=== PATIENT | female | born 1970 | race African-American/Black ===

== ENCOUNTER 2018-08-05 08:03 | Inpatient (IN) ==
[2018-08-05] MEDS ORDERED: ACETAMINOPHEN 1,000 MG/100 ML VIAL IV STA (08:25)
[2018-08-05] MEDS ORDERED: ALBUTEROL 0.083% NEBU SOLN 3 ML VIAL NEB STA (08:25)
[2018-08-05] MEDS ORDERED: SODIUM CHLORIDE 0.9% 1000ML 1,000 ML IV ONE (08:25)
--- NOTE | 2018-08-05 08:43 | Emergency Department Note ---
History of Present Illness General Chief Complaint: Shortness of Breath/Dyspnea Stated Complaint: SOB,CHEST PAINS,COUGHING,DEHYDRATION Source: patient Mode of arrival: ambulatory Limitations: no limitations History of Present Illness Provider Complaint: shortness of breath and cough Onset (ago): week(s) (2) Severity: severe Consistency/Duration: + constant Maximum Pain Intensity: 9 Current Pain Intensity: 9 Relieved By: + nothing Exacerbated By: + exertion, + coughing and + inspiration Context: + recent illness; no recent travel and no trauma/injury Known history of: asthma and HIV Associated symptoms: + chest pain, + fever, + cough, + sputum production, + hemoptysis and + chest congestion Treatment prior to arrival: bronchodilator This 48-year-old female HIV positive patient presents emergency department today , ambulatory, complaining of shortness of breath and coughing up phlegm. The patient states symptoms began 2 weeks ago. She had known fever at home. She reports significant upper respiratory infection with congestion and rhinorrhea. She states that she is having a constant chest pain which she describes as pressure in the middle of her chest. All symptoms began 2 weeks ago. The patient also reports thrush in her mouth, and states this has been consistent for the past 2 weeks. She does have a history of HIV as well as asthma. She has been taking her medications as prescribed including steroid inhalers. She saw her infectious disease doctor, Dr. Abdalla on of this week and advised of the symptoms. She states she was told at that time to come into the emergency department. She did not want to come, so waited until today. She states her last viral load was on and was 13,000. Related Data Home oxygen amount: none Home Medications Home Medications Medication Instructions Recorded Confirmed Type azithromycin 5 ml PO WK 08/05/18 08/05/18 History dapsone 100 mg PO DAILY 08/05/18 08/05/18 History darunavir-cobicistat [Prezcobix] 1 tab PO DAILY 08/05/18 08/05/18 History dolutegravir [Tivicay] 50 mg PO DAILY 08/05/18 08/05/18 History levothyroxine [Synthroid] 125 mcg PO DAILY 08/05/18 08/05/18 History pantoprazole [Protonix] 40 mg PO DAILY 08/05/18 08/05/18 History raltegravir [Isentress] 400 mg PO BID 08/05/18 08/05/18 History tenofovir disoproxil fumarate 300 mg PO DAILY 08/05/18 08/05/18 History [Viread] voriconazole 200 mg PO BID 08/05/18 08/05/18 History Allergies Allergy/AdvReac Type Severity Reaction Status Date / Time Penicillins AdvReac Unknown Rash Unverified 08/05/18 10:12 Past Med/Surg History Medical History Asthma HIV (human immunodeficiency virus infection) Social History Current Living Situation: Family Current Living Situation Comment: lives with daughter Other Information That Helps Us Care for You: No Feels Safe at Home: Yes Safety Concerns: Feels Safe At This Time Smoking Status: Never smoker Do You Dip or Chew Tobacco: No Second Hand Exposure: No Tobacco Cessation Education Requested by Patient: No Hx Alcohol Use: No Hx Substance Use: No Beliefs That Will Affect Care: Scientologist Scientologist Beliefs: wishes to speak to clergy Preferred Language: Telugu Communication Ability: Effective Slip Cover Sewer Required: No Review of Systems A total of 10 systems reviewed and were otherwise negative Physical Exam 2 Vital Signs: Vital Signs - 24 hr 08/05/18 08:07 08/05/18 08:29 08/05/18 08:32 Temperature 38.6 C H Temperature Source Oral Sepsis Recent Feve r Within 48 Hours No Sepsis New/Unexpla ined Change in Men katharina Status No Sepsis Action Take n by Nursing No Action Required Pulse Rate 113 H Pulse Rate [Apical ] Pulse Rhythm Pulse Rhythm [Apic al] Pulse Strength [Ap ical] Respiratory Rate 20 Respiratory Effort / Characteristics Short of Breath Respiratory Depth Normal Respiratory Patter n Regular Blood Pressure 101/61 Blood Pressure [Ri ght Arm] Blood Pressure Michelle n 74 Blood Pressure Michelle n [Right Arm] Blood Pressure Pos ition [Right Arm] Pulse Oximetry 100 100 Oxygen Delivery Me thod Room Air Room Air Room Air 08/05/18 08:33 08/05/18 08:52 08/05/18 09:44 Temperature Temperature Source Sepsis Recent Feve r Within 48 Hours Sepsis New/Unexpla ined Change in Men katharina Status Sepsis Action Take n by Nursing Pulse Rate 105 H Pulse Rate [Apical ] 104 H Pulse Rhythm Regular Pulse Rhythm [Apic al] Regular Regular Pulse Strength [Ap ical] Normal Normal Respiratory Rate 22 22 24 Respiratory Effort / Characteristics Short of Breath Short of Breath Respiratory Depth Normal Normal Respiratory Patter n Blood Pressure Blood Pressure [Ri ght Arm] 123/78 117/66 Blood Pressure Michelle n Blood Pressure Michelle n [Right Arm] 93 83 Blood Pressure Pos ition [Right Arm] Sitting Pulse Oximetry 100 100 100 Oxygen Delivery Me thod Room Air Room Air Room Air 08/05/18 09:45 08/05/18 10:20 08/05/18 11:10 Temperature Temperature Source Sepsis Recent Feve r Within 48 Hours Sepsis New/Unexpla ined Change in Men katharina Status Sepsis Action Take n by Nursing Pulse Rate Pulse Rate [Apical ] 92 H Pulse Rhythm Pulse Rhythm [Apic al] Regular Pulse Strength [Ap ical] Normal Respiratory Rate 22 Respiratory Effort / Characteristics Short of Breath Spontaneous SOB on Exertion Respiratory Depth Normal Normal Respiratory Patter n Regular Blood Pressure Blood Pressure [Ri ght Arm] 118/62 Blood Pressure Michelle n Blood Pressure Michelle n [Right Arm] 80 Blood Pressure Pos ition [Right Arm] Pulse Oximetry 100 98 Oxygen Delivery Me thod Room Air Room Air Room Air 08/05/18 12:07 08/05/18 12:09 08/05/18 15:13 Temperature 36.9 C 36.1 C L Temperature Source Oral Axillary Sepsis Recent Feve r Within 48 Hours Sepsis New/Unexpla ined Change in Men katharina Status Sepsis Action Take n by Nursing Pulse Rate 96 H Pulse Rate [Apical ] 95 H 67 Pulse Rhythm Pulse Rhythm [Apic al] Pulse Strength [Ap ical] Respiratory Rate 18 22 16 Respiratory Effort / Characteristics Respiratory Depth Respiratory Patter n Blood Pressure 102/56 L Blood Pressure [Ri ght Arm] 91/54 L 91/54 L Blood Pressure Michelle n Blood Pressure Michelle n [Right Arm] 66 66 Blood Pressure Pos ition [Right Arm] Sitting Pulse Oximetry 98 97 99 Oxygen Delivery Me thod Room Air Room Air Room Air 08/05/18 15:50 08/05/18 16:00 Temperature Temperature Source Sepsis Recent Feve r Within 48 Hours Sepsis New/Unexpla ined Change in Men katharina Status Sepsis Action Take n by Nursing Pulse Rate Pulse Rate [Apical ] 67 Pulse Rhythm Pulse Rhythm [Apic al] Pulse Strength [Ap ical] Respiratory Rate 16 Respiratory Effort / Characteristics Non-Labored Sponta neous Non-Labored Sponta neous Respiratory Depth Normal Respiratory Patter n Regular Blood Pressure Blood Pressure [Ri ght Arm] Blood Pressure Michelle n Blood Pressure Michelle n [Right Arm] Blood Pressure Pos ition [Right Arm] Pulse Oximetry 99 Oxygen Delivery Me thod Room Air Room Air Physical Exam: VITALS: Vitals are noted on the nurse's note and reviewed by myself. The patient is tachycardic and borderline hypotensive. GENERAL: This is a 48-year-old black female, in no acute distress, diaphoretic, cachectic, and ill-appearing. SKIN: The skin was without rashes, erythema, edema, or bruising. There is no tenting of the skin. Capillary reflex less than 2 seconds. HEAD: Normocephalic atraumatic. EARS: External auditory canals clear, tympanic membranes pearly kimball without erythema or effusion bilaterally. EYES: Pupils equal round and reactive to light and accommodation. Conjunctivae without injection, sclerae without icterus. Extraocular movements intact. NOSE: Patent, turbinates without inflammation or discharge. No sinus tenderness. MOUTH: Mucous membranes dry. Tonsils are not enlarged. Thrush noted throughout the tongue, oral cavity, and pharynx. Uvula midline. Airway patent. Tongue does not deviate. NECK: Supple without nuchal rigidity. No lymphadenopathy. No thyromegaly. Cervical spine is nontender. No JVD. HEART: Regular rate and rhythm without murmurs gallops or rubs. LUNGS: Clear to auscultation bilaterally without wheezes, rales or rhonchi. No dullness to percussion. No retractions or accessory muscle use. ABDOMEN: Positive bowel sounds x 4. Normal tympanic percussion. Soft, nontender, without masses or organomegaly. Forrester sign negative. No guarding or rebound tenderness. MUSCULOSKELETAL: No muscle atrophy, erythema, or edema noted. Full range of motion without joint tenderness in all extremities. No tenderness to palpation. Normal gait. Strength 5/5 throughout. NEURO: Patient was alert and oriented to person place and time. Normal sensation to light and sharp touch. Deep tendon reflexes 2+ throughout. No focal neurological deficits. Course The patient was seen and evaluated as above. IV access obtained, labs drawn. The patient was given IV acetaminophen, NSS, and Albuterol nebulizer Imaging performed and reviewed by myself and radiologist as above. Labs reviewed by myself. I discussed the findings with the patient at bedside. I discussed the case with my attending. The patient was given Cefepime and Azithromycin. I discussed the case with Dr. Macias. Please see his dictation regarding admission and further management/care. Administered Medications Albuterol (Duoneb) 3 ml NEB QIDR ROSMERY Stop: 09/04/18 13:14 Last Admin: 08/05/18 15:54 Dose: Not Given Admin: 08/05/18 15:50 Dose: 3 ml Ioversol (Optiray 320 125ml) 119 ml IV ONCE PRN PRN Reason: Interaction Checking Stop: 08/09/18 10:45 Last Admin: 08/05/18 10:46 Dose: 119 ml Miscellaneous (Order Awaiting Action) 1 ea N/A QS ROSMERY Stop: 09/04/18 15:59 Last Admin: 08/05/18 15:13 Dose: Not Given Miscellaneous (Order Awaiting Action) 1 ea N/A QS ROSMERY Stop: 09/04/18 15:59 Last Admin: 08/05/18 15:13 Dose: Not Given Miscellaneous (Order Awaiting Action) 1 ea N/A QS ROSMERY Stop: 09/04/18 15:59 Last Admin: 08/05/18 15:13 Dose: Not Given Discontinued Medications Albuterol (Ventolin 0.083% 2.5mg/3ml) 2.5 mg NEB NOW STA Stop: 08/05/18 08:26 Last Admin: 08/05/18 09:20 Dose: 2.5 mg Cefepime HCl (Maxipime) Confirm Administered Dose 2,000 mg .ROUTE .STK-MED ONE Stop: 08/05/18 10:46 Last Admin: 08/05/18 10:52 Dose: 2,000 mg Enoxaparin Sodium (Lovenox) 30 mg SQ Q24H ROSMERY Stop: 09/04/18 13:59 Last Admin: 08/05/18 14:01 Dose: Not Given Acetaminophen (Ofirmev) 1,000 mg in 100 mls @ 400 mls/hr IV NOW STA Stop: 08/05/18 08:39 Last Infusion: 08/05/18 10:04 Dose: Admin: 08/05/18 09:20 Dose: 400 mls/hr Sodium Chloride (Nss 1000ml) 1,000 mls @ 999 mls/hr IV .Q1H1M ONE Stop: 08/05/18 09:25 Last Infusion: 08/05/18 11:44 Dose: Admin: 08/05/18 09:19 Dose: 999 mls/hr Cefepime HCl 2,000 mg/ Syringe 20 mls @ 5.5 mls/min IV NOW STA Stop: 08/05/18 10:16 Last Admin: 08/05/18 11:06 Dose: Not Given Azithromycin 500 mg/ Dextrose 255 mls @ 127.5 mls/hr IV 1013 ROSMERY Stop: 08/05/18 12:12 Last Infusion: 08/05/18 13:02 Dose: 0 mls/hr Admin: 08/05/18 10:53 Dose: 127.5 mls/hr Medical Decision Making Differential Diagnosis + acute exacerbation of chronic obstructive airways disease, + congestive heart failure, + community acquired pneumonia, + asthma with exacerbation, + pulmonary embolism, + COPD, + bronchitis, + pneumothorax, + pneumonia, + pleural effusion, + CHF, + ACS and + aspiration Medical Records Attestation: I reviewed the patient's medical records. The patient was seen on of this week by Dr. Abdalla, infectious disease. She did have labs performed outpatient which were reviewed by myself. This documentation was placed on the patient's chart for further review by the inpatient team. Home Medications Current Medication List: was personally reviewed by me Laboratory Data Attestation: I reviewed the patient's lab results. White blood cell 2.24 and neutropenic. The patient is anemic with a hemoglobin of 9.6. This is chronic. Renal, hepatic function and electrolytes without significant abnormality. Troponin and CK-MB negative. TSH normal. Lipase 245. Coags show slightly elevated INR at 1.5. Lactic acid 1.9. HCG and mono screen negative. Result diagrams: 08/05/18 09:15 08/05/18 09:15 Lab Results 08/05/18 08/05/18 08/05/18 Range/Units 09:00 09:15 09:15 WBC 2.24 L (4.8-10.8) K/uL RBC 3.94 L (4.2-5.4) M/uL Hgb 9.6 L (12.0-16.0) g/dL POC Hgb (12.0-16.0) g/dl Hct 28.7 L (37-47) % POC Hct (37-47) % MCV 72.8 L (80-100) fL MCH 24.4 L (25-34) pg MCHC 33.4 (32-36) g/dL RDW Std Deviation 49.4 H (36.4-46.3) fL RDW Coeff of Ale 18.5 H (11.5-14.5) % Plt Count 274 (130-400) K/uL MPV 10.6 H (7.4-10.4) fL Immature Gran % (Auto) 0.9 % Neut % (Auto) 58.5 % Lymph % (Auto) 17.9 % Victoria % (Auto) 20.5 % Eos % (Auto) 1.8 % Baso % (Auto) 0.4 % Immature Gran # (Auto) 0.02 (0.00-0.02) K/uL Neut # (Auto) 1.31 L (1.4-6.5) K/uL Lymph # (Auto) 0.40 L (1.2-3.4) K/uL Victoria # (Auto) 0.46 (0.11-0.59) K/uL Eos # (Auto) 0.04 (0-0.5) K/uL Baso # (Auto) 0.01 (0-0.2) K/uL Giant Platelets 2+ Target Cells 1+ Ovalocytes 2+ Schistocytes 1+ PT (9.0-12.0) Seconds INR (0.9-1.1) APTT (21.0-31.0) Seconds PTT Ratio POC Sodium (135-144) mEq/L Sodium 134 L (136-145) mmol/L POC Potassium (3.3-5.0) mEq/L Potassium 3.7 (3.5-5.1) mmol/L POC Chloride (101-112) mEq/L Chloride 103 (98-107) mmol/L Carbon Dioxide 25 (21-32) mmol/L POC Total CO2 (24-31) mEq/l Anion Gap 6.0 (3-11) POC Anion Gap (16-25) mmol/L POC BUN (7-18) mg/dl BUN 11 (7-18) mg/dl Creatinine 0.87 (0.6-1.2) mg/dl POC Creatinine (0.6-1.3) mg/dl Est Cr Clr Drug Dosing 62.4 ml/min Est GFR ( Amer) 91.3 Est GFR (Non-Af Amer) 78.8 BUN/Creatinine Ratio 12.6 (10-20) Glucose 92 (70-99) mg/dl POC Glucose (other) (70-99) mg/dl Lactate (0.4-2.0) mmol/L Calcium 8.2 L (8.5-10.1) mg/dl POC Ioniz Calcium Mello (1.12-1.32) mmol/l Total Bilirubin 0.5 (0.2-1) mg/dl AST 19 (15-37) U/L ALT 13 (12-78) U/L Alkaline Phosphatase 120 H (45-117) U/L CK-MB (CK-2) < 1.0 (0.5-3.6) ng/ml Troponin I < 0.015 (0-0.045) ng/ml Total Protein 8.9 H (6.4-8.2) gm/dl Albumin 2.3 L (3.4-5.0) gm/dl Globulin 6.6 H (2.5-4.0) gm/dl Albumin/Globulin Ratio 0.3 L (0.9-2) Lipase 245 (73-393) U/L TSH 0.527 (0.300-4.500) uIu/ml HCG, Qual (Negative) Urine Color Urine Appearance (Clear) Urine pH (4.5-7.5) Ur Specific [place] (1.000-1.030) Urine Protein (Negative) Urine Glucose (UA) (Negative) Urine Ketones (Negative) Urine Blood (Negative) Urine Nitrite (Negative) Urine Bilirubin (Negative) Urine Urobilinogen (Negative) Ur Leukocyte Esterase (Negative) Urine Opiates Screen (Neg) Ur Methadone, Qual (Neg) Urine Barbiturates (Neg) Ur Phencyclidine (PCP) (Neg) U Amphetamin/Meth Scrn (Neg) MDMA (Ecstasy) Screen (Neg) U Benzodiazepines Scrn (Neg) Ur Cocaine Metabolite (Neg) U Marijuana (THC) Screen (Neg) Monoscreen (Negative) Influenza Type A Ag Neg for Influ A (Neg) Influenza Type B Ag Neg for Influ B (Neg) 08/05/18 08/05/18 08/05/18 Range/Units 09:15 09:15 09:15 WBC (4.8-10.8) K/uL RBC (4.2-5.4) M/uL Hgb (12.0-16.0) g/dL POC Hgb (12.0-16.0) g/dl Hct (37-47) % POC Hct (37-47) % MCV (80-100) fL MCH (25-34) pg MCHC (32-36) g/dL RDW Std Deviation (36.4-46.3) fL RDW Coeff of Ale (11.5-14.5) % Plt Count (130-400) K/uL MPV (7.4-10.4) fL Immature Gran % (Auto) % Neut % (Auto) % Lymph % (Auto) % Victoria % (Auto) % Eos % (Auto) % Baso % (Auto) % Immature Gran # (Auto) (0.00-0.02) K/uL Neut # (Auto) (1.4-6.5) K/uL Lymph # (Auto) (1.2-3.4) K/uL Victoria # (Auto) (0.11-0.59) K/uL Eos # (Auto) (0-0.5) K/uL Baso # (Auto) (0-0.2) K/uL Giant Platelets Target Cells Ovalocytes Schistocytes PT 14.4 H (9.0-12.0) Seconds INR 1.5 H (0.9-1.1) APTT 33.2 H (21.0-31.0) Seconds PTT Ratio 1.3 POC Sodium (135-144) mEq/L Sodium (136-145) mmol/L POC Potassium (3.3-5.0) mEq/L Potassium (3.5-5.1) mmol/L POC Chloride (101-112) mEq/L Chloride (98-107) mmol/L Carbon Dioxide (21-32) mmol/L POC Total CO2 (24-31) mEq/l Anion Gap (3-11) POC Anion Gap (16-25) mmol/L POC BUN (7-18) mg/dl BUN (7-18) mg/dl Creatinine (0.6-1.2) mg/dl POC Creatinine (0.6-1.3) mg/dl Est Cr Clr Drug Dosing ml/min Est GFR ( Amer) Est GFR (Non-Af Amer) BUN/Creatinine Ratio (10-20) Glucose (70-99) mg/dl POC Glucose (other) (70-99) mg/dl Lactate 1.9 (0.4-2.0) mmol/L Calcium (8.5-10.1) mg/dl POC Ioniz Calcium Mello (1.12-1.32) mmol/l Total Bilirubin (0.2-1) mg/dl AST (15-37) U/L ALT (12-78) U/L Alkaline Phosphatase (45-117) U/L CK-MB (CK-2) (0.5-3.6) ng/ml Troponin I (0-0.045) ng/ml Total Protein (6.4-8.2) gm/dl Albumin (3.4-5.0) gm/dl Globulin (2.5-4.0) gm/dl Albumin/Globulin Ratio (0.9-2) Lipase (73-393) U/L TSH (0.300-4.500) uIu/ml HCG, Qual Negative (Negative) Urine Color Urine Appearance (Clear) Urine pH (4.5-7.5) Ur Specific [place] (1.000-1.030) Urine Protein (Negative) Urine Glucose (UA) (Negative) Urine Ketones (Negative) Urine Blood (Negative) Urine Nitrite (Negative) Urine Bilirubin (Negative) Urine Urobilinogen (Negative) Ur Leukocyte Esterase (Negative) Urine Opiates Screen (Neg) Ur Methadone, Qual (Neg) Urine Barbiturates (Neg) Ur Phencyclidine (PCP) (Neg) U Amphetamin/Meth Scrn (Neg) MDMA (Ecstasy) Screen (Neg) U Benzodiazepines Scrn (Neg) Ur Cocaine Metabolite (Neg) U Marijuana (THC) Screen (Neg) Monoscreen Negative (Negative) Influenza Type A Ag (Neg) Influenza Type B Ag (Neg) 08/05/18 08/05/18 08/05/18 Range/Units 09:23 15:45 15:45 WBC (4.8-10.8) K/uL RBC (4.2-5.4) M/uL Hgb (12.0-16.0) g/dL POC Hgb 10.2 L (12.0-16.0) g/dl Hct (37-47) % POC Hct 30 L (37-47) % MCV (80-100) fL MCH (25-34) pg MCHC (32-36) g/dL RDW Std Deviation (36.4-46.3) fL RDW Coeff of Ale (11.5-14.5) % Plt Count (130-400) K/uL MPV (7.4-10.4) fL Immature Gran % (Auto) % Neut % (Auto) % Lymph % (Auto) % Victoria % (Auto) % Eos % (Auto) % Baso % (Auto) % Immature Gran # (Auto) (0.00-0.02) K/uL Neut # (Auto) (1.4-6.5) K/uL Lymph # (Auto) (1.2-3.4) K/uL Victoria # (Auto) (0.11-0.59) K/uL Eos # (Auto) (0-0.5) K/uL Baso # (Auto) (0-0.2) K/uL Giant Platelets Target Cells Ovalocytes Schistocytes PT (9.0-12.0) Seconds INR (0.9-1.1) APTT (21.0-31.0) Seconds PTT Ratio POC Sodium 139 (135-144) mEq/L Sodium (136-145) mmol/L POC Potassium 3.9 (3.3-5.0) mEq/L Potassium (3.5-5.1) mmol/L POC Chloride 100 L (101-112) mEq/L Chloride (98-107) mmol/L Carbon Dioxide (21-32) mmol/L POC Total CO2 26 (24-31) mEq/l Anion Gap (3-11) POC Anion Gap 17.0 (16-25) mmol/L POC BUN 10 (7-18) mg/dl BUN (7-18) mg/dl Creatinine (0.6-1.2) mg/dl POC Creatinine 0.6 (0.6-1.3) mg/dl Est Cr Clr Drug Dosing ml/min Est GFR ( Amer) Est GFR (Non-Af Amer) BUN/Creatinine Ratio (10-20) Glucose (70-99) mg/dl POC Glucose (other) 98 (70-99) mg/dl Lactate (0.4-2.0) mmol/L Calcium (8.5-10.1) mg/dl POC Ioniz Calcium Mello 1.14 (1.12-1.32) mmol/l Total Bilirubin (0.2-1) mg/dl AST (15-37) U/L ALT (12-78) U/L Alkaline Phosphatase (45-117) U/L CK-MB (CK-2) (0.5-3.6) ng/ml Troponin I (0-0.045) ng/ml Total Protein (6.4-8.2) gm/dl Albumin (3.4-5.0) gm/dl Globulin (2.5-4.0) gm/dl Albumin/Globulin Ratio (0.9-2) Lipase (73-393) U/L TSH (0.300-4.500) uIu/ml HCG, Qual (Negative) Urine Color Yellow Urine Appearance Clear (Clear) Urine pH 6.5 (4.5-7.5) Ur Specific [place] 1.041 H (1.000-1.030) Urine Protein Negative (Negative) Urine Glucose (UA) Negative (Negative) Urine Ketones Negative (Negative) Urine Blood Negative (Negative) Urine Nitrite Negative (Negative) Urine Bilirubin Negative (Negative) Urine Urobilinogen Negative (Negative) Ur Leukocyte Esterase Negative (Negative) Urine Opiates Screen Neg (Neg) Ur Methadone, Qual Neg (Neg) Urine Barbiturates Neg (Neg) Ur Phencyclidine (PCP) Neg (Neg) U Amphetamin/Meth Scrn Neg (Neg) MDMA (Ecstasy) Screen Neg (Neg) U Benzodiazepines Scrn Neg (Neg) Ur Cocaine Metabolite Neg (Neg) U Marijuana (THC) Screen Neg (Neg) Monoscreen (Negative) Influenza Type A Ag (Neg) Influenza Type B Ag (Neg) Imaging Data Radiologist's Impression: XR chest 1V portable CLINICAL HISTORY: Cough. COMPARISON STUDY: No previous studies for comparison. FINDINGS: There is no pneumothorax. There is a possible trace left pleural effusion. Cardiac size is normal. Mediastinal contours are normal. Bilateral airspace opacities are noted, more evident within the right lung. There is no evidence for pulmonary edema. IMPRESSION: Moderate bilateral airspace opacities, greater within the right lung. The findings favor multifocal pneumonia. Radiographic follow-up to ensure resolution is recommended. Electronically signed by: Phillip Horn M.D. 08/05/2018 9:[address] ANGIOGRAPHY OF THE CHEST, PULMONARY EMBOLUS PROTOCOL CLINICAL HISTORY: dyspnea, tachycardia, chest pain COMPARISON STUDY: Chest radiograph performed earlier today. TECHNIQUE: Following IV administration of 119 mL of Optiray-320, helical axial images of the chest were obtained utilizing the pulmonary embolus protocol. Maximal intensity projections and sagittal and coronal reformats were viewed on an independent 3D workstation. IV contrast was administered without complication. Automated exposure control was utilized for the study. A dose lowering technique was utilized adhering to the principles of ALARA. CT DOSE: 212.18 mGy.cm FINDINGS: No pulmonary emboli are identified although the segmental and subsegmental pulmonary arteries are suboptimally assessed due to respiratory motion. The size of the heart is normal. There is no thoracic aortic dissection. There is right middle lobe collapse. No central obstructing mass is identified. Extensive airspace opacity is noted within the anterior segment of the right upper lobe. There are additional airspace opacities throughout the lungs. The findings suggest pneumonia. Lungs are suboptimally assessed due to respiratory motion. There is bronchial wall thickening and mucus plugging. Bony thorax is unremarkable. Mildly enlarged right hilar lymph nodes are present. There is an apparent 2.2 cm hypodense segment 8 hepatic lesion. This could be artifactual. IMPRESSION: 1. No pulmonary emboli identified although segmental and subsegmental pulmonary arteries suboptimally assessed due to respiratory motion. 2. Multifocal consolidation, most evident within the anterior segment of the right upper lobe. The findings suggest multifocal pneumonia. Follow-up chest CT in one to 2 months to ensure resolution is recommended. 3. Age indeterminate right middle lobe atelectasis with no central obstructing lesion identified. This can be assessed assessed on follow-up CT. 4. Mild right hilar lymphadenopathy which is likely reactive but can be assessed on follow-up CT. 5. Apparent 2.2 cm hypodense segment 8 hepatic lesion. A follow-up nonemergent right upper quadrant ultrasound is recommended. Electronically signed by: Phillip Horn M.D. 08/05/2018 11:02 AM ECG Data Attestation: I personally reviewed and interpreted this ECG as follows: Prior ECG tracings: not available for review Interpretation: Normal sinus rhythm ventricular rate of 99. No acute ischemic changes. Minimal voltage criteria for LVH, suspected to be normal. No ectopy. No prior EKG available. Blood Pressure Blood Pressure Findings: Normal blood pressure MDM Narrative This 48-year-old female significant past medical history of HIV with a CD4 count of 2 complaining of pleuritic chest pain, dyspnea, and coughing up blood- tinged sputum. Patient states she has had URI symptoms for approximately 1 week and the dyspnea and cough has progressed. She saw her infectious disease specialist on of this week and was encouraged to come to the emergency department for possible admission due to her URI symptoms and very low CD4 count. The patient declined at that time, but states with symptoms progressing , she decided to come today. The patient denies any known fever, but is febrile here in the ED at 38.6. She is tachycardic and borderline hypotensive. On my examination, the patient was coughing up a significant amount of bloody sputum, so we did feel that performing a CT scan would be appropriate for work- up. Evidence of multifocal pneumonia, but no PE on scan. Labs concerning for leukopenia and anemia. Given the patient's medical history, noncompliance with her HIV medications, immunocompromise state, and findings of multifocal pneumonia, and do feel she would be best managed in the hospital with IV antibiotics. I did discuss the case and work extremely closely with my attending physician. I discussed the case with the hospitalist physician who did agreed to the admission. Please see his dictation regarding further management care of this patient. The chart was completed utilizing [employer] Speech voice recognition software. Grammatical errors, random word insertions, pronoun errors, and incomplete sentences are an occasional consequence of this system due to software limitations, ambient noise, and hardware issues. Any formal questions or concerns about the content, text, or information contained within the body of this dictation should be directly addressed to the provider for clarification. Attending Attestation: I Michelet Rajput MD independently saw and evaluated this patient and agree with history and physical is otherwise documented by the physician delinquent tax collector assistant. See their note for full details. Impression & Plan HIV (human immunodeficiency virus infection), Asthma, Pneumonia Discharge Plan Visit Data *Final* Discharge Date/Time: 08/05/18 12:09 Chief Complaint: Shortness of Breath/Dyspnea Stated Complaint: SOB,CHEST PAINS,COUGHING,DEHYDRATION ED Provider: Michelet Rajput ED Midlevel Provider: Joanna Scott Discharge Problem: HIV (human immunodeficiency virus infection), Asthma, Pneumonia Patient Disposition: Admitted As Inpatient Discharge Instructions Interventions: ED Discharge Assessment Last Done: 08/05/18 12:09
--- NOTE | 2018-08-05 09:11 | XRay Report ---
XR chest 1V portable CLINICAL HISTORY: Cough. COMPARISON STUDY: No previous studies for comparison. FINDINGS: There is no pneumothorax. There is a possible trace left pleural effusion. Cardiac size is normal. Mediastinal contours are normal. Bilateral airspace opacities are noted, more evident within the right lung. There is no evidence for pulmonary edema. IMPRESSION: Moderate bilateral airspace opacities, greater within the right lung. The findings favor multifocal pneumonia. Radiographic follow-up to ensure resolution is recommended. Electronically signed by: Phillip Horn M.D. 08/05/2018 9:10 AM
[2018-08-05 09:34] LABS: Hematocrit (blood only) 28.7 % (37-47); Hemoglobin 9.6 g/dL (12.0-16.0); Mean Corpuscular Hgb Conc 33.4 g/dL (32-36); Mean Corpuscular Volume 72.8 fL (80-100); Mean Platelet Volume 10.6 fL (7.4-10.4); Platelet Count 274 K/uL (130-400); RDW Coefficient of Variation 18.5 % (11.5-14.5); RDW Standard Deviation 49.4 fL (36.4-46.3); Red Blood Count 3.94 M/uL (4.2-5.4); White Blood Count 2.24 K/uL (4.8-10.8)
[2018-08-05 09:37] LABS: iSTAT Hemoglobin 10.2 g/dl (12.0-16.0); iSTAT Ionized Calcium 1.14 mmol/l (1.12-1.32)
[2018-08-05 09:44] LABS: INR 1.5 (0.9-1.1); Partial Thromboplastin Ratio 1.3; Partial Thromboplastin Time 33.2 Seconds (21.0-31.0); Prothrombin Time 14.4 Seconds (9.0-12.0)
[2018-08-05 09:51] LABS: Alanine Aminotransferase 13 U/L (12-78); Albumin Level 2.3 gm/dl (3.4-5.0); Aspartate Aminotransferase 19 U/L (15-37); BUN Creatinine Ratio 12.6 (10-20); Blood Urea Nitrogen 11 mg/dl (7-18); Calcium 8.2 mg/dl (8.5-10.1); Carbon Dioxide 25 mmol/L (21-32); Chloride 103 mmol/L (98-107); Creatinine Clr Calc Pharmacy 62.4 ml/min; Est GFR (African American) 91.3; Est GFR (Non-African American) 78.8; Glucose 92 mg/dl (70-99); Potassium 3.7 mmol/L (3.5-5.1); Sodium 134 mmol/L (136-145)
[2018-08-05 10:02] LABS: Albumin Globulin Ratio 0.3 (0.9-2); Alkaline Phosphatase 120 U/L (45-117); Bilirubin,Total 0.5 mg/dl (0.2-1); Creatine Kinase MB < 1.0 ng/ml (0.5-3.6); Globulin 6.6 gm/dl (2.5-4.0); Total Protein 8.9 gm/dl (6.4-8.2); Troponin I < 0.015 ng/ml (0-0.045)
[2018-08-05 10:06] LABS: Pregnancy Test, Serum Negative (Negative)
[2018-08-05] MEDS ORDERED: CEFEPIME 2,000 MG in SYRINGE 7.5 ML IV STA (10:13)
[2018-08-05] MEDS ORDERED: AZITHROMYCIN 500 MG in DEXTROSE 5% 250 ML IV SCH (10:13)
[2018-08-05] MEDS ORDERED: AZITHROMYCIN 500 MG/255 ML BAG IV ONE (10:13)
[2018-08-05 10:23] LABS: Basophils # (auto) 0.01 K/uL (0-0.2); Basophils % (auto) 0.4 %; Eosinophils # (auto) 0.04 K/uL (0-0.5); Eosinophils % (auto) 1.8 %; Immature Granulocytes # (auto) 0.02 K/uL (0.00-0.02); Immature Granulocytes % (auto) 0.9 %; Lymphocytes % (auto) 17.9 %; Monocytes # (auto) 0.46 K/uL (0.11-0.59); Monocytes % (auto) 20.5 %; Neutrophils # (auto) 1.31 K/uL (1.4-6.5); Neutrophils % (auto) 58.5 %; Ovalocytes 2+; Schistocytes 1+; Target Cells 1+
[2018-08-05] MEDS ORDERED: CEFEPIME 2,000 MG/20 ML VIAL ONE (10:45)
[2018-08-05] MEDS ORDERED: OPTIRAY 320 125ml IV PRN (10:46)
--- NOTE | 2018-08-05 11:03 | CT Scan Report ---
CT ANGIOGRAPHY OF THE CHEST, PULMONARY EMBOLUS PROTOCOL CLINICAL HISTORY: dyspnea, tachycardia, chest pain COMPARISON STUDY: Chest radiograph performed earlier today. TECHNIQUE: Following IV administration of 119 mL of Optiray-320, helical axial images of the chest we re obtained utilizing the pulmonary embolus protocol. Maximal intensity projections and sagittal and coronal reformats were viewed on an independent 3D workstation. IV contrast was administered withou t complication. Automated exposure control was utilized for the study. A dose lowering technique wa s utilized adhering to the principles of ALARA. CT DOSE: 212.18 mGy.cm FINDINGS: No pulmonary emboli are identified although the segmental and subsegmental pulmonary arter ies are suboptimally assessed due to respiratory motion. The size of the heart is normal. There is no thoracic aortic dissection. There is right middle lobe collapse. No central obstructing mass is iden tified. Extensive airspace opacity is noted within the anterior segment of the right upper lobe. Ther e are additional airspace opacities throughout the lungs. The findings suggest pneumonia. Lungs are s uboptimally assessed due to respiratory motion. There is bronchial wall thickening and mucus plugging . Bony thorax is unremarkable. Mildly enlarged right hilar lymph nodes are present. There is an appar ent 2.2 cm hypodense segment 8 hepatic lesion. This could be artifactual. IMPRESSION: 1. No pulmonary emboli identified although segmental and subsegmental pulmonary arteries suboptimally assessed due to respiratory motion. 2. Multifocal consolidation, most evident within the anterior segment of the right upper lobe. The fi ndings suggest multifocal pneumonia. Follow-up chest CT in one to 2 months to ensure resolution is re commended. 3. Age indeterminate right middle lobe atelectasis with no central obstructing lesion identified. Thi s can be assessed assessed on follow-up CT. 4. Mild right hilar lymphadenopathy which is likely reactive but can be assessed on follow-up CT. 5. Apparent 2.2 cm hypodense segment 8 hepatic lesion. A follow-up nonemergent right upper quadrant u ltrasound is recommended. Electronically signed by: Phlilip Horn M.D. 08/05/2018 11:02 AM
--- NOTE | 2018-08-05 11:54 | History & Physical Report ---
Date of Service August 05, 2018 Assessment & Plan (1) Pneumonia: 48 y/o F Hx HIV+ - noncompliant with medications. She currently has a CD4 of 1 and a VL of 120K. She has had upper respiratory symptoms for nearly a week. She had been to her primary MDs office on [address] and was instructed to proceed to the ER but did not do so. He SOB has progressed and she has BL pleuritic CP and blood streaked sputum. She is also currently being treated for severe thrush with Voriconazole. She takes prophylactic Dapsone and Zithromax although she had missed her Zithromax this wk. CXR is consistent with multifocal PNM. 1) Pneumonia - placed on Cefepime and Zithro, scheduled nebs, 02 as needed. Sputum culture requested. 2) HIV/noncompliance - we will maintain her on her antiretrovirals - due to PNM , thrush, immunocompromised state we have consulted ID 3) Thrush - cont Voriconazole - states this is normally effective for her 4) The pt is malnourished - we will provide supplements with her meals Full code - SCDs due to blood-streaked sputum Total time for this admit including review of labs, meds, imaging, records - discussion with pt and ER attending 39 min Present on Admission?: Yes History of Present Illness Chief Complaint: SHORTNESS OF BREATH Primary Care Provider: NO PCP 48 y/o F Hx HIV+ - noncompliant with medications. She currently has a CD4 of 1 and a VL of 120K. She has had upper respiratory symptoms for nearly a week. She had been to her primary MDs office on [address] and was instructed to proceed to the ER but did not do so. He SOB has progressed and she has BL pleuritic CP and blood streaked sputum. She is also currently being treated for severe thrush with Voriconazole. She takes prophylactic Dapsone and Zithromax although she had missed her Zithromax this wk. CXR is consistent with multifocal PNM. PMH: HIV + - noncompliant with medications Asthma Surgical: L lung thoracentesis C section Social: Denies drinking or smoking Family: States both parents are alive and well Allergies Allergy/AdvReac Type Severity Reaction Status Date / Time Penicillins AdvReac Unknown Rash Unverified 08/05/18 10:12 Home Medications Home Medications Medication Instructions Recorded Confirmed Type azithromycin 5 ml PO WK 08/05/18 08/05/18 History dapsone 100 mg PO DAILY 08/05/18 08/05/18 History darunavir-cobicistat [Prezcobix] 1 tab PO DAILY 08/05/18 08/05/18 History dolutegravir [Tivicay] 50 mg PO DAILY 08/05/18 08/05/18 History levothyroxine [Synthroid] 125 mcg PO DAILY 08/05/18 08/05/18 History pantoprazole [Protonix] 40 mg PO DAILY 08/05/18 08/05/18 History raltegravir [Isentress] 400 mg PO BID 08/05/18 08/05/18 History tenofovir disoproxil fumarate 300 mg PO DAILY 08/05/18 08/05/18 History [Viread] voriconazole 200 mg PO BID 08/05/18 08/05/18 History Past Med/Surg History Medical History Asthma HIV (human immunodeficiency virus infection) Social History Current Living Situation: Family Current Living Situation Comment: lives with daughter Other Information That Helps Us Care for You: No Feels Safe at Home: Yes Safety Concerns: Feels Safe At This Time Smoking Status: Never smoker Do You Dip or Chew Tobacco: No Second Hand Exposure: No Tobacco Cessation Education Requested by Patient: No Hx Alcohol Use: No Hx Substance Use: No Beliefs That Will Affect Care: Zoroastrianism Zoroastrianism Beliefs: wishes to speak to clergy Preferred Language: Greenlandic Communication Ability: Effective Hand Or Machine Paster Required: No Review of Systems Gen: Describes fevers and sweats, generalized weakness ENT: Throat discomfort due to thrush Eyes: Denies acute visual changes CV: Denies CP, palpitations Pulmonary: + SOB, productive cough GI: Denies N/V, diarrhea, constipation Neuro: Denies acute or unilateral weakness, acute gait impairment, headache or acute visual changes Musculoskeletal: Denies joint pain, inflammation Endocrine: Denies polydipsia, polyuria Skin: Denies acute rashes or ulcers Physical Exam 2 Vital Signs (Past 24 Hours): Last Vital Signs Temp 38.6 C H 08/05/18 08:07 Pulse 92 H 08/05/18 10:20 Resp 22 08/05/18 10:20 BP 118/62 08/05/18 10:20 Pulse Ox 98 08/05/18 10:20 Physical Exam: General: Emaciated, middle-aged F, AAO x 3, no distress ENT: Raging thrush in mouth descending into throat - poor dentition Eyes: ANNIE, EOMI Head and neck: Normocephalic, atraumatic, No JVD, neck is supple. Chest/heart: Nontender, S1,2, RRR, no murmurs, no gallops Lungs: Decreased air movement without clear crackles or wheezing Abdomen: Nontender, nondistended, BS+ Neuro: AAO x 3, speech is clear, no unilateral weakness or loss of sensation, coordination intact Musculoskeletal: No joint inflammation, muscle tenderness, FROM - widespread muscle wasting Skin: No acute rashes or ulcers Extremities: No clubbing, cyanosis, edema
[2018-08-05] MEDS ORDERED: MAGNESIUM HYDROXIDE SUSP 30 ML UDC PO PRN (12:33)
[2018-08-05] MEDS ORDERED: LEVALBUTEROL 1.25MG/0.5ML NEB NEB PRN (12:33)
[2018-08-05] MEDS ORDERED: POLYETHYLENE (MIRALAX) 17 GM PACK PO PRN (12:33)
[2018-08-05] MEDS ORDERED: ALUMINUM/MAGNESIUM SUSP 30 ML UDC PO PRN (12:33)
[2018-08-05] MEDS ORDERED: ACETAMINOPHEN 325 MG TAB PO PRN (12:33)
[2018-08-05] MEDS ORDERED: ZOLPIDEM TARTRATE 5 MG TAB PO PRN (12:33)
[2018-08-05] MEDS ORDERED: ENOXAPARIN INJ 30 MG/0.3 ML SYR SQ SCH (14:00)
[2018-08-05] MEDS: ALBUT/IPRATROP 3MG/0.5MG NEB 3 ML VIAL NEB SCH ×3 (15:50→20:00)
[2018-08-05 16:16] LABS: Amphetamines+Metham, Urine Neg (Neg); Barbiturates, Urine Neg (Neg); Benzodiazepine, Urine Neg (Neg); Cocaine, Urine Neg (Neg); MDMA (Ecstacy), Urine Neg (Neg); Methadone, Urine Neg (Neg); Opiate, Urine Neg (Neg); Phencyclidine, Urine Neg (Neg)
[2018-08-05 17:34] LABS: Appearance Urine Clear (Clear); Bilirubin Urine Negative (Negative); Color Urine Yellow; Glucose Urine UA Negative (Negative); Ketones Urine Negative (Negative); Leukocyte Esterase Urine Negative (Negative); Nitrite Urine Negative (Negative); Protein Urine Negative (Negative); Specific Gravity Urine 1.041 (1.000-1.030); Urobilinogen Urine Negative (Negative); pH Urine 6.5 (4.5-7.5)
[2018-08-05] MEDS: CEFEPIME 1,000 MG in SYRINGE 0 ML IV SCH (18:35)
[2018-08-05] MEDS: VORICONAZOLE 200 MG TABLET PO SCH ×2 (21:01→21:59)
[2018-08-05] MEDS: RALTEGRAVIR POTASSIUM 400 MG TAB PO SCH (21:01)
[2018-08-05] MEDS ORDERED: ACETAMINOPHEN SOL 650 MG/20.3 ML UDC PO PRN (23:12)
[2018-08-05] MEDS ORDERED: ACETAMINOPHEN 1,000 MG/100 ML VIAL IV PRN (23:51)
[2018-08-06] MEDS: CEFEPIME 1,000 MG in SYRINGE 0 ML IV SCH ×3 (01:11→18:57)
[2018-08-06 06:31] LABS: Basophils # (auto) 0.01 K/uL (0-0.2); Basophils % (auto) 0.3 %; Eosinophils # (auto) 0.15 K/uL (0-0.5); Eosinophils % (auto) 4.3 %; Hemoglobin 9.4 g/dL (12.0-16.0); Immature Granulocytes # (auto) 0.08 K/uL (0.00-0.02); Immature Granulocytes % (auto) 2.3 %; Lymphocytes # (auto) 0.49 K/uL (1.2-3.4); Lymphocytes % (auto) 14.2 %; Mean Corpuscular Hgb Conc 33.6 g/dL (32-36); Mean Corpuscular Volume 74.1 fL (80-100); Monocytes # (auto) 0.93 K/uL (0.11-0.59); Neutrophils # (auto) 1.79 K/uL (1.4-6.5); Neutrophils % (auto) 51.9 %; Platelet Count 247 K/uL (130-400); RDW Coefficient of Variation 18.9 % (11.5-14.5); RDW Standard Deviation 50.5 fL (36.4-46.3); Red Blood Count 3.78 M/uL (4.2-5.4); White Blood Count 3.45 K/uL (4.8-10.8)
[2018-08-06] MEDS: LEVOTHYROXINE SODIUM 125 MCG TABLET PO SCH (06:38)
[2018-08-06 07:08] LABS: BUN Creatinine Ratio 15.2 (10-20); Calcium 8.3 mg/dl (8.5-10.1); Creatinine Clr Calc Pharmacy 83.5 ml/min; Est GFR (African American) 121.7; Potassium 3.9 mmol/L (3.5-5.1)
[2018-08-06] MEDS: ALBUT/IPRATROP 3MG/0.5MG NEB 3 ML VIAL NEB SCH ×4 (07:32→19:02)
[2018-08-06] MEDS: RALTEGRAVIR POTASSIUM 400 MG TAB PO SCH (07:47)
[2018-08-06] MEDS: DAPSONE 25 MG TAB PO SCH (07:47)
[2018-08-06] MEDS: PANTOprazole 40 MG TAB PO SCH (07:47)
[2018-08-06] MEDS: VORICONAZOLE 200 MG TABLET PO SCH (07:47)
[2018-08-06] MEDS ORDERED: VANCOMYCIN CONSULT ACTIVE PRN (09:44)
[2018-08-06] MEDS ORDERED: VANCOMYCIN HCL 1,000 MG in SODIUM CHLORIDE 0.9% 250 ML IV SCH (09:45)
[2018-08-06] MEDS ORDERED: VANCOMYCIN HCL 1,000 MG in SODIUM CHLORIDE 0.9% 250 ML IV ONE (10:15)
[2018-08-06] MEDS: AZITHROMYCIN 500 MG in DEXTROSE 5% 250 ML IV SCH (10:49)
[2018-08-06] MEDS: ONDANSETRON INJ 2 MG/ML 2 ML VIAL IV PRN (14:05)
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
[2018-08-06] MEDS: CLOTRIMAZOLE 10 MG TROCHE BUCCAL SCH ×2 (18:57→21:51)
[2018-08-06] MEDS: SODIUM CHLORIDE 0.9% IV SCH (21:51)
[2018-08-06] MEDS: VORICONAZOLE IV SCH (21:51)
[2018-08-06] MEDS: VANCOMYCIN HCL 750 MG in SODIUM CHLORIDE 0.9% 250 ML IV SCH (21:51)
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
[2018-08-07] MEDS: ONDANSETRON INJ 2 MG/ML 2 ML VIAL IV PRN
[2018-08-07] MEDS: CEFEPIME 1,000 MG in SYRINGE 0 ML IV SCH ×3 (02:00→18:56)
[2018-08-07 05:51] LABS: Basophils # (auto) 0.02 K/uL (0-0.2); Basophils % (auto) 0.8 %; Eosinophils # (auto) 0.25 K/uL (0-0.5); Eosinophils % (auto) 10.5 %; Hematocrit (blood only) 26.5 % (37-47); Hemoglobin 8.8 g/dL (12.0-16.0); Immature Granulocytes # (auto) 0.04 K/uL (0.00-0.02); Immature Granulocytes % (auto) 1.7 %; Lymphocytes % (auto) 16.8 %; Mean Corpuscular Hgb Conc 33.2 g/dL (32-36); Mean Platelet Volume 10.2 fL (7.4-10.4); Monocytes # (auto) 0.39 K/uL (0.11-0.59); Monocytes % (auto) 16.4 %; Neutrophils # (auto) 1.28 K/uL (1.4-6.5); Neutrophils % (auto) 53.8 %; Platelet Count 241 K/uL (130-400); RDW Coefficient of Variation 18.9 % (11.5-14.5); RDW Standard Deviation 50.9 fL (36.4-46.3); Red Blood Count 3.58 M/uL (4.2-5.4); White Blood Count 2.38 K/uL (4.8-10.8)
[2018-08-07 06:14] LABS: INR 1.3 (0.9-1.1); Prothrombin Time 12.7 Seconds (9.0-12.0)
[2018-08-07] MEDS: CLOTRIMAZOLE 10 MG TROCHE BUCCAL SCH ×2 (06:15→10:35)
[2018-08-07] MEDS: LEVOTHYROXINE SODIUM 125 MCG TABLET PO SCH (06:15)
[2018-08-07 06:22] LABS: BUN Creatinine Ratio 16.6 (10-20); Bilirubin Direct 0.2 mg/dl (0-0.2); Creatinine Clr Calc Pharmacy 84.9 ml/min; Est GFR (African American) 122.3; Est GFR (Non-African American) 105.5
[2018-08-07 06:27] LABS: Bilirubin,Total 0.3 mg/dl (0.2-1); Total Protein 7.8 gm/dl (6.4-8.2)
[2018-08-07 06:47] LABS: Dohle Bodies 1+; Echinocytes 1+; Ovalocytes 1+
[2018-08-07] MEDS: ALBUT/IPRATROP 3MG/0.5MG NEB 3 ML VIAL NEB SCH (07:17)
[2018-08-07] MEDS: ENOXAPARIN INJ 40 MG/0.4 ML SYR SQ SCH (07:56)
[2018-08-07] MEDS: PANTOprazole 40 MG TAB PO SCH (08:25)
[2018-08-07] MEDS: SODIUM CHLORIDE 0.9% IV SCH ×2 (08:25→20:58)
[2018-08-07] MEDS: VORICONAZOLE IV SCH ×2 (08:25→20:58)
[2018-08-07] MEDS: DAPSONE 25 MG TAB PO SCH (08:26)
[2018-08-07 08:42] LABS: Folate (Folic Acid) 6.48 ng/ml (>5.38)
[2018-08-07] MEDS ORDERED: PHYTONADIONE 5 MG TAB PO STA (09:22)
[2018-08-07] MEDS: FERROUS SULFATE 325 MG TAB PO SCH (10:30)
[2018-08-07] MEDS: VANCOMYCIN HCL 750 MG in SODIUM CHLORIDE 0.9% 250 ML IV SCH ×2 (10:30→22:29)
[2018-08-07] MEDS: FOLIC ACID 1 MG TAB PO SCH (10:30)
--- NOTE | 2018-08-07 10:51 | Infectious Disease Consult ---
Date of Consultation August 07, 2018 Assessment & Plan (1) Pneumonia: continue IV abx. She states she has been non adherent with HARRT but denies missing doses of prophylactic meds. She is at high risk for OI with CD4 count of 2. follow cultures, may need bronch. will check LDH as this can be elevated with PCP however, she clinically does not appear to have pcp, especially with high O2 sats on RA. If worsens, would benefit from ABG. Genotype re-orderd last week, await results. viral load decreased by half on previous regimen suggesting non adherence rather than resistance as cause for viremia and low CD4 counts. will await final results. will continue with current HAART, case finishing machine adjuster can bring meds to hospital as our pharmacy does not have her current regimen available. will check IGRA as well, although may be negative or indeterminate due to severe immunosuppression. (2) HIV (human immunodeficiency virus infection): History of Present Illness Attending Physician: James Johansen pt admitted with increased sob. She was recently in office by me last week. At that visit she c/o sob as well and non productive cough- O2 sat was 99% on RA while ambulating in [place], however, it was suggested that she go to ER for eval and likely admission, but she declined. Over the weekend Sob and cough worsened and she admits to productive cough of dark yellow, ? blood tinged sputum, came to ER. CXR and CTA revealed multifocal pna with RUL infiltrate. She continues with cough but states feeling somewhat better. property worker from her assisted is present during my visit. She was started on vanco, azithro, cefepime in ER. tolerating well. on RA, O2 sats 96-100%. She denies pleuritic cp. pulm eval yesterday, holding bronch at this time. Pt is relatively new to the area (from [place]) and new to ID practice. Has been seen twice by me, first eval in 06/2018 and second visit just last week. She has a h/o HIV diagnosed in 1998, states CD4< 200 at time of diagnosis, I do not have old records to review. She states she has been on several HAART regimens over the years but recalls few details. It appears she had difficulty with transitioning from [place] to OR and was off of her meds for some time, they were restarted at her visit in Jun. She admits to taking them. I did have a viral load done in ID in 02/2018 - >10,000, no CD4. She did have repeat labs done in 06/2018 - viral load was >11,000 and CD4 2. She did have genotype ordered but was not done. At her most recent visit she expressed a desire to change HAART due to not feeling well and losing some weight over the last year. She was unable to tell me how long she was on the most recent regimen or how long she had been out of meds. After long discussion , she was changed to Tivicay with liquid formulations of lamivudine and abacavir - she states she can not swallow pills. She has not yet started this regimen but states her pharmacy should have for brain picker later today. spoke with pharmacy at [facility] yesterday, none of this meds are available here. Pt is agreeable to bring meds from home. Her viral load in the ER is improved to 5,000 , she states she continued with her previous HAART while awaiting new meds to arrive. She is tolerating them well. She states she has been on PCP prophylaxis and MAC prophylaxis for some years. States her CD4 has always been low but does not recall a level as low as current level. wbc 2.3, blood cultures pending, sputum culture growing nml phong. UA, UDS, Flu negative. Currently afebrile, but has had fevers intermittently since admission, tmax 39.4. Does have h/o pna in the past. Currently no shell, visula changes, no skin lesions, no cp, cough, still with sob but on RA and comfortable, no abd pain, no n/v/d, eating but appetite poor, no gu symptoms, no bone/joint pain. Allergies Allergy/AdvReac Type Severity Reaction Status Date / Time Penicillins AdvReac Unknown Rash Unverified 08/05/18 10:12 Home Medications Home Medications Medication Instructions Recorded Confirmed Type azithromycin 5 ml PO WK 08/05/18 08/05/18 History dapsone 100 mg PO DAILY 08/05/18 08/05/18 History levothyroxine [Synthroid] 125 mcg PO DAILY 08/05/18 08/05/18 History pantoprazole [Protonix] 40 mg PO DAILY 08/05/18 08/05/18 History raltegravir [Isentress] 400 mg PO BID 08/05/18 08/05/18 History tenofovir disoproxil fumarate 300 mg PO DAILY 08/05/18 08/05/18 History [Viread] voriconazole 200 mg PO BID 08/05/18 08/05/18 History Patient History Medical History Asthma (Acute) HIV (human immunodeficiency virus infection) (Acute) Social History Current Living Situation: Family Current Living Situation Comment: lives with daughter Other Information That Helps Us Care for You: No Feels Safe at Home: Yes Safety Concerns: Feels Safe At This Time Smoking Status: Never smoker Do You Dip or Chew Tobacco: No Second Hand Exposure: No Tobacco Cessation Education Requested by Patient: No Hx Alcohol Use: No Hx Substance Use: No Beliefs That Will Affect Care: Yarsanism Yarsanism Beliefs: wishes to speak to clergy Preferred Language: Latvian Communication Ability: Effective Dry Roaster Required: No Review of Systems all remaining ros reviewed and are negative Physical Exam 2 Vital Signs (Past 24 Hours): Last Vital Signs Temp 37.2 C 08/07/18 07:42 Pulse 87 08/07/18 07:42 Resp 18 08/07/18 07:42 BP 100/67 08/07/18 07:42 Pulse Ox 96 08/07/18 07:42 Constitutional: + ill appearing, + frail appearing, comfortable and + underweight; no acute distress Eyes: PERRL, conjunctivae normal, anicteric sclerae ENMT: external ear and nose normal, oropharynx normal Mouth: + poor dentition; no oropharynx abnormality Neck: normal visual inspection Respiratory: normal respiratory effort, lungs clear to auscultation Cardiovascular: RRR, no murmur, no edema Gastrointestinal (Abdomen): normal bowel sounds, soft, nontender, no hepatosplenomegaly Musculoskeletal: no cyanosis or clubbing, extremities motor strength 5/5 Skin: no rashes, warm and dry Psychiatric: A+Ox3, euthymic affect Results & Data Laboratory Results Microbiology 08/05/18 09:45 Blood Blood Culture - Preliminary No growth to date. 08/05/18 09:15 Blood Blood Culture - Preliminary No growth to date. 08/05/18 20:05 Sputum, Expectorated Gram Stain - Final 08/05/18 20:05 Sputum, Expectorated Sputum Culture - Preliminary Heavy normal phong present, Final report to follow. _ (1) Pneumonia Aspiration pneumonia type: Laterality: bilateral Lung location: unspecified part of lung Pneumonia type: due to unspecified organism Qualified Code(s): J18.9 - Pneumonia, unspecified organism
[2018-08-07] MEDS: AZITHROMYCIN 500 MG in DEXTROSE 5% 250 ML IV SCH (12:56)
[2018-08-07 14:00] LABS: EBV Virus Capsid Ag IgG Ab >750.00 U/ML
[2018-08-07] MEDS: DEXAMETHASONE CONC 3.75 MG, NYSTATIN 30 ML, DiphenhydrAMINE Syrup 300 MG, ORA-SWEET SYR... PO SCH ×3 (14:23→22:28)
[2018-08-07] MEDS: ALBUT/IPRATROP 3MG/0.5MG NEB 3 ML VIAL NEB PRN (17:37)
--- NOTE | 2018-08-07 18:32 | Pulmonology Progress Note ---
Date of Service August 07, 2018 Assessment & Plan (1) Sepsis: Impression: 1. The patient is immunocompromised, the findings on the CAT scan of the chest are community engagement representative of opportunistic infection until proven otherwise. 2. Although community-acquired pneumonia can present in similar manner and demeanor compromised patients, her noncompliance is placing her at risk for PCP , reactivation of histo, fungal infection and DARCIE. His CD4 count was less than 1% but her viral load was positive, her total CD4 was above than 200. Next likely for the later. Plan: 1. I will obtain induced sputum in this patient to rule out PCP at least. Although the patient is on dapsone, but she has not been taking the medication previously. 2. The patient is already on prophylaxis for DARCIE. 3. Antibiotics per infectious disease. 4. Long Discussion Took Pl. with the patient in front of her case finisher, she refused adamantly a bronchoscopy, her last experience with a bronchoscopy resulted in 2 weeks of dysphonia according to her. As she does not want to go through again. 5. I will obtain induced sputum. Thank you, will follow. Sepsis type: sepsis due to unspecified organism Qualified Code(s) : A41.9 - Sepsis, unspecified organism Subjective The patient continued to have nonproductive cough, shortness of breath with ambulation, she is cachectic, she admits that she has not been able to refill her medications after she moved from [place], she denies any chest pain at the moment, no altered mental status, her elementary school social worker and case finisher was with her. Physical Exam 2 Vital Signs (Past 24 Hours): Last Vital Signs Temp 37 C 08/07/18 15:31 Pulse 81 08/07/18 17:37 Resp 18 08/07/18 17:37 BP 102/64 08/07/18 15:31 Pulse Ox 100 08/07/18 17:37 Physical Exam: Cachectic female, not in any apparent distress, poor oral hygiene, S1-S2 regular rate and rhythm, rhonchi bilaterally, abdomen is benign, no edema, no skin changes, neurologically she appears to be competent alert and oriented, Results & Data Laboratory Results Labs are consistent with leukopenia, anemia, and the rest of her labs are acceptable. Diagnostic Findings I have reviewed the CAT scan myself which showed multiple infiltrates with multiple nodularity as well. The findings occurred with multiple areas also of groundglass opacities, the differential diagnosis is too long.
--- NOTE | 2018-08-07 18:52 | Hospitalist Progress Note ---
Date of Service August 07, 2018 Assessment & Plan (1) Pneumonia: b/l. community-acquired vs gram negative etiology vs opportunistic infection possible (PCP, fungal, etc). appreciate pulmonary & ID consultations. remains on broad-spectrum IV antibiotics including - cefepime, vanco, azithromycin. remains on voriconazole to cover fungal pneumonia (and thrush). agree with pulmonary need sputum (ideally via bronch) to r/o PCP. could consider checking LDH. Present on Admission?: Yes (2) Sepsis: 2nd to b/l pneumonia - improving. Present on Admission?: Yes (3) Asthma: Without exacerbation at this time. Defer on steroids for now. Present on Admission?: Yes (4) HIV (human immunodeficiency virus infection): Appreciate ID consultation. Appears to have wasting syndrome in setting of noncompliance with HAART therapy. [facility] reports that she filled the Tivicay 2 days prior to admission. She should also be on abacavir and lamivudine. Remains on dapsone for PCP prophylaxis and azithromax for DARCIE prophylaxis. CD4 count is <10 -- she is at risk of DARCIE in addition to PCP, etc. Treat the thrush - change clotrimazole to magic mouthwash at her request. Voriconazole. Awaiting HIV genotyping. I spoke with Abelino in the pharmacy who has been exceptionally helpful in trying to secure her HIV meds since these are not on formulary at [facility] Present on Admission?: Yes (5) Oral candidiasis: Magic mouthwash + voriconazole. (6) Anemia: Folate is low-normal -- give folic acid 1mg daily. Trans-saturation of iron is <10% -- give iron replacement. Much of the anemia is likely chronic disease from the HIV itself. (7) Coagulopathy: vitamin K deficiency in light of malnourishment? will give vitamin K 5mg po x 1 and repeat INR in am. (8) Hypothyroidism: TSH this admission wnl. Cont synthroid. (9) Severe protein-calorie malnutrition: add Boost. add MVI. add folate + Fe. 2nd to severe HIV. (10) DVT prophylaxis: lovenox daily (11) Discharge planning issues: remains at high risk of readmission due to lack of housing (was living in [facility] pre-hospital), recent move to [place], severe HIV, noncompliance, etc. social work heavily involved appreciate their assistance Subjective patient states she wants to go back to magic mouthwash rather than using the clotrimazole. denies any dysphagia or odynophagia. having few if any pulmonary symptoms. appetite a little better. Constitutional: + fatigue; no fever and no chills Respiratory: + cough; no hemoptysis Cardiovascular: no chest pain Gastrointestinal: no abdominal pain, no nausea and no vomiting Physical Exam 2 Vital Signs (Past 24 Hours): Last Vital Signs Temp 37 C 08/07/18 15:31 Pulse 81 08/07/18 17:37 Resp 18 08/07/18 17:37 BP 102/64 08/07/18 15:31 Pulse Ox 100 08/07/18 17:37 Constitutional: + cachectic; no acute distress ENMT: severe thrush of all surfaces of the oral cavity Respiratory: normal respiratory effort, lungs clear to auscultation Cardiovascular: Rate/Rhythm: regular rate and regular rhythm Heart Sounds: normal S1 and normal S2 Vessels: posterior tibial pulses present and dorsalis pedis pulses present; no JVD Gastrointestinal (Abdomen): Inspection/Auscultation: normal bowel sounds; abdomen not distended Percussion/Palpation: abdomen soft and + hepatomegaly; abdomen nontender, no guarding, abdomen not rigid and no splenomegaly Psychiatric: Orientation: alert and oriented x 3 Results & Data Laboratory Results Laboratory Results - last 24 hr 08/05/18 08/07/18 08/07/18 09:15 05:24 05:24 WBC 2.38 L RBC 3.58 L Hgb 8.8 L Hct 26.5 L MCV 74.0 L MCH 24.6 L MCHC 33.2 RDW Std Deviation 50.9 H RDW Coeff of Ale 18.9 H Plt Count 241 MPV 10.2 Immature Gran % (Auto) 1.7 Neut % (Auto) 53.8 Lymph % (Auto) 16.8 Carlisle % (Auto) 16.4 Eos % (Auto) 10.5 Baso % (Auto) 0.8 Immature Gran # (Auto) 0.04 H Neut # (Auto) 1.28 L Lymph # (Auto) 0.40 L Carlisle # (Auto) 0.39 Eos # (Auto) 0.25 Baso # (Auto) 0.02 Dohle Bodies 1+ Giant Platelets 1+ Ovalocytes 1+ Echinocytes 1+ PT INR Sodium 139 Potassium 4.0 Chloride 111 H Carbon Dioxide 20 L Anion Gap 8.0 BUN 11 Creatinine 0.64 Est Cr Clr Drug Dosing 84.9 Est GFR ( Amer) 122.3 Est GFR (Non-Af Amer) 105.5 BUN/Creatinine Ratio 16.6 Glucose 83 Calcium 8.0 L Magnesium 2.0 Iron 15 L TIBC 261 Transferrin 210 Transferrin % Sat 5 L Ferritin 134.0 Total Bilirubin 0.3 Direct Bilirubin 0.2 AST 21 ALT 13 Alkaline Phosphatase 121 H Total Protein 7.8 Albumin 2.0 L Vitamin B12 Folate EBV Capsid Ag IgG Ab >750.00 H EBV Capsid Ag IgM Ab < 36.00 EBV EA Restrict+Diffuse 63.70 H EBV Nuclear Antigen Ab 163.00 H 08/07/18 08/07/18 05:24 05:24 WBC RBC Hgb Hct MCV MCH MCHC RDW Std Deviation RDW Coeff of Ale Plt Count MPV Immature Gran % (Auto) Neut % (Auto) Lymph % (Auto) Carlisle % (Auto) Eos % (Auto) Baso % (Auto) Immature Gran # (Auto) Neut # (Auto) Lymph # (Auto) Carlisle # (Auto) Eos # (Auto) Baso # (Auto) Dohle Bodies Giant Platelets Ovalocytes Echinocytes PT 12.7 H INR 1.3 H Sodium Potassium Chloride Carbon Dioxide Anion Gap BUN Creatinine Est Cr Clr Drug Dosing Est GFR ( Amer) Est GFR (Non-Af Amer) BUN/Creatinine Ratio Glucose Calcium Magnesium Iron TIBC Transferrin Transferrin % Sat Ferritin Total Bilirubin Direct Bilirubin AST ALT Alkaline Phosphatase Total Protein Albumin Vitamin B12 522 Folate 6.48 EBV Capsid Ag IgG Ab EBV Capsid Ag IgM Ab EBV EA Restrict+Diffuse EBV Nuclear Antigen Ab _ (1) Pneumonia Aspiration pneumonia type: Laterality: bilateral Lung location: unspecified part of lung Pneumonia type: due to unspecified organism Qualified Code(s): J18.9 - Pneumonia, unspecified organism (2) Sepsis Sepsis type: sepsis due to unspecified organism Qualified Code(s): A41.9 - Sepsis, unspecified organism (3) Asthma Asthma complication type: unspecified Asthma persistence: unspecified Asthma severity: moderate Qualified Code(s): J45.909 - Unspecified asthma, uncomplicated (4) Anemia Anemia type: other cause Other causes of anemia: other cause, not classified Qualified Code(s): D64.89 - Other specified anemias (5) Hypothyroidism Hypothyroidism type: acquired Qualified Code(s): E03.9 - Hypothyroidism, unspecified
[2018-08-07] MEDS ORDERED: DiphenhydrAMINE HCL 50 MG/ML VIAL IV STA (19:26)
[2018-08-07] MEDS: LAMIVUDINE 10 MG/ML PO SCH (21:11)
[2018-08-07] MEDS: ABACAVIR SULFATE PO SCH (21:11)
[2018-08-08] MEDS: CEFEPIME 1,000 MG in SYRINGE 0 ML IV SCH ×3 (01:51→17:40)
[2018-08-08] MEDS: LEVOTHYROXINE SODIUM 125 MCG TABLET PO SCH (06:34)
[2018-08-08 06:51] LABS: Basophils # (auto) 0.01 K/uL (0-0.2); Basophils % (auto) 0.4 %; Eosinophils # (auto) 0.16 K/uL (0-0.5); Hematocrit (blood only) 24.6 % (37-47); Hemoglobin 8.2 g/dL (12.0-16.0); Immature Granulocytes # (auto) 0.05 K/uL (0.00-0.02); Immature Granulocytes % (auto) 2.2 %; Lymphocytes # (auto) 0.46 K/uL (1.2-3.4); Lymphocytes % (auto) 20.1 %; Mean Corpuscular Hgb Conc 33.3 g/dL (32-36); Mean Corpuscular Volume 72.8 fL (80-100); Mean Platelet Volume 10.4 fL (7.4-10.4); Monocytes # (auto) 0.42 K/uL (0.11-0.59); Monocytes % (auto) 18.3 %; Neutrophils # (auto) 1.19 K/uL (1.4-6.5); Platelet Count 261 K/uL (130-400); RDW Coefficient of Variation 19.1 % (11.5-14.5); RDW Standard Deviation 51.4 fL (36.4-46.3); Red Blood Count 3.38 M/uL (4.2-5.4); White Blood Count 2.29 K/uL (4.8-10.8)
[2018-08-08 07:05] LABS: INR 1.3 (0.9-1.1); Prothrombin Time 12.7 Seconds (9.0-12.0)
[2018-08-08 07:27] LABS: BUN Creatinine Ratio 12.1 (10-20); Calcium 7.9 mg/dl (8.5-10.1); Creatinine Clr Calc Pharmacy 90.5 ml/min; Est GFR (African American) 124.9; Est GFR (Non-African American) 107.8; Potassium 3.7 mmol/L (3.5-5.1)
[2018-08-08] MEDS: ENOXAPARIN INJ 40 MG/0.4 ML SYR SQ SCH (07:33)
[2018-08-08] MEDS: ABACAVIR SULFATE PO SCH ×2 (07:45→20:39)
[2018-08-08] MEDS: DEXAMETHASONE CONC 3.75 MG, NYSTATIN 30 ML, DiphenhydrAMINE Syrup 300 MG, ORA-SWEET SYR... PO SCH ×4 (07:45→20:40)
[2018-08-08] MEDS: DAPSONE 25 MG TAB PO SCH (07:46)
[2018-08-08] MEDS: FOLIC ACID 1 MG TAB PO SCH (07:46)
[2018-08-08] MEDS: PANTOprazole 40 MG TAB PO SCH (07:46)
[2018-08-08] MEDS: FERROUS SULFATE 325 MG TAB PO SCH (07:46)
[2018-08-08] MEDS: LAMIVUDINE 10 MG/ML PO SCH ×2 (07:46→20:40)
[2018-08-08 07:50] LABS: Dohle Bodies 1+; Echinocytes 1+; Hypochromasia Present; Microcytosis Present; Ovalocytes 1+; Target Cells 1+; Toxic Granulation 1+
[2018-08-08] MEDS: SODIUM CHLORIDE 0.9% IV SCH ×2 (07:54→20:41)
[2018-08-08] MEDS: VORICONAZOLE IV SCH ×2 (07:54→20:41)
[2018-08-08] MEDS ORDERED: PHYTONADIONE 5 MG TAB PO STA (08:24)
[2018-08-08] MEDS ORDERED: VANCOMYCIN TROUGH ONE (09:30)
[2018-08-08] MEDS: AZITHROMYCIN 500 MG in DEXTROSE 5% 250 ML IV SCH (11:08)
--- NOTE | 2018-08-08 14:46 | Infectious Disease Progress Nt ---
Date of Service August 08, 2018 Assessment & Plan (1) Pneumonia: continue IV abx for now, especially with repeat sputum culture pending. high risk for OI with degree of immunosuppression. 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 Also has been on chronic voriconazole for refractory thrush (she states did not respond to fluconazole), making fungal pna less likely. She will continue with HAART - based on her drop in viral load from >11,000 to 5 ,000 after restarting her exisitng HAART in Jun, I suspect she was non adherent with meds previously. She did request a change in HAART, which was done on 07/24 at her last ID visit but she did not start this regimen prior to her hospital admission. I suspect she does not have resistance to old regimen, but her increase in viral load is due to non adherenece. Awaiting genotype. Will cotninue HAART, abx and prophylaxis (2) HIV (human immunodeficiency virus infection): Subjective pt remains afebrile. on broad spectrum abx. declined broch. RA sats 98%. sputum culture growing heavy growth normal phong. blood cultures negative. Repeat sputum culture pending. Pulm eval noted, offered broch, pt declined. remains on azithro, dapsone and vori for recurrent thrush. Physical Exam 2 Vital Signs (Past 24 Hours): Last Vital Signs Temp 36.6 C 08/08/18 07:46 Pulse 86 08/08/18 11:31 Resp 16 08/08/18 11:31 BP 103/71 08/08/18 07:46 Pulse Ox 98 08/08/18 11:31 Results & Data Laboratory Results Microbiology 08/05/18 20:05 Sputum, Expectorated Gram Stain - Final 08/05/18 20:05 Sputum, Expectorated Sputum Culture - Final Heavy normal phong. 08/05/18 09:45 Blood Blood Culture - Preliminary No growth to date. 08/05/18 09:15 Blood Blood Culture - Preliminary No growth to date. _ (1) Pneumonia Aspiration pneumonia type: Laterality: bilateral Lung location: unspecified part of lung Pneumonia type: due to unspecified organism Qualified Code(s): J18.9 - Pneumonia, unspecified organism
[2018-08-08] MEDS: ONDANSETRON INJ 2 MG/ML 2 ML VIAL IV PRN (15:48)
[2018-08-08] MEDS: DOLUTEGRAVIR SODIUM PO SCH (15:48)
--- NOTE | 2018-08-08 18:58 | Pulmonology Progress Note ---
Date of Service August 08, 2018 Assessment & Plan (1) Sepsis: Impression: 1. The patient is immunocompromised, the findings on the CAT scan of the chest are electronics parts sales representative of opportunistic infection until proven otherwise. 2. Although community-acquired pneumonia can present in similar manner and demeanor compromised patients, her noncompliance is placing her at risk for PCP , reactivation of histo, fungal infection and DARCIE. His CD4 count was less than 1% but her viral load was positive, her total CD4 was above than 200. Next likely for the later. Plan: 1. Induced sputum for PCP and culture. 2. The patient is already on prophylaxis for DARCIE. 3. Antibiotics per infectious disease. 4. Declined bronchoscopy again. Thank you, will follow. Sepsis type: sepsis due to unspecified organism Qualified Code(s) : A41.9 - Sepsis, unspecified organism Subjective Continue to feel weak, denies any respiratory symptoms, she is developing oral thrush. Physical Exam 2 Vital Signs (Past 24 Hours): Last Vital Signs Temp 36.3 C L 08/08/18 16:51 Pulse 80 08/08/18 16:51 Resp 18 08/08/18 16:51 BP 113/72 08/08/18 16:51 Pulse Ox 93 08/08/18 16:51 Physical Exam: No fever reported, S1-S2 regular rate and rhythm, oral thrush, no skin rash, ataxia, lungs with distant breath sounds, abdomen is benign, no edema. Neurologically she is nonfocal. Results & Data Laboratory Results Labs are consistent with leukopenia and anemia. BMP is normal. No cultures.
--- NOTE | 2018-08-08 21:15 | Hospitalist Progress Note ---
Date of Service August 08, 2018 Assessment & Plan (1) Pneumonia: b/l. community-acquired vs gram negative etiology vs opportunistic infection possible (PCP, fungal, etc). appreciate pulmonary & ID consultations. remains on broad-spectrum IV antibiotics including - cefepime, vanco, azithromycin. remains on voriconazole to cover fungal pneumonia (and thrush). agree with pulmonary need sputum (ideally via bronch) to r/o PCP. patient refusing bronch; attempting to get aerosilized sputum sample. MRSA swab is negative - will stop IV vanco today. (2) Sepsis: 2nd to b/l pneumonia. sepsis clinically resolved. (3) Asthma: Without exacerbation at this time. Defer on steroids for now. (4) HIV (human immunodeficiency virus infection): Appreciate ID consultation. Appears to have wasting syndrome in setting of noncompliance with HAART therapy. Remains on dapsone for PCP prophylaxis and azithromax for DARCIE prophylaxis. CD4 count is <10 -- she is at risk of DARCIE in addition to PCP, etc. Awaiting HIV genotyping. HIV meds to be delivered today to patient. Pharmacy assisting with all HIV meds and clarifying her regimen. (5) Oral candidiasis: Magic mouthwash + voriconazole. (6) Anemia: Folate is low-normal -- give folic acid 1mg daily. Trans-saturation of iron is <10% -- give iron replacement. Much of the anemia is likely chronic disease from the HIV itself. CBC in am. (7) Coagulopathy: vitamin K deficiency in light of malnourishment? will give vitamin K 5mg daily with daily INR until the INR is normalized. (8) Hypothyroidism: TSH this admission wnl. Cont synthroid. (9) Severe protein-calorie malnutrition: added Boost, MVI, folate, Fe, etc. 2nd to severe HIV. (10) DVT prophylaxis: lovenox daily (11) Discharge planning issues: remains at high risk of readmission due to lack of housing (was living in [facility] pre-hospital), recent move to [place], severe HIV, noncompliance, etc. social work heavily involved appreciate their assistance plan is for patient to [facility] following this admission Subjective no changes overnight still w/ cough but not as severe appetite improved - she is asking for [place] food! denies any new complaints HIV meds have made it to the patient's room today for her use Constitutional: + weight loss; no fever and no chills Respiratory: + dyspnea on exertion Cardiovascular: no chest pain Gastrointestinal: + diarrhea/loose stools; no abdominal pain Physical Exam 2 Vital Signs (Past 24 Hours): Last Vital Signs Temp 36.3 C L 08/08/18 16:51 Pulse 80 08/08/18 16:51 Resp 18 08/08/18 16:51 BP 113/72 08/08/18 16:51 Pulse Ox 93 08/08/18 16:51 Constitutional: + cachectic; no acute distress ENMT: Mouth: + oral mucosal abnormality (severe thrush of all buccal mucosal surfaces and tongue) Respiratory: normal respiratory effort, lungs clear to auscultation Cardiovascular: Rate/Rhythm: regular rate and regular rhythm Heart Sounds: normal S1 and normal S2 Vessels: posterior tibial pulses present and dorsalis pedis pulses present; no JVD Gastrointestinal (Abdomen): Inspection/Auscultation: normal bowel sounds; abdomen not distended Percussion/Palpation: abdomen soft and + hepatomegaly; abdomen nontender, no guarding, abdomen not rigid and no splenomegaly Psychiatric: Orientation: alert and oriented x 3 Results & Data Laboratory Results Laboratory Results - last 24 hr 08/08/18 08/08/18 08/08/18 06:20 06:20 06:20 WBC 2.29 L RBC 3.38 L Hgb 8.2 L Hct 24.6 L MCV 72.8 L MCH 24.3 L MCHC 33.3 RDW Std Deviation 51.4 H RDW Coeff of Ale 19.1 H Plt Count 261 MPV 10.4 Immature Gran % (Auto) 2.2 Neut % (Auto) 52.0 Lymph % (Auto) 20.1 Dyer % (Auto) 18.3 Eos % (Auto) 7.0 Baso % (Auto) 0.4 Immature Gran # (Auto) 0.05 H Neut # (Auto) 1.19 L Lymph # (Auto) 0.46 L Dyer # (Auto) 0.42 Eos # (Auto) 0.16 Baso # (Auto) 0.01 Toxic Granulation 1+ Dohle Bodies 1+ Giant Platelets 1+ Hypochromasia Present Microcytosis Present Target Cells 1+ Ovalocytes 1+ Echinocytes 1+ PT 12.7 H INR 1.3 H Sodium 140 Potassium 3.7 Chloride 112 H Carbon Dioxide 21 Anion Gap 7.0 BUN 7 Creatinine 0.60 Est Cr Clr Drug Dosing 90.5 Est GFR ( Amer) 124.9 Est GFR (Non-Af Amer) 107.8 BUN/Creatinine Ratio 12.1 Glucose 83 Calcium 7.9 L _ (1) Anemia Anemia type: other cause Bone marrow failure anemia type: Chronic kidney disease stage: Folate deficiency anemia type: Hemolytic anemia type: Iron deficiency anemia type: Other causes of anemia: other cause, not classified Vitamin B12 deficiency anemia type: Qualified Code(s): D64.89 - Other specified anemias (2) Hypothyroidism Hypothyroidism type: acquired Qualified Code(s): E03.9 - Hypothyroidism, unspecified (3) Sepsis Sepsis type: sepsis due to unspecified organism Qualified Code(s): A41.9 - Sepsis, unspecified organism (4) Pneumonia Aspiration pneumonia type: Laterality: bilateral Lung location: unspecified part of lung Pneumonia type: due to unspecified organism Qualified Code(s): J18.9 - Pneumonia, unspecified organism (5) Asthma Asthma complication type: unspecified Asthma persistence: unspecified Asthma severity: moderate Qualified Code(s): J45.909 - Unspecified asthma, uncomplicated
[2018-08-09] MEDS: CEFEPIME 1,000 MG in SYRINGE 0 ML IV SCH ×3 (01:20→17:48)
[2018-08-09] MEDS: LEVOTHYROXINE SODIUM 125 MCG TABLET PO SCH (06:05)
[2018-08-09] MEDS: DOLUTEGRAVIR SODIUM PO SCH (06:06)
[2018-08-09 06:12] LABS: Hematocrit (blood only) 25.8 % (37-47); Hemoglobin 8.7 g/dL (12.0-16.0); Mean Corpuscular Hgb Conc 33.7 g/dL (32-36); Mean Corpuscular Volume 72.5 fL (80-100); Platelet Count 302 K/uL (130-400); RDW Standard Deviation 50.5 fL (36.4-46.3); Red Blood Count 3.56 M/uL (4.2-5.4); White Blood Count 2.16 K/uL (4.8-10.8)
[2018-08-09 06:38] LABS: INR 1.2 (0.9-1.1); Prothrombin Time 12.1 Seconds (9.0-12.0)
[2018-08-09 06:41] LABS: BUN Creatinine Ratio 16.7 (10-20); Calcium 7.7 mg/dl (8.5-10.1); Est GFR (African American) 127.8; Est GFR (Non-African American) 110.3; Potassium 3.3 mmol/L (3.5-5.1)
[2018-08-09] MEDS: ENOXAPARIN INJ 40 MG/0.4 ML SYR SQ SCH (09:27)
[2018-08-09] MEDS: SODIUM CHLORIDE 0.9% IV SCH ×2 (09:34→21:23)
[2018-08-09] MEDS: VORICONAZOLE IV SCH ×2 (09:34→21:23)
[2018-08-09] MEDS: FOLIC ACID 1 MG TAB PO SCH (09:35)
[2018-08-09] MEDS: FERROUS SULFATE 325 MG TAB PO SCH (09:35)
[2018-08-09] MEDS: DEXAMETHASONE CONC 3.75 MG, NYSTATIN 30 ML, DiphenhydrAMINE Syrup 300 MG, ORA-SWEET SYR... PO SCH ×5 (09:35→22:47)
[2018-08-09] MEDS: DAPSONE 25 MG TAB PO SCH (09:35)
[2018-08-09] MEDS: PANTOprazole 40 MG TAB PO SCH (09:35)
[2018-08-09] MEDS: LAMIVUDINE 10 MG/ML PO SCH ×2 (09:36→21:25)
[2018-08-09] MEDS: ABACAVIR SULFATE PO SCH ×2 (09:36→21:25)
[2018-08-09] MEDS ORDERED: PHYTONADIONE 5 MG TAB PO STA (09:46)
--- NOTE | 2018-08-09 10:03 | Infectious Disease Progress Nt ---
Date of Service August 09, 2018 Assessment & Plan (1) Pneumonia: continue IV abx for now, especially with repeat sputum culture pending. high risk for OI with degree of immunosuppression. 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 Also has been on chronic voriconazole for refractory thrush (she states did not respond to fluconazole), making fungal pna less likely. She will continue with HAART - based on her drop in viral load from >11,000 to 5 ,000 after restarting her exisitng HAART in Jun, I suspect she was non adherent with meds previously. She did request a change in HAART, which was done on 07/24 at her last ID visit but she did not start this regimen prior to her hospital admission. I suspect she does not have resistance to old regimen, but her increase in viral load is due to non adherenece. Awaiting genotype. Will cotninue HAART, abx and prophylaxis (2) HIV (human immunodeficiency virus infection): Subjective pt remains afebrile. on broad spectrum abx. declined broch. RA sats 98%. sputum culture growing heavy growth normal phong. blood cultures negative. Repeat sputum culture pending. Pulm eval noted, offered broch, pt declined. remains on azithro, dapsone and vori for recurrent thrush. Physical Exam 2 Vital Signs (Past 24 Hours): Last Vital Signs Temp 36.9 C 08/09/18 08:29 Pulse 66 08/09/18 08:29 Resp 18 08/09/18 08:29 BP 107/69 08/09/18 08:29 Pulse Ox 100 08/09/18 08:29 Results & Data Laboratory Results Microbiology 08/08/18 12:10 Sputum, Expectorated Gram Stain - Final 08/05/18 20:05 Sputum, Expectorated Gram Stain - Final 08/05/18 20:05 Sputum, Expectorated Sputum Culture - Final Heavy normal phong. 08/05/18 09:45 Blood Blood Culture - Preliminary No growth to date. 08/05/18 09:15 Blood Blood Culture - Preliminary No growth to date. _ (1) Pneumonia Aspiration pneumonia type: Laterality: bilateral Lung location: unspecified part of lung Pneumonia type: due to unspecified organism Qualified Code(s): J18.9 - Pneumonia, unspecified organism
[2018-08-09] MEDS: POTASSIUM CHLORIDE 10 MEQ TABCR PO SCH ×3 (10:28→21:24)
[2018-08-09] MEDS: AZITHROMYCIN 500 MG in DEXTROSE 5% 250 ML IV SCH (11:43)
[2018-08-09] MEDS: ONDANSETRON INJ 2 MG/ML 2 ML VIAL IV PRN ×2 (14:15→19:58)
[2018-08-09] MEDS: ALBUT/IPRATROP 3MG/0.5MG NEB 3 ML VIAL NEB PRN (18:05)
--- NOTE | 2018-08-09 18:54 | Hospitalist Progress Note ---
Date of Service August 09, 2018 Assessment & Plan (1) Chest pain: echo checked - pericardial effusion present EKG was normal at admission pain is constant pericarditis? other? trial of motrin TID repeat EKG in am (2) Pneumonia: b/l. community-acquired vs gram negative etiology vs opportunistic infection possible (PCP, fungal, etc). appreciate pulmonary & ID consultations. remains on broad-spectrum IV antibiotics including - cefepime azithromycin. remains on voriconazole to cover fungal pneumonia (and thrush). agree with pulmonary need sputum (ideally via bronch) to r/o PCP. patient refusing bronch; attempting to get aerosilized sputum sample. repeat cxr in am (3) Sepsis: 2nd to b/l pneumonia. sepsis clinically resolved. (4) Asthma: Without exacerbation at this time. Defer on steroids for now. (5) HIV (human immunodeficiency virus infection): Appreciate ID consultation. Appears to have wasting syndrome in setting of noncompliance with HAART therapy. Remains on dapsone for PCP prophylaxis and azithromax for DARCIE prophylaxis. CD4 count is <10 -- she is at risk of DARCIE in addition to PCP, etc. Awaiting HIV genotyping. Pharmacy/ID assistance with meds appreciated. (6) Oral candidiasis: Magic mouthwash + voriconazole. (7) Anemia: Folate is low-normal -- give folic acid 1mg daily. Trans-saturation of iron is <10% -- give iron replacement. Much of the anemia is likely chronic disease from the HIV itself. cbc acceptable today. (8) Coagulopathy: vitamin K deficiency in light of malnourishment? will give vitamin K 5mg daily with daily INR until the INR is normalized. (9) Hypothyroidism: TSH this admission wnl. Cont synthroid. (10) Severe protein-calorie malnutrition: added Boost, MVI, folate, Fe, etc. 2nd to severe HIV. (11) DVT prophylaxis: lovenox daily (12) Discharge planning issues: remains at high risk of readmission due to lack of housing (was living in [facility] pre-hospital), recent move to [place], severe HIV, noncompliance, etc. social work heavily involved appreciate their assistance plan is for patient to return to [facility] following this admission next 48 hours? Subjective pt c/o mid-sternal chest pain not technically positional somewhat pleuritic constant in nature started a few days ago overall appetite slightly improved minimal cough no dyspnea no fever thrush still bothersome Constitutional: + fatigue; no fever and no chills Respiratory: no hemoptysis and no wheezing Cardiovascular: + chest pain, + chest pain at rest and + palpitations; no orthopnea, no paroxysmal nocturnal dyspnea and no edema Gastrointestinal: + diarrhea/loose stools (started yesterday - 2 stools already today ); no abdominal pain Physical Exam 2 Vital Signs (Past 24 Hours): Last Vital Signs Temp 37.1 C 08/09/18 15:53 Pulse 80 08/09/18 18:05 Resp 16 08/09/18 18:05 BP 101/50 L 08/09/18 15:53 Pulse Ox 98 08/09/18 18:05 Constitutional: + cachectic; no acute distress ENMT: Mouth: + oral mucosal abnormality (severe thrush of all buccal mucosal surfaces and tongue --- no improvement) Respiratory: normal respiratory effort, lungs clear to auscultation Cardiovascular: Rate/Rhythm: regular rate and regular rhythm Heart Sounds: normal S1 and normal S2 Vessels: posterior tibial pulses present and dorsalis pedis pulses present; no JVD Chest (Breasts): Additional Comments: no tenderness to palpation over chest wall Gastrointestinal (Abdomen): Inspection/Auscultation: normal bowel sounds; abdomen not distended Percussion/Palpation: abdomen soft and + hepatomegaly; abdomen nontender, no guarding, abdomen not rigid and no splenomegaly Psychiatric: Orientation: alert and oriented x 3 Results & Data Laboratory Results Laboratory Results - last 24 hr 08/09/18 08/09/18 08/09/18 05:44 05:44 05:44 WBC 2.16 L RBC 3.56 L Hgb 8.7 L Hct 25.8 L MCV 72.5 L MCH 24.4 L MCHC 33.7 RDW Std Deviation 50.5 H RDW Coeff of Ale 19.0 H Plt Count 302 MPV 11.0 H PT 12.1 H INR 1.2 H Sodium 140 Potassium 3.3 L Chloride 112 H Carbon Dioxide 21 Anion Gap 7.0 BUN 9 Creatinine 0.56 L Est Cr Clr Drug Dosing 97.0 Est GFR ( Amer) 127.8 Est GFR (Non-Af Amer) 110.3 BUN/Creatinine Ratio 16.7 Glucose 86 Calcium 7.7 L _ (1) Anemia Anemia type: other cause Bone marrow failure anemia type: Chronic kidney disease stage: Folate deficiency anemia type: Hemolytic anemia type: Iron deficiency anemia type: Other causes of anemia: other cause, not classified Vitamin B12 deficiency anemia type: Qualified Code(s): D64.89 - Other specified anemias (2) Hypothyroidism Hypothyroidism type: acquired Qualified Code(s): E03.9 - Hypothyroidism, unspecified (3) Sepsis Sepsis type: sepsis due to unspecified organism Qualified Code(s): A41.9 - Sepsis, unspecified organism (4) Pneumonia Aspiration pneumonia type: Laterality: bilateral Lung location: unspecified part of lung Pneumonia type: due to unspecified organism Qualified Code(s): J18.9 - Pneumonia, unspecified organism (5) Asthma Asthma complication type: unspecified Asthma persistence: unspecified Asthma severity: moderate Qualified Code(s): J45.909 - Unspecified asthma, uncomplicated (6) Chest pain Chest pain type: other chest pain Qualified Code(s): R07.89 - Other chest pain; R07.8 - Other chest pain
[2018-08-09] MEDS: IBUPROFEN 200 MG TAB PO SCH (21:26)
[2018-08-10] MEDS: CEFEPIME 1,000 MG in SYRINGE 0 ML IV SCH ×3 (01:13→17:08)
[2018-08-10] MEDS ORDERED: LIDOCAINE HCL 2% VISCOUS 1.25 ML, DiphenhydrAMINE Syrup 3.125 MG, ALUMINUM/MAGNESIUM SU... MT ONE (03:00)
[2018-08-10] MEDS: LEVOTHYROXINE SODIUM 125 MCG TABLET PO SCH (05:51)
[2018-08-10 06:35] LABS: BUN Creatinine Ratio 17.7 (10-20); Calcium 7.8 mg/dl (8.5-10.1); Creatinine Clr Calc Pharmacy 90.5 ml/min; Est GFR (African American) 124.9; Est GFR (Non-African American) 107.8; Potassium 3.5 mmol/L (3.5-5.1)
[2018-08-10] MEDS: ENOXAPARIN INJ 40 MG/0.4 ML SYR SQ SCH (08:26)
[2018-08-10] MEDS: PANTOprazole 40 MG TAB PO SCH (08:26)
[2018-08-10] MEDS: IBUPROFEN 200 MG TAB PO SCH ×2 (08:27→17:05)
[2018-08-10] MEDS: FERROUS SULFATE 325 MG TAB PO SCH (08:28)
[2018-08-10] MEDS: VORICONAZOLE IV SCH ×2 (08:28→21:37)
[2018-08-10] MEDS: SODIUM CHLORIDE 0.9% IV SCH ×2 (08:28→21:37)
[2018-08-10] MEDS: DAPSONE 25 MG TAB PO SCH (08:28)
[2018-08-10] MEDS: ABACAVIR SULFATE PO SCH ×2 (08:28→17:08)
[2018-08-10] MEDS: FOLIC ACID 1 MG TAB PO SCH (08:28)
[2018-08-10] MEDS: LAMIVUDINE 10 MG/ML PO SCH ×2 (08:29→21:37)
[2018-08-10] MEDS: DEXAMETHASONE CONC 3.75 MG, NYSTATIN 30 ML, DiphenhydrAMINE Syrup 300 MG, ORA-SWEET SYR... PO SCH ×4 (08:32→21:37)
--- NOTE | 2018-08-10 10:18 | XRay Report ---
TWO VIEW CHEST CLINICAL HISTORY: Follow-up pneumonia. FINDINGS: PA and lateral chest radiographs are compared to chest x-ray and chest CT dated 08/05/2018. The cardiomediastinal silhouette is unremarkable. Multifocal bilateral airspace consolidation is agai n noted, greatest in the right middle lobe. This has modestly cleared from 08/05/2018. No pleural effu tracy is identified. There is no pneumothorax. The bony thorax appears intact. IMPRESSION: Multifocal bilateral airspace consolidation is again noted. This has minimally cleared fr om 08/05/2018. Continued follow-up to complete resolution is recommended. Electronically signed by: Mikie Canada M.D. 08/10/2018 10:16 AM
[2018-08-10] MEDS: AZITHROMYCIN 500 MG in DEXTROSE 5% 250 ML IV SCH (10:35)
--- NOTE | 2018-08-10 14:04 | Cardiology Consultation ---
Date of Consultation August 10, 2018 Assessment & Plan (1) Chest pain: 48 year olf female with pmhx of HIV + not complaint with meds, pericardial effusion drained in 2000, being treated for pneumonia complaining of chronic intermittent chest pain. Pt has evidence of a pleural effusion on echo, negative for friction rub, negative for changes in pain with position, with a reassuring EKG, reproducible chest pain on palpation, and no fh of cardiac disease. Given her history of pericardial effusion, I suspect this is a chronic/recurrent pericardial effusion with acute exacerbations 2/2 illness and not complying with HAART therapy and less likely 2/2 to pericarditis. I think her increased sharp/stabbing component of her pain is costochondritis and 2/2 to coughing from recent pneumonia. - EKG reassuring, no friction rub or change in pain intensity on physical exam, Pain was reproducible on chest palpation. -Echo 08/09 -> EF 55-60 with normal LV function - Mild pulmonic regurg - Mild tricuspid regurg - Small pericardial effusion no evidence of tamponade - Normal rv pressures - Consider checking inflammatory Markers, ESR, CRP - Proceed with conservative management, with follow up echo as an outpatient (2) Pericardial effusion: As Above Supervising Physician Co-Signing Physician Notes Cardiology attending addendum: This is a family practice resident note. Please refer to cardiology consultation under separate cover. History of Present Illness Reason for Consultation: Concern for Pericarditis Attending Physician: James Johansen History of Present Illness Pt is a frail appearing 48 year old female who is HIV Positive and non compliant with her meds. The patient recently moved her from [facility] and lives with her daughter. The patient longer works. Pt was admitted 08/05/18 for management of pneumonia in the setting of HIV and not taking HAART for 1 month. Cardiology was consulted for a chest pain and pleural effusion. The patient stated she has had this chest pain for almost 20 years. she describes it aas a squeezing pressure. She sought medical evaluation of the pain in 2000 at [facility]. She was diagnosed with a pericardial effusion and it was drained. She does not remember if she was diagnosed with pericarditis at the time and is unsure is she was discharged on medications. She has had episodes on this pain since than and has not sought medical care for them. She states the pain is pretty much always there. The pain does not change with changes in position, increases in intensity with lifting, and currently is affecting her whole left side down to her hip. She states the pain improves with rest. She describes 9/10 pain as a pressure/ squeezing with intermittent sharp and stabbing component. No FH of heart disease Allergies Allergy/AdvReac Type Severity Reaction Status Date / Time Penicillins AdvReac Unknown Rash Unverified 08/05/18 10:12 Home Medications Home Medications Medication Instructions Recorded Confirmed Type azithromycin 5 ml PO WK 08/05/18 08/05/18 History dapsone 100 mg PO DAILY 08/05/18 08/05/18 History levothyroxine [Synthroid] 125 mcg PO DAILY 08/05/18 08/05/18 History pantoprazole [Protonix] 40 mg PO DAILY 08/05/18 08/05/18 History voriconazole 200 mg PO BID 08/05/18 08/05/18 History abacavir 300 mg PO BID 08/09/18 08/09/18 History dolutegravir 50 mg PO DAILY 08/09/18 08/09/18 History lamivudine 150 mg PO BID 08/09/18 08/09/18 History Patient History Medical History Asthma (Chronic) HIV (human immunodeficiency virus infection) (Acute) Social History Current Living Situation: Family Current Living Situation Comment: lives with daughter Other Information That Helps Us Care for You: No Feels Safe at Home: Yes Safety Concerns: Feels Safe At This Time Smoking Status: Never smoker Do You Dip or Chew Tobacco: No Second Hand Exposure: No Tobacco Cessation Education Requested by Patient: No Hx Alcohol Use: No Hx Substance Use: No Beliefs That Will Affect Care: Advent Advent Beliefs: wishes to speak to clergy Communication Ability: Effective Review of Systems Constitutional: as per Subjective / HPI Cardiovascular: + chest pain, + chest pain at rest, + chest pain with activity and + dyspnea on exertion; no orthopnea, no palpitations, no lightheadedness and no calf pain Gastrointestinal: no abdominal pain Musculoskeletal: + stiffness Physical Exam 2 Vital Signs (Past 24 Hours): Last Vital Signs Temp 36.8 C 02/21/19 08:37 Pulse 71 08/10/18 08:37 Resp 18 08/10/18 08:37 BP 115/76 08/10/18 08:37 Pulse Ox 100 08/10/18 08:37 Physical Exam: General: Frail 48 year old female in NAD Eyes: anicteric Sclera Neck: Negative JVD, Negative Bruit Chest: CTAB/L Cardiac: RRR NL s1/s2, No MRG, no friction rub supine or leaning forward, Pain reproducible on palpation GI: NL B/S, nontender, non distended MSK: moves all extremities, no calf pain Skin: WWP, Cap refill<2secs Psych: Cooperative, AAOx3 Results & Data Laboratory Results 08/10/18 Range/Units 05:46 Sodium 140 (136-145) mmol/L Potassium 3.5 (3.5-5.1) mmol/L Chloride 113 H (98-107) mmol/L Carbon Dioxide 20 L (21-32) mmol/L Anion Gap 7.0 (3-11) BUN 11 (7-18) mg/dl Creatinine 0.60 (0.6-1.2) mg/dl Est Cr Clr Drug Dosing 90.5 ml/min Est GFR ( Amer) 124.9 Est GFR (Non-Af Amer) 107.8 BUN/Creatinine Ratio 17.7 (10-20) Glucose 84 (70-99) mg/dl Calcium 7.8 L (8.5-10.1) mg/dl Medications Administered Current Inpatient Medications Abacavir Sulfate (Abacavir) 300 ea PO BIDM ROSMERY Stop: 09/09/18 07:59 Last Admin: 08/10/18 08:28 Dose: 300 ea Al Hydrox/Mg Hydrox/Simethicone (Maalox) 30 ml PO Q6H PRN PRN Reason: Dyspepsia Stop: 09/04/18 12:32 Albuterol (Duoneb) 3 ml NEB QIDR PRN PRN Reason: Shortness Of Breath Or Wheezin Stop: 09/04/18 13:14 Last Admin: 08/09/18 18:05 Dose: 3 ml Dexamethasone 3.75 mg/Nystatin 30 ml/Diphenhydramine HCl 300 mg/Sucrose 45 ml/ Microcrystalline Cellulose 45 ml/ BARCODE IDENTIFIER 1 ea 0 mg PO ACHS ROSMERY Stop: 09/06/18 12:29 Last Admin: 08/10/18 11:22 Dose: 5 ml Dapsone (Dapsone) 100 mg PO DAILY [facility] Stop: 09/05/18 08:59 Last Admin: 08/10/18 08:28 Dose: 100 mg Dolutegravir Sodium (Tivicay) 1 ea PO QDD [facility] Stop: 09/09/18 16:29 Enoxaparin Sodium (Lovenox) 40 mg SQ Q24H [facility] Stop: 09/06/18 07:59 Last Admin: 08/10/18 08:26 Dose: Not Given Ferrous Sulfate (Feosol) 325 mg PO QAM [facility] Stop: 09/06/18 09:29 Last Admin: 08/10/18 08:28 Dose: 325 mg Folic Acid (Folvite) 1 mg PO QAM [facility] Stop: 09/06/18 09:29 Last Admin: 08/10/18 08:28 Dose: 1 mg Azithromycin 500 mg/ Dextrose 255 mls @ 125 mls/hr IV Q24H [facility]; Protocol Stop: 08/12/18 10:59 Last Infusion: 08/10/18 13:33 Dose: Infused Cefepime HCl 1,000 mg/ Syringe 11.3 mls @ 5.5 mls/min IV Q8H [facility]; Protocol Stop: 08/12/18 22:00 Last Admin: 08/10/18 10:35 Dose: 5.5 mls/min Acetaminophen (Ofirmev) 1,000 mg in 100 mls @ 400 mls/hr IV Q8H PRN PRN Reason: Pain or Fever Stop: 09/04/18 23:50 Last Infusion: 08/06/18 14:48 Dose: Infused Voriconazole 200 mg/ Sodium (Chloride) 100 mls @ 50 mls/hr IV BID [facility] Stop: 09/05/18 20:59 Last Infusion: 08/10/18 10:29 Dose: Infused Ibuprofen (Advil) 400 mg PO TID [facility] Stop: 09/08/18 20:59 Last Admin: 08/10/18 08:27 Dose: Not Given Lamivudine (Epivir) 150 mg PO BID [facility] Stop: 09/05/18 12:29 Last Admin: 08/10/18 08:29 Dose: 150 mg Levalbuterol HCl (Xopenex 1.25mg/0.5ml Neb) 1.25 mg NEB Q4H PRN PRN Reason: Shortness Of Breath Stop: 09/04/18 12:32 Levothyroxine Sodium (Synthroid) 125 mcg PO DAILYBB ROSMERY Stop: 09/05/18 06:29 Last Admin: 08/10/18 05:51 Dose: 125 mcg Magnesium Hydroxide (Milk Of Magnesia) 30 ml PO Q6H PRN PRN Reason: Constipation Stop: 09/04/18 12:32 Ondansetron HCl (Zofran) 4 mg IV Q6H PRN PRN Reason: Nausea Stop: 09/04/18 12:32 Last Admin: 08/09/18 19:58 Dose: 4 mg Pantoprazole Sodium (Protonix) 40 mg PO DAILY ROSMERY Stop: 09/05/18 08:59 Last Admin: 08/10/18 08:26 Dose: Not Given Polyethylene Glycol (Miralax Powder Packet) 17 gm PO DAILY PRN PRN Reason: Constipation Stop: 09/04/18 12:32 Zolpidem Tartrate (Ambien) 5 mg PO HS PRN PRN Reason: Sleep Stop: 09/04/18 12:32 Resident Activity Tracking Resident Involvement: Resident Care Provided Care Provided: [facility] Medicine _ (1) Chest pain Chest pain type: other chest pain Ischemic chest pain type: Qualified Code( s): R07.89 - Other chest pain; R07.8 - Other chest pain
--- NOTE | 2018-08-10 14:31 | Infectious Disease Progress Nt ---
Date of Service August 10, 2018 Assessment & Plan (1) Pneumonia: continue IV abx for now, especially with repeat sputum culture pending. high risk for OI with degree of immunosuppression. 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 Also has been on chronic voriconazole for refractory thrush (she states did not respond to fluconazole), making fungal pna less likely. She will continue with HAART - based on her drop in viral load from >11,000 to 5 ,000 after restarting her exisitng HAART in Jun, I suspect she was non adherent with meds previously. She did request a change in HAART, which was done on 07/24 at her last ID visit but she did not start this regimen prior to her hospital admission. I suspect she does not have resistance to old regimen, but her increase in viral load is due to non adherenece. Awaiting genotype. Will cotninue HAART, abx and prophylaxis. would continue course of abx for CAP as cxr does show some improvement, would give 14 days total. upon d/c would suggest doxy 100mg po bid to complete 14 days, she can be placed back on azithro at prophylacitc dose. will need repeat cxr in next 4-6 weeks to assess for improvement, if no clinical improvement agree with bronch. She has declined this to date. Will need careful monitoring and close outpatient followup to monitor for continued adherence and improvement in CD4 and viral load. (2) HIV (human immunodeficiency virus infection): Subjective pt remains afebrile. on broad spectrum abx. declined broch. RA sats 98%. sputum culture growing heavy growth normal phong x2. blood cultures negative. tolerating abx. Pulm eval noted, offered broch, pt declined. remains on azithro , cefepime,dapsone and vori for recurrent thrush. on HAART from home. CXR repeat this am, modest improvement in infiltrate RUL. Echo done yesterday, effusion noted, cardio eval noted, h/o effusion, most likely chronic, no plans for intervention at this time. Physical Exam 2 Vital Signs (Past 24 Hours): Last Vital Signs Temp 36.8 C 08/10/18 08:37 Pulse 71 08/10/18 08:37 Resp 18 08/10/18 08:37 BP 115/76 08/10/18 08:37 Pulse Ox 100 08/10/18 08:37 Results & Data Laboratory Results Microbiology 08/08/18 12:10 Sputum, Expectorated Gram Stain - Final 08/08/18 12:10 Sputum, Expectorated Sputum Culture - Final Heavy normal phong. 08/05/18 20:05 Sputum, Expectorated Gram Stain - Final 08/05/18 20:05 Sputum, Expectorated Sputum Culture - Final Heavy normal phong. 08/05/18 09:45 Blood Blood Culture - Preliminary No growth to date. 08/05/18 09:15 Blood Blood Culture - Preliminary No growth to date. _ (1) Pneumonia Aspiration pneumonia type: Laterality: bilateral Lung location: unspecified part of lung Pneumonia type: due to unspecified organism Qualified Code(s): J18.9 - Pneumonia, unspecified organism
--- NOTE | 2018-08-10 15:03 | Cardiology Consultation ---
Date of Consultation August 10, 2018 Assessment & Plan (1) Pericardial effusion: Pericardial effusion appears to be a chronic issue, possibly related to her HIV. She underwent pericardiocentesis in 2000 and recalls being told that she had a small pericardial effusion following on repeat echocardiograms. It appears as though things are stable. Can have a repeat echo in approximately 1 month as an outpatient, which will be arranged to the cardiology office. She is not in tamponade and appears to be asymptomatic in regards to her pericardial effusion. Pericardial effusion is small and would not pursue pericardiocentesis, based on small size and reported chronicity. (2) Chest pain: Symptoms are not consistent with pericarditis. There appears to be a musculoskeletal component. Symptom is chronic and has been occurring intermittently over the past many years. Would avoid NSAIDs given the fact that she has heme-positive stool. Supportive care as per primary service. Etiology for chest pain does not appear to be cardiac in nature. Disposition: Plan of care has been discussed with Dr. Johansen of the primary hospitalist service. Recommend follow-up with a PCP and Infectious Disease. Thank you for allowing me to participate in the care of your patient. Please call for any other questions or concerns. Sincerely, Socrates Lawson M.D. History of Present Illness Reason for Consultation: Pericardial effusion and chest pain. Question pericarditis. Requesting Physician: Dr. Johansen Attending Physician: James Johansen History of Present Illness Ms. Ibarra is a very pleasant 48-year-old female with a history significant for HIV, pericardial effusion status post pericardiocentesis in 2000, and asthma. She recently moved to the [facility] from [place], [place] approximately 1 month ago. She has been staying at a domestic violence intermediate with her 14-year-old daughter. Since she has moved to the [facility], she has not been taking her HIV medications. She became short of breath and was admitted to [facility] on 08/05/2018 and was diagnosed with pneumonia. She has improved significantly throughout her hospital stay. She is not yet back to baseline however. She has had central chest discomfort that can radiate to the left side of her body from her neck all the way down to her left hip. She describes it as a dull and squeezing sensation but also sometimes as a sharp and stabbing sensation. She has had this pain intermittently for the past several years. Sometimes it is pleuritic but not always. The pain worsens if she lifts something with her arms. There is no change in her chest pain with position such as worsening pain with laying supine. She had similar symptoms in 2000 and was found to have a pericardial effusion. She underwent pericardiocentesis at [facility]. She recalls being admitted for few days with a drain in place. She recalls being told on follow-up echocardiogram that she continued to have a small pericardial effusion but no intervention was necessary at that time. She estimates that her last echocardiogram was approximately 15 years ago. She denies syncope, near-syncope, palpitations, edema, melena, hematochezia, hematuria. Review of systems: As above. Review of systems otherwise negative/ unremarkable. Social history: She denies tobacco, alcohol, or drug abuse. She has not been . She has a 30-year-old son in [place]. She is a 14-year-old daughter who lives with her. She is currently living at a domestic violence intermediate in the [place] area. She is unaccompanied currently. She moved to [place] in 2019 from [place], [place]. Family history: No known premature CAD. Allergies Allergy/AdvReac Type Severity Reaction Status Date / Time Penicillins AdvReac Unknown Rash Unverified 08/05/18 10:12 Home Medications Home Medications Medication Instructions Recorded Confirmed Type azithromycin 5 ml PO WK 08/05/18 08/05/18 History dapsone 100 mg PO DAILY 08/05/18 08/05/18 History levothyroxine [Synthroid] 125 mcg PO DAILY 08/05/18 08/05/18 History pantoprazole [Protonix] 40 mg PO DAILY 08/05/18 08/05/18 History voriconazole 200 mg PO BID 08/05/18 08/05/18 History abacavir 300 mg PO BID 08/09/18 08/09/18 History dolutegravir 50 mg PO DAILY 08/09/18 08/09/18 History lamivudine 150 mg PO BID 08/09/18 08/09/18 History Patient History Medical History Asthma (Chronic) HIV (human immunodeficiency virus infection) (Acute) Social History Current Living Situation: Family Current Living Situation Comment: lives with daughter Other Information That Helps Us Care for You: No Feels Safe at Home: Yes Safety Concerns: Feels Safe At This Time Smoking Status: Never smoker Do You Dip or Chew Tobacco: No Second Hand Exposure: No Tobacco Cessation Education Requested by Patient: No Hx Alcohol Use: No Hx Substance Use: No Beliefs That Will Affect Care: Restorationism Restorationism Beliefs: wishes to speak to clergy Communication Ability: Effective Physical Exam 2 Vital Signs (Past 24 Hours): Last Vital Signs Temp 36.8 C 08/10/18 08:37 Pulse 71 08/10/18 08:37 Resp 18 08/10/18 08:37 BP 115/76 08/10/18 08:37 Pulse Ox 100 08/10/18 08:37 Physical Exam: Gen.: No acute distress. Alert and oriented. HEENT: Anicteric sclera. Neck: No JVD. No bruits. Normal carotid upstrokes bilaterally. Cardiac: PMI was nondisplaced. No ventricular heave. Regular rate and rhythm. Normal S1-S2. No murmurs, rubs, or gallops. Pulmonary: Clear to auscultation bilaterally without wheezes, rales, or rhonchi. Abdomen: Soft, nontender, nondistended, with normoactive bowel sounds. No bruits noted. Extremities: 2+ radial pulses bilaterally. 2+ posterior tibialis pulses bilaterally. No edema or cyanosis. Psychiatric: Affect appears appropriate. Chest: Tender to palpation in the central chest, reproducing her chest pain. Results & Data Laboratory Results Laboratory Results - last 24 hr 08/10/18 08/10/18 05:46 14:00 Sodium 140 Potassium 3.5 Chloride 113 H Carbon Dioxide 20 L Anion Gap 7.0 BUN 11 Creatinine 0.60 Est Cr Clr Drug Dosing 90.5 Est GFR ( Amer) 124.9 Est GFR (Non-Af Amer) 107.8 BUN/Creatinine Ratio 17.7 Glucose 84 Calcium 7.8 L Stool Occult Bld Scrn Positive H Diagnostic Findings ECG personally reviewed: ECG 08/05/2018: Sinus rhythm 99 bpm. Possible LVH. ECG 08/10/2018 at 9:55 a.m.: Sinus rhythm 82 bpm. Possible LVH. Echo 08/09/2018: Normal LV size, wall motion, systolic function. EF 55-60%. Moderate LVH. Small pericardial effusion. Mild to moderate TR. Mild to moderate PI. RVSP 25. CT angiogram 08/05/2018: No PE. Multifocal consolidation, most evident anterior segment of the right upper lobe, findings suggestive of multifocal pneumonia. Findings per Radiology. Medications Administered Current Inpatient Medications Abacavir Sulfate (Abacavir) 300 ea PO BIDM ROSMERY Stop: 09/09/18 07:59 Last Admin: 08/10/18 08:28 Dose: 300 ea Al Hydrox/Mg Hydrox/Simethicone (Maalox) 30 ml PO Q6H PRN PRN Reason: Dyspepsia Stop: 09/04/18 12:32 Albuterol (Duoneb) 3 ml NEB QIDR PRN PRN Reason: Shortness Of Breath Or Wheezin Stop: 09/04/18 13:14 Last Admin: 08/09/18 18:05 Dose: 3 ml Dexamethasone 3.75 mg/Nystatin 30 ml/Diphenhydramine HCl 300 mg/Sucrose 45 ml/ Microcrystalline Cellulose 45 ml/ BARCODE IDENTIFIER 1 ea 0 mg PO ACHS [facility] Stop: 09/06/18 12:29 Last Admin: 08/10/18 11:22 Dose: 5 ml Dapsone (Dapsone) 100 mg PO DAILY ROSMERY Stop: 09/05/18 08:59 Last Admin: 08/10/18 08:28 Dose: 100 mg Dolutegravir Sodium (Tivicay) 1 ea PO QDD ROSMERY Stop: 09/09/18 16:29 Enoxaparin Sodium (Lovenox) 40 mg SQ Q24H ROSMERY Stop: 09/06/18 07:59 Last Admin: 08/10/18 08:26 Dose: Not Given Ferrous Sulfate (Feosol) 325 mg PO QAM [facility] Stop: 09/06/18 09:29 Last Admin: 08/10/18 08:28 Dose: 325 mg Folic Acid (Folvite) 1 mg PO QAM [facility] Stop: 09/06/18 09:29 Last Admin: 08/10/18 08:28 Dose: 1 mg Azithromycin 500 mg/ Dextrose 255 mls @ 125 mls/hr IV Q24H ROSMERY; Protocol Stop: 08/12/18 10:59 Last Infusion: 08/10/18 13:33 Dose: Infused Cefepime HCl 1,000 mg/ Syringe 11.3 mls @ 5.5 mls/min IV Q8H [facility]; Protocol Stop: 08/12/18 22:00 Last Admin: 08/10/18 10:35 Dose: 5.5 mls/min Acetaminophen (Ofirmev) 1,000 mg in 100 mls @ 400 mls/hr IV Q8H PRN PRN Reason: Pain or Fever Stop: 09/04/18 23:50 Last Infusion: 08/06/18 14:48 Dose: Infused Voriconazole 200 mg/ Sodium (Chloride) 100 mls @ 50 mls/hr IV BID [facility] Stop: 09/05/18 20:59 Last Infusion: 08/10/18 10:29 Dose: Infused Ibuprofen (Advil) 400 mg PO TID [facility] Stop: 09/08/18 20:59 Last Admin: 08/10/18 08:27 Dose: Not Given Lamivudine (Epivir) 150 mg PO BID [facility] Stop: 09/05/18 12:29 Last Admin: 08/10/18 08:29 Dose: 150 mg Levalbuterol HCl (Xopenex 1.25mg/0.5ml Neb) 1.25 mg NEB Q4H PRN PRN Reason: Shortness Of Breath Stop: 09/04/18 12:32 Levothyroxine Sodium (Synthroid) 125 mcg PO DAILYBB [facility] Stop: 09/05/18 06:29 Last Admin: 08/10/18 05:51 Dose: 125 mcg Magnesium Hydroxide (Milk Of Magnesia) 30 ml PO Q6H PRN PRN Reason: Constipation Stop: 09/04/18 12:32 Ondansetron HCl (Zofran) 4 mg IV Q6H PRN PRN Reason: Nausea Stop: 09/04/18 12:32 Last Admin: 08/09/18 19:58 Dose: 4 mg Pantoprazole Sodium (Protonix) 40 mg PO DAILY [facility] Stop: 09/05/18 08:59 Last Admin: 08/10/18 08:26 Dose: Not Given Polyethylene Glycol (Miralax Powder Packet) 17 gm PO DAILY PRN PRN Reason: Constipation Stop: 09/04/18 12:32 Zolpidem Tartrate (Ambien) 5 mg PO HS PRN PRN Reason: Sleep Stop: 03/18/19 12:32 _ (1) Chest pain Chest pain type: other chest pain Ischemic chest pain type: Qualified Code( s): R07.89 - Other chest pain; R07.8 - Other chest pain
[2018-08-10] MEDS: DOLUTEGRAVIR SODIUM PO SCH (17:07)
[2018-08-10 17:21] LABS: Cdiff Antigen Positive; Cdiff Toxin A+B Negative (Negative)
--- NOTE | 2018-08-10 20:15 | Hospitalist Progress Note ---
Date of Service August 10, 2018 Assessment & Plan (1) Chest pain: echo checked - pericardial effusion present EKG was normal at admission and continues to remain normal today pain improved w/ motrin ?pericarditis? I placed formal consult to cardiology to get their opinion (2) Pneumonia: b/l. community-acquired vs gram negative etiology vs opportunistic infection possible (PCP, fungal, etc). appreciate pulmonary & ID consultations. remains on broad-spectrum IV antibiotics including - cefepime and azithromycin. remains on voriconazole to cover fungal pneumonia (and thrush). agree with pulmonary need sputum (ideally via bronch) to r/o PCP. patient refusing bronch; unfortunately the sputum sent for pathology was inconclusive. However, given that her cxr today is modestly improved, this argues for typical/ atypical pneumonia rather than PCP. can likely transition to PO abx in the am tomorrow. (3) Sepsis: 2nd to b/l pneumonia. sepsis clinically resolved. (4) Asthma: Without exacerbation at this time. Defer on steroids for now. (5) HIV (human immunodeficiency virus infection): Appreciate ID consultation. Appears to have wasting syndrome in setting of noncompliance with HAART therapy. Remains on dapsone for PCP prophylaxis and azithromax for DARCIE prophylaxis. CD4 count is <10 -- she is at risk of DARCIE in addition to PCP, etc. Awaiting HIV genotyping. Pharmacy/ID assistance with meds appreciated. She is not back on triple-therapy. (6) Oral candidiasis: Magic mouthwash + voriconazole. (7) Anemia: Folate is low-normal -- give folic acid 1mg daily. Trans-saturation of iron is <10% -- give iron replacement. Much of the anemia is likely chronic disease from the HIV itself. cbcs have been acceptable enough. (8) Coagulopathy: vitamin K deficiency in light of malnourishment suspected. INR has improved with multiple doses of vitamin K. repeat INR in am. (9) Hypothyroidism: TSH this admission wnl. Cont synthroid. (10) Severe protein-calorie malnutrition: added Boost, MVI, folate, Fe, etc. 2nd to severe HIV. (11) DVT prophylaxis: lovenox daily (12) Discharge planning issues: remains at high risk of readmission due to lack of housing (was living in [facility] pre-hospital), recent move to [place], severe HIV, noncompliance, etc. will [facility] post-d/c. likely for d/c tomorrow. Subjective pt's chest pain is improved not as much pleuritic component today eating is about the same no VARGAS mild cough thrush unchanged asks about d/c home Constitutional: no fever and no chills Respiratory: no dyspnea Cardiovascular: as per Subjective / HPI; no orthopnea, no paroxysmal nocturnal dyspnea and no edema Gastrointestinal: + diarrhea/loose stools; no abdominal pain, no nausea and no vomiting Physical Exam 2 Vital Signs (Past 24 Hours): Last Vital Signs Temp 36.7 C 08/10/18 16:18 Pulse 88 08/10/18 16:18 Resp 20 08/10/18 16:18 BP 96/60 L 08/10/18 16:18 Pulse Ox 99 08/10/18 16:18 Constitutional: + cachectic; no acute distress ENMT: Mouth: + oral mucosal abnormality (severe thrush of all buccal mucosal surfaces and tongue --- maybe slight improvement) Respiratory: normal respiratory effort, lungs clear to auscultation Cardiovascular: Rate/Rhythm: regular rate and regular rhythm Heart Sounds: normal S1 and normal S2 Vessels: posterior tibial pulses present and dorsalis pedis pulses present; no JVD Chest (Breasts): Additional Comments: no tenderness to palpation Gastrointestinal (Abdomen): Inspection/Auscultation: normal bowel sounds; abdomen not distended Percussion/Palpation: abdomen soft and + hepatomegaly; abdomen nontender, no guarding, abdomen not rigid and no splenomegaly Psychiatric: Orientation: alert and oriented x 3 Results & Data Laboratory Results Laboratory Results - last 24 hr 08/10/18 08/10/18 08/10/18 05:46 14:00 14:00 Sodium 140 Potassium 3.5 Chloride 113 H Carbon Dioxide 20 L Anion Gap 7.0 BUN 11 Creatinine 0.60 Est Cr Clr Drug Dosing 90.5 Est GFR ( Amer) 124.9 Est GFR (Non-Af Amer) 107.8 BUN/Creatinine Ratio 17.7 Glucose 84 Calcium 7.8 L Stool Occult Bld Scrn Positive H Stl C. diff Tox B Gene Pos C.diff Toxin B A Stl C.difficile Tox A&B Negative _ (1) Anemia Anemia type: other cause Bone marrow failure anemia type: Chronic kidney disease stage: Folate deficiency anemia type: Hemolytic anemia type: Iron deficiency anemia type: Other causes of anemia: other cause, not classified Vitamin B12 deficiency anemia type: Qualified Code(s): D64.89 - Other specified anemias (2) Hypothyroidism Hypothyroidism type: acquired Qualified Code(s): E03.9 - Hypothyroidism, unspecified (3) Sepsis Sepsis type: sepsis due to unspecified organism Qualified Code(s): A41.9 - Sepsis, unspecified organism (4) Chest pain Chest pain type: other chest pain Ischemic chest pain type: Qualified Code( s): R07.89 - Other chest pain; R07.8 - Other chest pain (5) Pneumonia Aspiration pneumonia type: Laterality: bilateral Lung location: unspecified part of lung Pneumonia type: due to unspecified organism Qualified Code(s): J18.9 - Pneumonia, unspecified organism (6) Asthma Asthma complication type: unspecified Asthma persistence: unspecified Asthma severity: moderate Qualified Code(s): J45.909 - Unspecified asthma, uncomplicated
[2018-08-11] MEDS: CEFEPIME 1,000 MG in SYRINGE 0 ML IV SCH (02:09)
[2018-08-11 05:59] LABS: Basophils # (auto) 0.01 K/uL (0-0.2); Basophils % (auto) 0.4 %; Eosinophils # (auto) 0.28 K/uL (0-0.5); Hematocrit (blood only) 27.4 % (37-47); Hemoglobin 9.2 g/dL (12.0-16.0); Immature Granulocytes # (auto) 0.02 K/uL (0.00-0.02); Immature Granulocytes % (auto) 0.7 %; Lymphocytes # (auto) 0.75 K/uL (1.2-3.4); Lymphocytes % (auto) 26.9 %; Mean Corpuscular Hgb Conc 33.6 g/dL (32-36); Mean Corpuscular Volume 72.7 fL (80-100); Mean Platelet Volume 10.5 fL (7.4-10.4); Monocytes # (auto) 0.46 K/uL (0.11-0.59); Monocytes % (auto) 16.5 %; Neutrophils # (auto) 1.27 K/uL (1.4-6.5); Neutrophils % (auto) 45.5 %; Platelet Count 362 K/uL (130-400); RDW Coefficient of Variation 19.6 % (11.5-14.5); RDW Standard Deviation 51.8 fL (36.4-46.3); Red Blood Count 3.77 M/uL (4.2-5.4); White Blood Count 2.79 K/uL (4.8-10.8)
[2018-08-11 06:17] LABS: INR 1.2 (0.9-1.1); Prothrombin Time 11.9 Seconds (9.0-12.0)
[2018-08-11 06:27] LABS: BUN Creatinine Ratio 15.5 (10-20); Calcium 7.8 mg/dl (8.5-10.1); Creatinine Clr Calc Pharmacy 81.1 ml/min; Est GFR (African American) 120.5; Est GFR (Non-African American) 103.9; Potassium 3.3 mmol/L (3.5-5.1)
[2018-08-11 06:28] LABS: C Reactive Protein 0.4 mg/dl (0-0.29)
[2018-08-11] MEDS ORDERED: PHYTONADIONE 5 MG TAB PO STA (08:17)
[2018-08-11] MEDS ORDERED: POTASSIUM CHLORIDE 20 MEQ TABCR PO STA (08:17)
[2018-08-11] MEDS: ABACAVIR SULFATE PO SCH ×2 (08:17→17:49)
[2018-08-11] MEDS: FERROUS SULFATE 325 MG TAB PO SCH (08:21)
[2018-08-11] MEDS: FOLIC ACID 1 MG TAB PO SCH (08:22)
[2018-08-11] MEDS: DAPSONE 25 MG TAB PO SCH (08:23)
[2018-08-11] MEDS: LAMIVUDINE 10 MG/ML PO SCH ×2 (08:25→17:48)
[2018-08-11] MEDS: ENOXAPARIN INJ 40 MG/0.4 ML SYR SQ SCH (08:38)
[2018-08-11] MEDS: DEXAMETHASONE CONC 3.75 MG, NYSTATIN 30 ML, DiphenhydrAMINE Syrup 300 MG, ORA-SWEET SYR... PO SCH ×4 (08:42→20:51)
[2018-08-11] MEDS: DOXYCYCLINE HYCLATE 100 MG CAP PO SCH ×2 (10:41→20:51)
--- NOTE | 2018-08-11 10:50 | Infectious Disease Progress Nt ---
Date of Service August 11, 2018 Assessment & Plan (1) Pneumonia: high risk for OI with degree of immunosuppression. 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 Also has been on chronic voriconazole for refractory thrush (she states did not respond to fluconazole), making fungal pna less likely. She will continue with HAART - based on her drop in viral load from >11,000 to 5 ,000 after restarting her exisitng HAART in Jun, I suspect she was non adherent with meds previously. She did request a change in HAART, which was done on 07/24 at her last ID visit but she did not start this regimen prior to her hospital admission. I suspect she does not have resistance to old regimen, but her increase in viral load is due to non adherenece. Awaiting genotype. Will cotninue HAART, abx and prophylaxis. would continue course of abx for CAP as cxr does show some improvement, would give 14 days total. upon d/c would suggest doxy 100mg po bid to complete 14 days, she can be placed back on azithro at prophylacitc dose. will need repeat cxr in next 4-6 weeks to assess for improvement, if no clinical improvement agree with bronch. She has declined this to date. Will need careful monitoring and close outpatient followup to monitor for continued adherence and improvement in CD4 and viral load. she has appt scheduled with ID on 08/31. will repeat cxr at that time. (2) HIV (human immunodeficiency virus infection): Subjective pt remains afebrile. on broad spectrum abx. declined broch. RA sats 98%. sputum culture growing heavy growth normal phong x2. path with yeast, no pcp noted. known oral thrush. blood cultures negative and final. tolerating abx, cefepime stopped. Pulm eval noted, offered broch, pt declined. remains on azithro, dapsone and vori for recurrent thrush. on HAART from home. CXR with modest improvement in infiltrate RUL. Echo done effusion noted, cardio eval noted, h/o effusion, most likely chronic, no plans for intervention at this time. pt feeling better today. eating well. denies f/c. no abd pain, no n/v/d. tolerating abx well. no cp, sob, cough. no glass. overall much improved. all remaining ros reviewed and are negative Physical Exam 2 Vital Signs (Past 24 Hours): Last Vital Signs Temp 36.8 C 08/11/18 07:18 Pulse 75 08/11/18 07:18 Resp 18 08/11/18 07:18 BP 105/69 08/11/18 07:18 Pulse Ox 99 08/11/18 09:00 Constitutional: + thin, + frail appearing, cooperative, comfortable and + underweight; no acute distress Eyes: PERRL, conjunctivae normal, anicteric sclerae ENMT: external ear and nose normal, oropharynx normal Mouth: + poor dentition; no oropharynx abnormality Neck: normal visual inspection Respiratory: normal respiratory effort, lungs clear to auscultation Cardiovascular: RRR, no murmur, no edema Gastrointestinal (Abdomen): normal bowel sounds, soft, nontender, no hepatosplenomegaly Musculoskeletal: no cyanosis or clubbing, extremities motor strength 5/5 Skin: no rashes, warm and dry Psychiatric: A+Ox3, euthymic affect Results & Data Laboratory Results Microbiology 08/05/18 09:45 Blood Blood Culture - Final No growth 08/05/18 09:15 Blood Blood Culture - Final No growth 08/08/18 12:10 Sputum, Expectorated Gram Stain - Final 08/08/18 12:10 Sputum, Expectorated Sputum Culture - Final Heavy normal phong. 08/05/18 20:05 Sputum, Expectorated Gram Stain - Final 08/05/18 20:05 Sputum, Expectorated Sputum Culture - Final Heavy normal phong. _ (1) Pneumonia Aspiration pneumonia type: Laterality: bilateral Lung location: unspecified part of lung Pneumonia type: due to unspecified organism Qualified Code(s): J18.9 - Pneumonia, unspecified organism
[2018-08-11] MEDS: PANTOprazole 40 MG TAB PO SCH (11:45)
[2018-08-11] MEDS: SODIUM CHLORIDE 0.9% IV SCH ×2 (11:48→20:51)
[2018-08-11] MEDS: VORICONAZOLE IV SCH ×2 (11:48→20:51)
[2018-08-11] MEDS: AZITHROMYCIN 500 MG in DEXTROSE 5% 250 ML IV SCH (11:49)
[2018-08-11] MEDS: DOLUTEGRAVIR SODIUM PO SCH (17:48)
--- NOTE | 2018-08-11 20:03 | Hospitalist Progress Note ---
Date of Service August 11, 2018 Assessment & Plan (1) Chest pain: echo checked - pericardial effusion present EKG was normal at admission and continues to remain normal cardiology saw -- does not feel she has pericarditis musculoskeletal? related to pneumonia? GI? follow (2) Pneumonia: b/l. community-acquired vs gram negative etiology vs opportunistic infection possible (PCP, fungal, etc). appreciate pulmonary & ID consultations. stop IV antibiotics change to doxy 100 BID and treat 8 more days (14 days in total of abx recommended by ID) change IV zithromax to PO zithromax for DARCIE prophy change IV voriconazole to PO in am cxr stable/improved o2 sats 100% in room air (3) Sepsis: 2nd to b/l pneumonia. sepsis clinically resolved. (4) Asthma: Without exacerbation at this time. Defer on steroids for now. (5) HIV (human immunodeficiency virus infection): Appreciate ID consultation. Appears to have wasting syndrome in setting of noncompliance with HAART therapy. Remains on dapsone for PCP prophylaxis and azithromax for DARCIE prophylaxis. CD4 count is <10 -- she is at risk of DARCIE in addition to PCP, etc. Awaiting HIV genotyping. Pharmacy/ID assistance with meds appreciated. She is now back on triple-therapy. has f/u with DR. Abdalla on August 31. (6) Oral candidiasis: Magic mouthwash + voriconazole. (7) Anemia: Folate is low-normal -- give folic acid 1mg daily. Trans-saturation of iron is <10% -- give iron replacement. Much of the anemia is likely chronic disease from the HIV itself. cbcs have been acceptable. (8) Coagulopathy: vitamin K deficiency in light of malnourishment suspected. INR has improved with multiple doses of vitamin K. repeat INR in am. (9) Hypothyroidism: TSH this admission wnl. Cont synthroid. (10) Severe protein-calorie malnutrition: added Boost, MVI, folate, Fe, etc. 2nd to severe HIV. (11) DVT prophylaxis: lovenox daily (12) Discharge planning issues: remains at high risk of readmission due to lack of housing (was living in [facility] pre-hospital), recent move to [place], severe HIV, noncompliance, etc. will return to intermediate post-d/c. likely for d/c tomorrow. of note - patient declines antidepressant although she admits to depression. Subjective patient declines discharge today stating "I just want to rest" no new complaints thrush is unchanged only 1 stool since yesterday cough is minimal appetite is fair Constitutional: + fatigue and + anorexia; no fever and no chills Respiratory: no dyspnea on exertion Cardiovascular: + chest pain (intermittent); no chest pain with activity and no radiating jaw, neck or arm pain Gastrointestinal: no abdominal pain, no nausea and no vomiting Physical Exam 2 Vital Signs (Past 24 Hours): Last Vital Signs Temp 36.7 C 08/11/18 15:03 Pulse 79 08/11/18 15:03 Resp 16 08/11/18 15:03 BP 101/63 08/11/18 15:03 Pulse Ox 98 08/11/18 15:03 Constitutional: + cachectic; no acute distress ENMT: Mouth: + oral mucosal abnormality (severe thrush of all buccal mucosal surfaces and tongue --- maybe slight improvement again today) Respiratory: normal respiratory effort, lungs clear to auscultation Cardiovascular: Rate/Rhythm: regular rate and regular rhythm Heart Sounds: normal S1 and normal S2 Vessels: posterior tibial pulses present and dorsalis pedis pulses present; no JVD Gastrointestinal (Abdomen): Inspection/Auscultation: normal bowel sounds; abdomen not distended Percussion/Palpation: abdomen soft and + hepatomegaly; abdomen nontender, no guarding, abdomen not rigid and no splenomegaly Skin: no rashes, warm and dry Psychiatric: Orientation: alert and oriented x 3 Mood: + depressed mood Results & Data Laboratory Results Laboratory Results - last 24 hr 08/11/18 08/11/18 08/11/18 05:37 05:37 05:37 WBC 2.79 L RBC 3.77 L Hgb 9.2 L Hct 27.4 L MCV 72.7 L MCH 24.4 L MCHC 33.6 RDW Std Deviation 51.8 H RDW Coeff of Ale 19.6 H Plt Count 362 MPV 10.5 H Immature Gran % (Auto) 0.7 Neut % (Auto) 45.5 Lymph % (Auto) 26.9 [place] % (Auto) 16.5 Eos % (Auto) 10.0 Baso % (Auto) 0.4 Immature Gran # (Auto) 0.02 Neut # (Auto) 1.27 L Lymph # (Auto) 0.75 L [place] # (Auto) 0.46 Eos # (Auto) 0.28 Baso # (Auto) 0.01 ESR PT 11.9 INR 1.2 H Sodium 139 Potassium 3.3 L Chloride 112 H Carbon Dioxide 20 L Anion Gap 7.0 BUN 10 Creatinine 0.67 Est Cr Clr Drug Dosing 81.1 Est GFR ( Amer) 120.5 Est GFR (Non-Af Amer) 103.9 BUN/Creatinine Ratio 15.5 Glucose 91 Calcium 7.8 L C-Reactive Protein 0.40 H 08/11/18 05:37 WBC RBC Hgb Hct MCV MCH MCHC RDW Std Deviation RDW Coeff of Ale Plt Count MPV Immature Gran % (Auto) Neut % (Auto) Lymph % (Auto) [place] % (Auto) Eos % (Auto) Baso % (Auto) Immature Gran # (Auto) Neut # (Auto) Lymph # (Auto) [place] # (Auto) Eos # (Auto) Baso # (Auto) ESR > 90 H PT INR Sodium Potassium Chloride Carbon Dioxide Anion Gap BUN Creatinine Est Cr Clr Drug Dosing Est GFR ( Amer) Est GFR (Non-Af Amer) BUN/Creatinine Ratio Glucose Calcium C-Reactive Protein _ (1) Anemia Anemia type: other cause Bone marrow failure anemia type: Chronic kidney disease stage: Folate deficiency anemia type: Hemolytic anemia type: Iron deficiency anemia type: Other causes of anemia: other cause, not classified Vitamin B12 deficiency anemia type: Qualified Code(s): D64.89 - Other specified anemias (2) Hypothyroidism Hypothyroidism type: acquired Qualified Code(s): E03.9 - Hypothyroidism, unspecified (3) Sepsis Sepsis type: sepsis due to unspecified organism Qualified Code(s): A41.9 - Sepsis, unspecified organism (4) Chest pain Chest pain type: other chest pain Ischemic chest pain type: Qualified Code( s): R07.89 - Other chest pain; R07.8 - Other chest pain (5) Pneumonia Aspiration pneumonia type: Laterality: bilateral Lung location: unspecified part of lung Pneumonia type: due to unspecified organism Qualified Code(s): J18.9 - Pneumonia, unspecified organism (6) Asthma Asthma complication type: unspecified Asthma persistence: unspecified Asthma severity: moderate Qualified Code(s): J45.909 - Unspecified asthma, uncomplicated
[2018-08-12] MEDS: LEVOTHYROXINE SODIUM 125 MCG TABLET PO SCH ×2 (01:35→06:10)
[2018-08-12 05:25] LABS: Basophils # (auto) 0.01 K/uL (0-0.2); Basophils % (auto) 0.4 %; Eosinophils # (auto) 0.23 K/uL (0-0.5); Eosinophils % (auto) 8.5 %; Hematocrit (blood only) 26.3 % (37-47); Immature Granulocytes # (auto) 0.01 K/uL (0.00-0.02); Immature Granulocytes % (auto) 0.4 %; Lymphocytes # (auto) 0.69 K/uL (1.2-3.4); Lymphocytes % (auto) 25.6 %; Mean Corpuscular Hgb Conc 34.2 g/dL (32-36); Mean Corpuscular Volume 72.7 fL (80-100); Mean Platelet Volume 10.4 fL (7.4-10.4); Monocytes # (auto) 0.43 K/uL (0.11-0.59); Monocytes % (auto) 15.9 %; Neutrophils # (auto) 1.33 K/uL (1.4-6.5); Neutrophils % (auto) 49.2 %; Platelet Count 356 K/uL (130-400); RDW Coefficient of Variation 19.9 % (11.5-14.5); RDW Standard Deviation 52.2 fL (36.4-46.3); Red Blood Count 3.62 M/uL (4.2-5.4)
[2018-08-12 05:34] LABS: INR 1.2 (0.9-1.1); Prothrombin Time 12.4 Seconds (9.0-12.0)
[2018-08-12 05:41] LABS: BUN Creatinine Ratio 18.7 (10-20); Calcium 7.6 mg/dl (8.5-10.1); Creatinine Clr Calc Pharmacy 95.3 ml/min; Est GFR (African American) 127.1; Est GFR (Non-African American) 109.6; Magnesium 1.5 mg/dl (1.8-2.4); Potassium 2.9 mmol/L (3.5-5.1)
[2018-08-12] MEDS ORDERED: POTASSIUM CHLORIDE PWD 20 MEQ PACK PO STA (06:01)
[2018-08-12] MEDS ORDERED: MAGNESIUM OXIDE 400 MG TAB PO STA (06:01)
--- NOTE | 2018-08-12 06:10 | Progress Note ---
Date of Service August 12, 2018 Received page from the patient's nurse stating labs were back. This a.m.'s potassium is 2.9 and magnesium is 1.5. Per the nurse, apparently the patient does not take her potassium quickly and prefers to drink it slowly in the liquid she dissolves in. She also only has one tenuous IV site. Plan: - Ordered Klor-Con 40 mEq p.o. x1. Hopefully she can be encouraged to take it quicker (than slower). - Ordered mag oxide 400 mg p.o. x1. - Ordered KCl 20 mEq IV. It is okay to infuse this far slower than 10 mEq an hour (i.e. as quickly as the patient and her vein tolerates), but at least she will get this dosing while taking p.o. - Would like to check an EKG as well. - Primary team will likely need to give further doses of both of these electrolytes later today. Adonis Beckham, PGY2 Overnight call Physical Exam 2 Vital Signs (Past 24 Hours): Last Vital Signs Temp 36.7 C 08/11/18 15:03 Pulse 79 08/11/18 15:03 Resp 16 08/11/18 15:03 BP 101/63 08/11/18 15:03 Pulse Ox 98 08/11/18 15:03
[2018-08-12] MEDS: POTASSIUM CHLORIDE / WTR 10 MEQ/100 ML PLCT IV SCH ×3 (06:30→21:57)
[2018-08-12] MEDS ORDERED: POTASSIUM CHLORIDE / WTR 10 MEQ/100 ML PLCT IV ONE ×2 (08:55→19:00)
[2018-08-12] MEDS: DOXYCYCLINE HYCLATE 100 MG CAP PO SCH ×2 (09:18→22:05)
[2018-08-12] MEDS: DAPSONE 25 MG TAB PO SCH (09:18)
[2018-08-12] MEDS: PANTOprazole 40 MG TAB PO SCH (09:18)
[2018-08-12] MEDS: FERROUS SULFATE 325 MG TAB PO SCH (09:19)
[2018-08-12] MEDS: FOLIC ACID 1 MG TAB PO SCH (09:19)
[2018-08-12] MEDS: LAMIVUDINE 10 MG/ML PO SCH ×2 (09:20→17:21)
[2018-08-12] MEDS: ENOXAPARIN INJ 40 MG/0.4 ML SYR SQ SCH (09:21)
[2018-08-12] MEDS: ABACAVIR SULFATE PO SCH ×2 (09:22→17:19)
[2018-08-12] MEDS: VORICONAZOLE 200 MG TABLET PO SCH ×2 (09:28→22:06)
[2018-08-12] MEDS ORDERED: POTASSIUM CHLORIDE 20 MEQ/15 ML UDC PO ONE (09:30)
[2018-08-12] MEDS ORDERED: AZITHROMYCIN SUSP 200 MG/5 ML 22.5 ML PO SCH (09:30)
[2018-08-12] MEDS ORDERED: PHYTONADIONE 5 MG TAB PO ONE (09:30)
[2018-08-12] MEDS: AZITHROMYCIN SUSP 200 MG/5 ML 22.5 ML PO SCH (12:26)
[2018-08-12] MEDS: MAGNESIUM SULFATE / D5W 1 GM/100 ML BAG IV SCH ×2 (12:27→13:42)
[2018-08-12] MEDS: DEXAMETHASONE CONC 3.75 MG, NYSTATIN 30 ML, DiphenhydrAMINE Syrup 300 MG, ORA-SWEET SYR... PO SCH ×4 (12:43→22:03)
[2018-08-12] MEDS: DOLUTEGRAVIR SODIUM PO SCH (17:18)
[2018-08-12 18:02] LABS: Potassium 2.9 mmol/L (3.5-5.1)
[2018-08-12] MEDS ORDERED: POTASSIUM CHLORIDE 20 MEQ/15 ML UDC PO STA (18:23)
--- NOTE | 2018-08-12 20:49 | Hospitalist Progress Note ---
Date of Service August 12, 2018 Assessment & Plan (1) Pneumonia: b/l. community-acquired vs gram negative etiology vs opportunistic infection possible but less likely (PCP, fungal, etc). appreciate pulmonary & ID consultations. all IV abx stopped. remains on doxy 100 BID and treat 7 more days (14 days in total of abx recommended by ID) cont PO zithromax for DARCIE prophy cont voriconazole BID for thrush cont dapsone for PCP prophy cxr stable/improved o2 sats 100% in room air minimal pulmonary symptoms (2) Chest pain: echo checked - pericardial effusion present EKGs have been normal cardiology saw -- do not feel she has pericarditis musculoskeletal? related to pneumonia? GI? follow no complaints of this today (3) Sepsis: 2nd to b/l pneumonia. sepsis clinically resolved. (4) Asthma: no issues or flare (5) HIV (human immunodeficiency virus infection): Appreciate ID consultation. Appears to have wasting syndrome in setting of noncompliance with HAART therapy. Remains on dapsone for PCP prophylaxis and azithromax for DARCIE prophylaxis. CD4 count is <10 -- she is at risk of DARCIE in addition to PCP, etc. Awaiting HIV genotyping. Pharmacy/ID assistance with meds appreciated. She is now back on triple-therapy. has f/u with DR. Abdalla on August 31. (6) Oral candidiasis: Magic mouthwash + voriconazole. severe case. (7) Anemia: Folate is low-normal -- give folic acid 1mg daily. Trans-saturation of iron is <10% -- give iron replacement. Much of the anemia is likely chronic disease from the HIV itself. cbcs have been acceptable. (8) Coagulopathy: vitamin K deficiency in light of malnourishment suspected. INR has improved with multiple doses of vitamin K. repeat INR today 1.2 - give 1 more dose of vitamin K. (9) Hypothyroidism: TSH this admission wnl. Cont synthroid. (10) Severe protein-calorie malnutrition: added Boost, MVI, folate, Fe, etc. 2nd to severe HIV. (11) Hypokalemia: replace IV and PO; repeat K level tonight and in am. 2nd to poor oral intake and low magnesium level. (12) Hypomagnesemia: replace IV may need PO supplement at d/c. (13) DVT prophylaxis: lovenox daily (14) Discharge planning issues: remains at high risk of readmission due to lack of housing (was living in [facility] pre-hospital), recent move to [place], severe HIV, noncompliance, etc. will return to longterm post-d/c. of note - patient declines antidepressant although she admits to depression. d/c tomorrow. Subjective patient today has been very particular with her care has delayed the taking of her potassium and other oral meds potassium infusions have been either given very slowly or refused ordering lots of food to the room then picking at various foods only no new complaints today no diarrhea per staff or patient Constitutional: no fever and no chills Respiratory: + cough; no dyspnea and no dyspnea on exertion Cardiovascular: no chest pain Gastrointestinal: no abdominal pain, no nausea and no vomiting Integumentary: no rash Psychiatric: + depression Physical Exam 2 Vital Signs (Past 24 Hours): Last Vital Signs Temp 36.4 C L 08/12/18 07:54 Pulse 79 08/12/18 07:54 Resp 20 08/12/18 07:54 BP 102/69 08/12/18 07:54 Pulse Ox 100 08/12/18 07:54 Constitutional: + cachectic; no acute distress ENMT: Mouth: + oral mucosal abnormality (severe thrush of all buccal mucosal surfaces and tongue --- no change from yesterday's exam) Respiratory: normal respiratory effort, lungs clear to auscultation Cardiovascular: Rate/Rhythm: regular rate and regular rhythm Heart Sounds: normal S1 and normal S2 Vessels: posterior tibial pulses present and dorsalis pedis pulses present; no JVD Gastrointestinal (Abdomen): Inspection/Auscultation: normal bowel sounds; abdomen not distended Percussion/Palpation: abdomen soft and + hepatomegaly; abdomen nontender, no guarding, abdomen not rigid and no splenomegaly Skin: no rashes, warm and dry Psychiatric: Orientation: alert and oriented x 3 Mood: + depressed mood Results & Data Laboratory Results Laboratory Results - last 24 hr 08/12/18 08/12/18 08/12/18 05:06 05:06 05:06 WBC 2.70 L RBC 3.62 L Hgb 9.0 L Hct 26.3 L MCV 72.7 L MCH 24.9 L MCHC 34.2 RDW Std Deviation 52.2 H RDW Coeff of Ale 19.9 H Plt Count 356 MPV 10.4 Immature Gran % (Auto) 0.4 Neut % (Auto) 49.2 Lymph % (Auto) 25.6 [place] % (Auto) 15.9 Eos % (Auto) 8.5 Baso % (Auto) 0.4 Immature Gran # (Auto) 0.01 Neut # (Auto) 1.33 L Lymph # (Auto) 0.69 L [place] # (Auto) 0.43 Eos # (Auto) 0.23 Baso # (Auto) 0.01 PT 12.4 H INR 1.2 H Sodium 142 Potassium 2.9 L Chloride 115 H Carbon Dioxide 20 L Anion Gap 7.0 BUN 11 Creatinine 0.57 L Est Cr Clr Drug Dosing 95.3 Est GFR ( Amer) 127.1 Est GFR (Non-Af Amer) 109.6 BUN/Creatinine Ratio 18.7 Glucose 87 Calcium 7.6 L Magnesium 1.5 L 08/12/18 17:24 WBC RBC Hgb Hct MCV MCH MCHC RDW Std Deviation RDW Coeff of Ale Plt Count MPV Immature Gran % (Auto) Neut % (Auto) Lymph % (Auto) [place] % (Auto) Eos % (Auto) Baso % (Auto) Immature Gran # (Auto) Neut # (Auto) Lymph # (Auto) [place] # (Auto) Eos # (Auto) Baso # (Auto) PT INR Sodium Potassium 2.9 L Chloride Carbon Dioxide Anion Gap BUN Creatinine Est Cr Clr Drug Dosing Est GFR ( Amer) Est GFR (Non-Af Amer) BUN/Creatinine Ratio Glucose Calcium Magnesium 2.0 _ (1) Anemia Anemia type: other cause Bone marrow failure anemia type: Chronic kidney disease stage: Folate deficiency anemia type: Hemolytic anemia type: Iron deficiency anemia type: Other causes of anemia: other cause, not classified Vitamin B12 deficiency anemia type: Qualified Code(s): D64.89 - Other specified anemias (2) Hypothyroidism Hypothyroidism type: acquired Qualified Code(s): E03.9 - Hypothyroidism, unspecified (3) Sepsis Sepsis type: sepsis due to unspecified organism Qualified Code(s): A41.9 - Sepsis, unspecified organism (4) Chest pain Chest pain type: other chest pain Ischemic chest pain type: Qualified Code( s): R07.89 - Other chest pain; R07.8 - Other chest pain (5) Pneumonia Aspiration pneumonia type: Laterality: bilateral Lung location: unspecified part of lung Pneumonia type: due to unspecified organism Qualified Code(s): J18.9 - Pneumonia, unspecified organism (6) Asthma Asthma complication type: unspecified Asthma persistence: unspecified Asthma severity: moderate Qualified Code(s): J45.909 - Unspecified asthma, uncomplicated
[2018-08-13] MEDS: POTASSIUM CHLORIDE / WTR 10 MEQ/100 ML PLCT IV SCH ×2 (00:20→02:17)
[2018-08-13] MEDS: LEVOTHYROXINE SODIUM 125 MCG TABLET PO SCH ×3 (05:03→06:30)
[2018-08-13 06:49] LABS: BUN Creatinine Ratio 20.4 (10-20); Calcium 7.6 mg/dl (8.5-10.1); Creatinine Clr Calc Pharmacy 108.6 ml/min; Est GFR (African American) 132.6; Est GFR (Non-African American) 114.5
[2018-08-13] MEDS ORDERED: POTASSIUM CHLORIDE PWD 20 MEQ PACK PO STA (09:05)
[2018-08-13] MEDS: DOXYCYCLINE HYCLATE 100 MG CAP PO SCH ×2 (09:28→14:24)
[2018-08-13] MEDS: DAPSONE 25 MG TAB PO SCH (09:28)
[2018-08-13] MEDS: AZITHROMYCIN SUSP 200 MG/5 ML 22.5 ML PO SCH (09:28)
[2018-08-13] MEDS: FOLIC ACID 1 MG TAB PO SCH (09:28)
[2018-08-13] MEDS: FERROUS SULFATE 325 MG TAB PO SCH (09:28)
[2018-08-13] MEDS: VORICONAZOLE 200 MG TABLET PO SCH ×2 (09:28→10:05)
[2018-08-13] MEDS: PANTOprazole 40 MG TAB PO SCH (09:29)
[2018-08-13] MEDS: ABACAVIR SULFATE PO SCH (09:31)
[2018-08-13] MEDS: ENOXAPARIN INJ 40 MG/0.4 ML SYR SQ SCH (09:32)
[2018-08-13] MEDS: LAMIVUDINE 10 MG/ML PO SCH (09:33)
[2018-08-13] MEDS: DEXAMETHASONE CONC 3.75 MG, NYSTATIN 30 ML, DiphenhydrAMINE Syrup 300 MG, ORA-SWEET SYR... PO SCH ×2 (10:05→13:44)
[2018-08-13] MEDS ORDERED: ALBUTEROL HFA 8 GM INHALER INH SCH (12:00)
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
== END 2018-08-13 15:00 | disposition home or self-care (01) | DRG 974 ==
LOC: ED 08:03 → SUATTDRO 10:49 → 4W 10:49

== ENCOUNTER 2019-09-07 11:35 | Inpatient (IN) ==
[2019-09-07] MEDS ORDERED: ONDANSETRON INJ 2 MG/ML 2 ML VIAL IV STA (12:12)
[2019-09-07] MEDS ORDERED: ACETAMINOPHEN 1,000 MG/100 ML VIAL IV STA (12:12)
[2019-09-07] MEDS ORDERED: CEFEPIME 2,000 MG/20 ML VIAL IV STA (12:12)
[2019-09-07] MEDS ORDERED: MoRPHine SULFATE 4 MG/ML 1 ML CARP\\VIAL IV STA (12:12)
[2019-09-07] MEDS ORDERED: SODIUM CHLORIDE 0.9% 1000ML 1,000 ML IV ONE (12:12)
--- NOTE | 2019-09-07 12:19 | Emergency Department Note ---
ED Provider Note NAME: RICKEY GUAJARDO AGE: 49 SEX: F : 1970 ARRIVES VIA: Ambulance INFORMANT: [Patient][ems] ED PROVIDER(S): [Mikie Peña MD] CHIEF COMPLAINT: Sore throat HISTORY OF PRESENT ILLNESS: The patient is a 49-year-old female with HIV and pulmonary disease. The patient has had flulike symptoms for about 1 week. She has been slightly short of breath, she has had a low-grade fever and a slight cough. Her biggest complaint is sore throat-the pain is a 10, worse with swallowing. The patient states that she has a history of thrush and believes that is the trouble again. She saw her pulmonary doctor 4 days ago and she had testing for coronavirus, this is pending. The patient did travel to [place], she has no other travel history. She has not been exposed to anyone that she is aware of who has been diagnosed with coronavirus. The patient states that she feels dehydrated because she cannot eat or drink, s he is having a hard time taking her medications. There has been no vomiting, no diarrhea, no urinary complaints, no rash. REVIEW OF SYSTEMS: See HPI for pertinent positives and negatives. A total of ten systems were reviewed and were otherwise negative. PMHx/PSHx: See Below SOCIAL HISTORY: See Below. PHYSICAL EXAM: GENERAL: Patient is in mild distress from pain. HEENT: No acute trauma, normocephalic atraumatic, patient has thrush lesions about the entire tongue and posterior pharynx, no nasal congestion, no scleral icterus. NECK: No stridor, no adenopathy, no meningismus, trachea is midline. LUNGS: Clear to auscultation bilaterally, no wheeze, no rhonchi, breath sounds equal. HEART: Mildly tachycardic, regular rhythm, no murmurs ABDOMEN: Soft, nontender, bowel sounds positive, no hernias, no peritonitis. EXTREMITIES: No cyanosis or edema, full range of motion of all the joints without pain or difficulty, no signs for acute trauma. NEUROLOGIC: Oriented x 3, no acute motor or sensory deficits, no focal weakness. SKIN: No rash, no jaundice, no diaphoresis. DIFFERENTIAL DIAGNOSIS: Sepsis, UTI, pneumonia, metabolic, electrolyte abnormalities, cardiac sources, intracerebral event, toxicologic, neurologic, as well as other pathologies. EMERGENCY DEPARTMENT COURSE/PROCEDURES: ECG: Indication is tachycardia. There is a sinus tachycardia with a rate of 102, no ST elevation, no PVCs. QTC is 450. Continuous Cardiac Monitoring: An order was placed for continuous cardiac monitoring. The monitor shows a rate of 101 with sinus tachycardia Critical Care Note: I have personally spent greater than 40 minutes of critical care time in the direct management of this patient. This includes bedside care, interpretation of diagnostic studies and testing, discussion with consultants, the patient, and family members, and other required patient management activities. This 40 minutes is in excess of all separately billable procedures.. MEDICAL DECISION MAKING: There is a low white count, this is baseline looking back at previous testing. The patient does have a very mild anemia. There is a normal platelet count. INR slightly elevated at 1.5. Potassium low at 2.7, no kidney failure. There is no worrisome liver enzyme elevation. Lactic acid level and procalcitonin levels are normal making severe sepsis less likely. Urinalysis result is pending. Influenza testing is pending. Bio fire testing returned positive for a rhinovirus as well as a typical coronavirus. Chest film from 4 days ago did demonstrate patchy bilateral infiltrates consistent with possible pneumonia versus chronic lung disease. On my exam, the patient was tachycardic, febrile, she appeared dehydrated. She had a terrible case of thrush. The patient was aggressively managed. The patient received IV Tylenol for fever and pain. She received IV cefepime as empiric antibiotic coverage. She was ordered for a clotrimazole miladys but refused this tablet. She received IV morphine for pain, IV Zofran for nausea. She received IV saline for hydration, IV potassium for the lower potassium value. She was given a dose of IV voriconazole. The patient does feel somewhat improved. Her heart rate seems to be somewhat decreased and close to normalizing. She is in need of a hospital stay for her high fever, her immunocompromise, her flulike symptoms, her dehydration and her severe thrush. Of note, the patient was placed in respiratory isolation because of her outpatient coronavirus testing. This result is still pending. I did speak with case management, I talked with the patient. I did speak with the on-call hospitalist. 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 Beliefs That Will Affect Care: L[employer] L[employer] Beliefs: wishes to speak to clergy Current Living Situation: Family Current Living Situation Comment: lives with daughter Feels Safe at Home: Yes Smoking Status: Never smoker Second Hand Exposure: No ; Hx Alcohol Use: No Hx Substance Use: No Results & Data Vital Signs Vital Signs - 24 hr 09/07/19 11:45 09/07/19 11:47 09/07/19 12:00 Temperature Temperature Source Pulse Rate 113 H 110 H 114 H Pulse Rate from SpO2 Sensor 113 H 111 H 115 H Respiratory Rate 20 19 Respiratory Effort / Characteristics Respiratory Depth Respiratory Pattern Blood Pressure 114/60 102/59 L Blood Pressure Mean 96 81 Pulse Oximetry 99 100 100 Oxygen Delivery Method Sepsis Recent Fever Within 48 Hours Sepsis New/Unexplained Change in Mental Status Sepsis Action Taken by Nursing 09/07/19 12:01 09/07/19 12:04 09/07/19 12:30 Temperature 38.9 C H Temperature Source Oral Pulse Rate 113 H 114 H 114 H Pulse Rate from SpO2 Sensor 113 H 114 H Respiratory Rate 22 21 21 Respiratory Effort / Characteristics Non-Labored Spontaneous Respiratory Depth Normal Respiratory Pattern Regular Blood Pressure 114/60 103/63 Blood Pressure Mean 78 68 Pulse Oximetry 100 100 98 Oxygen Delivery Method Room Air Sepsis Recent Fever Within 48 Hours Yes Sepsis New/Unexplained Change in Mental Status No Sepsis Action Taken by Nursing Physician Notified 09/07/19 12:31 09/07/19 13:00 09/07/19 13:23 Temperature Temperature Source Pulse Rate 117 H 110 H Pulse Rate from SpO2 Sensor 118 H 111 H Respiratory Rate 19 25 H Respiratory Effort / Characteristics Respiratory Depth Respiratory Pattern Blood Pressure 101/47 L Blood Pressure Mean 54 Pulse Oximetry 97 98 Oxygen Delivery Method Sepsis Recent Fever Within 48 Hours Sepsis New/Unexplained Change in Mental Status Sepsis Action Taken by Nursing 09/07/19 13:30 09/07/19 13:31 09/07/19 13:42 Temperature Temperature Source Pulse Rate 105 H 103 H Pulse Rate from SpO2 Sensor 106 H 103 H Respiratory Rate 20 23 Respiratory Effort / Characteristics Respiratory Depth Respiratory Pattern Blood Pressure 108/57 L Blood Pressure Mean 71 Pulse Oximetry 100 100 98 Oxygen Delivery Method Room Air Sepsis Recent Fever Within 48 Hours Sepsis New/Unexplained Change in Mental Status Sepsis Action Taken by Nursing 09/07/19 14:00 09/07/19 14:01 09/07/19 14:30 Temperature Temperature Source Pulse Rate 110 H 105 H 101 H Pulse Rate from SpO2 Sensor 116 H 103 H 102 H Respiratory Rate 15 18 19 Respiratory Effort / Characteristics Respiratory Depth Respiratory Pattern Blood Pressure 107/70 Blood Pressure Mean 79 Pulse Oximetry 99 100 98 Oxygen Delivery Method Sepsis Recent Fever Within 48 Hours Sepsis New/Unexplained Change in Mental Status Sepsis Action Taken by Nursing 09/07/19 14:38 Temperature Temperature Source Pulse Rate 100 H Pulse Rate from SpO2 Sensor 101 H Respiratory Rate 16 Respiratory Effort / Characteristics Respiratory Depth Respiratory Pattern Blood Pressure 100/54 L Blood Pressure Mean 66 Pulse Oximetry 97 Oxygen Delivery Method Sepsis Recent Fever Within 48 Hours Sepsis New/Unexplained Change in Mental Status Sepsis Action Taken by Intermediate Medications Current Medication List: was personally reviewed by me Laboratory Data Attestation: I reviewed the patient's lab results. Result diagrams: 09/07/19 12:51 09/07/19 12:51 Lab Results 09/07/19 09/07/19 09/07/19 Range/Units 12:51 12:51 12:51 WBC 3.06 L (4.8-10.8) K/uL RBC 3.81 L (4.2-5.4) M/uL Hgb 11.4 L (12.0-16.0) g/dL Hct 31.4 L (37-47) % MCV 82.4 (80-100) fL MCH 29.9 (25-34) pg MCHC 36.3 H (32-36) g/dL RDW Std Deviation 41.7 (36.4-46.3) fL RDW Coeff of Ale 13.8 (11.5-14.5) % Plt Count 297 (130-400) K/uL MPV 10.6 H (7.4-10.4) fL Immature Gran % (Auto) 1.3 % Neut % (Auto) 49.6 % Lymph % (Auto) 21.9 % Maury % (Auto) 24.5 % Eos % (Auto) 2.0 % Baso % (Auto) 0.7 % Immature Gran # (Auto) 0.04 H (0.00-0.02) K/uL Neut # (Auto) 1.52 (1.4-6.5) K/uL Lymph # (Auto) 0.67 L (1.2-3.4) K/uL Maury # (Auto) 0.75 H (0.11-0.59) K/uL Eos # (Auto) 0.06 (0-0.5) K/uL Baso # (Auto) 0.02 (0-0.2) K/uL PT 15.2 H (9.0-12.0) Seconds INR 1.5 H (0.9-1.1) APTT 31.0 (21.0-31.0) Seconds PTT Ratio 1.1 Sodium 136 (136-145) mmol/L Potassium 2.7 L (3.5-5.1) mmol/L Chloride 106 (98-107) mmol/L Carbon Dioxide 23 (21-32) mmol/L Anion Gap 7.0 (3-11) BUN 17 (7-18) mg/dl Creatinine 0.92 (0.6-1.2) mg/dl Est Cr Clr Drug Dosing 57.2 ml/min Est GFR ( Amer) 84.7 Est GFR (Non-Af Amer) 73.1 BUN/Creatinine Ratio 18.0 (10-20) Glucose 81 (70-99) mg/dl Lactate (0.4-2.0) mmol/L Calcium 9.1 (8.5-10.1) mg/dl Magnesium 2.1 (1.8-2.4) mg/dl Total Bilirubin 0.5 (0.2-1) mg/dl AST 17 (15-37) U/L ALT 17 (12-78) U/L Alkaline Phosphatase 92 (45-117) U/L Total Protein 9.3 H (6.4-8.2) gm/dl Albumin 2.5 L (3.4-5.0) gm/dl Globulin 6.8 H (2.5-4.0) gm/dl Albumin/Globulin Ratio 0.4 L (0.9-2) Procalcitonin (0-0.5) ng/ml Adenovirus (PCR) (NotDetected) B. pertussis DNA (PCR) (NotDetected) B.parapertussis DNA PCR (NotDetected) C. pneumoniae DNA (PCR) (NotDetected) Coronavirus OC43 (PCR) (NotDetected) Coronavirus HKU1 (PCR) (NotDetected) Coronavirus 229E (PCR) (NotDetected) Coronavirus NL63 (PCR) (NotDetected) Human Metapneumovir PCR (NotDetected) Influenza Type A (PCR) Influenza Type B (PCR) M. pneumoniae (PCR) (NotDetected) Parainfluenza 1 (PCR) (NotDetected) Parainfluenza 2 (PCR) (NotDetected) Parainfluenza 3 (PCR) (NotDetected) Parainfluenza 4 (PCR) (NotDetected) RSV (PCR) (NotDetected) Entero/Rhino (PCR) (NotDetected) 09/07/19 09/07/19 09/07/19 Range/Units 12:51 12:51 13:40 WBC (4.8-10.8) K/uL RBC (4.2-5.4) M/uL Hgb (12.0-16.0) g/dL Hct (37-47) % MCV (80-100) fL MCH (25-34) pg MCHC (32-36) g/dL RDW Std Deviation (36.4-46.3) fL RDW Coeff of Ale (11.5-14.5) % Plt Count (130-400) K/uL MPV (7.4-10.4) fL Immature Gran % (Auto) % Neut % (Auto) % Lymph % (Auto) % Maury % (Auto) % Eos % (Auto) % Baso % (Auto) % Immature Gran # (Auto) (0.00-0.02) K/uL Neut # (Auto) (1.4-6.5) K/uL Lymph # (Auto) (1.2-3.4) K/uL Maury # (Auto) (0.11-0.59) K/uL Eos # (Auto) (0-0.5) K/uL Baso # (Auto) (0-0.2) K/uL PT (9.0-12.0) Seconds INR (0.9-1.1) APTT (21.0-31.0) Seconds PTT Ratio Sodium (136-145) mmol/L Potassium (3.5-5.1) mmol/L Chloride (98-107) mmol/L Carbon Dioxide (21-32) mmol/L Anion Gap (3-11) BUN (7-18) mg/dl Creatinine (0.6-1.2) mg/dl Est Cr Clr Drug Dosing ml/min Est GFR ( Amer) Est GFR (Non-Af Amer) BUN/Creatinine Ratio (10-20) Glucose (70-99) mg/dl Lactate 1.9 (0.4-2.0) mmol/L Calcium (8.5-10.1) mg/dl Magnesium (1.8-2.4) mg/dl Total Bilirubin (0.2-1) mg/dl AST (15-37) U/L ALT (12-78) U/L Alkaline Phosphatase (45-117) U/L Total Protein (6.4-8.2) gm/dl Albumin (3.4-5.0) gm/dl Globulin (2.5-4.0) gm/dl Albumin/Globulin Ratio (0.9-2) Procalcitonin 0.07 (0-0.5) ng/ml Adenovirus (PCR) (NotDetected) B. pertussis DNA (PCR) (NotDetected) B.parapertussis DNA PCR (NotDetected) C. pneumoniae DNA (PCR) (NotDetected) Coronavirus OC43 (PCR) (NotDetected) Coronavirus HKU1 (PCR) (NotDetected) Coronavirus 229E (PCR) (NotDetected) Coronavirus NL63 (PCR) (NotDetected) Human Metapneumovir PCR (NotDetected) Influenza Type A (PCR) Cancelled Influenza Type B (PCR) Cancelled M. pneumoniae (PCR) (NotDetected) Parainfluenza 1 (PCR) (NotDetected) Parainfluenza 2 (PCR) (NotDetected) Parainfluenza 3 (PCR) (NotDetected) Parainfluenza 4 (PCR) (NotDetected) RSV (PCR) (NotDetected) Entero/Rhino (PCR) (NotDetected) 09/07/19 Range/Units 13:40 WBC (4.8-10.8) K/uL RBC (4.2-5.4) M/uL Hgb (12.0-16.0) g/dL Hct (37-47) % MCV (80-100) fL MCH (25-34) pg MCHC (32-36) g/dL RDW Std Deviation (36.4-46.3) fL RDW Coeff of Ale (11.5-14.5) % Plt Count (130-400) K/uL MPV (7.4-10.4) fL Immature Gran % (Auto) % Neut % (Auto) % Lymph % (Auto) % Maury % (Auto) % Eos % (Auto) % Baso % (Auto) % Immature Gran # (Auto) (0.00-0.02) K/uL Neut # (Auto) (1.4-6.5) K/uL Lymph # (Auto) (1.2-3.4) K/uL Maury # (Auto) (0.11-0.59) K/uL Eos # (Auto) (0-0.5) K/uL Baso # (Auto) (0-0.2) K/uL PT (9.0-12.0) Seconds INR (0.9-1.1) APTT (21.0-31.0) Seconds PTT Ratio Sodium (136-145) mmol/L Potassium (3.5-5.1) mmol/L Chloride (98-107) mmol/L Carbon Dioxide (21-32) mmol/L Anion Gap (3-11) BUN (7-18) mg/dl Creatinine (0.6-1.2) mg/dl Est Cr Clr Drug Dosing ml/min Est GFR ( Amer) Est GFR (Non-Af Amer) BUN/Creatinine Ratio (10-20) Glucose (70-99) mg/dl Lactate (0.4-2.0) mmol/L Calcium (8.5-10.1) mg/dl Magnesium (1.8-2.4) mg/dl Total Bilirubin (0.2-1) mg/dl AST (15-37) U/L ALT (12-78) U/L Alkaline Phosphatase (45-117) U/L Total Protein (6.4-8.2) gm/dl Albumin (3.4-5.0) gm/dl Globulin (2.5-4.0) gm/dl Albumin/Globulin Ratio (0.9-2) Procalcitonin (0-0.5) ng/ml Adenovirus (PCR) Not Detected (NotDetected) B. pertussis DNA (PCR) Not Detected (NotDetected) B.parapertussis DNA PCR Not Detected (NotDetected) C. pneumoniae DNA (PCR) Not Detected (NotDetected) Coronavirus OC43 (PCR) DETECTED A* (NotDetected) Coronavirus HKU1 (PCR) Not Detected (NotDetected) Coronavirus 229E (PCR) Not Detected (NotDetected) Coronavirus NL63 (PCR) Not Detected (NotDetected) Human Metapneumovir PCR Not Detected (NotDetected) Influenza Type A (PCR) Not Detected Influenza Type B (PCR) Not Detected M. pneumoniae (PCR) Not Detected (NotDetected) Parainfluenza 1 (PCR) Not Detected (NotDetected) Parainfluenza 2 (PCR) Not Detected (NotDetected) Parainfluenza 3 (PCR) Not Detected (NotDetected) Parainfluenza 4 (PCR) Not Detected (NotDetected) RSV (PCR) Not Detected (NotDetected) Entero/Rhino (PCR) DETECTED A* (NotDetected) Administered Medications Discontinued Medications Clotrimazole (Mycelex) Confirm Administered Dose 10 mg BUCCAL .STK-MED ONE Stop: 09/07/19 13:16 Last Admin: 09/07/19 14:12 Dose: Not Given Documented by: [id number] Sodium Chloride (Nss 1000ml) 1,000 mls @ 999 mls/hr IV .Q1H1M ONE Stop: 09/07/19 13:12 Last Admin: 09/07/19 13:44 Dose: 999 mls/hr Documented by: [id number] Cefepime HCl (Maxipime) 2,000 mg in 20 mls @ 5 mls/min IV NOW STA; Protocol Stop: 09/07/19 12:15 Last Admin: 09/07/19 13:45 Dose: 5 mls/min Documented by: [id number] Acetaminophen (Ofirmev) 1,000 mg in 100 mls @ 400 mls/hr IV NOW STA Stop: 09/07/19 12:26 Last Infusion: 09/07/19 14:12 Dose: 0 mls/hr Documented by: [id number] Admin: 09/07/19 13:45 Dose: 400 mls/hr Documented by: [id number] Potassium Chloride (K Tex / Wtr) 10 meq in 100 mls @ 100 mls/hr IV ONE ONE Stop: 09/07/19 15:03 Last Admin: 09/07/19 14:40 Dose: 100 mls/hr Documented by: [id number] Morphine Sulfate (Morphine Sulfate) 4 mg IV NOW STA Stop: 09/07/19 12:13 Last Admin: 09/07/19 13:45 Dose: 4 mg Documented by: [id number] Ondansetron HCl (Zofran) 4 mg IV NOW STA Stop: 09/07/19 12:13 Last Admin: 09/07/19 13:44 Dose: 4 mg Documented by: [id number] Imaging Data Radiologist's Impression: Chest x-ray from 09/02 showed a patchy bilateral infiltrates consistent with possible pneumonia versus some chronic lung disease. Blood Pressure Blood Pressure Findings: Normal blood pressure Discharge Plan Visit Data Chief Complaint: Sore Throat ED Provider: Mikie Peña Discharge Problem: Fever, Oral thrush, Acute dehydration, Immunocompromised, Tachycardia, Flu-like symptoms Patient Disposition: Being Evaluated by Hospitalist Condition: Fair Forms Stand Alone Forms: My [facility] Prescriptions Prescriptions: No Action montelukast 10 mg tablet 10 mg PO QPM Qty: 30 RF: 5 fluticasone propionate 50 mcg/actuation spray,suspension 2 sprays intranasal DAILY Qty: 16 RF: 5 albuterol sulfate [Ventolin HFA] 90 mcg/actuation HFA aerosol inhaler 2 puff Inhalation Q6H PRN (Reason: cough or wheezing) Qty: 1 RF: 2 albuterol sulfate 2.5 mg /3 mL (0.083 %) solution for nebulization 2.5 mg INH Q4H PRN (Reason: shortness of breath or wheezing) Qty: 180 RF: 0 voriconazole 200 mg/5 mL (40 mg/mL) suspension for reconstitution 200 mg PO BID Qty: 75 RF: 6 levofloxacin [Levaquin] 500 mg tablet 500 mg PO DAILY Qty: 10 RF: 0 potassium chloride 20 mEq tablet extended release 20 meq PO BID Qty: 4 RF: 0 Bevespi Aerosphere 9-4.8 mcg HFA aerosol inhaler 2 puffs INH BID Qty: 10.7 RF: 3 (DME) Flutter Valve Device See Rx Instructions .ROUTE .MEDSUPPLY Qty: 1 RF: 0 Boost Breeze Nutritional 0.04-1.05 gram-kcal/mL liquid See Rx Instructions .ROUTE .COMPLEX Qty: 6399 RF: 5 Mouthwash-OM Mouthwash See Rx Instructions .ROUTE .COMPLEX Qty: 300 RF: 1 tobramycin 300 mg/4 mL solution for nebulization 300 mg INH BID Qty: 224 RF: 5 levothyroxine [Synthroid] 125 mcg Tablet 125 mcg PO DAILY RF: 0 ondansetron 4 mg tablet,disintegrating 4 mg PO Q6H PRN (Reason: nausea and vomiting) Qty: 10 RF: 0 Referrals Referrals: Suraj Marks MD [Primary Care Provider] -
[2019-09-07 13:06] LABS: Basophils # (auto) 0.02 K/uL (0-0.2); Basophils % (auto) 0.7 %; Eosinophils # (auto) 0.06 K/uL (0-0.5); Hematocrit (blood only) 31.4 % (37-47); Hemoglobin 11.4 g/dL (12.0-16.0); Immature Granulocytes # (auto) 0.04 K/uL (0.00-0.02); Immature Granulocytes % (auto) 1.3 %; Lymphocytes # (auto) 0.67 K/uL (1.2-3.4); Lymphocytes % (auto) 21.9 %; Mean Corpuscular Hemoglobin 29.9 pg (25-34); Mean Corpuscular Hgb Conc 36.3 g/dL (32-36); Mean Corpuscular Volume 82.4 fL (80-100); Mean Platelet Volume 10.6 fL (7.4-10.4); Monocytes # (auto) 0.75 K/uL (0.11-0.59); Monocytes % (auto) 24.5 %; Neutrophils # (auto) 1.52 K/uL (1.4-6.5); Neutrophils % (auto) 49.6 %; Platelet Count 297 K/uL (130-400); RDW Coefficient of Variation 13.8 % (11.5-14.5); RDW Standard Deviation 41.7 fL (36.4-46.3); Red Blood Count 3.81 M/uL (4.2-5.4); White Blood Count 3.06 K/uL (4.8-10.8)
[2019-09-07] MEDS ORDERED: CLOTRIMAZOLE 10 MG TROCHE BUCCAL ONE (13:15)
[2019-09-07 13:23] LABS: Albumin Level 2.5 gm/dl (3.4-5.0); Calcium 9.1 mg/dl (8.5-10.1); Creatinine Clr Calc Pharmacy 57.2 ml/min; Est GFR (African American) 84.7; Est GFR (Non-African American) 73.1; INR 1.5 (0.9-1.1); Magnesium 2.1 mg/dl (1.8-2.4); Partial Thromboplastin Ratio 1.1; Potassium 2.7 mmol/L (3.5-5.1); Prothrombin Time 15.2 Seconds (9.0-12.0)
[2019-09-07 13:26] LABS: Albumin Globulin Ratio 0.4 (0.9-2); Bilirubin,Total 0.5 mg/dl (0.2-1); Globulin 6.8 gm/dl (2.5-4.0); Total Protein 9.3 gm/dl (6.4-8.2)
[2019-09-07] MEDS ORDERED: POTASSIUM CHLORIDE / WTR 10 MEQ/100 ML PLCT IV ONE (14:04)
[2019-09-07] MEDS ORDERED: SODIUM CHLORIDE 0.9% 1000ML 500 ML IV ONE (14:04)
[2019-09-07] MEDS ORDERED: SODIUM CHLORIDE 0.9% IV STA ×2 (14:22→14:30)
[2019-09-07] MEDS ORDERED: VORICONAZOLE IV STA ×2 (14:22→14:30)
--- NOTE | 2019-09-07 14:26 | History & Physical Report ---
Date of Service September 07, 2019 Assessment & Plan (1) Respiratory illness with fever: - Admit to PCU with airborne and droplet precautions - Bio fire resulting positive for coronavirus OC43 and Entero/Rhino viruses -COVID-19 testing in process, screened as outpt 09/03/2019-therefore will maint ain airborne precautions until results are back. - Pt with tmax of 39.8 in the ER with complaints of hemoptysis worse since Tuesday which is new, sputum culture, repeat CXR with chronic pna seen on outpt testing from 09/02 - Consult Pulm- Dr. Barbosa - Consult ID- Dr. Abdalla,(pt has decided to follow with Dr. Ruby from [facility] after Dr. Abdalla's departure from [facility]) - discussed with over the phone -continue on Levaquin for MRSA coverage, doing MRSA swab now, consider oral fluoroquinolone, AFB has been negative to date, TB testing historically has also been negative, patient was positive for Pseudomonas in spring 2018, treated and no further Pseudomonas infection since that time. -Continue on p.o. Levaquin as per home meds -start on IV vancomycin and cefepime now -Aggressive fluid resuscitation with LR boluses x 2 now (2) Pneumonia: - as above-likely secondary to multiple mild infections but cannot rule out bacterial infection at this time with immunocompromise state (3) Bronchiectasis: -Pulm consult as above (4) Chronic obstructive pulmonary disease: -Continue albuterol sulfate, fluticasone, glycopyrrolate inha flutter, incentive spirometry -Does not wear O2 at baseline, currently on 2 L via NC, maintain sats between 90-92% (5) Pleural effusion: -History of such, repeat CXR, consider CT scan of the chest pending results (6) HIV disease: -Continue HAART therapy -CD4 count = 11, per Dr. Abdalla this is actually improved compared to months of being around 1 or 2, continue current HIV therapeutic regimen -Significant immunocompromise state would predispose the patient to multiple infections -Continue voriconazole IV for oral candidiasis -Continue Magic swizzle (7) Hypokalemia: -Potassium 10 M EQ running in the ER, will order additional IV supplementation with K = 2.7 upon admission -Continue on p.o. 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 (8) Severe protein-calorie malnutrition: -Decreased albumin on admission -Continue boost 5 boxes daily (9) Hypothyroidism: -Continue levothyroxine 125 mcg daily as scheduled (10) Anemia: -Anemia secondary to chronic disease, Hgb = 11.4, HCT = 31.4 -Follow as outpatient (11) Oral candidiasis: -Continue on IV voriconazole 200 mg every 12, allow clotrimazole lozenges however patient had refused this in the ER, possibly she will reconsider once IV meds kick in -Magic swizzle for therapeutic relief -Allow normal diet, soft textures (12) DVT prophylaxis: -Teds CODE STATUS: Full code Disposition: Patient from home, likely to remain in the hospital x2 days in airborne precautions for upper respiratory infection and needs for IV meds History of Present Illness Primary Care Provider: Suraj Marks MD This is a 49 yo female with PMHx of bronchiectasis, COPD, HIV diagnosed in 1998, currently under treatment for HIV with tenofovir, emtricitabine, bictegravir which she started on 09/01/2019, pleural effusion, pericardial effusion, history of pneumonia, severe protein calorie malnutrition who presents for worsening shortness of breath and flulike symptoms. She reports that she recently traveled to [place] on 08/27/2019 to meet with a route clerk as her daughter was in a car accident when they previously lived in [place] and needed to meet with him. She came home on a [employer] bus. Patient reports that she was using Clorox wipes and stayed away from people, and since being home has not gone out of her house. Patient was recently seen in Dr. Aguilar's office with pulmonology 09/03/2019, for routine visit. At that time she denied worsening flulike sx and did not have hemoptysis. Since then her respiratory symptoms continue to worsen. She has experienced increased fatigue, SOB, quarter sized bright red hemoptysis, body aches, and until today in the ER had no documented fever, but currently has a T- max of 38.9. Patient had bio fire completed today which showed positive coronavirus OC34, enter/rhino virus. She underwent Covid-19 testing on 09/03/2019 in the pulm office, at that point in time she was also screened for influenza which was negative. Pt reports that she remained at home since Tuesday, but does reside with her 15 yo daughter. One of her major complaints today was that she had difficulty swallowing. She reports that she has been battling with thrush however it feels worse at this time, she had been prescribed oral voriconazole as an outpatient but says that it has not been working. Her oral intake has been poor secondary to dysphasia. Patient denies any other acute complaints. Allergies Allergy/AdvReac Type Severity Reaction Status Date / Time Penicillins AdvReac Unknown Rash Verified 09/03/19 09:12 Home Medications Home Medications Medication Instructions Recorded Confirmed Type levothyroxine [Synthroid] 125 mcg PO DAILY 08/05/18 09/03/19 History ondansetron 4 mg PO Q6H PRN #10 tab 08/13/18 09/03/19 Rx montelukast 10 mg tablet 10 mg PO QPM #30 tab 02/20/19 09/03/19 Rx fluticasone propionate 50 2 sprays INTRANASAL DAILY #16 gm 05/24/19 09/03/19 Rx mcg/actuation nasal spray,suspension albuterol sulfate 90 mcg/actuation 2 puff INHALATION Q6H PRN #1 06/11/19 09/03/19 Rx aerosol inhaler inhaler Flutter Valve #1 ea 06/27/19 09/03/19 Rx glycopyrrolate 9 mcg-formoterol 2 puffs INH BID #10.7 gm 06/27/19 09/03/19 Rx 4.8 mcg HFA aerosol inhaler albuterol sulfate 2.5 mg INH Q4H PRN #180 ml 07/02/19 09/03/19 Rx tobramycin 300 mg/4 mL solution 300 mg INH BID #224 ml 07/11/19 09/03/19 Rx for nebulization food supplemt, lactose-reduced See Rx Instructions .ROUTE 07/26/19 09/03/19 Rx 0.04 gram-1.05 kcal/mL oral liquid .COMPLEX #6399 milliliter mouthwash compounding base 227 See Rx Instructions .ROUTE 07/26/19 09/03/19 Rx .COMPLEX #300 ml voriconazole 200 mg/5 mL (40 200 mg PO BID #75 ml 08/01/19 09/03/19 Rx mg/mL) oral suspension levofloxacin 500 mg tablet 500 mg PO DAILY #10 tab 09/06/19 Rx potassium chloride 20 mEq 20 meq PO BID #4 tab 09/06/19 Rx tablet,extended release Past Med/Surg History Medical History Anemia Asthma Bronchiectasis Chronic obstructive pulmonary disease Coagulopathy Hepatic lesion HIV (human immunodeficiency virus infection) HIV disease (Acute) Hypokalemia Hypomagnesemia Hypothyroidism Mood disorder Oral candidiasis (Acute) Pericardial effusion Pleural effusion Pneumonia Sepsis Severe protein-calorie malnutrition Underweight Social History Preferred Language: Iraqi Communication Ability: Effective Consultant Electronics Required: No Beliefs That Will Affect Care: None Current Living Situation: Spouse Current Living Situation Comment: lives with daughter Other Information That Helps Us Care for You: No Feels Safe at Home: Yes Safety Concerns: Feels Safe At This Time Smoking Status: Never smoker Second Hand Exposure: No ; Hx Alcohol Use: No Hx Substance Use: No Review of Systems Review of Systems: Constitutional: + Sweats + fever in the ER, no chills Eyes: No diplopia, no worsening or blurred vision ENT: normal hearing, + trouble swallowing, + pain Respiratory: + Occasional cough with hemoptysis, dyspnea on exertion Cardiovascular: No chest pain, tightness or palpitations Abdomen: + Decreased appetite, no pain, nausea, vomiting, diarrhea or constipation Musculoskeletal: No joint pain, calf pain, swelling Neurologic: No weakness, numbness/tingling, or balance problems Psychiatric: No anxiety or depression Skin: No rash or itch Physical Exam Physical Exam: General: awake, alert, no apparent distress, -Bahraini, + thin Head: Normocephalic, atraumatic ENT: PERRL, EOMI, + significant white oral and pharyngeal exudate Chest: + diminished breath sounds at bases, on 2L via NC with O@ sats in the 90s, no adventitious breath sounds Cardiac: + sinus tach, no murmur, no JVD, normal peripheral pulses, good capillary refill Abdominal: NABS x 4 quadrants, soft, nontender to palpation, no rebound, guarding or tenderness Extremities: Normal inspection, no peripheral edema or erythema, calfs nontender to palpation Psych: Normal mood and affect Neuro: AAO x 3, no gross motor deficits, speech is clear, no peripheral sensory deficits Skin: no rash or erythema Results & Data Vital Signs (Past 12 Hours) Vital Signs Temp Pulse Resp BP Pulse Ox 09/07/19 13:42 98 09/07/19 12:04 38.9 C H 114 H 21 114/60 100 Supervising Physician Co-Signing Physician Notes I personally saw and examined the patient. I verified all butler points and agree with GEE Pickard with the following exceptions and/or additions: 49 yo female with HIV. CD4 11. Presents with worsening SOB and fever for the last 2 weeks. COVID-19 still pending from outpatient. O/E: Frail appearing, reduced breath sounds b/l with poor inspiratory effort but no crakles, rhonchi or wheezing. Regular rhythm tachycardia, no murmurs. Abdo SNT. A/P: Viral Pneumonia with pending COVID-19 in setting of low CD4 count and chronic bronchiectasis changes. Need to cover for bacterial PNA with Vanc/Cefepime/Levaquin despite negative procalcitonin as discussed with Dr Tsai. Discussed possible need for CT however given lack of hypoxia and need to deep clean the CT I am unclear if this is truely warranted at this time and will leave this up to pulmnology. Oral/esophageal thrush: Agree with IV Voriconzole PG Care Time/CCT Total # of Minutes Spent Total Time Spent with Patient: Total time spent is greater than 50% in coordination of care (as documented) at patient's floor/unit and/or counseling patient: Coding Level of Care Code 40985 Initial Inpt Care Lvl 3 Diagnoses Respiratory illness with fever J98.9; R50.9 Pneumonia J18.9 Laterality: bilateral Lung location: unspecified part of lung Pneumonia type: due to unspecified organism Bronchiectasis J47.9 Chronic obstructive pulmonary disease J44.9 Pleural effusion J90 HIV disease B20 Hypokalemia E87.6 Severe protein-calorie malnutrition E43 Hypothyroidism E03.9 Hypothyroidism type: acquired Anemia D64.89 Anemia type: other cause Other causes of anemia: other cause, not classified Oral candidiasis B37.0 DVT prophylaxis Z29.9 (1) Anemia Anemia type: other cause Other causes of anemia: other cause, not classified Qualified Code(s): D64.89 - Other specified anemias (2) Hypothyroidism Hypothyroidism type: acquired Qualified Code(s): E03.9 - Hypothyroidism, unspecified (3) Pneumonia Laterality: bilateral Lung location: unspecified part of lung Pneumonia type: due to unspecified organism Qualified Code(s): J18.9 - Pneumonia, unspecified organism
[2019-09-07 14:43] LABS: Adenovirus PCR Not Detected (NotDetected); Bordetella parapertussis PCR Not Detected (NotDetected); Bordetella pertussis PCR Not Detected (NotDetected); Chlamydia pneumoniae PCR Not Detected (NotDetected); Coronavirus 229E PCR Not Detected (NotDetected); Coronavirus HKU1 PCR Not Detected (NotDetected); Coronavirus NL63 PCR Not Detected (NotDetected); Human Metapneumovirus PCR Not Detected (NotDetected); Influenza A PCR Not Detected (NotDetected); Influenza B PCR Not Detected (NotDetected); Mycoplasma pneumoniae PCR Not Detected (NotDetected); Parainfluenza Virus 1 PCR Not Detected (NotDetected); Parainfluenza Virus 2 PCR Not Detected (NotDetected); Parainfluenza Virus 3 PCR Not Detected (NotDetected); Parainfluenza Virus 4 PCR Not Detected (NotDetected); Respiratory Syncytial VirusPCR Not Detected (NotDetected)
[2019-09-07 14:45] LABS: Coronavirus OC43PCR DETECTED (NotDetected)
[2019-09-07 14:46] LABS: Rhinovirus/Enterovirus PCR DETECTED (NotDetected)
[2019-09-07] MEDS ORDERED: POTASSIUM CHLORIDE 40 MEQ in SODIUM CHLORIDE 0.9% 1000ML 1,000 ML IV SCH (15:45)
[2019-09-07] MEDS ORDERED: LACTATED RINGER'S 2,000 ML IV ONE (15:51)
[2019-09-07] MEDS ORDERED: VANCOMYCIN HCL 1,000 MG/270 ML BAG IV STA (15:56)
[2019-09-07] MEDS ORDERED: VANCOMYCIN CONSULT ACTIVE PRN (15:56)
[2019-09-07] MEDS: CLOTRIMAZOLE 10 MG TROCHE BUCCAL SCH ×3 (16:06→23:59)
--- NOTE | 2019-09-07 16:18 | XRay Report ---
XR chest 1V portable HISTORY: 49 years-old Female shortness of breath acute shortness of breath COMPARISON: Chest radiograph 09/03/2019, chest CT 07/27/2019 TECHNIQUE: Portable AP view of the chest FINDINGS: Multifocal airspace opacities are redemonstrated and have slightly progressed within the right perihi lar/suprahilar distribution. Right middle lobe bronchiectasis. Cardiac silhouette is normal. No pneum othorax, large pleural effusion or overt pulmonary edema. Unchanged blunting of the left costophrenic angle. Bones appear grossly intact. IMPRESSION: 1. Multifocal airspace opacities are redemonstrated, right greater than left with right perihilar/sup rahilar opacities progressively worsened. Findings are suggestive of a chronic atypical pneumonia suc h as non tuberculosis mycobacterium. Continued follow-up recommended. 2. Right middle lobe bronchiectasis redemonstrated. ACT 112: Negative or not required by law. The above report was generated using voice recognition software. It may contain grammatical, syntax o r spelling errors. Electronically signed by: Adonis Poole M.D. 09/07/2019 4:16 PM
[2019-09-07] MEDS ORDERED: ALBUTEROL 0.083% NEBU SOLN 3 ML VIAL INH PRN (17:30)
[2019-09-07] MEDS ORDERED: ONDANSETRON INJ 2 MG/ML 2 ML VIAL IV PRN (17:30)
[2019-09-07] MEDS ORDERED: ALBUTEROL HFA 8 GM INHALER INH PRN (17:30)
[2019-09-07] MEDS ORDERED: [UNRECOGNIZED DRUG - OTHER] SCH (17:30)
[2019-09-07] MEDS ORDERED: ACETAMINOPHEN 325 MG TAB PO PRN (17:30)
--- NOTE | 2019-09-07 18:24 | Electrocardiogram Report ---
Test Reason : Blood Pressure : / mmHG Vent. Rate : 102 BPM Atrial Rate : 102 BPM P-R Int : 156 ms QRS Dur : 084 ms QT Int : 346 ms P-R-T Axes : 076 -20 050 degrees QTc Int : 450 ms Poor data quality, interpretation may be adversely affected Sinus tachycardia Moderate voltage criteria for LVH, may be normal variant Borderline ECG When compared with ECG of 03-AUG-2019 18:46, No significant change was found Confirmed by Kory Lawson ([id number]) on 09/07/2019 6:23:51 PM Referred By: REFERRED SELF Confirmed By:Kory Lawson
[2019-09-07] MEDS ORDERED: VANCOMYCIN HCL 1,250 MG in SODIUM CHLORIDE 0.9% 250 ML IV SCH (18:30)
[2019-09-07] MEDS: POTASSIUM CHLORIDE 20 MEQ TABCR PO SCH (20:48)
[2019-09-07] MEDS: TOBRAMYCIN SULFATE 300 MG in SYRINGE 0 ML INH SCH (20:48)
[2019-09-07] MEDS: SELZENTRY PO SCH (20:49)
[2019-09-07] MEDS: MONTELUKAST SODIUM 10 MG TABLET PO SCH (20:49)
[2019-09-07] MEDS: DOLUTEGRAVIR SODIUM 50 MG TAB PO SCH (20:49)
[2019-09-07] MEDS ORDERED: TOBRAMYCIN 300 MG INH SCH (21:00)
--- NOTE | 2019-09-07 22:08 | Pharmacy Report ---
Pharmacy Abx Initial Consult - Date of Service September 07, 2019 - Pharmacy Dosing Scope Date of Consult: 09/07/19 Consultation requested by: Dr. Pickard Pharmacy is consulted to initiate Vancomycin IV/PO dosing therapy, order appropriate labs and adjust drug dose/frequency. - Subjective The patient is a 49 year old F admitted on 09/07/19 15:16. - Objective Height: 5 ft 6 in Weight: 54.2 kg Vital Signs (Past 12hrs): Vital Signs Temp Pulse Pulse Resp BP BP Pulse Ox 09/07/19 20:52 82 16 100 09/07/19 20:34 36.7 C 86 18 92/56 L 100 09/07/19 17:32 37 C 94 H 20 97/63 L 95 09/07/19 16:30 82 17 97/57 L 97 09/07/19 16:01 89 16 99 09/07/19 16:00 91 H 21 93/49 L 99 09/07/19 15:32 93 H 16 99 09/07/19 15:31 96 H 17 101/51 L 99 09/07/19 15:30 96 H 100 09/07/19 15:01 94 H 23 100 09/07/19 15:00 95 H 21 106/54 L 100 09/07/19 14:39 99 H 17 97 09/07/19 14:38 100 H 16 100/54 L 97 09/07/19 14:30 101 H 19 98 09/07/19 14:01 105 H 18 100 09/07/19 14:00 110 H 15 107/70 99 09/07/19 13:42 98 09/07/19 13:31 103 H 23 100 09/07/19 13:30 105 H 20 108/57 L 100 09/07/19 13:23 110 H 25 H 98 09/07/19 13:00 101/47 L 09/07/19 12:31 117 H 19 97 09/07/19 12:30 114 H 21 103/63 98 09/07/19 12:04 38.9 C H 114 H 21 114/60 100 09/07/19 12:01 113 H 22 100 09/07/19 12:00 114 H 19 102/59 L 100 09/07/19 11:47 110 H 100 09/07/19 11:45 113 H 20 114/60 99 Lab Results (24hrs): Laboratory Tests (24 Hours) 09/07/19 09/07/19 09/07/19 12:51 12:51 12:51 WBC 3.06 L Neut # (Auto) 1.52 Creatinine 0.92 Est Cr Clr Drug Dosing 57.2 Procalcitonin 0.07 Micro Results: 09/07/19 12:51 Aerobic Blood Culture - Pending Blood Anaerobic Blood Culture - Pending 09/07/19 12:51 Aerobic Blood Culture - Pending Blood Anaerobic Blood Culture - Pending - Risk Factors for Resistance * Immunocompromised * Antimicrobial use within the last 90 days Azithromycin,Doxycycline,Levofloxacin - Assessment & Plan Assessment 49 year old F admitted to PCU with airborne and droplet precautions with respiratory illness with fever. Biofire testing positive for coronavirus OC43. Covid-19 testing in process, screened as outpatient 09-02, awaiting results. Tmax 39.8. Chest xray shows findings suggestive of a chronic atypical pneumonia such as non tuberculosis mycobacterium. Has also been battling thrush and feels it is worse at the present time. Her oral intake has been poor secondary to dysphasia. Plan Vancomycin for treatment of possible pneumonia Vancomycin IV * Estimated PK Parameters: Vd 0.7 L/kg, Jassi 0.052 hr-1, t1/2 13.3 hr * Loading dose: 1250 mg (23 mg/kg) * Maintenance dose: 750 mg IV (13.8 mg/kg) every 16 hours * Goal trough level for pulmonary indication : 15 to 20 mcg/mL Also ordered Cefepime 1gm IV q8h, Levaquin 750mg IV q24h, & Voriconazole 200 mg IV q12h. Pharmacy will continue to follow and will adjust dose/frequency as necessary. Thank you.
[2019-09-07 23:53] LABS: Appearance Urine Clear (Clear); Bacteria Urine Automated Negative (Negative); Bilirubin Urine Negative (Negative); Blood Urine Negative (Negative); Color Urine Dark Yellow; Epithelial Cell Urine Auto >30 /lpf (0-5); Glucose Urine UA Negative (Negative); Ketones Urine Negative (Negative); Leukocyte Esterase Urine Trace (Negative); Nitrite Urine Negative (Negative); Protein Urine 1+ (Negative); RBC Urine Automated 0-4 /hpf (0-4); Specific Gravity Urine 1.026 (1.000-1.030); Urobilinogen Urine Negative (Negative)
[2019-09-07] MEDS: LEVOFLOXACIN/D5W 750 MG/150 ML BAG IV SCH (23:59)
[2019-09-07] MEDS: CEFEPIME 1,000 MG in SYRINGE 0 ML IV SCH (23:59)
[2019-09-08 00:19] LABS: Mucus Urine Present (None Prsent)
[2019-09-08] MEDS ORDERED: ACETAMINOPHEN SOLN 650 MG/20.3 ML UDC OG PRN (01:48)
[2019-09-08] MEDS: VORICONAZOLE IV SCH ×2 (04:36→17:37)
[2019-09-08] MEDS: SODIUM CHLORIDE 0.9% IV SCH ×2 (04:36→17:37)
[2019-09-08] MEDS: CEFEPIME 1,000 MG in SYRINGE 0 ML IV SCH ×3 (05:56→22:01)
[2019-09-08 06:07] LABS: Basophils # (auto) 0.01 K/uL (0-0.2); Basophils % (auto) 0.3 %; Eosinophils # (auto) 0.08 K/uL (0-0.5); Eosinophils % (auto) 2.7 %; Hematocrit (blood only) 26.9 % (37-47); Hemoglobin 9.8 g/dL (12.0-16.0); Immature Granulocytes # (auto) 0.02 K/uL (0.00-0.02); Immature Granulocytes % (auto) 0.7 %; Lymphocytes # (auto) 0.72 K/uL (1.2-3.4); Lymphocytes % (auto) 24.4 %; Mean Corpuscular Hemoglobin 30.1 pg (25-34); Mean Corpuscular Hgb Conc 36.4 g/dL (32-36); Mean Corpuscular Volume 82.5 fL (80-100); Mean Platelet Volume 10.5 fL (7.4-10.4); Monocytes # (auto) 0.61 K/uL (0.11-0.59); Monocytes % (auto) 20.7 %; Neutrophils # (auto) 1.51 K/uL (1.4-6.5); Neutrophils % (auto) 51.2 %; Platelet Count 239 K/uL (130-400); RDW Coefficient of Variation 13.9 % (11.5-14.5); RDW Standard Deviation 42.1 fL (36.4-46.3); Red Blood Count 3.26 M/uL (4.2-5.4); White Blood Count 2.95 K/uL (4.8-10.8)
[2019-09-08] MEDS: LEVOTHYROXINE SODIUM 125 MCG TABLET PO SCH (06:29)
[2019-09-08 06:39] LABS: Albumin Level 1.9 gm/dl (3.4-5.0); BUN Creatinine Ratio 18.2 (10-20); Creatinine Clr Calc Pharmacy 66.9 ml/min; Est GFR (African American) 90.7; Est GFR (Non-African American) 78.2; Magnesium 1.6 mg/dl (1.8-2.4)
[2019-09-08 06:54] LABS: Albumin Globulin Ratio 0.4 (0.9-2); Bilirubin,Total 0.3 mg/dl (0.2-1); Globulin 5.3 gm/dl (2.5-4.0); Total Protein 7.2 gm/dl (6.4-8.2)
[2019-09-08] MEDS: CLOTRIMAZOLE 10 MG TROCHE BUCCAL SCH (07:45)
[2019-09-08] MEDS: ALUMINUM/MAGNESIUM SUSP 50 ML, DiphenhydrAMINE Syrup 125 MG, LIDOCAINE HCL 2% VISCOUS 4... PO PRN ×2 (07:46→12:25)
[2019-09-08] MEDS: FLUTICASONE PROPIONATE NA SPR 16 GM BTL NAE SCH (07:47)
[2019-09-08] MEDS: UMECLIDINIUM/VILANTEROL 62.5/25MCG 7 PUFFS/INHALER INH SCH (07:47)
[2019-09-08] MEDS: POTASSIUM CHLORIDE 20 MEQ TABCR PO SCH (07:48)
[2019-09-08] MEDS: SELZENTRY PO SCH (07:49)
[2019-09-08] MEDS: DOLUTEGRAVIR SODIUM 50 MG TAB PO SCH ×2 (07:50→19:53)
[2019-09-08] MEDS: TOBRAMYCIN SULFATE 300 MG in SYRINGE 0 ML INH SCH ×2 (08:26→19:09)
[2019-09-08] MEDS ORDERED: EMTRICITABINE/TENOFOVIR TAB PO SCH (09:00)
[2019-09-08] MEDS ORDERED: PIFELTRO 100 MG PO SCH (09:00)
[2019-09-08] MEDS ORDERED: Nursing to Pharmacy Communication ONE (10:14)
[2019-09-08] MEDS ORDERED: levoFLOXacin 500 MG TAB PO SCH (11:00)
[2019-09-08] MEDS: GUAIFENESIN/DEXTROM SYRUP 100MG/10MG 5ML UDC PO SCH ×3 (11:15→22:02)
[2019-09-08] MEDS: NSS + 20MEQ KCL 20 MEQ/1,000 ML BAG IV SCH ×2 (11:17→22:02)
[2019-09-08] MEDS: MAGNESIUM SULFATE / D5W 1 GM/100 ML BAG IV SCH ×2 (11:22→13:22)
[2019-09-08] MEDS: POTASSIUM CHLORIDE / WTR 10 MEQ/100 ML PLCT IV SCH ×2 (11:23→13:22)
[2019-09-08] MEDS ORDERED: VANCOMYCIN HCL 750 MG in SODIUM CHLORIDE 0.9% 250 ML IV SCH (12:00)
--- NOTE | 2019-09-08 12:52 | Pulmonary Consultation ---
Date of Consultation September 08, 2019 Assessment & Plan (1) Pneumonia: --Sepsis likely secondary to multilobar pneumonia Patient fever of 38.9 at the time of presentation with history of HIV/AIDS, CD4 count less than 50 Patient was recently re-started on Haart therapy. Patient has history of HIV virus resistant to multiple antiretrovirals. Follows up with Dr. Abdalla As per ID note from outpatient patient is on azithromycin and Bactrim prophylaxis but it did not show up on her home medication. Continue with broad-spectrum antibiotics with atypical coverage. Given that the more nasal MRSA is negative I think we can discontinue MRSA coverage. Given the LDH is negative the likelihood of it being PCP is low. Patient looks comfortable at the time of examination today. Patient is high risk given that she has recent travel to [place] along with history of HIV and high fever. But given that there is positive rhinovirus the likelihood of Covid-19 is low. There have been latest article which shows co-infection up to 38%. Patient had Covid-19 test done as an outpatient we should have results back in couple of da ys. Would continue with droplet and contact precautions for the time being. As we are not planning to do any invasive procedure I do not think we need airborne precautions right now. Rapid by fire detected coronavirus with CD43 (this is not Covid-19) and rhinovirus. LDH: 161, procalcitonin 0.07. Nasal MRSA negative --Hemoptysis Patient has underlying bronchiectasis especially bilateral middle lobe seems like DARCIE in a patient with AIDS. Patient had gold QuantiFERON done in July 2019 which was intermediate. Patient had history of Pseudomonas and expectorated sputum done January 2019 which was pansensitive except intermediate for gentamicin. Patient is on inhaled tobramycin at home. If the patient is taking levofloxacin I do not think we need tobramycin to be on the board at the same time. Would continue with antitussive medication [id number]. Guaifenesin with DM if this does not work we will give guaifenesin with codeine. Nurse was made aware to give all 4 doses and keep it in the room and just not on the door whenever it is time for her to take the cough medication. This will decrease the exposure of the nurse taking care of the patient as well as help decreasing the use of PPE. --HIV/AIDS Continue with Blackwell therapy Given that the patient recently restarted Blackwell therapy less than a week ago the likelihood of it being IRIS is very low. Recommend prophylactic weekly azithromycin as well as thrice weekly Bactrim for DARCIE and PCP prophylaxis. -- COPD Patient is on Labe/lama inhaler at home Continue with that. Patient follows up with Dr. Barbosa as an outpatient. Plan: Recommend against using flutter valve for the time being as this can make the patient more cough and worsen her hemoptysis. Rather we should use antitussive medication to suppress her cough. Patient is on voriconazole, levofloxacin both of which can prolong QTC. The latest QTC was 450 I would recommend to keep an eye on the EKG for QTc monitoring. Recommend using Magic mouthwash also around the clock for her severe odynophagia secondary to oral candidiasis. Recommend keeping the patient euvolemic. Patient is +3.5 L since time of admission. Given that she was septic at the time of presentation I guess initial 2 L are acceptable. If the patient is still positive balance consider giving Lasix. Please note the above document was generated using voice recognition software. It may contain grammatical, syntax or spelling errors. Chest x-ray from the time of presentation shows chronic right upper lobe and left lower lobe infiltrate but there was more haziness appreciated in the right upper lobe. Bilateral costophrenic angles and cardiophrenic angles are clean. 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 Patient came to the hospital yesterday as she was getting more short of breath and febrile and not feeling good. Temperature in the ER was 38.9. At the time of examination today patient states that the shortness of breath has improved. She is still coughing up little bit of blood. Denies any chest pain. Denies any diarrhea, no dysuria. Still complains of significant odynophagia. She states that she is able to tolerate liquids but unable to swallow medications and food. For oral candidiasis she was prescribed voriconazole as an outpatient which she has been taking. Denies any headache, no blurry vision, no nausea or vomiting. Patient does have a recent travel history to [place] for a . She used public transportation for it. Denies any known Covid-19 positive contacts. Allergies Allergy/AdvReac Type Severity Reaction Status Date / Time Penicillins AdvReac Unknown Rash Verified 09/03/19 09:12 Home Medications Home Medications Medication Instructions Recorded Confirmed Type levothyroxine [Synthroid] 125 mcg PO DAILY 08/05/18 09/03/19 History ondansetron 4 mg PO Q6H PRN #10 tab 08/13/18 09/03/19 Rx montelukast 10 mg tablet 10 mg PO QPM #30 tab 02/20/19 09/03/19 Rx fluticasone propionate 50 2 sprays INTRANASAL DAILY #16 gm 05/24/19 09/03/19 Rx mcg/actuation nasal spray,suspension albuterol sulfate 90 mcg/actuation 2 puff INHALATION Q6H PRN #1 06/11/19 09/03/19 Rx aerosol inhaler inhaler Flutter Valve #1 ea 06/27/19 09/03/19 Rx glycopyrrolate 9 mcg-formoterol 2 puffs INH BID #10.7 gm 06/27/19 09/03/19 Rx 4.8 mcg HFA aerosol inhaler albuterol sulfate 2.5 mg INH Q4H PRN #180 ml 07/02/19 09/03/19 Rx tobramycin 300 mg/4 mL solution 300 mg INH BID #224 ml 07/11/19 09/03/19 Rx for nebulization food supplemt, lactose-reduced See Rx Instructions .ROUTE 07/26/19 09/03/19 Rx 0.04 gram-1.05 kcal/mL oral liquid .COMPLEX #6399 milliliter mouthwash compounding base 227 See Rx Instructions .ROUTE 07/26/19 09/03/19 Rx .COMPLEX #300 ml voriconazole 200 mg/5 mL (40 200 mg PO BID #75 ml 08/01/19 09/03/19 Rx mg/mL) oral suspension levofloxacin 500 mg tablet 500 mg PO DAILY #10 tab 09/06/19 Rx potassium chloride 20 mEq 20 meq PO BID #4 tab 09/06/19 Rx tablet,extended release Patient History Medical History Anemia Asthma Bronchiectasis Chronic obstructive pulmonary disease Coagulopathy Hepatic lesion HIV (human immunodeficiency virus infection) HIV disease (Acute) Hypokalemia Hypomagnesemia Hypothyroidism Mood disorder Oral candidiasis (Acute) Pericardial effusion Pleural effusion Pneumonia Sepsis Severe protein-calorie malnutrition Underweight Social History Preferred Language: Belarusian Communication Ability: Effective Facilities Clerk Required: No Beliefs That Will Affect Care: None Current Living Situation: Spouse Current Living Situation Comment: lives with daughter Other Information That Helps Us Care for You: No Feels Safe at Home: Yes Safety Concerns: Feels Safe At This Time Smoking Status: Never smoker Second Hand Exposure: No ; Hx Alcohol Use: No Hx Substance Use: No Review of Systems Review of Systems: All systems reviewed & are unremarkable except as noted in HPI & below Physical Exam Physical Exam: Constitutional: No acute distress, temporal wasting HEENT: EOMI, PERRLA, dry mucous membranes, positive oral thrush Respiratory system: Decreased air entry bilaterally, more decreased on the right side, no wheeze, no crackles, no rhonchi CVS: S1-S2 positive, no murmurs or gallops Abdomen: Soft, nontender, nondistended, positive bowel sounds x4 Extremities: +2 pulses bilaterally radialis/ dorsalis pedis, no cyanosis, no edema, no clubbing Neuro: Awake alert oriented x3 Psych: Normal mood and affect G/U: No [place] Skin: no rashes, warm and dry Lymphatic: no cervical or axillary lymphadenopathy Results & Data ([facility]) Vital Signs (Past 12 Hours) Vital Signs Temp Pulse Resp BP Pulse Ox 09/08/19 11:13 36.7 C 100 H 20 108/65 100 09/08/19 07:43 36.6 C 96 H 20 100/66 99 09/08/19 04:23 37.1 C 99 H 18 111/54 L 99 09/08/19 05:54 09/08/19 05:54 Microbiology 09/07/19 23:30 Sputum, Expectorated Gram Stain - Final Rapid by fire detected coronavirus with CD43 (this is not Covid-19) and rhinovirus. LDH: 161, procalcitonin 0.07. Nasal MRSA negative PG Care Time/CCT Total # of Minutes Spent Total Time Spent with Patient: Total time spent is greater than 50% in coordination of care (as documented) at patient's floor/unit and/or counseling patient: C[place] [address] Inpt Consult Level 5 Patient Type Established Diagnoses Pneumonia J18.9 Laterality: bilateral Lung location: unspecified part of lung Pneumonia type: due to unspecified organism Oral candidiasis B37.0 AIDS (acquired immune deficiency syndrome) B20 Bronchiectasis J47.9 Hemoptysis R04.2 Time Spent (min) 76
--- NOTE | 2019-09-08 17:19 | Hospitalist Progress Note ---
Date of Service September 08, 2019 Assessment & Plan (1) Coronavirus infection: - Airborne and droplet precautions - Bio fire resulting positive for coronavirus OC43 and Entero/Rhino viruses - COVID-19 testing in process, screened as outpt 09/03/2019-therefore will maintain airborne precautions until results are back. (2) Rhinovirus infection: as above, supportive care. (3) Pneumonia: - Pt with tmax of 39.8 in the ER with complaints of hemoptysis worse since Tuesday which is new, sputum culture, repeat CXR with chronic pna seen on outpt testing from 09/02, procalcitonin negative. However given CD4 count covering with broad spectrum antibiotics currently. - MRSA nose swab negative. Continue on cefepime and levaquin. - Appreciate pulmonary consult - Consult ID - Dr. Abdalla (4) Bronchiectasis: - Chronic, d/c flutter valve. - Appreciate pulmonology management as above (5) Chronic obstructive pulmonary disease: - Continue albuterol sulfate, fluticasone, glycopyrrolate inha flutter, incentive spirometry (6) HIV disease: -Continue HAART therapy -CD4 count = 11, per Dr. Abdalla this is actually improved compared to months of being around 1 or 2, continue current HIV therapeutic regimen -Continue voriconazole IV for oral candidiasis -Continue Magic swizzle (7) Hypokalemia: - K 3.0, Switch to all IV replacement as pills very difficult to swallow with current oral/esophageal candidiasis (8) Severe protein-calorie malnutrition: - Decreased albumin on admission - Continue boost 5 boxes daily (9) Hypothyroidism: - Continue levothyroxine 125 mcg daily as scheduled (10) Anemia: - Anemia secondary to chronic disease, Hgb = 11.4, HCT = 31.4 - Follow as outpatient (11) Oral candidiasis: - Continue on IV voriconazole 200 mg every 12 - stop clotrimazole as patient refusing this - Switched Magic swizzle to ROSMERY as patient has not been receiving this. - Allow normal diet, soft textures (12) DVT prophylaxis: - SCDs CODE STATUS: Full code Admission and Anticipated Discharge Date Admission Date: September 07, 2019 Subjective Patient reports no significant change in coughing, shortness of breath or oral thrush. Magic swizzle ordered PRN but she has not been receiving this. Review of Systems Review of Systems: All systems reviewed & are unremarkable except as noted in HPI & below Physical Exam Constitutional: + thin and + frail appearing; no acute distress Eyes: + anicteric sclerae; normal pupil size ENMT: Mouth: + oral mucosal abnormality (severe oral trush) Respiratory: normal respiratory effort; no respiratory distress Auscultation: lungs clear to auscultation bilaterally and + diminished lung sounds (b/l equal); no crackles, no rales, no rhonchi and no wheezes Cardiovascular: RRR, no murmur, no edema Gastrointestinal (Abdomen): Inspection/Auscultation: normal bowel sounds Percussion/Palpation: abdomen soft; abdomen nontender, no guarding and abdomen not rigid Musculoskeletal: no cyanosis or clubbing, extremities motor strength 5/5 Skin: no rashes, warm and dry Neurologic: moves all extremities and awake; no focal motor deficits and not confused Psychiatric: A+Ox3, euthymic affect Lymphatic: no cervical or axillary lymphadenopathy Results & Data ([facility]) Vital Signs (Past 12 Hours) Vital Signs Temp Pulse Resp BP Pulse Ox 09/08/19 11:13 36.7 C 100 H 20 108/65 100 09/08/19 07:43 36.6 C 96 H 20 100/66 99 PG Care Time/CCT Total # of Minutes Spent Total Time Spent with Patient: Total time spent is greater than 50% in coordination of care (as documented) at patient's floor/unit and/or counseling patient: Coding Level of Care Code 28123 Subseq Hosp Care Lvl 3 Diagnoses Coronavirus infection B34.2 Rhinovirus infection B34.8 Pneumonia J18.9 Laterality: bilateral Lung location: unspecified part of lung Pneumonia type: due to unspecified organism Bronchiectasis J47.9 Chronic obstructive pulmonary disease J44.9 HIV disease B20 Hypokalemia E87.6 Severe protein-calorie malnutrition E43 Hypothyroidism E03.9 Hypothyroidism type: acquired Anemia D64.89 Anemia type: other cause Other causes of anemia: other cause, not classified Oral candidiasis B37.0 DVT prophylaxis Z29.9 (1) Anemia Anemia type: other cause Other causes of anemia: other cause, not classified Qualified Code(s): D64.89 - Other specified anemias (2) Hypothyroidism Hypothyroidism type: acquired Qualified Code(s): E03.9 - Hypothyroidism, unspecified (3) Pneumonia Laterality: bilateral Lung location: unspecified part of lung Pneumonia t ype: due to unspecified organism Qualified Code(s): J18.9 - Pneumonia, unspecified organism
[2019-09-08] MEDS: ALUMINUM/MAGNESIUM SUSP 50 ML, DiphenhydrAMINE Syrup 125 MG, LIDOCAINE HCL 2% VISCOUS 4... PO SCH (17:37)
[2019-09-08] MEDS: LEVOFLOXACIN/D5W 750 MG/150 ML BAG IV SCH (19:47)
[2019-09-08] MEDS: MONTELUKAST SODIUM 10 MG TABLET PO SCH (19:52)
[2019-09-08] MEDS: EMTRICITABINE/TENOFOVIR TAB PO SCH (19:54)
[2019-09-09] MEDS: SELZENTRY PO SCH ×3 (00:42→18:48)
[2019-09-09] MEDS: PIFELTRO 100 MG PO SCH ×2 (00:42→18:49)
[2019-09-09] MEDS: ALUMINUM/MAGNESIUM SUSP 50 ML, DiphenhydrAMINE Syrup 125 MG, LIDOCAINE HCL 2% VISCOUS 4... PO SCH ×5 (00:43→20:39)
[2019-09-09] MEDS: VORICONAZOLE IV SCH ×2 (05:23→17:18)
[2019-09-09] MEDS: SODIUM CHLORIDE 0.9% IV SCH ×2 (05:23→17:18)
[2019-09-09] MEDS: GUAIFENESIN/DEXTROM SYRUP 100MG/10MG 5ML UDC PO SCH ×4 (05:23→21:01)
[2019-09-09] MEDS: LEVOTHYROXINE SODIUM 125 MCG TABLET PO SCH (05:24)
[2019-09-09] MEDS: CEFEPIME 1,000 MG in SYRINGE 0 ML IV SCH ×3 (05:24→21:00)
[2019-09-09 06:27] LABS: Basophils # (auto) 0.01 K/uL (0-0.2); Basophils % (auto) 0.4 %; Eosinophils # (auto) 0.14 K/uL (0-0.5); Eosinophils % (auto) 5.8 %; Hematocrit (blood only) 27.1 % (37-47); Hemoglobin 9.9 g/dL (12.0-16.0); Immature Granulocytes # (auto) 0.01 K/uL (0.00-0.02); Immature Granulocytes % (auto) 0.4 %; Lymphocytes # (auto) 0.73 K/uL (1.2-3.4); Mean Corpuscular Hemoglobin 29.9 pg (25-34); Mean Corpuscular Hgb Conc 36.5 g/dL (32-36); Mean Corpuscular Volume 81.9 fL (80-100); Mean Platelet Volume 10.5 fL (7.4-10.4); Monocytes # (auto) 0.32 K/uL (0.11-0.59); Monocytes % (auto) 13.2 %; Neutrophils # (auto) 1.22 K/uL (1.4-6.5); Neutrophils % (auto) 50.2 %; Platelet Count 243 K/uL (130-400); RDW Coefficient of Variation 13.9 % (11.5-14.5); RDW Standard Deviation 41.7 fL (36.4-46.3); Red Blood Count 3.31 M/uL (4.2-5.4); White Blood Count 2.43 K/uL (4.8-10.8)
[2019-09-09 06:58] LABS: BUN Creatinine Ratio 15.4 (10-20); Calcium 8.5 mg/dl (8.5-10.1); Creatinine Clr Calc Pharmacy 70.2 ml/min; Est GFR (Non-African American) 82.8; Potassium 3.1 mmol/L (3.5-5.1)
[2019-09-09 07:01] LABS: Albumin Globulin Ratio 0.4 (0.9-2); Bilirubin,Total 0.4 mg/dl (0.2-1); Globulin 5.6 gm/dl (2.5-4.0); Total Protein 7.6 gm/dl (6.4-8.2)
[2019-09-09] MEDS: TOBRAMYCIN SULFATE 300 MG in SYRINGE 0 ML INH SCH ×2 (07:18→19:19)
--- NOTE | 2019-09-09 07:55 | XRay Report ---
XR chest 1V portable HISTORY: 49 years-old Female f/u follow-up study in a patient with bilateral airspace opacities COMPARISON: Chest radiograph 09/07/2019, chest CT 10/09/2018. TECHNIQUE: Portable AP view of the chest FINDINGS: Cardiac silhouette is normal. No pneumothorax, large pleural effusion or overt pulmonary edema. Multi focal airspace opacities, right greater than left have not significantly changed in the interval. Aga in, these are most pronounced within the right perihilar and lateral right midlung distributions. Rig ht middle lobe bronchiectasis. Bones appear grossly intact. IMPRESSION: No significant change of the multifocal right greater than left airspace opacities with r ight middle lobe bronchiectasis suggestive of chronic multifocal pneumonia. Continued follow-up recom mended. ACT 112: Negative or not required by law. The above report was generated using voice recognition software. It may contain grammatical, syntax o r spelling errors. Electronically signed by: Adonis Poole M.D. 09/09/2019 7:54 AM
[2019-09-09] MEDS: POTASSIUM CHLORIDE 40 MEQ in SODIUM CHLORIDE 0.45 % 1,000 ML IV SCH ×2 (08:17→21:00)
[2019-09-09] MEDS: FLUTICASONE PROPIONATE NA SPR 16 GM BTL NAE SCH (08:18)
[2019-09-09] MEDS: UMECLIDINIUM/VILANTEROL 62.5/25MCG 7 PUFFS/INHALER INH SCH (08:18)
[2019-09-09] MEDS: DOLUTEGRAVIR SODIUM 50 MG TAB PO SCH ×2 (08:20→20:38)
--- NOTE | 2019-09-09 11:55 | Pulmonology Progress Note ---
Date of Service September 09, 2019 Assessment & Plan (1) Pneumonia: Impression: 49-year-old female with poorly controlled HIV and significantly immunocompromise due to same admitted with fevers cough and sputum production. Chest x-ray shows progressive pulmonary infiltrates. She was in the process of being ruled out for coronavirus in the outpatient setting therefore she is in isolation currently. Recommendations: --Sepsis likely secondary to multilobar pneumonia I suspect the likelihood of the patient having COVID 19 is very low especially given isolation of alternative etiologies on her bio fire panel. Testing should be available by tomorrow and anticipate that we can hopefully discontinue respiratory and airborne isolation at that time. She is currently day #2 cefepime, levofloxacin, voriconazole in conjunction with her antiretroviral therapy. Defer antimicrobial therapy to infectious disease, consult pending. Can likely de-escalate therapy fairly quickly given her favorable clinical response. I do not think she requires bronchoscopy with BAL at this time but will defer to infectious disease and would be happy to consider once her coronavirus screen comes back negative if this would alter therapy. --Hemoptysis Now resolved. Suspect this is related to an exacerbation of her bronchiectasis. Continue to follow. Certainly at risk for nontuberculous mycobacterial infection given her HIV status and the radiographic appearance. Does not appear NTM is been isolated from a pulmonary source previously -- COPD Appears relatively stable currently. Continue her current regimen. No indicat ion for systemic steroids. Laterality: bilateral Lung location: unspecified part of lung Pneumonia type: due to unspecified organism Qualified Code(s): J18.9 - Pneumonia, unspecified organism (2) Oral candidiasis: (3) AIDS (acquired immune deficiency syndrome): (4) Bronchiectasis: (5) Hemoptysis: Subjective Patient seen and examined. EMR reviewed. Discussed with Dr. Tsai. Patient is without significant complaints this morning. She is on room air. She states she is now coughing and expectorating some clearish to white phlegm. Her hemoptysis is resolved. No chest pain or palpitations. Fevers have now resolved. Review of Systems Review of Systems: Unchanged from prior Results & Data ([facility]) Vital Signs (Past 12 Hours) Vital Signs Temp Pulse Pulse Resp BP Pulse Ox 09/09/19 07:00 36.7 C 97 H 16 104/63 97 09/09/19 05:31 37.4 C 91 H 94 H 16 100/63 97 Laboratory Results 09/09/19 06:12 09/09/19 06:12 Culture data negative to date Diagnostic Findings Chest x-ray independently reviewed from 09/09/2019 and compared to prior films. There is patchy airspace opacity throughout the right lung without effusion. PG Care Time/CCT Total # of Minutes Spent Total Time Spent with Patient: Total time spent is greater than 50% in coordination of care (as documented) at patient's floor/unit and/or counseling patient: Coding Level of Care Code 88899 Subseq Hosp Care Lvl 2 Diagnoses Pneumonia J18.9 Laterality: bilateral Lung location: unspecified part of lung Pneumonia type: due to unspecified organism Oral candidiasis B37.0 AIDS (acquired immune deficiency syndrome) B20 Bronchiectasis J47.9 Hemoptysis R04.2
[2019-09-09] MEDS: NYSTATIN SUSP 500,000 U/5 ML UDC PO SCH ×2 (17:18→18:47)
[2019-09-09] MEDS: LEVOFLOXACIN/D5W 750 MG/150 ML BAG IV SCH (18:46)
[2019-09-09] MEDS: EMTRICITABINE/TENOFOVIR TAB PO SCH (18:47)
[2019-09-09] MEDS: MONTELUKAST SODIUM 10 MG TABLET PO SCH (18:48)
[2019-09-10] MEDS: GUAIFENESIN/DEXTROM SYRUP 100MG/10MG 5ML UDC PO SCH ×4 (05:22→20:35)
[2019-09-10] MEDS: VORICONAZOLE IV SCH ×2 (05:22→16:56)
[2019-09-10] MEDS: SODIUM CHLORIDE 0.9% IV SCH ×2 (05:22→16:56)
[2019-09-10] MEDS: CEFEPIME 1,000 MG in SYRINGE 0 ML IV SCH ×2 (05:22→13:15)
[2019-09-10] MEDS: LEVOTHYROXINE SODIUM 125 MCG TABLET PO SCH (05:25)
[2019-09-10 06:12] LABS: Basophils # (auto) 0.01 K/uL (0-0.2); Basophils % (auto) 0.3 %; Eosinophils % (auto) 11.7 %; Hematocrit (blood only) 29.8 % (37-47); Hemoglobin 10.7 g/dL (12.0-16.0); Immature Granulocytes # (auto) 0.03 K/uL (0.00-0.02); Immature Granulocytes % (auto) 0.9 %; Lymphocytes % (auto) 37.9 %; Mean Corpuscular Hemoglobin 29.5 pg (25-34); Mean Corpuscular Hgb Conc 35.9 g/dL (32-36); Mean Corpuscular Volume 82.1 fL (80-100); Mean Platelet Volume 10.8 fL (7.4-10.4); Monocytes # (auto) 0.39 K/uL (0.11-0.59); Monocytes % (auto) 11.4 %; Neutrophils % (auto) 37.8 %; Platelet Count 277 K/uL (130-400); RDW Coefficient of Variation 14.1 % (11.5-14.5); RDW Standard Deviation 42.5 fL (36.4-46.3); Red Blood Count 3.63 M/uL (4.2-5.4); White Blood Count 3.43 K/uL (4.8-10.8)
--- NOTE | 2019-09-10 06:26 | Hospitalist Progress Note ---
Date of Service September 09, 2019 Assessment & Plan (1) Coronavirus infection: - Airborne and droplet precautions - Bio fire resulting positive for coronavirus OC43 and Entero/Rhino viruses - COVID-19 testing in process, screened as outpt 09/03/2019-therefore will maintain airborne precautions until results are back. (2) Rhinovirus infection: as above, supportive care. (3) Pneumonia: - Pt with tmax of 39.8 in the ER with complaints of hemoptysis worse since Tuesday which is new, sputum culture - moderate normal phong, procalcitonin negative. Blood cultures negative 24 hours. However given CD4 count covering with broad spectrum antibiotics currently. - MRSA nose swab negative (discontinued vancomycin). Continue on cefepime and levaquin. - Appreciate pulmonary consult - Consult ID - Dr. Abdalla (4) Bronchiectasis: - Chronic, d/c flutter valve. - Appreciate pulmonology management as above (5) Chronic obstructive pulmonary disease: - Continue albuterol sulfate, fluticasone, glycopyrrolate inha flutter, incentive spirometry (6) HIV disease: -Continue HAART therapy -CD4 count = 11, per Dr. Abdalla this is actually improved compared to months of being around 1 or 2, continue current HIV therapeutic regimen (7) Hypokalemia: - K 3.1, continue replacement with IV 0.5NSS+40 meq KCl @ 80ml/hr as still not eating or drinking well (8) Severe protein-calorie malnutrition: - Continue boost breeze (9) Hypothyroidism: - Continue levothyroxine 125 mcg daily as scheduled (10) Anemia: - Anemia secondary to chronic disease, Hgb = 9.9 with fluid resuscitation - continue to monitor CBC (11) Oral candidiasis: - Continue on IV voriconazole 200 mg every 12 - stop clotrimazole as patient refusing this - Switched Magic swizzle to ROSMERY as patient has not been receiving this. - Allow normal diet, soft textures (12) DVT prophylaxis: - SCDs CODE STATUS: Full code Admission and Anticipated Discharge Date Admission Date: September 07, 2019 Subjective Patient reports no significant change in coughing, shortness of breath or oral thrush. Although she appears much improved. Requesting nystatin in addition to oral antifungal. Magic swizzle numbing the pain in her mouth. Review of Systems Review of Systems: All systems reviewed & are unremarkable except as noted in HPI & below Physical Exam Constitutional: + thin and + frail appearing; no acute distress Eyes: + anicteric sclerae; normal pupil size ENMT: Mouth: + oral mucosal abnormality (severe oral trush) Neck: normal visual inspection and trachea midline Respiratory: normal respiratory effort; no respiratory distress Auscultation: lungs clear to auscultation bilaterally and + diminished lung sounds (b/l equal); no crackles, no rales, no rhonchi and no wheezes Cardiovascular: RRR, no murmur, no edema Gastrointestinal (Abdomen): Inspection/Auscultation: normal bowel sounds Percussion/Palpation: abdomen soft; abdomen nontender, no guarding and abdomen not rigid Musculoskeletal: no cyanosis or clubbing, extremities motor strength 5/5 Skin: no rashes, warm and dry Neurologic: moves all extremities and awake; no focal motor deficits and not confused Psychiatric: A+Ox3, euthymic affect Lymphatic: no cervical or axillary lymphadenopathy Results & Data ([facility]) Vital Signs (Past 12 Hours) Vital Signs Temp Pulse Resp BP Pulse Ox 09/10/19 05:36 36.7 C 86 16 103/63 97 PG Care Time/CCT Total # of Minutes Spent Total Time Spent with Patient: Total time spent is greater than 50% in coordination of care (as documented) at patient's floor/unit and/or counseling patient: Coding Level of Care Code 93571 Subseq Hosp Care Lvl 2 Diagnoses Coronavirus infection B34.2 Rhinovirus infection B34.8 Pneumonia J18.9 Laterality: bilateral Lung location: unspecified part of lung Pneumonia type: due to unspecified organism Bronchiectasis J47.9 Chronic obstructive pulmonary disease J44.9 HIV disease B20 Hypokalemia E87.6 Severe protein-calorie malnutrition E43 Hypothyroidism E03.9 Hypothyroidism type: acquired Anemia D64.89 Anemia type: other cause Other causes of anemia: other cause, not classified Oral candidiasis B37.0 DVT prophylaxis Z29.9 (1) Pneumonia Laterality: bilateral Lung location: unspecified part of lung Pneumonia type: due to unspecified organism Qualified Code(s): J18.9 - Pneumonia, unspecified organism (2) Hypothyroidism Hypothyroidism type: acquired Qualified Code(s): E03.9 - Hypothyroidism, unspecified (3) Anemia Anemia type: other cause Other causes of anemia: other cause, not classified Qualified Code(s): D64.89 - Other specified anemias
[2019-09-10 06:50] LABS: Albumin Globulin Ratio 0.3 (0.9-2); BUN Creatinine Ratio 15.3 (10-20); Bilirubin,Total 0.4 mg/dl (0.2-1); Calcium 9.1 mg/dl (8.5-10.1); Creatinine Clr Calc Pharmacy 83.7 ml/min; Est GFR (Non-African American) 98.3; Magnesium 1.8 mg/dl (1.8-2.4); Potassium 3.7 mmol/L (3.5-5.1)
--- NOTE | 2019-09-10 07:26 | XRay Report ---
XR chest 1V portable CLINICAL HISTORY: 49 years-old Female presenting with f/u. TECHNIQUE: Portable upright AP view of the chest was obtained. COMPARISON: 09/09/2019, 09/07/2019, 09/03/2019, and chest CT from 07/27/2019. FINDINGS: Cardiomediastinal silhouette normal. Patchy opacities in the right mid to upper lung and left lung ba se as on prior exams. No new focal opacity. Right middle lobe bronchiectasis better appreciated on ch est CT. No large effusion or pneumothorax. Osseous structures normal. Upper abdomen normal. IMPRESSION: 1. Stable multifocal infiltrates compatible with chronic pneumonia. No new focal infiltrate. ACT 112: Negative or not required by law. Electronically signed by: Jaden Jones M.D. 09/10/2019 7:25 AM
[2019-09-10] MEDS: UMECLIDINIUM/VILANTEROL 62.5/25MCG 7 PUFFS/INHALER INH SCH (09:33)
[2019-09-10] MEDS: FLUTICASONE PROPIONATE NA SPR 16 GM BTL NAE SCH (09:33)
[2019-09-10] MEDS: SELZENTRY PO SCH ×2 (09:36→17:05)
[2019-09-10] MEDS: NYSTATIN SUSP 500,000 U/5 ML UDC PO SCH ×4 (09:37→20:33)
[2019-09-10] MEDS: DOLUTEGRAVIR SODIUM 50 MG TAB PO SCH ×2 (09:37→17:07)
[2019-09-10] MEDS: ALUMINUM/MAGNESIUM SUSP 50 ML, DiphenhydrAMINE Syrup 125 MG, LIDOCAINE HCL 2% VISCOUS 4... PO SCH ×4 (09:38→20:36)
[2019-09-10] MEDS: POTASSIUM CHLORIDE 40 MEQ in SODIUM CHLORIDE 0.45 % 1,000 ML IV SCH (09:44)
--- NOTE | 2019-09-10 12:01 | Infectious Disease Consult ---
Date of Consultation September 10, 2019 Assessment & Plan (1) Viral pneumonia: she is improving, could narrow to levaquin only - would give 5 days total. Agree with primary and pulm that COVID-19 less likely, although she did have recent travel to [place], would agree to maintain isolation pending final testing. would limit to staff entrance to preserve PPE. She can continue HAART regimen as planned. She no longer follows with [facility] ID, she will need to schedule follow up with her new HIV provider upon d/c. No contraindication to d/c from ID standpoint, however, she will need to remain on home isolation if COVID-19 testing does not return prior to d/c. History of Present Illness Attending Physician: James Johansen pt admitted last week due to viral pna, + covington virus (not COVID 19) and rhino virus. was seen in pulm office on 09/02 - at that time COVID sample done, still pending, currently in [facility] reportedly. she is clinically improving, she was placed on several abx, levaquin, cefepime, tobra. she also has HIV/AIDS. was previously followed by myself but has recently transferred her care to [facility] HIV provider and is no longer folowing with [facility]. CD4 done on 07/26 (her last ID visit with [facility]) increased from 2 to 11, viral load decreased to 2430 (was >10,000) she was on biktarvy at that time and has been on several differing regimens prior (in [place], incomplete records provided). she is now reportedly on Tivicay and Truvada from current HIV provider and appears to be tolerating well. she has been on chronic voriconazole for thrush, now on IV vori. she remains in COVID-19 isolation in hosptial. she is afebrile, was 38.9 in ER. tolerating abx. UA negative, CXR with chronic infiltrate. Of note, sputum sample was sent to [facility] for TB several months ago as she had inderterminate IGRA. Pulm following as well. Currently afebrile, no 97% on RA, improved from time of admission. Allergies Allergy/AdvReac Type Severity Reaction Status Date / Time Penicillins AdvReac Unknown Rash Verified 09/03/19 09:12 Home Medications Home Medications Medication Instructions Recorded Confirmed Type levothyroxine [Synthroid] 125 mcg PO DAILY 08/05/18 09/03/19 History ondansetron 4 mg PO Q6H PRN #10 tab 08/13/18 09/03/19 Rx montelukast 10 mg tablet 10 mg PO QPM #30 tab 02/20/19 09/03/19 Rx fluticasone propionate 50 2 sprays INTRANASAL DAILY #16 gm 05/24/19 09/03/19 Rx mcg/actuation nasal spray,suspension albuterol sulfate 90 mcg/actuation 2 puff INHALATION Q6H PRN #1 06/11/19 09/03/19 Rx aerosol inhaler inhaler Flutter Valve #1 ea 06/27/19 09/03/19 Rx glycopyrrolate 9 mcg-formoterol 2 puffs INH BID #10.7 gm 06/27/19 09/03/19 Rx 4.8 mcg HFA aerosol inhaler albuterol sulfate 2.5 mg INH Q4H PRN #180 ml 07/02/19 09/03/19 Rx tobramycin 300 mg/4 mL solution 300 mg INH BID #224 ml 07/11/19 09/03/19 Rx for nebulization food supplemt, lactose-reduced See Rx Instructions .ROUTE 07/26/19 09/03/19 Rx 0.04 gram-1.05 kcal/mL oral liquid .COMPLEX #6399 milliliter mouthwash compounding base 227 See Rx Instructions .ROUTE 07/26/19 09/03/19 Rx .COMPLEX #300 ml voriconazole 200 mg/5 mL (40 200 mg PO BID #75 ml 08/01/19 09/03/19 Rx mg/mL) oral suspension levofloxacin 500 mg tablet 500 mg PO DAILY #10 tab 09/06/19 Rx potassium chloride 20 mEq 20 meq PO BID #4 tab 09/06/19 Rx tablet,extended release Patient History Medical History Anemia Asthma Bronchiectasis Chronic obstructive pulmonary disease Coagulopathy Hepatic lesion HIV (human immunodeficiency virus infection) HIV disease (Acute) Hypokalemia Hypomagnesemia Hypothyroidism Mood disorder Oral candidiasis (Acute) Pericardial effusion Pleural effusion Pneumonia Sepsis Severe protein-calorie malnutrition Underweight Family History Other No significant family history Social History Preferred Language: Mauritanian Communication Ability: Effective Otr Driver Required: No Beliefs That Will Affect Care: None Current Living Situation: Spouse Current Living Situation Comment: lives with daughter Other Information That Helps Us Care for You: No Feels Safe at Home: Yes Safety Concerns: Feels Safe At This Time Smoking Status: Never smoker Second Hand Exposure: No ; Hx Alcohol Use: No Hx Substance Use: No Review of Systems Review of Systems: Other Physical Exam Physical Exam: did not exam valarie I spoke with primary physician who repots clinical improvement. I did not examine as she remains in COVID-19 isolation until test results return an I would like to limit the amount of face to face encounters to preserve PPE. Results & Data ([facility]) Vital Signs (Past 12 Hours) Vital Signs Temp Pulse Resp BP Pulse Ox 09/10/19 09:50 36.7 C 88 20 99/66 L 97 09/10/19 05:36 36.7 C 86 16 103/63 97 Laboratory Results Microbiology 09/07/19 23:30 Sputum, Expectorated Gram Stain - Final 09/07/19 23:30 Sputum, Expectorated Sputum Culture - Final Heavy normal phong. 09/07/19 12:51 Blood Aerobic Blood Culture - Preliminary No growth in Aerobic bottle after 48 hours. 09/07/19 12:51 Blood Anaerobic Blood Culture - Preliminary No growth in Anaerobic bottle after 48 hours. 09/07/19 12:51 Blood Aerobic Blood Culture - Preliminary No growth in Aerobic bottle after 48 hours. 09/07/19 12:51 Blood Anaerobic Blood Culture - Final PG Care Time/CCT Total # of Minutes Spent Total Time Spent with Patient: Total time spent is greater than 50% in coordination of care (as documented) at patient's floor/unit and/or counseling patient: Coding Level of Care Code 10318 Inpt Consult Level 2 Diagnoses Viral pneumonia J12.9
--- NOTE | 2019-09-10 13:30 | Pulmonology Progress Note ---
Date of Service September 10, 2019 Assessment & Plan (1) Pneumonia: Impression: 49-year-old female with poorly controlled HIV and significantly immunocompromise due to same admitted with fevers cough and sputum production. Chest x-ray shows progressive pulmonary infiltrates. She was in the process of being ruled out for coronavirus in the outpatient setting therefore she is in isolation currently. Recommendations: --Sepsis likely secondary to multilobar pneumonia I suspect the likelihood of the patient having COVID 19 is very low especially given isolation of alternative etiologies on her [employer] panel. Defer antimicrobial therapy to infectious disease. Can likely de-escalate therapy fairly quickly given her favorable clinical response. No indication for bronchoscopy or additional evaluation. From a pulmonary perspective, she can be dismissed home with home quarantine until her coronavirus PCR is finalized. --Hemoptysis Now resolved. Suspect this is related to an exacerbation of her bronchiectasis. Continue to follow. Certainly at risk for nontuberculous mycobacterial infection given her HIV status and the radiographic appearance. Does not appear NTM is been isolated from a pulmonary source previously -- COPD Appears relatively stable currently. Continue her current regimen. No indic ation for systemic steroids. Discussed with Dr. Johansen. Pulmonary will sign off at this point time. Feel free to contact us with additional questions or concerns. Laterality: bilateral Lung location: unspecified part of lung Pneumonia type: due to unspecified organism Qualified Code(s): J18.9 - Pneumonia, unspecified organism (2) Oral candidiasis: (3) AIDS (acquired immune deficiency syndrome): (4) Bronchiectasis: (5) Hemoptysis: Subjective No acute issues overnight. Still complains of odynophagia Review of Systems Review of Systems: Unchanged from prior Results & Data ([facility]) Vital Signs (Past 12 Hours) Vital Signs Temp Pulse Resp BP Pulse Ox 09/10/19 12:10 37.0 C 97 H 22 99/60 L 100 09/10/19 09:50 36.7 C 88 20 99/66 L 97 09/10/19 05:36 36.7 C 86 16 103/63 97 Laboratory Results 09/10/19 05:23 09/10/19 05:23 Wally testing pending although the patient was positive on the [employer] for coronavirus OC 43 and rhinovirus Diagnostic Findings No new imaging PG Care Time/CCT Total # of Minutes Spent Total Time Spent with Patient: Total time spent is greater than 50% in coordination of care (as documented) at patient's floor/unit and/or counseling patient: Coding Level of Care Code 68522 Subseq Hosp Care Lvl 2 Diagnoses Pneumonia J18.9 Laterality: bilateral Lung location: unspecified part of lung Pneumonia type: due to unspecified organism Oral candidiasis B37.0 AIDS (acquired immune deficiency syndrome) B20 Bronchiectasis J47.9 Hemoptysis R04.2
[2019-09-10] MEDS: HEPARIN SOD 5,000 UNIT/0.5 ML VIAL SQ SCH ×3 (13:55→20:33)
[2019-09-10] MEDS: PIFELTRO 100 MG PO SCH (17:07)
[2019-09-10] MEDS: EMTRICITABINE/TENOFOVIR TAB PO SCH (17:08)
--- NOTE | 2019-09-10 19:49 | Hospitalist Progress Note ---
Date of Service September 10, 2019 Assessment & Plan (1) Pneumonia: improved. stable in room air. on cefepime and levaquin. d/c cefepime. change IV levaquin to PO levaquin; treat 5 more days. COVID-19 testing still pending - continue airborne precautions. (2) Coronavirus infection: - Airborne and droplet precautions - continue while awaiting COVID=19 test - Bio fire resulting positive for coronavirus OC43 and Entero/Rhino viruses however making COVID-19 less likely - COVID-19 test sent as outpt 09/03/2019 (3) Rhinovirus infection: as above, supportive care. (4) Bronchiectasis: without exacerbation at this time (5) Chronic obstructive pulmonary disease: Continue albuterol prn, fluticasone, incentive spirometry NO exacerbation at this time (6) HIV disease: -Continue HAART therapy -CD4 count = 11, per Dr. Abdalla this is actually improved compared to months of being around 1 or 2 -Appreciate ID consultation (7) Hypokalemia: resolved (8) Severe protein-calorie malnutrition: - Continue boost breeze 2nd to HIV/AIDS (9) Hypothyroidism: - Continue levothyroxine 125 mcg daily as scheduled - last TSH 07/2018; consider repeat while here (10) Anemia: chronic, stable (11) Oral candidiasis: change voriconazole IV to PO nystatin swish/swallow ac/hs (12) DVT prophylaxis: add heparin 5000 BID hopefully d/c home tomorrow Admission and Anticipated Discharge Date Admission Date: September 07, 2019 Subjective reports appetite is only fair - attributes eating issues to her thrush. still with cough. denies dyspnea at rest or with activity. 1 episode of loose stool this am. telemetry wnl overnight. Review of Systems Constitutional: no fever and no chills Respiratory: no hemoptysis Cardiovascular: no chest pain Physical Exam Constitutional: + ill appearing and + thin; no acute distress ENMT: Mouth: + oral mucosal abnormality (severe thrush with plaques covering the entire surface) Respiratory: Auscultation: + rales (minimal - bases ) Cardiovascular: Rate/Rhythm: regular rate and regular rhythm Heart Sounds: normal S1 and normal S2; no murmur Vessels: posterior tibial pulses present and dorsalis pedis pulses present; no JVD Extremities: no edema Gastrointestinal (Abdomen): normal bowel sounds, soft, nontender, no hepatosplenomegaly Psychiatric: A+Ox3, euthymic affect Results & [facility] ([facility]) Vital Signs (Past 12 Hours) Vital Signs Temp Pulse Resp BP Pulse Ox 09/10/19 16:32 37.0 C 89 21 115/68 98 09/10/19 12:10 37.0 C 97 H 22 99/60 L 100 09/10/19 09:50 36.7 C 88 20 99/66 L 97 Laboratory Results Laboratory Results - last 24 hr 09/10/19 09/10/19 05:23 05:23 WBC 3.43 L RBC 3.63 L Hgb 10.7 L Hct 29.8 L MCV 82.1 MCH 29.5 MCHC 35.9 RDW Std Deviation 42.5 RDW Coeff of Lae 14.1 Plt Count 277 MPV 10.8 H Immature Gran % (Auto) 0.9 Neut % (Auto) 37.8 Lymph % (Auto) 37.9 [place] % (Auto) 11.4 Eos % (Auto) 11.7 Baso % (Auto) 0.3 Immature Gran # (Auto) 0.03 H Neut # (Auto) 1.30 L Lymph # (Auto) 1.30 [place] # (Auto) 0.39 Eos # (Auto) 0.40 Baso # (Auto) 0.01 Sodium 140 Potassium 3.7 D Chloride 113 H Carbon Dioxide 21 Anion Gap 7.0 BUN 11 Creatinine 0.72 Est Cr Clr Drug Dosing 83.7 Est GFR ( Amer) 114.0 Est GFR (Non-Af Amer) 98.3 BUN/Creatinine Ratio 15.3 Glucose 101 H Calcium 9.1 Magnesium 1.8 Total Bilirubin 0.4 AST 18 ALT 12 Alkaline Phosphatase 75 Total Protein 8.0 Albumin 2.0 L Globulin 6.0 H Albumin/Globulin Ratio 0.3 L PG Care Time/CCT Total # of Minutes Spent Total Time Spent with Patient: Total time spent is greater than 50% in coordination of care (as documented) at patient's floor/unit and/or counseling patient: Coding Level of Care Code 08648 Subseq Hosp Care Lvl 3 Diagnoses Pneumonia J18.9 Laterality: bilateral Lung location: unspecified part of lung Pneumonia type: due to unspecified organism Coronavirus infection B34.2 Rhinovirus infection B34.8 Bronchiectasis J47.9 Chronic obstructive pulmonary disease J44.9 HIV disease B20 Hypokalemia E87.6 Severe protein-calorie malnutrition E43 Hypothyroidism E03.9 Hypothyroidism type: acquired Anemia D64.89 Anemia type: other cause Other causes of anemia: other cause, not classified Oral candidiasis B37.0 DVT prophylaxis Z29.9 (1) Anemia Anemia type: other cause Other causes of anemia: other cause, not classified Qualified Code(s): D64.89 - Other specified anemias (2) Hypothyroidism Hypothyroidism type: acquired Qualified Code(s): E03.9 - Hypothyroidism, unspecified (3) Pneumonia Laterality: bilateral Lung location: unspecified part of lung Pneumonia type: due to unspecified organism Qualified Code(s): J18.9 - Pneumonia, unspecified organism
[2019-09-10] MEDS ORDERED: levoFLOXacin 750 MG TAB PO SCH (20:00)
[2019-09-10] MEDS: MONTELUKAST SODIUM 10 MG TABLET PO SCH (20:34)
[2019-09-11] MEDS: GUAIFENESIN/DEXTROM SYRUP 100MG/10MG 5ML UDC PO SCH ×2 (05:24→09:16)
[2019-09-11] MEDS: LEVOTHYROXINE SODIUM 125 MCG TABLET PO SCH (05:25)
--- NOTE | 2019-09-11 07:41 | XRay Report ---
XR chest 1V portable HISTORY: Shortness of breath. Follow-up. COMPARISON: Chest 09/10/2019. FINDINGS: Redemonstration of the right perihilar, right upper lobe, left basilar airspace opacities. This is similar to the prior study. No pneumothorax. No pleural effusions. The heart is normal in siz e. IMPRESSION: No significant change in the multifocal airspace opacities. ACT 112: Negative or not required by law. Electronically signed by: Zhou Sales M.D. 09/11/2019 7:39 AM
[2019-09-11] MEDS ORDERED: VORICONAZOLE 200 MG TABLET PO SCH (09:00)
[2019-09-11] MEDS: FLUTICASONE PROPIONATE NA SPR 16 GM BTL NAE SCH (09:10)
[2019-09-11] MEDS: NYSTATIN SUSP 500,000 U/5 ML UDC PO SCH ×2 (09:10→12:56)
[2019-09-11] MEDS: SELZENTRY PO SCH (09:11)
[2019-09-11] MEDS: DOLUTEGRAVIR SODIUM 50 MG TAB PO SCH (09:16)
[2019-09-11] MEDS: ALUMINUM/MAGNESIUM SUSP 50 ML, DiphenhydrAMINE Syrup 125 MG, LIDOCAINE HCL 2% VISCOUS 4... PO SCH ×2 (09:16→12:56)
[2019-09-11] MEDS: HEPARIN SOD 5,000 UNIT/0.5 ML VIAL SQ SCH (09:24)
[2019-09-11] MEDS: UMECLIDINIUM/VILANTEROL 62.5/25MCG 7 PUFFS/INHALER INH SCH (09:24)
--- NOTE | 2019-09-11 11:48 | Discharge Summary ---
Date of Service date of admission - September 07, 2019 date of discharge - September 11, 2019 Admission HPI Per Admitting Provider This is a 49 yo female with PMHx of bronchiectasis, COPD, HIV diagnosed in 1998, currently under treatment for HIV with tenofovir, emtricitabine, bictegravir which she started on 09/01/2019, pleural effusion, pericardial effusion, history of pneumonia, severe protein calorie malnutrition who presents for worsening shortness of breath and flulike symptoms. She reports that she recently traveled to [place] on 08/27/2019 to meet with a acetylene torch operator as her daughter was in a car accident when they previously lived in [place] and needed to meet with him. She came home on a [employer] bus. Patient reports that she was using Clorox wipes and stayed away from people, and since being home has not gone out of her house. Patient was recently seen in Dr. Aguilar's office with pulmonology 09/03/2019, for routine visit. At that time she denied worsening flulike sx and did not have hemoptysis. Since then her respiratory symptoms continue to worsen. She has experienced increased fatigue, SOB, quarter sized bright red hemoptysis, body aches, and until today in the ER had no documented fever, but currently has a T- max of 38.9. Patient had bio fire completed today which showed positive coronavirus OC34, enter/rhino virus. She underwent Covid-19 testing on 09/03/2019 in the pulm office, at that point in time she was also screened for influenza which was negative. Pt reports that she remained at home since Tuesday, but does reside with her 15 yo daughter. One of her major complaints today was that she had difficulty swallowing. She r eports that she has been battling with thrush however it feels worse at this time, she had been prescribed oral voriconazole as an outpatient but says that it has not been working. Her oral intake has been poor secondary to dysphasia. Patient denies any other acute complaints. Principal Diagnosis sepsis 2nd to pneumonia Discharge Exam Constitutional + ill appearing, + thin and + frail appearing; no acute distress ENMT Mouth: + oral mucosal abnormality (severe thrush with plaques covering the entire surface) Respiratory Auscultation: + rales (minimal - bases ) Cardiovascular Rate/Rhythm: regular rate and regular rhythm Heart Sounds: normal S1 and normal S2; no murmur Vessels: posterior tibial pulses present and dorsalis pedis pulses present; no JVD Extremities: no edema Gastrointestinal (Abdomen) normal bowel sounds, soft, nontender, no hepatosplenomegaly Psychiatric A+Ox3, euthymic affect Discharge Data Allergies Allergy/AdvReac Type Severity Reaction Status Date / Time Penicillins AdvReac Unknown Rash Verified 09/03/19 09:12 Consultations Consult Infectious Diseases Consult Pulmonology Hospital Course (1) Pneumonia: Bilateral. Treated with IV cefepime and levaquin during her stay. Blood and sputum cultures remained negative while here. She remained stable from a respiratory & hemodynamic standpoint during the hospitalization. Seen by pulmonary - antibiotics and supportive care recommended. Ultimately changed to PO levaquin on day of discharge and will complete 4 more days of such at home. COVID-19 testing was NEGATIVE. BioFire testing (respiratory panel) was positive for Coronavirus OC63 (non COVID-19 type) and rhinovirus. These latter 2 viruses likely played a large role in her presentation. (2) Coronavirus infection: as seen on BioFire panel (3) Rhinovirus infection: as seen on BioFire testing (4) Bronchiectasis: without exacerbation during the hospitalization (5) Chronic obstructive pulmonary disease: Continue albuterol prn, fluticasone, incentive spirometry at home NO exacerbation during the hospitalization (6) HIV disease: -Continue HAART therapy -CD4 count = 11 -follow-up with primary infectious disease physician post-discharge for ongoing care (7) Hypokalemia: resolved with supplementation (8) Severe protein-calorie malnutrition: - Continue boost breeze 2nd to HIV/AIDS (9) Hypothyroidism: - Continue levothyroxine 125 mcg daily - last TSH 07/2018 (10) Anemia: chronic, stable hb 10.7 on the day prior to discharge home (11) Oral candidiasis: Had been taking voriconazole at home for refractory thrush. Received voriconazole & nystatin swish/swallow during the stay. Will continue both post-d/c. LFTS were normal during the hospitalization. Will need close f/u for this issue with her PCP and her ID physician due to the refractoriness of such. Total Time Total Time Spent Total Time Spent (In Minutes): 35 Total Time Includes: Examination of the Patient, Discharge Planning, Medication Reconciliation and Communication With Other Providers Discharge Plan Discharge Items Patient Disposition: Home - Self-Care Reason For Visit: UPPER RESPIRATORY ILLNESS, FEVER Discharge Diagnosis: bilateral pneumonia - improving coronavirus testing ("COVID-19 virus") was NEGATIVE Condition on Discharge: Fair Activity: As commented below Activity Comment: gradually increase activities over the next week Non-emergency contact: Primary Care Provider and Specialist Call non-emergency contact if: you have any medication questions, your symptoms worsen and you have a fever Follow-up/Referrals: Dr. Anita Morales [Other] - 10/03/19 3:00 pm (Please, follow up with Dr. Anita Morales (infectious disease specialist), at [facility], on TuesdayOctober 02 at 3:00 pm. *The office is located at [address] in [place]. If you need to change this appointment, call the office at [phone].) Suraj Marks MD [Primary Care Provider] - (Dr. Marks's office to call with follow up appointment date and time.) Diet: Regular Addtl Attending Provider Instructions: You were treated for bilateral pneumonia. Your testing showed evidence that you had 2 different viruses -- HOWEVER your COVID-19 testing was negative (the virus you are seeing on TV). You do NOT need to isolate yourself (quarantine) at home since the COVID-19 test was negative. With that said we strongly recommend that you avoid ANY unnecessary travel outside of [place] and avoid unnecessary trips to the store. If possible ONLY go to your doctor appointments, pharmacy, etc. If someone can do your errands for you (shopping, etc) that is best. When you go to the doctor's office I would recommend that you put a mask on. Recommendations - 1. take levafloxacin 750mg once daily for 4 more days starting TODAY. 2. nystatin solution - 5ml 4 times a day for 10 days; swish and swallow. 3. continue voriconazole - 5ml twice daily for at least 10 more days. Have you r doctors look in your mouth at the next visit to determine if you need to remain on voriconazole. 4. DO NOT DRINK ALCOHOL due to the antibiotics and the voriconazole. 5. fljo-qav-rwkpwyz mucinex up to 1200mg twice daily as desired for cough. 6. albuterol inhaler - 2 puffs every 4 hours as needed for cough/wheeze/shortness of breath. Follow-up - see separate section COVID-19 Information -- Please note -- you were tested for COVID-19 and your test was NEGATIVE. You did NOT have COVID-19 (novel coronavirus). You are someone that would be of high risk of coming down sick with this virus however. Coronavirus disease 2019 (COVID-19) is a virus that causes a respiratory illness. It is caused by a coronavirus called 2019 novel coronavirus (2019- nCoV). There are many types of coronavirus. Coronaviruses are a very common cause of bronchitis. They may sometimes cause lung infection(pneumonia). Symptoms can range from mild to severe respiratory illness. These viruses are also found in some animals. COVID-19 was first found in people in [facility], in late 2019. In 2020, several cases of COVID-19 have been confirmed in the [place] Public health officials are working to find the source. How the virus spreads is not yet fully known. It may be spread through droplets of fluid that a person coughs or sneezes into the air. It may be spread if you touch a surface with virus on it, such as a handle or object, and then touch your mouth. What are the symptoms of COVID-19? Some people have no symptoms or mild symptoms. Symptoms may appear 2 to 14 days after contact with the virus. Symptoms can include: Fever Coughing Trouble breathing What are possible complications from COVID-19? In many cases, this virus can cause infection (pneumonia) in both lungs. In some cases, this can cause . How is COVID-19 diagnosed? Your healthcare provider will ask about your symptoms. He or she will also ask about your recent travel and contact with sick people. Testing for the virus is only done through the CDC. If yourhealthcare provider thinks you may have COVID- 19, he or she will work with your local health department and the CDC on testing. Follow all instructions from your healthcare provider. COVID-19 is diagnosed by: Nasal and throat swab. A cotton-tipped swab is wiped inside your nose or throat. This is done to check for viruses in your nasal mucus. Sputum culture. A small sample of mucus coughed from your lungs (sputum) is collected if you have a cough. It is checked for the virus. How is COVID-19 treated? There is currently no medicine to treat the virus. Treatment is done to help your body while it fights the virus. This is known as supportive care. Supportive care may include: Pain medicine. These include acetaminophen and ibuprofen. They are used to help ease pain and reduce fever. Bed rest. This helps your body fight the illness. For severe illness, you may need to stay in the hospital. Care during severe illness may include: IV (intravenous) fluids.These are given through a vein to help keep your body hydrated. Oxygen. Supplemental oxygen or ventilation with a breathing machine (ventilator) may be given. This is done to keep enough oxygen in your body. Are you at risk for COVID-19? If youve been to a place where people have been sick with this virus, you are at risk for infection. You are at risk if you: Recently traveled to an affected area Had contact with a sick person who recently traveled to this area Had contact with a person who was diagnosed with COVID-19 How can COVID-19 be prevented? There is no vaccine yet. The best prevention is to not have contact with the virus. The CDC advises that people should not travel to areas where there are COVID-19 outbreaks right now for any reason that is not urgent. To help prevent spreading the infection, wash your hands often, or use an alcohol-basedhand blue crabber. If you are in an area with COVID-19: Wash your hands often. Or use an alcohol-based hand blue crabber often. Only touch your eyes, nose, or mouth with clean hands. Dont have contact with people who are sick. Follow local instructions about being in public. For example, you may be told to not use public transport for a period of time. Stay away from markets that have live or animals. Wash your hands after touching any animals. Don't touch animals that may be sick. Dont share eating or drinking tools with sick people. Dont kiss someone who is sick. Clean surfaces often with disinfectant. If you were in an area with COVID-19 in the last 14 days: Call your healthcare provider. He or she can talk with local health staff to see what action may be needed. Follow all instructions from your provider. Take your temperature every morning and evening for at least 14 days. This is to check for fever. Keep a record of the readings. Keep watch for symptoms of the virus. Tell your provider right away if you have symptoms. If you were in an area with COVID-19 and have a fever or other symptoms: Dont panic. Keep in mind that other illnesses can cause similar symptoms. Stay away from work, school, and public places. Limit physical contact with family members. Don't kiss anyone or share eating or drinking utensils. Clean surfaces you touch with disinfectant. This is to help prevent the virus from spreading. Call your healthcare provider. Explain that you have been exposed to COVID-19 and have symptoms. Do this before going to any hospital. Wait for instructions. Keep in mind that healthcare staff may wear protective equipment such as masks, gowns, gloves, and eye protection. You may be put in a separate room. This is to prevent the possible virus from spreading. Tell the healthcare staff about recent travel. This includes local travel on public transport. Staff may need to find other people you have been in contact with. Follow all instructions the healthcare staff give you. If you have been diagnosed with COVID-19 Follow all instructions from your healthcare provider. Dont leave your home, except to get medical care. Call your healthcare providers office before going. They can prepare and give you instructions. This will help prevent the virus from spreading. Dont go to work, school, or public areas. Dont use public transport or taxis. Stay away from other people in your home. Have them wear face masks around you. Dont share household items or food. Wear a face mask if you can. This includes at home or in a medical facility. Cover your face with a tissue when you cough or sneeze. Throw the tissue away. Wash your hands. Wash your hands often. Caregivers should: Follow all instructions from healthcare staff. Wear a face mask and protective clothing as advised. Wash hands often. Keep track of the sick persons symptoms. Clean surfaces, fabrics, and laundry thoroughly. Keep other people away from the sick person. When to call your healthcare provider Call your healthcare provider: If youve recently traveled and have symptoms If you have been diagnosed with COVID-19 and your symptoms are worse To learn more To find out more about COVID-19, visit the CDC website at www.cdc.gov/coronavirus/2019-ncov/index.html. [employer]. [address] [place] [address]. All rights reserved. This information is not intended as a substitute for professional medical care. Always follow your healthcare professional's instructions. This information has been adapted from [employer] Pending Studies at Discharge: No Stand-Alone Forms: My [facility] [employer], Smoking Cessation Medications and DC Order Prescriptions: New Tivicay 50 mg Tablet 50 mg PO BID Qty: 60 RF: 5 Truvada 200-300 mg Tablet 1 tab PO QPM Qty: 30 RF: 5 nystatin 100,000 unit/mL Suspension 5 ml PO QID 10 Days Qty: 200 RF: 0 Continued montelukast 10 mg tablet 10 mg PO QPM Qty: 30 RF: 5 fluticasone propionate 50 mcg/actuation spray,suspension 2 sprays intranasal DAILY Qty: 16 RF: 5 albuterol sulfate [Ventolin HFA] 90 mcg/actuation HFA aerosol inhaler 2 puff Inhalation Q6H PRN (Reason: cough or wheezing) Qty: 1 RF: 2 albuterol sulfate 2.5 mg /3 mL (0.083 %) solution for nebulization 2.5 mg INH Q4H PRN (Reason: shortness of breath or wheezing) Qty: 180 RF: 0 potassium chloride 20 mEq tablet extended release 20 meq PO BID Qty: 4 RF: 0 Bevespi Aerosphere 9-4.8 mcg HFA aerosol inhaler 2 puffs INH BID Qty: 10.7 RF: 3 (DME) Flutter Valve Device See Rx Instructions .ROUTE .MEDSUPPLY Qty: 1 RF: 0 Boost Breeze Nutritional 0.04-1.05 gram-kcal/mL liquid See Rx Instructions .ROUTE .COMPLEX Qty: 6399 RF: 5 Mouthwash-OM Mouthwash See Rx Instructions .ROUTE .COMPLEX Qty: 300 RF: 1 tobramycin 300 mg/4 mL solution for nebulization 300 mg INH BID Qty: 224 RF: 5 voriconazole 200 mg/5 mL (40 mg/mL) suspension for reconstitution 200 mg PO BID 10 Days Qty: 100 RF: 0 levothyroxine [Synthroid] 125 mcg Tablet 125 mcg PO DAILY RF: 0 ondansetron 4 mg tablet,disintegrating 4 mg PO Q6H PRN (Reason: nausea and vomiting) Qty: 10 RF: 0 Discontinued levofloxacin [Levaquin] 500 mg tablet 500 mg PO DAILY Qty: 10 RF: 0 Discharge Orders: Discharge Order (Routine); Ordered 09/11/19 Ordered By: James Johansen Admission Data Admit Date/Time: 09/07/19 15:16 Attending Provider: James Johansen Admit Provider: James Quick Primary Care Provider: Suraj Marks Other Providers: Bronwyn Tsai ; Jaspreet Snyder ; Mahi Abdalla Other Interventions: Discharge Summary Assessment (RN) Last Done: 09/11/19 12:18 DC Date/Time DO NOT enter until pt leaves facility: 09/11/19 13:57 Coding Level of Care Code D/C Day Management >30 mins Diagnoses Pneumonia J18.9 Laterality: bilateral Lung location: unspecified part of lung Pneumonia type: due to unspecified organism Coronavirus infection B34.2 Rhinovirus infection B34.8 Bronchiectasis J47.9 Chronic obstructive pulmonary disease J44.9 HIV disease B20 Hypokalemia E87.6 Severe protein-calorie malnutrition E43 Hypothyroidism E03.9 Hypothyroidism type: acquired Anemia D64.89 Anemia type: other cause Other causes of anemia: other cause, not classified Oral candidiasis B37.0
--- NOTE | 2019-09-14 10:37 | Coding Query ---
To promote full compliance with coding requirements relating to patient care, provider participation is requested in all cases of sas developer analyst uncertainty. Please assist us with the question(s) below: Coding Question(s): The diagnosis below was documented in the pulmonary consult/progress notes but not in the H&P or hospitalist progress notes. Please indicate if it is still a possible diagnosis or ruled out. Physician's Response(s): SEPSIS 2nd to pneumonia ( x ) Diagnosed and POA ( ) Diagnosed and not POA ( ) Ruled out ( ) Other (please specify) MTDD
== END 2019-09-11 13:57 | disposition home or self-care (01) | DRG 974 ==
LOC: ED 11:35 → SUATTDRO 15:16 → 2E 15:16

== ENCOUNTER 2019-10-29 16:31 | Inpatient (IN) ==
[2019-10-29] MEDS ORDERED: ALBUT/IPRATROP 3MG/0.5MG NEB 3 ML VIAL NEB STA (17:04)
[2019-10-29] MEDS ORDERED: SODIUM CHLORIDE 0.9% 1000ML 1,000 ML IV ONE ×2 (17:04→19:31)
--- NOTE | 2019-10-29 17:32 | Emergency Department Note ---
Impression & Plan Pneumonia, Hypokalemia, Acute hypotension, Oral thrush ED Provider Note NAME: RICKEY GUAJARDO AGE: 49 SEX: F : 1970 ARRIVES VIA: Ambulance INFORMANT: Patient, ED PROVIDER(S): Gideon Bragg DO CHIEF COMPLAINT: Cough and shortness of breath HPI: The patient is a 49-year-old female who presented to the emergency department for an evaluation of difficulty breathing. The patient states that she has had difficulty breathing for the last few days. She was recently admitted to our facility at the end of August for similar complaints. At that time she was treated for a lung infection. She is also started to develop difficulty breathing productive cough with blood in her sputum. She denies having any chest pain but does complain of discomfort with cough. She denies any leg swelling. She states that she called her primary care physician but was sent to the emergency department for further evaluation. She also has been developing thrush and is noticed discomfort in and around her mouth. She is also noticed bleeding around her gums. She denies taking any medications for fever prior to arrival. She has had no abdominal pain nausea or vomiting. When she was admitted to our facility recently she was also tested for COVID-19 and that was reportedly negative. The patient has a history of HIV but does not recall her last CD4 count. ROS: See above HPI for pertinent positives & negatives. A total of 10 systems reviewed and were otherwise negative. PAST MEDICAL HISTORY: See Below PAST SURGICAL HISTORY: See Below FAMILY HISTORY: See Below SOCIAL HISTORY: See Below HOME MEDICATIONS: See Below ALLERGIES: See Below VITALS: See Below PHYSICAL EXAMINATION: GENERAL: The patient is awake and alert. She is somewhat anxious appearing but overall comfortable. EYES: The conjunctivae are clear. The pupils are round and reactive. EARS, NOSE, MOUTH AND THROAT: The nose is without any evidence of any deformity. There is a thick film noted over the tongue as well as the posterior richa pharynx. This also involves her gums. There is friable mucosa noted especially in the upper dentition. NECK: The neck is nontender and supple. RESPIRATORY: Shallow respirations were noted. There were diminished breath sounds in the right lung field. CARDIOVASCULAR: Tachycardic rate with regular rhythm was noted. There is no definite murmur. GASTROINTESTINAL: The abdomen is soft. Abdomen is nontender. MUSCULOSKELETAL/EXTREMITIES: There is no evidence of gross deformity full range of motion is noted in the hips and shoulders. SKIN: There is no obvious evidence of any rash. Pulses were symmetric in both feet. There is no pedal edema. NEUROLOGIC: Patient is awake alert and oriented x3. MEDICAL DECISION MAKING: The patient is a 49-year-old female who has a history of HIV and recent treatment for pneumonia who presented to the emergency department with worsening shortness of breath. The patient was found to have worsening pneumonia in the e mergency department tonight. She states she is not currently taking any antibiotics for pneumonia. The patient was treated with IV fluids and IV antibiotics. She was also treated with IV bronchodilators in the emergency department. She was reevaluated multiple times. Her blood pressure did drop in the emergency department but her pulse rate responded well to IV hydration. I discussed the patient's laboratory and radiographic studies with her. She had a COVID test that was negative in the emergency department. She was reevaluated multiple times. I discussed the patient's condition with the on-call [facility] hospitalist group. They have agreed to evaluate the patient in the emergency department for further management and disposition. Triage Nursing notes reviewed. Prior medical records reviewed Vital Signs: reviewed and remarkable for tachycardia and hypotension. Differential diagnosis: Reactive airway disease, pneumonia, pneumothorax, COPD, CHF, infections, cardiac ischemia, pulmonary embolism, musculoskeletal, gastrointestinal, as well as other pathologies. ER treatment provided: See below Diagnostics interpreted by me: ECG: EKG was obtained in the emergency department. My interpretation is sinus tachycardia at 120 bpm. There is no ectopy. Diffuse ST segment depressions were noted. There is LVH by voltage criteria. Increased ventricular rate otherwise no specific change was noted compared to a tracing from September 07, 2019. Cardiac Monitoring: An order was placed for continuous cardiac monitoring. The monitor shows a rate of 120 with sinus tachycardia rhythm. Laboratory studies: As stated above and show below. Imaging studies: See below Consultation(s): 1999: I discussed this case with Dr. Flores. He is agreed to evaluate the patient in the emergency department for further management and disposition. He did recommend IV antibiotics for recent hospitalization given her pneumonia. 2214: I discussed this case with Dr. Tsia who is on-call for pulmonary. They will evaluate the patient tomorrow to further determine isolation protocols. 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 Beliefs That Will Affect Care: None Current Living Situation: Spouse Current Living Situation Comment: lives with daughter Feels Safe at Home: Yes Smoking Status: Never smoker Second Hand Exposure: No ; Hx Alcohol Use: No Hx Substance Use: No Allergies Allergies Allergy/AdvReac Type Severity Reaction Status Date / Time Penicillins AdvReac Unknown Rash Verified 10/29/19 20:07 Home Meds Home Medications Medication Instructions Recorded Confirmed albuterol sulfate 2.5 mg INH Q4H PRN 10/29/19 10/29/19 albuterol sulfate [Ventolin HFA] 2 puff INHALATION Q6H PRN 10/29/19 10/29/19 doravirine [Pifeltro] 100 mg PO QAM 10/29/19 10/29/19 food supplemt, lactose-reduced See Rx Instructions .ROUTE .COMPLEX 10/29/19 10/29/19 [Boost Breeze Nutritional] levothyroxine [Synthroid] 125 mcg PO QAM 10/29/19 10/29/19 lidocaine HCl [Lidocaine Viscous] See Rx Instructions .ROUTE 10/29/19 10/29/19 .COMPLEX PRN montelukast 10 mg PO QAM 10/29/19 10/29/19 ondansetron 4 mg PO Q6H PRN 10/29/19 10/29/19 tobramycin [Bethkis] 300 mg INHALATION Q12H 10/29/19 10/29/19 Previous Rx's Medication Instructions Recorded fluticasone propionate 50 2 sprays INTRANASAL DAILY #16 gm 05/24/19 mcg/actuation nasal spray,suspension glycopyrrolate 9 mcg-formoterol 2 puffs INH BID #10.7 gm 06/27/19 4.8 mcg HFA aerosol inhaler dolutegravir [Tivicay] 50 mg PO BID #60 tab 09/11/19 emtricitabine-tenofovir (TDF) 1 tab PO QPM #30 tab 09/11/19 [Truvada] voriconazole 200 mg PO BID 10 Days #100 ml 09/11/19 Results & Data (ED) Vital Signs Vital Signs - 24 hr 10/29/19 16:45 10/29/19 17:04 10/29/19 18:45 Temperature 38.3 C H Temperature Source Oral Pulse Rate 121 H Pulse Rate [Apical] 120 H Respiratory Rate 20 18 Respiratory Effort / Characteristics Respiratory Depth Blood Pressure 108/62 Blood Pressure [Left Arm] 95/52 L Blood Pressure Mean 77 Blood Pressure Mean [Left Arm] 66 Pulse Oximetry 100 98 98 Oxygen Delivery Method Room Air Room Air Room Air Sepsis Recent Fever Within 48 Hours Yes Sepsis New/Unexplained Change in Mental Status No Sepsis Action Taken by Nursing No Action Required 10/29/19 19:14 10/29/19 19:31 10/29/19 20:10 Temperature 38.7 C H Temperature Source Oral Pulse Rate Pulse Rate [Apical] 120 H 118 H 106 H Respiratory Rate 24 28 H 22 Respiratory Effort / Characteristics Spontaneous Short of Breath Respiratory Depth Blood Pressure Blood Pressure [Left Arm] 91/34 L 100/61 Blood Pressure Mean Blood Pressure Mean [Left Arm] 53 74 Pulse Oximetry 99 99 100 Oxygen Delivery Method Room Air Room Air Room Air Sepsis Recent Fever Within 48 Hours Sepsis New/Unexplained Change in Mental Status Sepsis Action Taken by Nursing 10/29/19 20:40 10/29/19 21:28 Temperature 37.7 C H Temperature Source Oral Pulse Rate Pulse Rate [Apical] 105 H 105 H Respiratory Rate 22 22 Respiratory Effort / Characteristics Non-Labored Spontaneous Respiratory Depth Normal Blood Pressure Blood Pressure [Left Arm] 95/46 L 121/69 Blood Pressure Mean Blood Pressure Mean [Left Arm] 62 86 Pulse Oximetry 100 100 Oxygen Delivery Method Room Air Room Air Sepsis Recent Fever Within 48 Hours Sepsis New/Unexplained Change in Mental Status Sepsis Action Taken by [facility] Medications Current Medication List: was personally reviewed by me Laboratory Data Attestation: I reviewed the patient's lab results. Result diagrams: 10/29/19 17:55 10/29/19 17:55 Lab Results 10/29/19 10/29/19 10/29/19 Range/Units 17:55 17:55 17:55 WBC 3.45 L (4.8-10.8) K/uL RBC 3.99 L (4.2-5.4) M/uL Hgb 11.5 L (12.0-16.0) g/dL Hct 31.6 L (37-47) % MCV 79.2 L (80-100) fL MCH 28.8 (25-34) pg MCHC 36.4 H (32-36) g/dL RDW Std Deviation 45.9 (36.4-46.3) fL RDW Coeff of Ale 15.8 H (11.5-14.5) % Plt Count 363 (130-400) K/uL MPV 11.0 H (7.4-10.4) fL Immature Gran % (Auto) 1.4 % Neut % (Auto) 54.5 % Lymph % (Auto) 24.1 % Andrews % (Auto) 19.1 % Eos % (Auto) 0.6 % Baso % (Auto) 0.3 % Immature Gran # (Auto) 0.05 H (0.00-0.02) K/uL Neut # (Auto) 1.88 (1.4-6.5) K/uL Lymph # (Auto) 0.83 L (1.2-3.4) K/uL Andrews # (Auto) 0.66 H (0.11-0.59) K/uL Eos # (Auto) 0.02 (0-0.5) K/uL Baso # (Auto) 0.01 (0-0.2) K/uL PT 28.7 H (9.0-12.0) Seconds INR 2.9 H (0.9-1.1) APTT 40.4 H (21.0-31.0) Seconds PTT Ratio 1.4 VBG pH (7.36-7.41) VBG pCO2 (38-50) mmHg VBG pO2 mmHg VBG HCO3 mmol/L VBG O2 Saturation % VBG Base Excess mEq/L Barometric Pressure mm/Hg Sodium 132 L (136-145) mmol/L Potassium 2.5 L* (3.5-5.1) mmol/L Chloride 99 (98-107) mmol/L Carbon Dioxide 23 (21-32) mmol/L Anion Gap 10.0 (3-11) BUN 22 H (7-18) mg/dl Creatinine 1.20 (0.6-1.2) mg/dl Est Cr Clr Drug Dosing 44.8 ml/min Est GFR ( Amer) 61.5 Est GFR (Non-Af Amer) 53.0 BUN/Creatinine Ratio 18.7 (10-20) Glucose 92 (70-99) mg/dl Lactate (0.4-2.0) mmol/L Calcium 9.0 (8.5-10.1) mg/dl Magnesium 2.2 (1.8-2.4) mg/dl Total Bilirubin 0.6 (0.2-1) mg/dl AST 22 (15-37) U/L ALT 15 (12-78) U/L Alkaline Phosphatase 76 (45-117) U/L Lactate Dehydrogenase (84-246) U/L Troponin I < 0.015 (0-0.045) ng/ml Total Protein 10.1 H (6.4-8.2) gm/dl Albumin 2.5 L (3.4-5.0) gm/dl Globulin 7.6 H (2.5-4.0) gm/dl Albumin/Globulin Ratio 0.3 L (0.9-2) Procalcitonin (0-0.5) ng/ml COVID-19 PCR (Negative) Influenza Type A (PCR) (Neg) Influenza Type B (PCR) (Neg) SARS Serology 10/29/19 10/29/19 10/29/19 Range/Units 17:55 17:55 17:55 WBC (4.8-10.8) K/uL RBC (4.2-5.4) M/uL Hgb (12.0-16.0) g/dL Hct (37-47) % MCV (80-100) fL MCH (25-34) pg MCHC (32-36) g/dL RDW Std Deviation (36.4-46.3) fL RDW Coeff of Ale (11.5-14.5) % Plt Count (130-400) K/uL MPV (7.4-10.4) fL Immature Gran % (Auto) % Neut % (Auto) % Lymph % (Auto) % Andrews % (Auto) % Eos % (Auto) % Baso % (Auto) % Immature Gran # (Auto) (0.00-0.02) K/uL Neut # (Auto) (1.4-6.5) K/uL Lymph # (Auto) (1.2-3.4) K/uL Andrews # (Auto) (0.11-0.59) K/uL Eos # (Auto) (0-0.5) K/uL Baso # (Auto) (0-0.2) K/uL PT (9.0-12.0) Seconds INR (0.9-1.1) APTT (21.0-31.0) Seconds PTT Ratio VBG pH 7.40 (7.36-7.41) VBG pCO2 42 (38-50) mmHg VBG pO2 25 mmHg VBG HCO3 25 mmol/L VBG O2 Saturation < 60.0 % VBG Base Excess 0.1 mEq/L Barometric Pressure 731.5 mm/Hg Sodium (136-145) mmol/L Potassium (3.5-5.1) mmol/L Chloride (98-107) mmol/L Carbon Dioxide (21-32) mmol/L Anion Gap (3-11) BUN (7-18) mg/dl Creatinine (0.6-1.2) mg/dl Est Cr Clr Drug Dosing ml/min Est GFR ( Amer) Est GFR (Non-Af Amer) BUN/Creatinine Ratio (10-20) Glucose (70-99) mg/dl Lactate (0.4-2.0) mmol/L Calcium (8.5-10.1) mg/dl Magnesium (1.8-2.4) mg/dl Total Bilirubin (0.2-1) mg/dl AST (15-37) U/L ALT (12-78) U/L Alkaline Phosphatase (45-117) U/L Lactate Dehydrogenase 234 (84-246) U/L Troponin I (0-0.045) ng/ml Total Protein (6.4-8.2) gm/dl Albumin (3.4-5.0) gm/dl Globulin (2.5-4.0) gm/dl Albumin/Globulin Ratio (0.9-2) Procalcitonin 0.22 (0-0.5) ng/ml COVID-19 PCR (Negative) Influenza Type A (PCR) (Neg) Influenza Type B (PCR) (Neg) SARS Serology 10/29/19 10/29/19 10/29/19 Range/Units 18:08 19:40 19:40 WBC (4.8-10.8) K/uL RBC (4.2-5.4) M/uL Hgb (12.0-16.0) g/dL Hct (37-47) % MCV (80-100) fL MCH (25-34) pg MCHC (32-36) g/dL RDW Std Deviation (36.4-46.3) fL RDW Coeff of Ale (11.5-14.5) % Plt Count (130-400) K/uL MPV (7.4-10.4) fL Immature Gran % (Auto) % Neut % (Auto) % Lymph % (Auto) % Andrews % (Auto) % Eos % (Auto) % Baso % (Auto) % Immature Gran # (Auto) (0.00-0.02) K/uL Neut # (Auto) (1.4-6.5) K/uL Lymph # (Auto) (1.2-3.4) K/uL Andrews # (Auto) (0.11-0.59) K/uL Eos # (Auto) (0-0.5) K/uL Baso # (Auto) (0-0.2) K/uL PT (9.0-12.0) Seconds INR (0.9-1.1) APTT (21.0-31.0) Seconds PTT Ratio VBG pH (7.36-7.41) VBG pCO2 (38-50) mmHg VBG pO2 mmHg VBG HCO3 mmol/L VBG O2 Saturation % VBG Base Excess mEq/L Barometric Pressure mm/Hg Sodium (136-145) mmol/L Potassium (3.5-5.1) mmol/L Chloride (98-107) mmol/L Carbon Dioxide (21-32) mmol/L Anion Gap (3-11) BUN (7-18) mg/dl Creatinine (0.6-1.2) mg/dl Est Cr Clr Drug Dosing ml/min Est GFR ( Amer) Est GFR (Non-Af Amer) BUN/Creatinine Ratio (10-20) Glucose (70-99) mg/dl Lactate 2.9 H* (0.4-2.0) mmol/L Calcium (8.5-10.1) mg/dl Magnesium (1.8-2.4) mg/dl Total Bilirubin (0.2-1) mg/dl AST (15-37) U/L ALT (12-78) U/L Alkaline Phosphatase (45-117) U/L Lactate Dehydrogenase (84-246) U/L Troponin I (0-0.045) ng/ml Total Protein (6.4-8.2) gm/dl Albumin (3.4-5.0) gm/dl Globulin (2.5-4.0) gm/dl Albumin/Globulin Ratio (0.9-2) Procalcitonin (0-0.5) ng/ml COVID-19 PCR NEGATIVE (Negative) Influenza Type A (PCR) (Neg) Influenza Type B (PCR) (Neg) SARS Serology Cancelled 10/29/19 10/29/19 Range/Units 20:05 20:09 WBC (4.8-10.8) K/uL RBC (4.2-5.4) M/uL Hgb (12.0-16.0) g/dL Hct (37-47) % MCV (80-100) fL MCH (25-34) pg MCHC (32-36) g/dL RDW Std Deviation (36.4-46.3) fL RDW Coeff of Ale (11.5-14.5) % Plt Count (130-400) K/uL MPV (7.4-10.4) fL Immature Gran % (Auto) % Neut % (Auto) % Lymph % (Auto) % Andrews % (Auto) % Eos % (Auto) % Baso % (Auto) % Immature Gran # (Auto) (0.00-0.02) K/uL Neut # (Auto) (1.4-6.5) K/uL Lymph # (Auto) (1.2-3.4) K/uL Andrews # (Auto) (0.11-0.59) K/uL Eos # (Auto) (0-0.5) K/uL Baso # (Auto) (0-0.2) K/uL PT (9.0-12.0) Seconds INR (0.9-1.1) APTT (21.0-31.0) Seconds PTT Ratio VBG pH (7.36-7.41) VBG pCO2 (38-50) mmHg VBG pO2 mmHg VBG HCO3 mmol/L VBG O2 Saturation % VBG Base Excess mEq/L Barometric Pressure mm/Hg Sodium (136-145) mmol/L Potassium (3.5-5.1) mmol/L Chloride (98-107) mmol/L Carbon Dioxide (21-32) mmol/L Anion Gap (3-11) BUN (7-18) mg/dl Creatinine (0.6-1.2) mg/dl Est Cr Clr Drug Dosing ml/min Est GFR ( Amer) Est GFR (Non-Af Amer) BUN/Creatinine Ratio (10-20) Glucose (70-99) mg/dl Lactate 1.6 (0.4-2.0) mmol/L Calcium (8.5-10.1) mg/dl Magnesium (1.8-2.4) mg/dl Total Bilirubin (0.2-1) mg/dl AST (15-37) U/L ALT (12-78) U/L Alkaline Phosphatase (45-117) U/L Lactate Dehydrogenase (84-246) U/L Troponin I (0-0.045) ng/ml Total Protein (6.4-8.2) gm/dl Albumin (3.4-5.0) gm/dl Globulin (2.5-4.0) gm/dl Albumin/Globulin Ratio (0.9-2) Procalcitonin (0-0.5) ng/ml COVID-19 PCR (Negative) Influenza Type A (PCR) Neg for Influ A (Neg) Influenza Type B (PCR) Neg for Influ B (Neg) SARS Serology Administered Medications Vancomycin HCl 1,250 mg/ (Sodium Chloride) 525 mls @ 200 mls/hr IV NOW STA Stop: 10/29/19 23:40 Last Admin: 10/29/19 21:41 Dose: 200 mls/hr Documented by: [id number] Discontinued Medications Albuterol (Duoneb) 3 ml NEB NOW STA Stop: 10/29/19 17:05 Last Admin: 10/29/19 19:12 Dose: 3 ml Documented by: [id number] Sodium Chloride (Nss 1000ml) 1,000 mls @ 999 mls/hr IV .Q1H1M ONE Stop: 10/29/19 18:04 Last Infusion: 10/29/19 19:07 Dose: 0 mls/hr Documented by: [id number] Admin: 10/29/19 18:06 Dose: 999 mls/hr Documented by: [id number] Ceftriaxone Sodium (Rocephin) 1,000 mg in 50 mls @ 100 mls/hr IV NOW STA Stop: 10/29/19 19:24 Last Infusion: 10/29/19 19:57 Dose: 0 mls/hr Documented by: [id number] Admin: 10/29/19 19:27 Dose: 100 mls/hr Documented by: [id number] Potassium Acetate 20 meq/ (Sodium Chloride) 110 mls @ 55 mls/hr IV Q2H ONE Stop: 10/29/19 21:30 Last Infusion: 10/29/19 21:41 Dose: 0 mls/hr Documented by: [id number] Admin: 10/29/19 19:45 Dose: 55 mls/hr Documented by: [id number] Sodium Chloride (Nss 1000ml) 1,000 mls @ 999 mls/hr IV .Q1H1M ONE Stop: 10/29/19 20:31 Last Infusion: 10/29/19 21:00 Dose: 0 mls/hr Documented by: [id number] Admin: 10/29/19 19:44 Dose: 999 mls/hr Documented by: [id number] Vancomycin HCl 1,200 mg/ (Sodium Chloride) 524 mls @ 200 mls/hr IV NOW STA Stop: 10/29/19 23:26 Last Admin: 10/29/19 22:02 Dose: Not Given Documented by: [id number] Aztreonam 1,000 mg/ Dextrose 110 mls @ 100 mls/hr IV NOW STA; Protocol Stop: 10/29/19 22:02 Last Admin: 10/29/19 21:24 Dose: 100 mls/hr Documented by: [id number] Ondansetron HCl (Zofran) 4 mg IV NOW STA Stop: 10/29/19 19:32 Last Admin: 10/29/19 19:41 Dose: 4 mg Documented by: [id number] Potassium Chloride (Klor-Con M20) 40 meq PO NOW STA Stop: 10/29/19 18:56 Last Admin: 10/29/19 19:49 Dose: Not Given Documented by: [id number] Imaging Data Radiologist's Impression: XR chest 1V portable CLINICAL HISTORY: SEPSIS COMPARISON STUDY: 09/11/2019 FINDINGS: The heart is normal in size. There are multifocal airspace opacities most pronounced in the left lower lung zone and right upper lung zone. Given history of sepsis, a multifocal pneumonia is suspected. Clinical and radiographic follow-up is recommended.[There is no failure. There are no significant pleural effusions. IMPRESSION: Persistent multifocal airspace opacities suspicious for a multifocal pneumonia. Clinical and radiographic follow-up is recommended. ACT 112: Negative or not required by law. Electronically signed by: Adilson Kim M.D. 10/29/2019 6:48 PM Dictated: 10/29/[id number] Transcribed: 10/29/191845 Blood Pressure Blood Pressure Findings: Low blood pressure Discharge Plan Visit Data Chief Complaint: Shortness of Breath/Dyspnea Stated Complaint: SOB, CHEST PAIN, FEVER, COUGH ED Provider: Gideon Bragg Discharge Problem: Pneumonia, Hypokalemia, Acute hypotension, Oral thrush Patient Disposition: Being Evaluated by Hospitalist Condition: Good Forms Stand Alone Forms: [facility] Prescriptions Prescriptions: No Action fluticasone propionate 50 mcg/actuation spray,suspension 2 sprays intranasal DAILY Qty: 16 RF: 5 Bevespi Aerosphere 9-4.8 mcg HFA aerosol inhaler 2 puffs INH BID Qty: 10.7 RF: 3 Tivicay 50 mg Tablet 50 mg PO BID Qty: 60 RF: 5 Truvada 200-300 mg Tablet 1 tab PO QPM Qty: 30 RF: 5 voriconazole 200 mg/5 mL (40 mg/mL) suspension for reconstitution 200 mg PO BID 10 Days Qty: 100 RF: 0 levothyroxine [Synthroid] 125 mcg tablet 125 mcg PO QAM RF: 0 Bethkis 300 mg/4 mL solution for nebulization 300 mg INHALATION Q12H RF: 0 albuterol sulfate 2.5 mg /3 mL (0.083 %) solution for nebulization 2.5 mg INH Q4H PRN (Reason: Shortness Of Breath Or Wheezing) RF: 0 montelukast 10 mg tablet 10 mg PO QAM RF: 0 albuterol sulfate [Ventolin HFA] 90 mcg/actuation HFA aerosol inhaler 2 puff Inhalation Q6H PRN (Reason: Cough and/or Wheezing) RF: 0 ondansetron 4 mg tablet,disintegrating 4 mg PO Q6H PRN (Reason: Nausea And Vomiting) RF: 0 Lidocaine Viscous 2 % solution See Rx Instructions .ROUTE .COMPLEX PRN (Reason: Mouth Pain) RF: 0 Boost Breeze Nutritional 0.04-1.05 gram-kcal/mL liquid See Rx Instructions .ROUTE .COMPLEX RF: 0 Pifeltro 100 mg Tablet 100 mg PO QAM RF: 0 Referrals Referrals: PCP,NO [Primary Care Provider] - Discharge Problem: Pneumonia Qualifiers: Pneumonia type: due to unspecified organism Laterality: bilateral Lung location: upper lobe of lung Qualified Code(s): J18.9 - Pneumonia, unspecified organism
[2019-10-29 18:22] LABS: Basophils # (auto) 0.01 K/uL (0-0.2); Basophils % (auto) 0.3 %; Eosinophils # (auto) 0.02 K/uL (0-0.5); Eosinophils % (auto) 0.6 %; Hematocrit (blood only) 31.6 % (37-47); Hemoglobin 11.5 g/dL (12.0-16.0); Immature Granulocytes # (auto) 0.05 K/uL (0.00-0.02); Immature Granulocytes % (auto) 1.4 %; Lymphocytes # (auto) 0.83 K/uL (1.2-3.4); Lymphocytes % (auto) 24.1 %; Mean Corpuscular Hemoglobin 28.8 pg (25-34); Mean Corpuscular Hgb Conc 36.4 g/dL (32-36); Mean Corpuscular Volume 79.2 fL (80-100); Monocytes # (auto) 0.66 K/uL (0.11-0.59); Monocytes % (auto) 19.1 %; Neutrophils # (auto) 1.88 K/uL (1.4-6.5); Neutrophils % (auto) 54.5 %; Platelet Count 363 K/uL (130-400); RDW Coefficient of Variation 15.8 % (11.5-14.5); RDW Standard Deviation 45.9 fL (36.4-46.3); Red Blood Count 3.99 M/uL (4.2-5.4); White Blood Count 3.45 K/uL (4.8-10.8)
[2019-10-29 18:33] LABS: INR 2.9 (0.9-1.1); Partial Thromboplastin Ratio 1.4; Partial Thromboplastin Time 40.4 Seconds (21.0-31.0); Prothrombin Time 28.7 Seconds (9.0-12.0)
[2019-10-29 18:42] LABS: Base Excess VBG 0.1 mEq/L; HCO3 VBG 25 mmol/L; Oxygen Saturation VBG < 60.0 %; PCO2 VBG 42 mmHg (38-50); PO2 VBG 25 mmHg
--- NOTE | 2019-10-29 18:49 | XRay Report ---
XR chest 1V portable CLINICAL HISTORY: SEPSIS COMPARISON STUDY: 09/11/2019 FINDINGS: The heart is normal in size. There are multifocal airspace opacities most pronounced in the left lower lung zone and right upper lung zone. Given history of sepsis, a multifocal pneumonia is s uspected. Clinical and radiographic follow-up is recommended.[There is no failure. There are no signi ficant pleural effusions. IMPRESSION: Persistent multifocal airspace opacities suspicious for a multifocal pneumonia. Clinical and radiographic follow-up is recommended. ACT 112: Negative or not required by law. Electronically signed by: Adilson Kim M.D. 10/29/2019 6:48 PM
[2019-10-29 18:51] LABS: Alanine Aminotransferase 15 U/L (12-78); Albumin Globulin Ratio 0.3 (0.9-2); Albumin Level 2.5 gm/dl (3.4-5.0); Alkaline Phosphatase 76 U/L (45-117); Aspartate Aminotransferase 22 U/L (15-37); BUN Creatinine Ratio 18.7 (10-20); Bilirubin,Total 0.6 mg/dl (0.2-1); Blood Urea Nitrogen 22 mg/dl (7-18); Carbon Dioxide 23 mmol/L (21-32); Chloride 99 mmol/L (98-107); Creatinine Clr Calc Pharmacy 44.8 ml/min; Est GFR (African American) 61.5; Globulin 7.6 gm/dl (2.5-4.0); Glucose 92 mg/dl (70-99); Magnesium 2.2 mg/dl (1.8-2.4); Potassium 2.5 mmol/L (3.5-5.1); Sodium 132 mmol/L (136-145); Total Protein 10.1 gm/dl (6.4-8.2); Troponin I < 0.015 ng/ml (0-0.045)
[2019-10-29] MEDS ORDERED: POTASSIUM CHLORIDE 20 MEQ TABCR PO STA (18:55)
[2019-10-29] MEDS ORDERED: cefTRIAXone SODIUM 1,000 MG/50 ML BAG IV STA (18:55)
[2019-10-29] MEDS ORDERED: POTASSIUM ACETATE 20 MEQ in 0.9 % SODIUM CHLORIDE 100 ML IV ONE (19:31)
[2019-10-29] MEDS ORDERED: ONDANSETRON INJ 2 MG/ML 2 ML VIAL IV STA (19:31)
[2019-10-29] MEDS ORDERED: VANCOMYCIN CONSULT ACTIVE PRN (20:57)
[2019-10-29] MEDS ORDERED: VANCOMYCIN HCL 1,200 MG in SODIUM CHLORIDE 0.9% 500 ML IV STA (20:57)
[2019-10-29] MEDS ORDERED: AZTREONAM 1,000 MG in DEXTROSE 5% 100 ML IV STA (20:57)
[2019-10-29 21:03] LABS: Influenza A virus by PCR Neg for Influ A (Neg); Influenza B virus by PCR Neg for Influ B (Neg)
[2019-10-29] MEDS ORDERED: VANCOMYCIN HCL 1,250 MG in SODIUM CHLORIDE 0.9% 500 ML IV STA (21:03)
--- NOTE | 2019-10-30 00:45 | History & Physical Report ---
Date of Service October 30, 2019 Assessment & Plan (1) Multifocal pneumonia: Multifocal pneumonia/TB indeterminate-possible history of DARCIE MAC/COVID negative/hospital associated and immunocompromised/COPD/asthma- Admit to monitored bed on vancomycin IV and aztreonam IV. Duonebs every 4 hours while awake and every 2 hours when necessary. Guaifenesin extended release 600 mg p.o. twice daily Sputum Gram stain and culture Nasal cannula 2 L oxygen, titrate to keep pulse ox around 95% Present on Admission?: Yes (2) Oral thrush: On voriconazole 200 mg p.o. twice daily. Patient has been relatively noncompliant with medications in general. Present on Admission?: Yes (3) HIV (human immunodeficiency virus infection): Continue/resume Tivicay, Pifeltro, Truvada, inhaled tobramycin and montelukast Present on Admission?: Yes (4) Underweight: Patient appears significantly malnourished. Placed on a regular diet. Present on Admission?: Yes (5) Hypothyroidism: Levothyroxine 125 mcg p.o. daily. Present on Admission?: Yes (6) Hypokalemia: Placed on NSS + KCl 20 mEq at 50 mils per hour. Repeat laboratories in a.m. Present on Admission?: Yes Admission and Anticipated Discharge Date Admission Date: September 30, 2019 Anticipated date of discharge: 11/03/19 History of Present Illness Chief Complaint: The patient presents to the emergency department with complaint of worsening shortness of breath over the past few days. Primary Care Provider: NO PCP The patient is a 49-year-old female with a past medical history including HIV, asthma, coagulopathy, pericardial effusion, hepatic lesion, mood disorder, oral thrush and hypothyroidism. She presents to the emergency department with complaints similar to her most recent admission during August, with complaint of shortness of breath worsening over the past few days. Work-up in the emergency department included a chest x-ray which showed a multifocal pneumonia. She was also COVID test negative on the ED. 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 There is a questionable history of DARCIE/MAC. Allergies Allergy/AdvReac Type Severity Reaction Status Date / Time Penicillins AdvReac Unknown Rash Verified 05/11/20 20:07 Home Medications Home Medications Medication Instructions Recorded Confirmed Type fluticasone propionate 50 2 sprays INTRANASAL DAILY #16 gm 05/24/19 10/29/19 Rx mcg/actuation nasal spray,suspension glycopyrrolate 9 mcg-formoterol 2 puffs INH BID #10.7 gm 06/27/19 10/29/19 Rx 4.8 mcg HFA aerosol inhaler dolutegravir [Tivicay] 50 mg PO BID #60 tab 09/11/19 10/29/19 Rx emtricitabine-tenofovir (TDF) 1 tab PO QPM #30 tab 09/11/19 10/29/19 Rx [Truvada] voriconazole 200 mg PO BID 10 Days #100 ml 09/11/19 10/29/19 Rx albuterol sulfate 2.5 mg INH Q4H PRN 10/29/19 10/29/19 History albuterol sulfate [Ventolin HFA] 2 puff INHALATION Q6H PRN 10/29/19 10/29/19 History doravirine [Pifeltro] 100 mg PO QAM 10/29/19 10/29/19 History food supplemt, lactose-reduced See Rx Instructions .ROUTE .COMPLEX 10/29/19 10/29/19 History [Boost Breeze Nutritional] levothyroxine [Synthroid] 125 mcg PO QAM 10/29/19 10/29/19 History lidocaine HCl [Lidocaine Viscous] See Rx Instructions .ROUTE 10/29/19 10/29/19 History .COMPLEX PRN montelukast 10 mg PO QAM 10/29/19 10/29/19 History ondansetron 4 mg PO Q6H PRN 10/29/19 10/29/19 History tobramycin [Bethkis] 300 mg INHALATION Q12H 10/29/19 10/29/19 History Past Med/Surg History Medical History Anemia Asthma Bronchiectasis Chronic obstructive pulmonary disease Coagulopathy Hepatic lesion HIV (human immunodeficiency virus infection) HIV disease Hypokalemia Hypomagnesemia Hypothyroidism Mood disorder Oral candidiasis Pericardial effusion Pneumonia Sepsis Severe protein-calorie malnutrition Underweight Family History Mother Hypertension Other No significant family history Social History Preferred Language: Romansh Communication Ability: Effective Fire Protection Inspector Required: No Beliefs That Will Affect Care: None Current Living Situation: Family Current Living Situation Comment: With 15 year old daughter Other Information That Helps Us Care for You: No Feels Safe at Home: Yes Safety Concerns: Feels Safe At This Time Smoking Status: Never smoker Do You Dip or Chew Tobacco: No ; Second Hand Exposure: No ; Hx Alcohol Use: No Hx Substance Use: No Review of Systems Review of Systems: The patient denies chest pain, palpitations, cough, lower extremity swelling, fevers, chills, sweats, nausea, vomiting, diarrhea , constipation, abdominal pain, pelvic pain, blood in urine or stool, dysuria, urinary frequency or urgency, lightheadedness, dizziness, headache, memory loss, loss of consciousness, rash, abnormal bruising or bleeding, imbalance, focal weakness, numbness or tingling in arms or legs, back or neck pain, or night sweats. The review of systems is otherwise negative other than for that already noted above, and at least 10 systems have been reviewed. Physical Exam Physical Exam: The patient is awake, alert and oriented 3, looks malnourished and emaciated, atraumatic, lying in bed and in no acute distress. HEENT--PERRL, EOMI, mucous membranes and oropharynx dry. Neck--supple. No JVD. No bruits. Thyroid normal, trachea midline, no allie opathy. Heart--normal S1 and S2. No murmurs, rubs or gallops. Lungs--coarse breath sounds bilaterally with scattered wheezes. No respiratory distress, no accessory muscle use. Abdomen--normal bowel sounds and soft. Nontender. Nondistended. Extremities--no cyanosis or clubbing. No edema. Dermatologic--normal skin turgor. Neurologic--cranial nerves II through XII grossly intact. Rheumatologic--normal range of motion. Psychiatric--normal affect. Results & Data Results & Data ([facility]) Vital Signs (Past 12 Hours) Vital Signs Temp Pulse Pulse Resp BP BP Pulse Ox 10/30/19 00:00 98 H 18 98/53 L 92 10/29/19 22:30 100 H 22 94/43 L 100 10/29/19 21:28 105 H 22 121/69 100 10/29/19 20:40 99.9 F H 105 H 22 95/46 L 100 10/29/19 20:10 106 H 22 100/61 100 10/29/19 19:31 101.7 F H 118 H 28 H 91/34 L 99 10/29/19 19:14 120 H 24 99 10/29/19 18:45 120 H 18 95/52 L 98 10/29/19 17:04 98 10/29/19 16:45 100.9 F H 121 H 20 108/62 100 Laboratory Results Laboratory Results WBC 3.45 K/uL (4.8-10.8) L 10/29/19 17:55 RBC 3.99 M/uL (4.2-5.4) L 10/29/19 17:55 Hgb 11.5 g/dL (12.0-16.0) L 10/29/19 17:55 Hct 31.6 % (37-47) L 10/29/19 17:55 MCV 79.2 fL (80-100) L 10/29/19 17:55 MCH 28.8 pg (25-34) 10/29/19 17:55 MCHC 36.4 g/dL (32-36) H 10/29/19 17:55 RDW Std Deviation 45.9 fL (36.4-46.3) 10/29/19 17:55 RDW Coeff of Ale 15.8 % (11.5-14.5) H 10/29/19 17:55 Plt Count 363 K/uL (130-400) 10/29/19 17:55 MPV 11.0 fL (7.4-10.4) H 10/29/19 17:55 Immature Gran % (Auto) 1.4 % 10/29/19 17:55 Neut % (Auto) 54.5 % 10/29/19 17:55 Lymph % (Auto) 24.1 % 10/29/19 17:55 Bath % (Auto) 19.1 % 10/29/19 17:55 Eos % (Auto) 0.6 % 10/29/19 17:55 Baso % (Auto) 0.3 % 10/29/19 17:55 Immature Gran # (Auto) 0.05 K/uL (0.00-0.02) H 10/29/19 17:55 Neut # (Auto) 1.88 K/uL (1.4-6.5) 10/29/19 17:55 Lymph # (Auto) 0.83 K/uL (1.2-3.4) L 10/29/19 17:55 Bath # (Auto) 0.66 K/uL (0.11-0.59) H 10/29/19 17:55 Eos # (Auto) 0.02 K/uL (0-0.5) 10/29/19 17:55 Baso # (Auto) 0.01 K/uL (0-0.2) 10/29/19 17:55 PT 28.7 Seconds (9.0-12.0) H 10/29/19 17:55 INR 2.9 (0.9-1.1) H 10/29/19 17:55 APTT 40.4 Seconds (21.0-31.0) H 10/29/19 17:55 PTT Ratio 1.4 10/29/19 17:55 VBG pH 7.40 (7.36-7.41) 10/29/19 17:55 VBG pCO2 42 mmHg (38-50) 10/29/19 17:55 VBG pO2 25 mmHg 10/29/19 17:55 VBG HCO3 25 mmol/L 10/29/19 17:55 VBG O2 Saturation < 60.0 % 10/29/19 17:55 VBG Base Excess 0.1 mEq/L 10/29/19 17:55 Barometric Pressure 731.5 mm/Hg 10/29/19 17:55 Sodium 132 mmol/L (136-145) L 10/29/19 17:55 Potassium 2.5 mmol/L (3.5-5.1) L* 10/29/19 17:55 Chloride 99 mmol/L (98-107) 10/29/19 17:55 Carbon Dioxide 23 mmol/L (21-32) 10/29/19 17:55 Anion Gap 10.0 (3-11) 10/29/19 17:55 BUN 22 mg/dl (7-18) H 10/29/19 17:55 Creatinine 1.20 mg/dl (0.6-1.2) 05/11/20 17:55 Est Cr Clr Drug Dosing 44.8 ml/min 10/29/19 17:55 Est GFR ( Amer) 61.5 10/29/19 17:55 Est GFR (Non-Af Amer) 53.0 10/29/19 17:55 BUN/Creatinine Ratio 18.7 (10-20) 10/29/19 17:55 Glucose 92 mg/dl (70-99) 10/29/19 17:55 Lactate 1.6 mmol/L (0.4-2.0) 10/29/19 20:09 Calcium 9.0 mg/dl (8.5-10.1) 10/29/19 17:55 Magnesium 2.2 mg/dl (1.8-2.4) 10/29/19 17:55 Total Bilirubin 0.6 mg/dl (0.2-1) 10/29/19 17:55 AST 22 U/L (15-37) 10/29/19 17:55 ALT 15 U/L (12-78) 10/29/19 17:55 Alkaline Phosphatase 76 U/L (45-117) 10/29/19 17:55 Lactate Dehydrogenase 234 U/L (84-246) 10/29/19 17:55 Troponin I < 0.015 ng/ml (0-0.045) 10/29/19 17:55 Total Protein 10.1 gm/dl (6.4-8.2) H 10/29/19 17:55 Albumin 2.5 gm/dl (3.4-5.0) L 10/29/19 17:55 Globulin 7.6 gm/dl (2.5-4.0) H 10/29/19 17:55 Albumin/Globulin Ratio 0.3 (0.9-2) L 10/29/19 17:55 Procalcitonin 0.22 ng/ml (0-0.5) 10/29/19 17:55 COVID-19 PCR NEGATIVE (Negative) 10/29/19 19:40 Influenza Type A (PCR) Neg for Influ A (Neg) 10/29/19 20:05 Influenza Type B (PCR) Neg for Influ B (Neg) 10/29/19 20:05 SARS Serology Cancelled 10/29/19 19:40 Diagnostic Findings [facility] [place] [phone] XRay Report Patient: RICKEY GUAJARDO Date: 10/29/19 MR#: [id number]: [address] Acct ID:[id number]: [address] Date: 1970City Zip: [place] [address] Age: 49Location: ED Sex: F Room/Bed: Att Phy:Diagnosis: SOB, CHEST PAIN, FEVER, COUGH Lachelle Phy: PCP,NOService Date: 10/29/19 Fam Phy:Interpreting Phy: Adilson Kim MD Admit Phy: Ordering Phy: Gideon Bragg, cc: ~ XR chest 1V portable CLINICAL HISTORY: SEPSIS COMPARISON STUDY: 09/11/2019 FINDINGS: The heart is normal in size. There are multifocal airspace opacities most pronounced in the left lower lung zone and right upper lung zone. Given history of sepsis, a multifocal pneumonia is suspected. Clinical and radiographic follow-up is recommended.[There is no failure. There are no significant pleural effusions. IMPRESSION: Persistent multifocal airspace opacities suspicious for a multifocal pneumonia. Clinical and radiographic follow-up is recommended. ACT 112: Negative or not required by law. Electronically signed by: Adilson Kim M.D. 10/29/2019 6:48 PM Dictated: 10/29/191845 Transcribed: 10/29/191845 Code Status & VTE Plan Code Status Full code VTE Prophylaxis Plan VTE Prophylaxis will be ordered: Yes PG Care Time/CCT Total # of Minutes Spent Total Time Spent with Patient: Total time spent is greater than 50% in coordination of care (as documented) at patient's floor/unit and/or counseling patient: Coding Level of Care Code 39409 Initial Inpt Care Lvl 3 Diagnoses Multifocal pneumonia J18.9 Oral thrush B37.0 HIV (human immunodeficiency virus infection) B20 Underweight R63.6 Hypothyroidism E03.9 Hypothyroidism type: acquired Hypokalemia E87.6 (1) Hypothyroidism Hypothyroidism type: acquired Qualified Code(s): E03.9 - Hypothyroidism, unspecified
[2019-10-30] MEDS ORDERED: ACETAMINOPHEN 325 MG TAB PO PRN (02:10)
[2019-10-30] MEDS ORDERED: TOBRAMYCIN 300 MG INH SCH (02:10)
[2019-10-30] MEDS ORDERED: ALUMINUM/MAGNESIUM SUSP 30 ML UDC PO PRN (02:10)
[2019-10-30] MEDS ORDERED: ONDANSETRON INJ 2 MG/ML 2 ML VIAL IV PRN (02:10)
[2019-10-30] MEDS ORDERED: MAGNESIUM HYDROXIDE SUSP 30 ML UDC PO PRN (02:10)
[2019-10-30] MEDS ORDERED: ONDANSETRON 4 MG OD TAB PO PRN (02:21)
[2019-10-30] MEDS: NSS + 20MEQ KCL 20 MEQ/1,000 ML BAG IV SCH ×3 (03:29→20:00)
[2019-10-30] MEDS: DOLUTEGRAVIR SODIUM 50 MG TAB PO SCH ×3 (03:31→20:35)
[2019-10-30] MEDS: VORICONAZOLE 200 MG TABLET PO SCH ×2 (03:32→08:49)
[2019-10-30] MEDS: AZTREONAM 1,000 MG in DEXTROSE 5% 100 ML IV SCH ×3 (06:42→22:27)
[2019-10-30] MEDS: LEVOTHYROXINE SODIUM 125 MCG TABLET PO SCH (06:42)
[2019-10-30] MEDS: ALBUT/IPRATROP 3MG/0.5MG NEB 3 ML VIAL NEB SCH ×4 (07:17→19:25)
[2019-10-30] MEDS: TOBRAMYCIN SULFATE 300 MG in SYRINGE 0 ML INH SCH ×2 (07:18→19:31)
[2019-10-30 07:42] LABS: INR 2.8 (0.9-1.1); Prothrombin Time 27.8 Seconds (9.0-12.0)
[2019-10-30 07:53] LABS: Basophils # (auto) 0.01 K/uL (0-0.2); Basophils % (auto) 0.3 %; Eosinophils % (auto) 2.8 %; Hemoglobin 8.6 g/dL (12.0-16.0); Immature Granulocytes # (auto) 0.04 K/uL (0.00-0.02); Immature Granulocytes % (auto) 1.1 %; Lymphocytes % (auto) 22.8 %; Mean Corpuscular Hemoglobin 28.5 pg (25-34); Mean Corpuscular Hgb Conc 35.8 g/dL (32-36); Mean Corpuscular Volume 79.5 fL (80-100); Mean Platelet Volume 10.4 fL (7.4-10.4); Monocytes # (auto) 0.65 K/uL (0.11-0.59); Monocytes % (auto) 18.5 %; Neutrophils # (auto) 1.91 K/uL (1.4-6.5); Neutrophils % (auto) 54.5 %; Platelet Count 300 K/uL (130-400); RDW Coefficient of Variation 15.9 % (11.5-14.5); RDW Standard Deviation 46.3 fL (36.4-46.3); Red Blood Count 3.02 M/uL (4.2-5.4); White Blood Count 3.51 K/uL (4.8-10.8)
[2019-10-30 08:02] LABS: Albumin Level 1.9 gm/dl (3.4-5.0); BUN Creatinine Ratio 18.5 (10-20); Calcium 8.4 mg/dl (8.5-10.1); Creatinine Clr Calc Pharmacy 59.7 ml/min; Est GFR (African American) 84.7; Est GFR (Non-African American) 73.1; Potassium 2.7 mmol/L (3.5-5.1)
[2019-10-30 08:06] LABS: Albumin Globulin Ratio 0.3 (0.9-2); Bilirubin,Total 0.5 mg/dl (0.2-1); Globulin 5.6 gm/dl (2.5-4.0); Total Protein 7.5 gm/dl (6.4-8.2)
[2019-10-30] MEDS: ENOXAPARIN INJ 30 MG/0.3 ML SYR SQ SCH (08:40)
[2019-10-30] MEDS ORDERED: ACETAMINOPHEN SOLN 650 MG/20.3 ML UDC PEG PRN (08:46)
[2019-10-30] MEDS: UMECLIDINIUM/VILANTEROL 62.5/25MCG 7 PUFFS/INHALER INH SCH (08:47)
[2019-10-30] MEDS ORDERED: MONTELUKAST SODIUM 10 MG TABLET PO SCH (09:00)
[2019-10-30] MEDS ORDERED: guaiFENesin 600 MG TABCR PO SCH (09:00)
[2019-10-30] MEDS ORDERED: AZITHROMYCIN 500 MG in DEXTROSE 5% 250 ML IV SCH (09:00)
[2019-10-30] MEDS: VANCOMYCIN HCL 750 MG in SODIUM CHLORIDE 0.9% 250 ML IV SCH ×2 (10:29→20:02)
--- NOTE | 2019-10-30 12:31 | Pulmonary Consultation ---
Date of Consultation October 30, 2019 Assessment & Plan (1) Chronic obstructive pulmonary disease: (2) Bronchiectasis: (3) Pneumonia: Chest x-ray: 10/29/2019: Hyperinflated film, again chronic right upper lobe and left lower lobe infiltrate, the haziness which is appreciated on previous admission 09/11/2019 are not seen anymore. --Intermediate gold QuantiFERON I was looking at the previous chart there is no documentation of 3 consecutive negative AFBs Patient does have bronchiectasis on the CAT scan especially of the right middle lobe, this most likely goes along with DARCIE Would get 3 consecutive AFB sputum culture Continue with airborne precautions --Multilobar pneumonia In a patient with HIV/AIDS, 09/03/19 CD4 count 11 with viral load 2430 (as per IDs latest note) Patient stated that she is compliant with her HIV medication but that has been history that she has been noncompliant. As per the ID note from [facility] patient is on dapsone and azithromycin for chronic prophylaxis and AIDS Continue with broad-spectrum antibiotics with atypical coverage. Patient's COVID 19 was negative on 10/28 along with influenza panel --Bronchiectasis Patient has underlying bronchiectasis especially bilateral middle lobe seems like DARCIE in a patient with AIDS. Patient had history of Pseudomonas and expectorated sputum done January 2019 which was pansensitive except intermediate for gentamicin. Patient is on inhaled tobramycin at home. Continue with antitussive medication with guaifenesin. --HIV/AIDS Continue with [place] therapy Recommend prophylactic weekly azithromycin as well as thrice weekly dapsone for DARCIE and PCP prophylaxis. -- COPD Patient is on Laba/lama inhaler at home Continue with that. Plan: Case was discussed with Dr. Barbosa on the phone as well patient has never been bronched in the past by him. Follow-up [facility]. Continue with AFB sputum smear/culture to be done every 12 hours x3. Patient can be taken off isolation after 3 consecutive negative AFB smear We will consider repeating CT chest without contrast once that AFB smears are negative. Patient had bronchoscopy done in the past unsure the reason for it she states she was told she had no infection at that time. She said it was done at [facility] and/or [facility]. Would recommend the primary care team to get papers from the respective hospitals No plan for bronchoscopy till AFB smear done x3 in the paperwork from the [facility] are received. Patient has prolonged QTC 585 on the latest EKG. Will DC azithromycin and start the patient on doxycycline. Patient has been on voriconazole for her oral candidiasis. Care as per primary team recommend being very careful regarding her QTC prolongation. Try to keep potassium greater than 4, magnesium greater than 2, phosphorus greater than 3 Recommend infectious disease consult as patient has been following up with Dr. Abdalla in the past and follow up if they had done outpatient sputum culture for AFB. Please note the above document was generated using voice recognition software. It may contain grammatical, syntax or spelling errors. Laterality: bilateral Lung location: unspecified part of lung Pneumonia type: due to unspecified organism Qualified Code(s): J18.9 - Pneumonia, unspecified organism (4) Oral candidiasis: (5) AIDS (acquired immune deficiency syndrome): (6) Bronchiectasis: (7) Hemoptysis: History of Present Illness Attending Physician: Ty Emery DO History of Present Illness 49-year-old -Indian female with past medical history of HIV/AIDS diagnosed in the on treatment, chronic bronchiectasis, COPD was admitted to the hospital with complaints of worsening shortness of breath going on for the last couple of days. Was associated with phlegm which is usually clear. Sometimes it is blood-tinged. Patient complains of subjective chills. Denies any night sweats or weight loss. Patient states she has been the same weight for a long time. She states she is compliant with her HIV medications. Patient was recently in the hospital in August with similar complaints her Covid- 19 test was negative at that time. Even at this presentation her Covid-19 test was negative in the ED Pulmonary was consulted as patient had an intermediate gold QuantiFERON test which was done in July 2019. Patient does fall into high risk of tuberculosis given the patient has AIDS. Patient denies any chest pain, no chills. Patient has odynophagia which has been going on for a very long time. She has been on oral voriconazole for this purpose. Patient denies any dysuria, no diarrhea. No headache, no blurry vision. Since the gold QuantiFERON being intermediate in July 2019 patient has had multiple sputum culture which has not grown anything. Patient had bronchoscopy done back in in [place] after which she followed up there and she was told she did not have any infection. Allergies Allergy/AdvReac Type Severity Reaction Status Date / Time Penicillins AdvReac Unknown Rash Verified 10/29/19 20:07 Home Medications Home Medications Medication Instructions Recorded Confirmed Type fluticasone propionate 50 2 sprays INTRANASAL DAILY #16 gm 05/24/19 10/29/19 Rx mcg/actuation nasal spray,suspension glycopyrrolate 9 mcg-formoterol 2 puffs INH BID #10.7 gm 06/27/19 10/29/19 Rx 4.8 mcg HFA aerosol inhaler dolutegravir [Tivicay] 50 mg PO BID #60 tab 09/11/19 10/29/19 Rx emtricitabine-tenofovir (TDF) 1 tab PO QPM #30 tab 09/11/19 10/29/19 Rx [Truvada] voriconazole 200 mg PO BID 10 Days #100 ml 09/11/19 10/29/19 Rx albuterol sulfate 2.5 mg INH Q4H PRN 10/29/19 10/29/19 History albuterol sulfate [Ventolin HFA] 2 puff INHALATION Q6H PRN 10/29/19 10/29/19 History doravirine [Pifeltro] 100 mg PO QAM 10/29/19 10/29/19 History food supplemt, lactose-reduced See Rx Instructions .ROUTE .COMPLEX 10/29/19 10/29/19 History [Boost Breeze Nutritional] levothyroxine [Synthroid] 125 mcg PO QAM 10/29/19 10/29/19 History lidocaine HCl [Lidocaine Viscous] See Rx Instructions .ROUTE 10/29/19 10/29/19 History .COMPLEX PRN montelukast 10 mg PO QAM 10/29/19 10/29/19 History ondansetron 4 mg PO Q6H PRN 10/29/19 10/29/19 History tobramycin [Bethkis] 300 mg INHALATION Q12H 10/29/19 10/29/19 History Patient History Medical History (Updated 10/30/19 @ 18:08 by Bronwyn Tsai MD) Anemia Asthma Bronchiectasis Chronic obstructive pulmonary disease Coagulopathy Hepatic lesion HIV (human immunodeficiency virus infection) HIV disease Hypokalemia Hypomagnesemia Hypothyroidism Mood disorder Oral candidiasis Pericardial effusion Pneumonia Sepsis Severe protein-calorie malnutrition Underweight Family History Mother Hypertension Other No significant family history Social History Preferred Language: Latvian Communication Ability: Effective Color Maker Formulator Required: No Beliefs That Will Affect Care: None Current Living Situation: Family Current Living Situation Comment: With 15 year old daughter Other Information That Helps Us Care for You: No Feels Safe at Home: Yes Safety Concerns: Feels Safe At This Time Smoking Status: Never smoker Do You Dip or Chew Tobacco: No ; Second Hand Exposure: No ; Hx Alcohol Use: No Hx Substance Use: No Review of Systems Review of Systems: All systems reviewed & are unremarkable except as noted in HPI & below Physical Exam Physical Exam: Constitutional: No acute distress, temporal wasting HEENT: EOMI, PERRLA, dry mucous membranes, positive oral thrush Respiratory system: Decreased air entry bilaterally, more decreased on the right side, no wheeze, no rhonchi CVS: S1-S2 positive, no murmurs or gallops Abdomen: Soft, nontender, nondistended, positive bowel sounds x4 Extremities: +2 pulses bilaterally radialis/ dorsalis pedis, no cyanosis, no edema, no clubbing Neuro: Awake alert oriented x3 Psych: Normal mood and affect G/U: No [place] Skin: no rashes, warm and dry Lymphatic: no cervical or axillary lymphadenopathy Results & Data Results & Data ([facility]) Vital Signs (Past 12 Hours) Vital Signs Temp Pulse Pulse Resp BP BP Pulse Ox 10/30/19 11:15 37.5 C 90 18 90/52 L 99 10/30/19 08:17 37.3 C 97 H 18 94/53 L 98 10/30/19 07:38 89 10/30/19 07:21 103 H 18 97 10/30/19 01:59 94 H 18 98/54 L 93 10/30/19 01:45 38.1 C H 100 H 20 109/70 96 10/30/19 07:07 10/30/19 07:06 PG Care Time/CCT Total # of Minutes Spent Total Time Spent with Patient: Total time spent is greater than 50% in coordination of care (as documented) at patient's floor/unit and/or counseling patient: Coding Level of Care Code 91272 Inpt Consult Level 4 Diagnoses Chronic obstructive pulmonary disease J44.9 Bronchiectasis J47.9 Pneumonia J18.9 Laterality: bilateral Lung location: unspecified part of lung Pneumonia type: due to unspecified organism Oral candidiasis B37.0 AIDS (acquired immune deficiency syndrome) B20 Bronchiectasis J47.9 Hemoptysis R04.2
[2019-10-30 12:54] LABS: Appearance Urine Cloudy (Clear); Bacteria Urine Automated 1+ (Negative); Bilirubin Urine Negative (Negative); Blood Urine Negative (Negative); Color Urine Yellow; Epithelial Cell Urine Auto >30 /lpf (0-5); Glucose Urine UA Negative (Negative); Ketones Urine Negative (Negative); Leukocyte Esterase Urine Trace (Negative); Nitrite Urine Negative (Negative); Protein Urine 1+ (Negative); Specific Gravity Urine 1.018 (1.000-1.030); Urobilinogen Urine Negative (Negative); pH Urine 5.5 (4.5-7.5)
--- NOTE | 2019-10-30 12:58 | Pharmacy Report ---
Pharmacy Abx Initial Consult - Date of Service October 30, 2019 - Pharmacy Dosing Scope Date of Consult: 10/28 Consultation requested by: Dr. Dinh Pharmacy is consulted to initiate vancomycin IV/PO dosing therapy, order appropriate labs and adjust drug dose/frequency. - Subjective The patient is a 49 year old F admitted on 10/30/19 00:43. - Objective Height: 5 ft 6 in Weight: 51.1 kg Vital Signs (Past 12hrs): Vital Signs Temp Pulse Pulse Resp BP BP Pulse Ox 10/30/19 11:15 37.5 C 90 18 90/52 L 99 10/30/19 08:17 37.3 C 97 H 18 94/53 L 98 10/30/19 07:38 89 10/30/19 07:21 103 H 18 97 10/30/19 01:59 94 H 18 98/54 L 93 10/30/19 01:45 38.1 C H 100 H 20 109/70 96 Lab Results (24hrs): Laboratory Tests (24 Hours) 10/30/19 10/30/19 10/29/19 07:07 07:06 17:55 WBC 3.51 L Neut # (Auto) 1.91 Creatinine 0.92 Est Cr Clr Drug Dosing 59.7 Procalcitonin 0.22 10/29/19 10/29/19 17:55 17:55 WBC 3.45 L Neut # (Auto) 1.88 Creatinine 1.20 Est Cr Clr Drug Dosing 44.8 Procalcitonin Micro Results: 10/30/19 11:45 Gram Stain - Pending Sputum, Expectorated Sputum Culture - Pending 10/29/19 18:01 Aerobic Blood Culture - Pending Blood Anaerobic Blood Culture - Pending 10/29/19 17:55 Aerobic Blood Culture - Pending Blood Anaerobic Blood Culture - Pending - Assessment & Plan Assessment 49 year old admitted with possible multifocal pneumonia. Started empirically on vancomycin. Blood cultures x 2 are pending Plan Vancomycin IV * Received loading dose of vancomycin 1250 mg (~25 mg/kg) last evening * Started on vancomycin 750 mg iv q 12 hrs as per vancomycin AUC nomogram (~15 mg/kg) * Estimated kinetics suggest dosing appropriate : t1/2~12 hrs, ke~0.05 hr-1, crcl ~60 * If continued >48 hrs will plan to collect trough level Pharmacy will continue to follow and will adjust dose/frequency as necessary. Thank you.
[2019-10-30] MEDS: POTASSIUM CHLORIDE / WTR 10 MEQ/100 ML PLCT IV SCH ×4 (13:41→18:23)
[2019-10-30] MEDS: NYSTATIN SUSP 500,000 U/5 ML UDC PO SCH ×3 (13:42→20:35)
--- NOTE | 2019-10-30 14:32 | Hospitalist Progress Note ---
Date of Service October 30, 2019 Assessment & Plan (1) Bronchiectasis: 49F with HIV/aids on BLACKWELL therapy here with recurrent multifocal PNA - Per pulmonology consult, see related notes - on airborne precautions until AFB smear x 3, no plan for bronchoscopy currently / DARCIE? - on aztreonam and vanc for now, azithromycin switched to doxy given prolonged QTc -- given concern for this, we will repeat EKG in am, DC zofran and add mylanta PRN for nausea. - COVID 19 was negative on 10/28 along with influenza panel - antitussive medication with guaifenesin - Intermediate gold QuantiFERON. AFB smear x 3 pending. - ID consult placed. appreciate recs. FEN/GI: encourage PO / mylanta pRN / AVOID QT prolonging agents at this time like zofran. DVT ppx: hold lovenox in setting of increased INR. CODE STATUS: FULL DISPO: tele while awaiting sputum cultures # loose stools -stool for c diff pending -continue to follow # elevated INR -no s/s acute bleeding -hold blood thinning medications -follow (2) Chronic obstructive pulmonary disease: -continue home inhalers (3) Hypothyroidism: -continue home synthroid - patient requests to use her own. (4) Multifocal pneumonia: -as above. (5) Hypokalemia: -due to malnourishment, repleting. - goal: potassium greater than 4, magnesium greater than 2, phosphorus greater than 3 (6) Oral thrush: -pt was on maintenance oral vfend prior to admission, and part of her presentation is due to worsening symptoms related to this. Requesting heightened therapy which I think is reasonable given her electrolyte def, and weight loss, and need for nourishment. -IV voriconazole started (300mg IV BID x24 hours, then 200mg IV BID.) (7) Mood disorder: -no acute issues. (8) Underweight: - 2/2 uncontrolled oral thrush, as above (9) HIV (human immunodeficiency virus infection): - HIV/AIDS, 09/03/19 CD4 count 11 with viral load 2430 (as per IDs latest note) - Continue with Blackwell therapy - Per pulm: Recommend prophylactic weekly azithromycin as well as thrice weekly dapsone for DARCIE and PCP prophylaxis. (2) Chronic obstructive pulmonary disease: (3) Hypothyroidism: (4) Multifocal pneumonia: (5) Hypokalemia: (6) Oral thrush: (7) Mood disorder: (8) Underweight: (9) HIV (human immunodeficiency virus infection): Admission and Anticipated Discharge Date Admission Date: October 30, 2019 Anticipated date of discharge: 11/03/19 Supervising Physician Co-Signing Physician Notes I personally examined the patient and verified all butler points of history and exam, discussed case, and agree with decision making with Dr Pérez main complaint is mouth pain from thrush and inability to eat also has chest pain similar to when she's had prior pneumonia also diarrhea although she relates likely due to barely having ability to take in solids for a while answered all questions to the best of my ability alma noted fatigued and cahcectic appearing but fortunately no distress. heent nc at plaques in mouth, somewhat poor dentition. breathing unlabored no accessory muscles no conversational dyspnea no distress. skin no pallor or icterus. neuro no focal deficits. failure to thrive -mostly poor PO intake likely related to thrush, likely also fatigue/lack of appetite from pulmonary infection -encourage intake, treat underlying causes, low threshold for appetite stimulant if above doesn't affect improved intake thrush -voriconazole IV -nystatin swish PO bronchiectasis/appearance of pneumonia -zithromax and aztreonam for now pending further cultures -quantiferon, sputum for afb -appreciate pulmonary input and will ask for ID assistance at their request as well -fortunately breathing is stable right now diarrhea -stool for Cdiff for completenesss, otherwise watchful waiting/supportive care otherwise as above Subjective Pt sitting upright in her bed. She expresses concerns about her oral thrush which has inhibited her from eating 8-9 days prior to admission, is requesting IV therapy for this. Endorses some loose stools. Low potassium. Ongoing chest pain across her entire chest which has been constant since about a week ago, which she say sfeels like her previous PNAs. Review of Systems Review of Systems: All systems reviewed & are unremarkable except as noted in HPI & below chest pressure across entire chest, constant, associated with her PNA loose stools some abdominal cramping oral thrush pain, decreased appetite and energy Physical Exam Physical Exam: Vitals noted and reviewed, as above GENERAL: no acute distress HEAD: normocephalic atraumatic. Temporal wasting. ENT: sclerae normal, trachea midline RESP: normal work of breathing CV: regular rate and rhythm ABDOMEN: nondistended SKIN: no rashes or jaundice PSYCH: appropriate mood and affect Results & Data Results & Data ([facility]) Vital Signs (Past 12 Hours) Vital Signs Temp Pulse Pulse Resp BP Pulse Ox 10/30/19 11:15 37.5 C 90 18 90/52 L 99 10/30/19 08:17 37.3 C 97 H 18 94/53 L 98 10/30/19 07:38 89 10/30/19 07:21 103 H 18 97 Resident Activity Tracking Resident Involvement: Resident Care Provided Care Provided: Adult Hospital Medicine (1) Hypothyroidism Hypothyroidism type: acquired Qualified Code(s): E03.9 - Hypothyroidism, unspecified
[2019-10-30] MEDS ORDERED: GUAIFENESIN/DEXTROM SYRUP 100MG/10MG 5ML UDC PO PRN (18:36)
--- NOTE | 2019-10-30 18:58 | Billing Data ---
Date of Service October 30, 2019 Coding Level of Care Code 30814 Subseq Hosp Care Lvl 3
--- NOTE | 2019-10-30 19:03 | Communication Note ---
Date of Service: October 30, 2019 severe acute on chronic malnutrition (loss of ~10+ pounds last few weeks by hx, low end BMI, low albumin, high INR without coumadin) -- nutritional support, nutrition consult, vitamin K to follow for correction of INR, fluids, replace 'lytes, follow mag/phos for evidence of refeeding
[2019-10-30] MEDS ORDERED: ALUMINUM/MAGNESIUM/SIMETH (MAALOX MAX) 30 ML UDC PO PRN (19:17)
[2019-10-30] MEDS ORDERED: PHYTONADIONE 5 MG TAB PO ONE (19:30)
[2019-10-30] MEDS: VORICONAZOLE 300 MG in 0.9 % SODIUM CHLORIDE 70 ML IV SCH (20:02)
[2019-10-30] MEDS: DOXYCYCLINE HYCLATE 100 MG CAP PO SCH (20:35)
[2019-10-30] MEDS: guaiFENesin SUGAR FREE 200 MG/10 ML UDC PO SCH (20:35)
[2019-10-30] MEDS ORDERED: POTASSIUM CHLORIDE 20 MEQ TABCR PO SCH (21:00)
[2019-10-30] MEDS ORDERED: EMTRICITABINE/TENOFOVIR TAB PO SCH (21:00)
--- NOTE | 2019-10-30 22:07 | Electrocardiogram Report ---
Test Reason : Blood Pressure : / mmHG Vent. Rate : 120 BPM Atrial Rate : 120 BPM P-R Int : 136 ms QRS Dur : 082 ms QT Int : 348 ms P-R-T Axes : 044 -36 065 degrees QTc Int : 492 ms Sinus tachycardia Left axis deviation Prolonged QT Nonspecific ST and T wave abnormality Abnormal ECG When compared with ECG of 07-SEP-2019 13:33, No significant change was found Confirmed by Kory Lawson ([id number]) on 10/30/2019 10:07:24 PM Referred By: REFERRED SELF Confirmed By:Kory Lawson
[2019-10-31] MEDS: NSS + 20MEQ KCL 20 MEQ/1,000 ML BAG IV SCH ×3 (04:48→18:42)
[2019-10-31] MEDS: AZTREONAM 1,000 MG in DEXTROSE 5% 100 ML IV SCH ×3 (05:39→22:28)
[2019-10-31] MEDS: LEVOTHYROXINE 125 MCG PO SCH (05:39)
[2019-10-31] MEDS: LEVOTHYROXINE SODIUM 125 MCG TABLET PO SCH (05:39)
[2019-10-31] MEDS: ALBUT/IPRATROP 3MG/0.5MG NEB 3 ML VIAL NEB SCH ×4 (07:13→20:39)
[2019-10-31] MEDS: TOBRAMYCIN SULFATE 300 MG in SYRINGE 0 ML INH SCH ×2 (07:14→20:39)
[2019-10-31 07:54] LABS: Albumin Level 1.5 gm/dl (3.4-5.0); BUN Creatinine Ratio 12.2 (10-20); Calcium 8.1 mg/dl (8.5-10.1); Creatinine Clr Calc Pharmacy 74.9 ml/min; Est GFR (African American) 103.5; Est GFR (Non-African American) 89.3; Magnesium 1.7 mg/dl (1.8-2.4); Potassium 3.2 mmol/L (3.5-5.1)
[2019-10-31 07:57] LABS: Albumin Globulin Ratio 0.3 (0.9-2); Bilirubin,Total 0.2 mg/dl (0.2-1); INR 1.9 (0.9-1.1); Partial Thromboplastin Ratio 1.7; Phosphorus 1.9 mg/dl (2.5-4.9); Prothrombin Time 19.3 Seconds (9.0-12.0); Total Protein 6.5 gm/dl (6.4-8.2)
[2019-10-31 07:58] LABS: Hematocrit (blood only) 14.6 % (37-47); Hemoglobin 5.3 g/dL (12.0-16.0); Mean Corpuscular Hgb Conc 36.3 g/dL (32-36); Mean Corpuscular Volume 79.8 fL (80-100); Mean Platelet Volume 10.2 fL (7.4-10.4); Platelet Count 297 K/uL (130-400); RDW Coefficient of Variation 16.5 % (11.5-14.5); RDW Standard Deviation 48.6 fL (36.4-46.3); Red Blood Count 1.83 M/uL (4.2-5.4)
[2019-10-31] MEDS: VORICONAZOLE 300 MG in 0.9 % SODIUM CHLORIDE 70 ML IV SCH (07:58)
[2019-10-31] MEDS: POTASSIUM CHLORIDE PWD 20 MEQ PACK PO SCH ×3 (08:00→20:31)
[2019-10-31] MEDS: UMECLIDINIUM/VILANTEROL 62.5/25MCG 7 PUFFS/INHALER INH SCH (08:00)
[2019-10-31] MEDS: NYSTATIN SUSP 500,000 U/5 ML UDC PO SCH ×4 (08:00→20:32)
[2019-10-31] MEDS: DORAVIRINE 100 MG PO SCH (08:01)
[2019-10-31] MEDS: guaiFENesin SUGAR FREE 200 MG/10 ML UDC PO SCH ×2 (08:04→20:32)
[2019-10-31] MEDS: MONTELUKAST SOD 5 MG CHEWABLE TAB PO SCH (08:04)
[2019-10-31] MEDS: DOLUTEGRAVIR SODIUM 50 MG TAB PO SCH ×2 (08:05→20:32)
[2019-10-31] MEDS: DOXYCYCLINE HYCLATE 100 MG CAP PO SCH ×2 (08:15→20:34)
[2019-10-31] MEDS ORDERED: SODIUM CHLORIDE 0.9% 250 ML IV PRN (08:29)
[2019-10-31 08:53] LABS: Partial Thromboplastin Time 47.1 Seconds (21.0-31.0)
[2019-10-31 09:44] LABS: Hematocrit (blood only) 25.2 % (37-47); Hemoglobin 8.9 g/dL (12.0-16.0)
[2019-10-31 09:45] LABS: Basophils # (auto) 0.02 K/uL (0-0.2); Basophils % (auto) 0.7 %; Eosinophils # (auto) 0.21 K/uL (0-0.5); Eosinophils % (auto) 7.2 %; Immature Granulocytes # (auto) 0.04 K/uL (0.00-0.02); Immature Granulocytes % (auto) 1.4 %; Lymphocytes # (auto) 0.68 K/uL (1.2-3.4); Lymphocytes % (auto) 23.4 %; Monocytes # (auto) 0.48 K/uL (0.11-0.59); Monocytes % (auto) 16.6 %; Neutrophils # (auto) 1.47 K/uL (1.4-6.5); Neutrophils % (auto) 50.7 %; Ovalocytes 1+
[2019-10-31] MEDS ORDERED: POTASSIUM PHOS 3 MMOL/1 ML INFUSION IV STA (10:27)
--- NOTE | 2019-10-31 10:36 | Hospitalist Progress Note ---
Date of Service October 31, 2019 Assessment & Plan (1) Bronchiectasis: 49F with HIV/aids on BLACKWELL therapy here with recurrent multifocal PNA # Recurrent Multifocal PNA in immunosuppressed patient - Per pulmonology consult, see related notes - on airborne precautions until AFB smear x 3, no plan for bronchoscopy currently / DARCIE? - on aztreonam and vanc for now -- azithromycin switched to doxy given prolonged QTc that has since resolved -- given concern for this, we will repeat EKG in am, DC zofran and add mylanta PRN for nausea. - COVID 19 was negative on 10/28 along with influenza panel - antitussive medication with guaifenesin - Intermediate gold QuantiFERON. AFB smear x 3 pending. - ID consult placed. appreciate recs. Please note, patients current outpatient ID provider is Dr. Ruby with [facility] his phone [phone]. # Oral thrush: - severely symptomatic, part of presenting complaint -pt was on maintenance oral voriconazole susp prior to admission -Requesting heightened therapy which is reasonable given her electrolyte def, and weight loss, and need for nourishment. -does appear to be improving symptomatically, will continue with IV voriconazole started (300mg IV BID x24 hours, then 200mg IV BID.) # difficult IV access -requiring multiple meds and lab draws given difficult clinical picture and pain with PO intake with resultant malnourishment (see below) -PICC line consent obtained, order for placement 10/30 # Hypokalemia / hypomagnesemia / hypophosphatemia - due to malnourishment/loose stools - goal: potassium greater than 4, magnesium greater than 2, phosphorus greater than 3 - repleting as needed with K riders, PotassiumPhosphate, and Mag IV ordered 10/30. # Prolonged QTc - as seen on EKG - following - repleting e-lytes as above - avoiding QT prolonging agents as able - remain on tele # elevated INR 2/2 malnourishment and BLACKWELL therapy side effects? -no s/s acute bleeding labs this AM showed low H&H, repeat H&H revealed this was an error, she is at her baseline. - supplement with IV vit K 5mg IV adm 10/30 (pt cannot tolerate any PO meds at this time) -hold blood thinning medications -follow coags daily -hemoccult pending, will likely be negative. # loose stools -2/2 low PO intake and BLACKWELL therapy -stool for c diff ordered, however her stools have become more formed as of 10/30 -resultant hypokalemia, repleting. -continue to follow FEN/GI: regular diet / boost / mylanta pRN / AVOID QT prolonging agents at this time like zofran. DVT ppx: hold lovenox in setting of increased INR. CODE STATUS: FULL DISPO: tele, plan to transition to PO awaiting sputum cultures/and oral thrush IV treatment ongoing, would go home after DC. Other chronic issues: # Underweight: - 2/2 uncontrolled oral thrush, as above # HIV (human immunodeficiency virus infection): - HIV/AIDS, 09/03/19 CD4 count 11 with viral load 2430 (as per IDs latest note) - Continue with Blackwell therapy - Per pulm: Recommend prophylactic weekly azithromycin as well as thrice weekly dapsone for DARCIE and PCP prophylaxis. - ID consult placed. appreciate recs. Please note, patients current outpatient ID provider is Dr. [facility] with [facility] his phone [phone]. # Chronic obstructive pulmonary disease: -continue home inhalers # Hypothyroidism: -continue home synthroid - patient requests to use her own. # Mood disorder: -no acute issues. (2) Chronic obstructive pulmonary disease: (3) Hypothyroidism: (4) Multifocal pneumonia: (5) Hypokalemia: (6) Oral thrush: (7) Mood disorder: (8) Underweight: (9) HIV (human immunodeficiency virus infection): (10) Hypomagnesemia: (11) Hypophosphatemia: (12) Difficult intravenous access: Admission and Anticipated Discharge Date Admission Date: October 30, 2019 Anticipated date of discharge: 11/03/19 Supervising Physician Co-Signing Physician Notes I supervised Dr. Twyla Pérez MD on this patient's care. I examined the patient today with the resident. I discussed the plan of care with the plan being as written in the note except for any following changes/exceptions: None. In no distress this morning. Diarrhea has improved. No black/tarry or blood stool yesterday with her diarrhea. Otherwise is getting tired of the stick with a needle and requests a PICC line. She has required them in the past per the patient. Breathing is comfortable. Hgb low this morning at 5.3. - Consented for PICC line - Will recheck hgb as the first was likely a false low given her clinical stability. Unlikely hgb could really drop 4 g/dL in 24 hours without vital sign changes or symptoms. Subjective Spoke at length with patient, she endorses improvement in her oral thrush symptoms, is attempting to eat toast and eggs and castro this AM. Boost on her tray. Says she is a very difficult stick, poor veins, requests more permanent access. Does not endorse any chest pains or palpitations. Denies melena or hematochezia, no emesis. No s/s bleeding despite low initial AM H&H. Loose stools have resolved. Did discuss briefly with nursing and with CM -- need for wellness check on 15 yo daughter? Pt states she is independent and voices no needs as of 10/29. Review of Systems Review of Systems: All systems reviewed & are unremarkable except as noted in HPI & below Physical Exam Physical Exam: Vitals noted and reviewed, as above GENERAL: no acute distress HEAD: normocephalic atraumatic. Temporal wasting. ENT: sclerae normal, trachea midline RESP: normal work of breathing CV: regular rate and rhythm ABDOMEN: nondistended SKIN: no rashes or jaundice PSYCH: appropriate mood and affect Results & Data Results & Data ([facility]) Vital Signs (Past 12 Hours) Vital Signs Temp Pulse Pulse Resp BP Pulse Ox 10/31/19 08:17 37.1 C 93 H 16 92/60 L 99 10/31/19 07:14 89 14 98 10/31/19 07:12 87 10/31/19 04:05 37.5 C 91 H 17 87/56 L 99 10/30/19 23:55 36.9 C 84 20 89/52 L 98 Resident Activity Tracking Resident Involvement: Resident Care Provided Care Provided: Adult Hospital Medicine (1) Hypothyroidism Hypothyroidism type: acquired Qualified Code(s): E03.9 - Hypothyroidism, unspecified
[2019-10-31] MEDS: EMTRICITABINE/TENOFOVIR TAB PO SCH (10:43)
[2019-10-31] MEDS ORDERED: PHYTONADIONE 5 MG in SODIUM CHLORIDE 0.9% 50 ML IV ONE (11:00)
[2019-10-31] MEDS ORDERED: POTASSIUM PHOSPHATE 21 MMOL in SODIUM CHLORIDE 0.9% 500 ML IV SCH (11:00)
--- NOTE | 2019-10-31 11:23 | Pulmonology Progress Note ---
Date of Service October 31, 2019 Assessment & Plan (1) Chronic obstructive pulmonary disease: (2) Bronchiectasis: (3) Pneumonia: Chest x-ray: 10/29/2019: Hyperinflated film, again chronic right upper lobe and left lower lobe infiltrate, the haziness which is appreciated on previous admission 09/11/2019 are not seen anymore. --Intermediate gold QuantiFERON I was looking at the previous chart there is no documentation of 3 consecutive negative AFBs. Patient did have an AFB done as an outpatient by [facility] which was negative for cultures at 8 weeks. Patient does have bronchiectasis on the CAT scan especially of the right middle lobe, this most likely goes along with DARCIE Would get 3 consecutive AFB sputum culture Continue with airborne precautions --Multilobar pneumonia In a patient with HIV/AIDS, 09/03/19 CD4 count 11 with viral load 2430 (as per IDs latest note) Patient stated that she is compliant with her HIV medication but that has been history that she has been noncompliant. As per the ID note from [facility] patient is on dapsone and azithromycin for chronic prophylaxis and AIDS Continue with broad-spectrum antibiotics with atypical coverage. Patient's COVID 19 was negative on 10/28 along with influenza panel --Bronchiectasis Patient has underlying bronchiectasis especially bilateral middle lobe seems like DARCIE in a patient with AIDS. Patient had history of Pseudomonas and expectorated sputum done January 2019 which was pansensitive except intermediate for gentamicin. Patient is on inhaled tobramycin at home. Continue with antitussive medication with guaifenesin. --HIV/AIDS Continue with Blackwell therapy Recommend prophylactic weekly azithromycin as well as thrice weekly dapsone for DARCIE and PCP prophylaxis. -- COPD Patient is on Laba/lama inhaler at home Continue with that. Plan: Continue with AFB sputum smear/culture to be done every 12 hours x3. Patient can be taken off isolation after 3 consecutive negative AFB smear No plan for bronchoscopy till AFB smear done x3 in the paperwork from the [facility] are received. Dr. Schneider's note reviewed. 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 It may contain grammatical, syntax or spelling errors. Laterality: bilateral Lung location: unspecified part of lung Pneumonia type: due to unspecified organism Qualified Code(s): J18.9 - Pneumonia, unspecified organism (4) Oral candidiasis: (5) AIDS (acquired immune deficiency syndrome): (6) Hemoptysis: Admission and Anticipated Discharge Date Admission Date: October 30, 2019 Anticipated date of discharge: 11/03/19 Subjective Patient seen and examined at bedside. No acute distress, no adverse events overnight. Still complains of odynophagia. Trying to have clear liquids. Cough is decreased in intensity. Minimal hemoptysis. Denies any chest pain, shortness of breath is improved. No diarrhea. Review of Systems Review of Systems: All systems reviewed & are unremarkable except as noted in HPI & below Physical Exam Physical Exam: Constitutional: No acute distress, temporal wasting HEENT: EOMI, PERRLA, dry mucous membranes, positive oral thrush Respiratory system: Decreased air entry bilaterally, more decreased on the right side, no wheeze, no rhonchi CVS: S1-S2 positive, no murmurs or gallops Abdomen: Soft, nontender, nondistended, positive bowel sounds x4 Extremities: +2 pulses bilaterally radialis/ dorsalis pedis, no cyanosis, no ed harriet, no clubbing Neuro: Awake alert oriented x3 Psych: Normal mood and affect G/U: No [place] Skin: no rashes, warm and dry Lymphatic: no cervical or axillary lymphadenopathy Results & Data Results & Data ([facility]) Vital Signs (Past 12 Hours) Vital Signs Temp Pulse Pulse Resp BP Pulse Ox 10/31/19 11:06 36.6 C 87 19 92/52 L 98 10/31/19 08:17 37.1 C 93 H 16 92/60 L 99 10/31/19 07:14 89 14 98 10/31/19 07:12 87 10/31/19 04:05 37.5 C 91 H 17 87/56 L 99 10/30/19 23:55 36.9 C 84 20 89/52 L 98 PG Care Time/CCT Total # of Minutes Spent Total Time Spent with Patient: Total time spent is greater than 50% in coordination of care (as documented) at patient's floor/unit and/or counseling patient: Coding Level of Care Code 60478 Subseq Hosp Care Lvl 3 Diagnoses Chronic obstructive pulmonary disease J44.9 Bronchiectasis J47.9 Pneumonia J18.9 Laterality: bilateral Lung location: unspecified part of lung Pneumonia type: due to unspecified organism Oral candidiasis B37.0 AIDS (acquired immune deficiency syndrome) B20 Hemoptysis R04.2
[2019-10-31] MEDS: VANCOMYCIN HCL 750 MG in SODIUM CHLORIDE 0.9% 250 ML IV SCH (12:12)
--- NOTE | 2019-10-31 12:17 | Billing Data ---
Date of Service October 31, 2019 Coding Level of Care Code 89356 Subseq Hosp Care Lvl 2
--- NOTE | 2019-10-31 12:26 | Infectious Disease Consult ---
Date of Consultation October 31, 2019 Assessment & Plan (1) Multifocal pneumonia: She will continue on HAART. She should continue on abx for PNA pending sputum culture results. she has had long standing low CD4 and detectable viral load despite multiple differing regimens, she remains with CD4 <50 and remains high risk for several OI, including URI. she is to be on prophylaxis for this based on last ID visit 07/2019. She did recently have negative AFB culture but agree with repeat testing, IGRA less helpful due to low CD4. she does have long standing OI with oral thrush and should remain on treatment, although not likely to improve significantly unless CD4 improves, have been unable in past to obtain records/confirmation of fluconazole resistant thrush - she has also refused many po meds and prefers liquid formulation. Due to low CD4/asthma she remains high risk for recurrent CAP. COVID and flu negative. Would suggest bronch if sputum culture negative. would also suggest serum crypto and histo antigen (although she has been on fdc antifungal) If she undergoes bronch, would suggest biopsy and testing for PCP, however less likely as she is to be on rx for pcp prophylaxis, O2 sat 99% on RA. Will follow results. she will need close follow up with HIV provider post d/c. she did express understanding of this on most recent phone call and did confirm that she has established care for ongoing HIV treatment elsewhere. (2) HIV (human immunodeficiency virus infection): (3) Oral thrush: History of Present Illness Attending Physician: Tommy Barone MD pt admitted with sob. she has h/o pseudomonas pna. was recently hospitalized in August for CAP, treated with resoultion of symptoms and d/c home. She was tested for COVID at that time and again in ER yesterday, negative x 2. Flu negative, follows with pulm as outpatient. She has long standing h/o HIV/AIDS, CD4 <50 for several years with multiple changes in HAART due to poor tolerance/non adherence. Her last labs done on 07/26 CD4 11 (2 previously) and Viral load >2000 (was previously > 10,000). She follows with ID at [facility] and was recently [facility], she appears to be tolerating, improvement, although slight, in counts on this regimen. She has long standing thrush, on vori, states she was fluconazole resistant while receiving care in [place] although no records sent for review upon request when she transferred care to [place], per pulruth pettit, new request to [place] submitted. She did have an outpatient workup for TB trough pulm at [facility] in 07/2019 and sputum was negative for TB at 8 weeks (sent via [facility]). she is now in airborne isolation pending TB workup, bronch on hold pending sputum results. She is afebrile. wbc 2.9. She was to be on both pcp and uri prophylaxis as outpatient due to low CD4 unclear if those meds continued upon transfer of care to [facility]. She was scheduled to have phone ID visit in recent weeks with [facility] ID, she did state she was taking meds and did confirm that she is following with [facility] ID, stated she had labs done with [facility] as well. no results to review. Sputum and AFB cultures pending CXR shows multifocal pna. She is currently on aztreonam, tobra, vanco, vori, doxy and tivicay/truvada. creat normal, UA negative, urine culture pending, blood cultures negative to date. Allergies Allergy/AdvReac Type Severity Reaction Status Date / Time Penicillins AdvReac Unknown Rash Verified 10/29/19 20:07 Home Medications Home Medications Medication Instructions Recorded Confirmed Type fluticasone propionate 50 2 sprays INTRANASAL DAILY #16 gm 05/24/19 10/29/19 Rx mcg/actuation nasal spray,suspension glycopyrrolate 9 mcg-formoterol 2 puffs INH BID #10.7 gm 06/27/19 10/29/19 Rx 4.8 mcg HFA aerosol inhaler dolutegravir [Tivicay] 50 mg PO BID #60 tab 09/11/19 10/29/19 Rx emtricitabine-tenofovir (TDF) 1 tab PO QPM #30 tab 09/11/19 10/29/19 Rx [Truvada] voriconazole 200 mg PO BID 10 Days #100 ml 09/11/19 10/29/19 Rx albuterol sulfate 2.5 mg INH Q4H PRN 10/29/19 10/29/19 History albuterol sulfate [Ventolin HFA] 2 puff INHALATION Q6H PRN 10/29/19 10/29/19 History doravirine [Pifeltro] 100 mg PO QAM 10/29/19 10/29/19 History food supplemt, lactose-reduced See Rx Instructions .ROUTE .COMPLEX 10/29/19 10/29/19 History [Boost Breeze Nutritional] levothyroxine [Synthroid] 125 mcg PO QAM 10/29/19 10/29/19 History lidocaine HCl [Lidocaine Viscous] See Rx Instructions .ROUTE 10/29/19 10/29/19 History .COMPLEX PRN montelukast 10 mg PO QAM 10/29/19 10/29/19 History ondansetron 4 mg PO Q6H PRN 10/29/19 10/29/19 History tobramycin [Bethkis] 300 mg INHALATION Q12H 10/29/19 10/29/19 History Patient History Medical History Anemia Asthma Bronchiectasis Chronic obstructive pulmonary disease Coagulopathy Difficult intravenous access Hepatic lesion HIV (human immunodeficiency virus infection) HIV disease Hypokalemia Hypomagnesemia Hypothyroidism Mood disorder Oral candidiasis Pericardial effusion Pneumonia Sepsis Severe protein-calorie malnutrition Underweight Family History Mother Hypertension Other No significant family history Social History Preferred Language: Kiswahili Communication Ability: Effective Box Toe Maker Required: No Beliefs That Will Affect Care: None Current Living Situation: Family Current Living Situation Comment: With 15 year old daughter Other Information That Helps Us Care for You: No Feels Safe at Home: Yes Safety Concerns: Feels Safe At This Time Smoking Status: Never smoker Do You Dip or Chew Tobacco: No ; Second Hand Exposure: No ; Hx Alcohol Use: No Hx Substance Use: No Review of Systems Review of Systems: per H&P Results & Data ([facility]) Vital Signs (Past 12 Hours) Vital Signs Temp Pulse Pulse Resp BP Pulse Ox 10/31/19 11:06 36.6 C 87 19 92/52 L 98 10/31/19 08:17 37.1 C 93 H 16 92/60 L 99 10/31/19 07:14 89 14 98 10/31/19 07:12 87 10/31/19 04:05 37.5 C 91 H 17 87/56 L 99 Laboratory Results Microbiology 10/30/19 12:00 Urine,Clean Catch Urine Culture - Preliminary No growth - Less than 1,000 colonies/mL, Final report to follow. 10/30/19 Unknown Sputum, Expectorated Gram Stain - Final 10/29/19 17:55 Blood Aerobic Blood Culture - Preliminary No growth in Aerobic bottle after 24 hours. 10/29/19 17:55 Blood Anaerobic Blood Culture - Preliminary No growth in Anaerobic bottle after 24 hours. 10/29/19 18:01 Blood Aerobic Blood Culture - Preliminary No growth in Aerobic bottle after 24 hours. 10/29/19 18:01 Blood Anaerobic Blood Culture - Preliminary No growth in Anaerobic bottle after 24 hours. 10/30/19 11:45 Sputum, Expectorated Gram Stain - Final PG Care Time/CCT Total # of Minutes Spent Total Time Spent with Patient: Total time spent is greater than 50% in coordination of care (as documented) at patient's floor/unit and/or counseling patient: Coding Level of Care Code 19243 Inpt Consult Level 2 Diagnoses Multifocal pneumonia J18.9 HIV (human immunodeficiency virus infection) B20 Oral thrush B37.0
[2019-10-31] MEDS: MAGNESIUM SULFATE / D5W 1 GM/100 ML BAG IV SCH ×2 (14:34→16:01)
[2019-10-31] MEDS: POTASSIUM CHLORIDE / WTR 10 MEQ/100 ML PLCT IV SCH ×2 (14:41→16:01)
[2019-10-31] MEDS ORDERED: LIDOCAINE/PRILOCAINE 2.5% EA CRM EXT STA (14:42)
[2019-10-31] MEDS: DAPSONE 25 MG TAB PO SCH (14:47)
[2019-10-31] MEDS: VORICONAZOLE IV SCH (18:46)
[2019-10-31] MEDS: SODIUM CHLORIDE 0.9% IV SCH (18:46)
[2019-10-31] MEDS ORDERED: VANCOMYCIN TROUGH ONE ×2 (20:30→23:30)
[2019-11-01] MEDS: VANCOMYCIN HCL 750 MG in SODIUM CHLORIDE 0.9% 250 ML IV SCH ×2 (00:18→11:18)
[2019-11-01] MEDS: NSS + 20MEQ KCL 20 MEQ/1,000 ML BAG IV SCH ×3 (02:22→15:00)
[2019-11-01] MEDS: AZTREONAM 1,000 MG in DEXTROSE 5% 100 ML IV SCH ×2 (05:48→13:15)
[2019-11-01] MEDS: LEVOTHYROXINE 125 MCG PO SCH (05:48)
--- NOTE | 2019-11-01 06:11 | Electrocardiogram Report ---
Test Reason : Blood Pressure : / mmHG Vent. Rate : 078 BPM Atrial Rate : 078 BPM P-R Int : 172 ms QRS Dur : 088 ms QT Int : 426 ms P-R-T Axes : 071 006 053 degrees QTc Int : 485 ms Normal sinus rhythm Prolonged QT Abnormal ECG When compared with ECG of 29-OCT-2019 16:39, Vent. rate has decreased BY 42 BPM Confirmed by Kory Lawson ([id number]) on 11/01/2019 6:11:11 AM Referred By: REFERRED SELF Confirmed By:Kory Lawson
[2019-11-01] MEDS: ALBUT/IPRATROP 3MG/0.5MG NEB 3 ML VIAL NEB SCH ×4 (07:20→19:26)
[2019-11-01] MEDS: TOBRAMYCIN SULFATE 300 MG in SYRINGE 0 ML INH SCH ×2 (07:21→19:26)
[2019-11-01] MEDS: POTASSIUM CHLORIDE PWD 20 MEQ PACK PO SCH ×3 (07:57→21:19)
[2019-11-01] MEDS: UMECLIDINIUM/VILANTEROL 62.5/25MCG 7 PUFFS/INHALER INH SCH (07:57)
[2019-11-01] MEDS: MONTELUKAST SOD 5 MG CHEWABLE TAB PO SCH (07:58)
[2019-11-01] MEDS: guaiFENesin SUGAR FREE 200 MG/10 ML UDC PO SCH ×2 (07:58→21:19)
[2019-11-01] MEDS: DOXYCYCLINE HYCLATE 100 MG CAP PO SCH ×2 (07:59→21:22)
[2019-11-01] MEDS: DOLUTEGRAVIR SODIUM 50 MG TAB PO SCH ×2 (08:00→21:22)
[2019-11-01] MEDS: EMTRICITABINE/TENOFOVIR TAB PO SCH (08:02)
[2019-11-01] MEDS: DAPSONE 25 MG TAB PO SCH (08:06)
[2019-11-01] MEDS: NYSTATIN SUSP 500,000 U/5 ML UDC PO SCH ×4 (08:08→21:22)
[2019-11-01 08:09] LABS: Basophils # (auto) 0.01 K/uL (0-0.2); Basophils % (auto) 0.5 %; Eosinophils # (auto) 0.28 K/uL (0-0.5); Eosinophils % (auto) 12.7 %; Hematocrit (blood only) 25.4 % (37-47); Hemoglobin 8.9 g/dL (12.0-16.0); Immature Granulocytes # (auto) 0.02 K/uL (0.00-0.02); Immature Granulocytes % (auto) 0.9 %; Lymphocytes # (auto) 0.48 K/uL (1.2-3.4); Lymphocytes % (auto) 21.7 %; Mean Corpuscular Hemoglobin 28.1 pg (25-34); Mean Corpuscular Volume 80.1 fL (80-100); Mean Platelet Volume 10.3 fL (7.4-10.4); Monocytes % (auto) 13.6 %; Neutrophils # (auto) 1.12 K/uL (1.4-6.5); Neutrophils % (auto) 50.6 %; Platelet Count 245 K/uL (130-400); RDW Coefficient of Variation 16.5 % (11.5-14.5); RDW Standard Deviation 48.6 fL (36.4-46.3); Red Blood Count 3.17 M/uL (4.2-5.4); White Blood Count 2.21 K/uL (4.8-10.8)
[2019-11-01] MEDS: DORAVIRINE 100 MG PO SCH (08:09)
[2019-11-01] MEDS: SODIUM CHLORIDE 0.9% IV SCH ×2 (08:11→18:50)
[2019-11-01] MEDS: VORICONAZOLE IV SCH ×2 (08:11→18:50)
[2019-11-01 08:21] LABS: INR 1.1 (0.9-1.1); Partial Thromboplastin Ratio 1.4; Partial Thromboplastin Time 38.7 Seconds (21.0-31.0); Prothrombin Time 11.9 Seconds (9.0-12.0)
[2019-11-01 08:49] LABS: Albumin Globulin Ratio 0.3 (0.9-2); Albumin Level 1.5 gm/dl (3.4-5.0); BUN Creatinine Ratio 11.1 (10-20); Bilirubin,Total 0.2 mg/dl (0.2-1); Creatinine Clr Calc Pharmacy 86.9 ml/min; Est GFR (African American) 119.6; Est GFR (Non-African American) 103.2; Globulin 5.1 gm/dl (2.5-4.0); Magnesium 1.9 mg/dl (1.8-2.4); Phosphorus 2.5 mg/dl (2.5-4.9); Potassium 3.8 mmol/L (3.5-5.1); Total Protein 6.6 gm/dl (6.4-8.2)
[2019-11-01] MEDS: MAGNESIUM SULFATE / D5W 1 GM/100 ML BAG IV SCH ×2 (10:17→11:10)
--- NOTE | 2019-11-01 11:18 | XRay Report ---
SINGLE VIEW CHEST CLINICAL HISTORY: Sepsis. Multifocal airspace consolidation. FINDINGS: An AP, portable, upright chest radiograph is compared to study dated 10/29/2019 and correlat ed with chest CT dated 07/27/2019. The examination is degraded by portable technique and patient rotati on. A left-sided PICC line has been placed. The tip of the catheter projects over the SVC. The cardio mediastinal silhouette is unremarkable. Multifocal airspace consolidation is similar in appearance to 10/29/2019 examination. This is greatest in the right upper lobe and at the left lung base. There is likely a trace left pleural effusion. No pneumothorax is seen. The bony thorax is grossly intact. IMPRESSION: 1. Multifocal airspace consolidation has not significantly changed from 10/29/2019. Continued radiogra [facility] follow-up to resolution is recommended. 2. A left-sided PICC line is new from previous. ACT 112: Negative or not required by law. Electronically signed by: Mikie Canada M.D. 11/01/2019 11:17 AM
[2019-11-01] MEDS ORDERED: LIDOCAINE 2% JELLY 5 ML TUBE EXT PRN (14:26)
--- NOTE | 2019-11-01 16:07 | Pharmacy Report ---
Pharmacy Abx Dose Short Note - Date of Service November 01, 2019 - Assessment & Plan Assessment 49 year old F receiving vancomycin, Azactam and doxycycline for treatment of multifocal pneumonia Day # 3/7 of antimicrobial therapy. ID and pulmonology have been consulted MRSA swab negative, initial sputum cultures with normal phong, repeat sputum cultures pending Plan Vancomycin Consider discontinuation in the setting of negative MRSA swab. With risk factors for resistance present, may consider waiting on sputum culture results prior de-escalating. Patient meets criteria for vancomycin AUC dosing nomogram AUC/RAYMOND is the preferred PK/PD target for vancomycin Target AUC/RAYMOND = 400-600 Trough level of 13.8 mcg/mL is predicted to achieve target AUC/RAYMOND AUC guided dosing is effective and associated with decreased risk of nephrotoxicity Azactam and doxycycline - pharmacy is not consulted but dosing is appropriate Pharmacy will continue to follow and will adjust dose/frequency as necessary. Thank you.
[2019-11-01] MEDS: PROCHLORPERAZINE 5 MG in SYRINGE 4 ML IV PRN (16:30)
--- NOTE | 2019-11-01 17:05 | Pulmonology Progress Note ---
Date of Service November 01, 2019 Assessment & Plan (1) Chronic obstructive pulmonary disease: (2) Bronchiectasis: (3) Pneumonia: Chest x-ray: 10/29/2019: Hyperinflated film, again chronic right upper lobe and left lower lobe infiltrate, the haziness which is appreciated on previous admission 09/11/2019 are not seen anymore. --Intermediate gold QuantiFERON I was looking at the previous chart there is no documentation of 3 consecutive negative AFBs. Patient did have an AFB done as an outpatient by [facility] which was negative for cultures at 8 weeks. Patient does have bronchiectasis on the CAT scan especially of the right middle lobe, this most likely goes along with DARCIE Would get 3 consecutive AFB sputum culture. 2 AFB smears are negative as of 10/31/2019 Continue with airborne precautions --Multilobar pneumonia In a patient with HIV/AIDS, 09/03/19 CD4 count 11 with viral load 2430 (as per IDs latest note) Patient stated that she is compliant with her HIV medication but that has been history that she has been noncompliant. As per the ID note from [facility] patient is on dapsone and azithromycin for chronic prophylaxis and AIDS Continue with broad-spectrum antibiotics with atypical coverage. Patient's COVID 19 was negative on 10/28 along with influenza panel --Bronchiectasis Patient has underlying bronchiectasis especially bilateral middle lobe seems like DARCIE in a patient with AIDS. Patient had history of Pseudomonas and expectorated sputum done January 2019 which was pansensitive except intermediate for gentamicin. Patient is on inhaled tobramycin at home. Continue with it while in hospital. Continue with antitussive medication with guaifenesin. --HIV/AIDS Continue with [facility] therapy Recommend prophylactic weekly azithromycin as well as dapsone for DARCIE and PCP prophylaxis. As per Dr Pérez, case was discussed with the ID physician who is taking care of the patient and he wants her only on dapsone. -- COPD Patient is on Laba/lama inhaler at home Continue with that. Plan: Chest x-ray from today personally reviewed there is no significant change in the right upper lobe with a left lower lobe infiltrate that the patient has. Patient seen and examined at bedside today. 2 AFB smear negative to date. The last AFB smear was taken today in the morning. If that comes out to be negative patient can be taken off isolation. Had an in-depth discussion regarding bronchoscopy with the patient. Explained to the patient that she has been having this infiltrates in the lung for a very long time and bronchoscopy is the only way to find out what kind of infection she has and this will help treat underlying issue that she has. Patient kept reiterating that she had a very bad experience when she had bronchoscopy done in the past and she was not able to talk for more than 2 mo nths. I try to explain in the best layman terms possible the importance of doing a bronchoscopy but is she still does not want it. From pulmonary perspective would recommend the patient to be on flutter valve, give doxycycline for total of 5 more days. Antitussive medication with mucolytic for the chronic cough that the patient has. Patient is to continue with tobramycin. Patient follows up with Dr. Barbosa as an outpatient. If the patient does agree it can be done as an outpatient. Case was discussed with Dr Pérez. No further recommendations from pulmonary perspective. Will sign off please recall if needed. Please note the above document was generated using voice recognition software. It may contain grammatical, syntax or spelling errors. Laterality: bilateral Lung location: unspecified part of lung Pneumonia type: due to unspecified organism Qualified Code(s): J18.9 - Pneumonia, unspecified organism (4) Oral candidiasis: (5) AIDS (acquired immune deficiency syndrome): (6) Hemoptysis: Admission and Anticipated Discharge Date Admission Date: October 30, 2019 Anticipated date of discharge: 11/03/19 Subjective Patient seen and examined at bedside. No acute distress, no adverse events overnight. Patient states she is able to swallow better than before. Still complains of odynophagia. Cough is decreased in intensity and frequency. Very minimal hemoptysis if any. Shortness of breath is improved. Review of Systems Review of Systems: All systems reviewed & are unremarkable except as noted in HPI & below Physical Exam Physical Exam: Constitutional: No acute distress, temporal wasting HEENT: EOMI, PERRLA, dry mucous membranes, positive oral thrush Respiratory system: Decreased air entry bilaterally, more decreased on the right side, no wheeze, no rhonchi CVS: S1-S2 positive, no murmurs or gallops Abdomen: Soft, nontender, nondistended, positive bowel sounds x4 Extremities: +2 pulses bilaterally radialis/ dorsalis pedis, no cyanosis, no edema, no clubbing Neuro: Awake alert oriented x3 Psych: Normal mood and affect G/U: No [place] Skin: no rashes, warm and dry Lymphatic: no cervical or axillary lymphadenopathy Results & Data Results & Data ([facility]) Vital Signs (Past 12 Hours) Vital Signs Temp Pulse Pulse Resp BP Pulse Ox 11/01/19 16:33 36.7 C 82 19 92/52 L 100 11/01/19 15:23 85 18 100 11/01/19 13:18 36.5 C 91 H 18 102/68 100 11/01/19 11:28 77 20 97 11/01/19 10:52 36.4 C L 91 H 18 114/69 98 11/01/19 07:22 80 16 97 11/01/19 07:04 85 11/01/19 07:55 11/01/19 07:55 PG Care Time/CCT Total # of Minutes Spent Total Time Spent with Patient: Total time spent is greater than 50% in coordination of care (as documented) at patient's floor/unit and/or counseling patient: Coding Level of Care Code 43146 Subseq Hosp Care Lvl 3 Diagnoses Chronic obstructive pulmonary disease J44.9 Bronchiectasis J47.9 Pneumonia J18.9 Laterality: bilateral Lung location: unspecified part of lung Pneumonia type: due to unspecified organism Oral candidiasis B37.0 AIDS (acquired immune deficiency syndrome) B20 Hemoptysis R04.2
--- NOTE | 2019-11-01 17:13 | Hospitalist Progress Note ---
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 - COVID 19 was negative on 10/28 along with influenza panel - antitussive medication with guaifenesin - Intermediate gold QuantiFERON. AFB smear x 3 pending. - repeat CXR 10/31 shows stable infiltrates -- plan for chest CT once off airborne precautions to better characterize lung infection and perhaps esophageal anatomy given this constant chest discomfort which is likely related to uncontrolled thrush - ID consult placed. appreciate recs. # Oral thrush: - severely symptomatic, part of presenting complaint -- this is over all improving. -pt was on maintenance oral voriconazole susp prior to admission -continue with IV voriconazole (300mg IV BID x24 hours, then 200mg IV BID.) # difficult IV access -requiring multiple meds and lab draws given difficult clinical picture and pain with PO intake with resultant malnourishment (see below) -PICC line consent obtained, order for placement 10/30 # Hypokalemia / hypomagnesemia / hypophosphatemia - due to malnourishment/loose stools - goal: potassium greater than 4, magnesium greater than 2, phosphorus greater than 3 - repleting as needed # Prolonged QTc - as seen on EKG - following - repleting e-lytes as above - avoiding QT prolonging agents as able - remain on tele # elevated INR 2/2 malnourishment and JONES therapy side effects? -no s/s acute bleeding labs this AM showed low H&H, repeat H&H revealed this was an error, she is at her baseline. - supplement with IV vit K 5mg IV adm 10/30 (pt cannot tolerate any PO meds at this time) -hold blood thinning medications -follow coags daily -hemoccult pending, will likely be negative. # loose stools -resolved. FEN/GI: regular diet / boost / mylanta pRN / AVOID QT prolonging agents at this time like zofran. DVT ppx: hold lovenox in setting of increased INR. CODE STATUS: FULL DISPO: tele, plan to transition to PO awaiting sputum cultures/and oral thrush IV treatment ongoing, would go home after DC. Other chronic issues: # Underweight: - 2/2 uncontrolled oral thrush, as above # HIV (human immunodeficiency virus infection): - HIV/AIDS, last CD4 count 2 with viral load 4000 as per conversation with Pt's outpatient ID provider Dr. Ruby. - Continue HAART, dapsone ppx. Please note, patients current outpatient ID provider is Dr. Ruby with [facility] his phone [phone]. # Chronic obstructive pulmonary disease: -continue home inhalers # Hypothyroidism: -continue home synthroid - patient requests to use her own. # Mood disorder: -no acute issues. (2) Chronic obstructive pulmonary disease: (3) Hypothyroidism: (4) Multifocal pneumonia: (5) Hypokalemia: (6) Oral thrush: (7) Mood disorder: (8) Underweight: (9) HIV (human immunodeficiency virus infection): (10) Hypomagnesemia: (11) Hypophosphatemia: (12) Difficult intravenous access: Admission and Anticipated Discharge Date Admission Date: October 30, 2019 Anticipated date of discharge: 11/03/19 Supervising Physician Co-Signing Physician Notes I personally examined the patient and verified all butler points of history and exam, discussed case, and agree with decision making with Dr Pérez odd, long standing chest pain since at least last night. better than it was last night but still ongoing. eating better. chest pain goes through to the back. vitlas noted fatigued and cachectic appearing but fortunately no distress. heent nc at plaques in mouth seem to be improving, somewhat poor dentition. breathing unlabored no accessory muscles no conversational dyspnea no distress. skin no pallor or icterus. neuro no focal deficits. chest pain - suspect relates to either pulmonary infection, anthony (strongly suspect esophageal) or both. does not appear cardiac. contiue to follow - anticipate some degree of definement with chest CT when able to obtain, consider EGD if needed but since thrush will nee prolonged treatment doubt this would change managmeent. failure to thrive -mostly poor PO intake likely related to thrush, likely also fatigue/lack of appetite from pulmonary infection -intake improving thrush -voriconazole IV ongoing -nystatin swish PO bronchiectasis/appearance of pneumonia -zithromax and aztreonam for now pending further cultures -quantiferon, sputum for afb -strongly does not want bronch due to inability to talk for 2 months after last one; discussed risks/benefits and she does understand limited diagnostic accuracy on infection without bronch findings. will get CT once third AFB negative to at least better define situation by pattern -appreciate pulmonary input and ID input -fortunately breathing is stable right now diarrhea -stool for Cdiff negative, diarrhea slowly improving elevated INR - improved w vitamin K - marker of malnutrition severe acute protein /calorie malnutrition likely superimposed on moderate to severe chronic --> PO intake is improving - continue to treat above and encourage, low threshold for appetite stimulant but not needed for now. otherwise as above Subjective no acute events overnight loose stools slowing down, improving electrolytes are improving still has chest discomfort all the time, sometimes worse overnight. Thrush continues. increasing PO intake slowly which is reassuring. she is adamant against bronchoscopy - had a very bad experience with previous one - lost her voice for several weeks and since no one has been able to tell her why that happened, and presumably how that could be avoided again, she refuses to repeat it. Understands r/b. spoke with pulm - if no bronch, then ok to proceed with doxy monotherapy. Review of Systems Review of Systems: chest pressure across entire chest, constant, also ongoing thrush pain, but that is improving. loose stools improved some nausea Physical Exam Physical Exam: Vitals noted and reviewed, as above GENERAL: no acute distress HEAD: normocephalic atraumatic. Temporal wasting. ENT: sclerae normal, trachea midline RESP: normal work of breathing CV: regular rate and rhythm ABDOMEN: nondistended SKIN: no rashes or jaundice PSYCH: appropriate mood and affect Results & Data Results & Data ([facility]) Vital Signs (Past 12 Hours) Vital Signs Temp Pulse Pulse Resp BP Pulse Ox 11/01/19 16:33 36.7 C 82 19 92/52 L 100 11/01/19 15:23 85 18 100 11/01/19 13:18 36.5 C 91 H 18 102/68 100 11/01/19 11:28 77 20 97 11/01/19 10:52 36.4 C L 91 H 18 114/69 98 11/01/19 07:22 80 16 97 11/01/19 07:04 85 Laboratory Results 11/01/19 11/01/19 11/01/19 Range/Units 07:55 07:55 07:55 WBC (4.8-10.8) K/uL RBC (4.2-5.4) M/uL Hgb (12.0-16.0) g/dL Hct (37-47) % MCV (80-100) fL MCH (25-34) pg MCHC (32-36) g/dL RDW Std Deviation (36.4-46.3) fL RDW Coeff of Ale (11.5-14.5) % Plt Count (130-400) K/uL MPV (7.4-10.4) fL Immature Gran % (Auto) % Neut % (Auto) % Lymph % (Auto) % [place] % (Auto) % Eos % (Auto) % Baso % (Auto) % Immature Gran # (Auto) (0.00-0.02) K/uL Neut # (Auto) (1.4-6.5) K/uL Lymph # (Auto) (1.2-3.4) K/uL [place] # (Auto) (0.11-0.59) K/uL Eos # (Auto) (0-0.5) K/uL Baso # (Auto) (0-0.2) K/uL PT 11.9 (9.0-12.0) Seconds INR 1.1 (0.9-1.1) APTT 38.7 H (21.0-31.0) Seconds PTT Ratio 1.4 Sodium 142 (136-145) mmol/L Potassium 3.8 D (3.5-5.1) mmol/L Chloride 121 H (98-107) mmol/L Carbon Dioxide 13 L (21-32) mmol/L Anion Gap 8.0 (3-11) BUN 7 (7-18) mg/dl Creatinine 0.67 (0.6-1.2) mg/dl Est Cr Clr Drug Dosing 86.9 ml/min Est GFR ( Amer) 119.6 Est GFR (Non-Af Amer) 103.2 BUN/Creatinine Ratio 11.1 (10-20) Glucose 87 (70-99) mg/dl Calcium 8.0 L (8.5-10.1) mg/dl Phosphorus 2.5 (2.5-4.9) mg/dl Magnesium 1.9 (1.8-2.4) mg/dl Total Bilirubin 0.2 (0.2-1) mg/dl AST 29 (15-37) U/L ALT 14 (12-78) U/L Alkaline Phosphatase 61 (45-117) U/L Total Protein 6.6 (6.4-8.2) gm/dl Albumin 1.5 L (3.4-5.0) gm/dl Globulin 5.1 H (2.5-4.0) gm/dl Albumin/Globulin Ratio 0.3 L (0.9-2) Vancomycin Trough (See Comment) mcg/ml Histoplasma Antibody Pending U Histopl Galactoman Ag 11/01/19 10/31/19 10/31/19 Range/Units 07:55 23:48 22:34 WBC 2.21 L (4.8-10.8) K/uL RBC 3.17 L (4.2-5.4) M/uL Hgb 8.9 L (12.0-16.0) g/dL Hct 25.4 L (37-47) % MCV 80.1 (80-100) fL MCH 28.1 (25-34) pg MCHC 35.0 (32-36) g/dL RDW Std Deviation 48.6 H (36.4-46.3) fL RDW Coeff of Ale 16.5 H (11.5-14.5) % Plt Count 245 (130-400) K/uL MPV 10.3 (7.4-10.4) fL Immature Gran % (Auto) 0.9 % Neut % (Auto) 50.6 % Lymph % (Auto) 21.7 % [place] % (Auto) 13.6 % Eos % (Auto) 12.7 % Baso % (Auto) 0.5 % Immature Gran # (Auto) 0.02 (0.00-0.02) K/uL Neut # (Auto) 1.12 L (1.4-6.5) K/uL Lymph # (Auto) 0.48 L (1.2-3.4) K/uL [place] # (Auto) 0.30 (0.11-0.59) K/uL Eos # (Auto) 0.28 (0-0.5) K/uL Baso # (Auto) 0.01 (0-0.2) K/uL PT (9.0-12.0) Seconds INR (0.9-1.1) APTT (21.0-31.0) Seconds PTT Ratio Sodium (136-145) mmol/L Potassium (3.5-5.1) mmol/L Chloride (98-107) mmol/L Carbon Dioxide (21-32) mmol/L Anion Gap (3-11) BUN (7-18) mg/dl Creatinine (0.6-1.2) mg/dl Est Cr Clr Drug Dosing ml/min Est GFR ( Amer) Est GFR (Non-Af Amer) BUN/Creatinine Ratio (10-20) Glucose (70-99) mg/dl Calcium (8.5-10.1) mg/dl Phosphorus (2.5-4.9) mg/dl Magnesium (1.8-2.4) mg/dl Total Bilirubin (0.2-1) mg/dl AST (15-37) U/L ALT (12-78) U/L Alkaline Phosphatase (45-117) U/L Total Protein (6.4-8.2) gm/dl Albumin (3.4-5.0) gm/dl Globulin (2.5-4.0) gm/dl Albumin/Globulin Ratio (0.9-2) Vancomycin Trough 13.8 (See Comment) mcg/ml Histoplasma Antibody U Histopl Galactoman Ag Pending Medications Administered Current Inpatient Medications Acetaminophen (Tylenol Soln) 650 mg PEG Q4H PRN PRN Reason: PAIN/ FEVER Stop: 11/29/19 08:45 Al Hydrox/Mg Hydrox/Simethicone (Maalox) 15 ml PO Q4H PRN PRN Reason: Dyspepsia Stop: 11/29/19 02:09 Al Hydrox/Mg Hydrox/Simethicone (Maalox Max) 30 ml PO Q6H PRN PRN Reason: Nausea Stop: 11/29/19 19:16 Albuterol (Duoneb) 3 ml NEB QIDR ROSMERY Stop: 11/29/19 06:59 Last Admin: 11/01/19 15:23 Dose: 3 ml Documented by: Dapsone (Dapsone) 100 mg PO DAILY [facility] Stop: 11/30/19 13:14 Last Admin: 11/01/19 08:06 Dose: 100 mg Documented by: Dolutegravir Sodium (Tivicay) 50 mg PO BID [facility] Stop: 11/29/19 02:09 Last Admin: 11/01/19 08:00 Dose: 50 mg Documented by: Doxycycline Hyclate (Vibramycin) 100 mg PO BID [facility] Stop: 11/06/19 20:59 Last Admin: 11/01/19 07:59 Dose: 100 mg Documented by: Emtricitabine/Tenofovir (Truvada 200 Mg-300 Mg) 1 tab PO QAM [facility] Stop: 11/30/19 09:59 Last Admin: 11/01/19 08:02 Dose: 1 tab Documented by: Enoxaparin Sodium (Lovenox) 30 mg SQ Q24H [facility] Stop: 11/29/19 08:59 Last Admin: 10/30/19 08:40 Dose: Not Given Documented by: Guaifenesin (Robitussin Sugar Free) 400 mg PO BID [facility] Stop: 11/29/19 20:59 Last Admin: 11/01/19 07:58 Dose: Not Given Documented by: Guaifenesin/Dextromethorphan (Robitussin Cough-Chest Dm) 5 ml PO Q6H PRN PRN Reason: Cough Stop: 11/29/19 18:35 Tobramycin Sulfate 300 mg/ (Syringe) 7.5 mls @ 0.033 mls/min INH Q12R [facility] Stop: 11/29/19 06:59 Last Admin: 11/01/19 07:21 Dose: 0.033 mls/min Documented by: Voriconazole 200 mg/ Sodium (Chloride) 100 mls @ 50 mls/hr IV Q12H [facility] Stop: 11/30/19 18:59 Last Infusion: 11/01/19 10:11 Dose: Infused Documented by: Prochlorperazine 5 mg/ Syringe 5 mls @ 5 mls/min IV QID PRN PRN Reason: Nausea And Vomiting Stop: 12/01/19 14:56 Last Admin: 11/01/19 16:30 Dose: 5 mls/min Documented by: Lidocaine HCl (Xylocaine 2% Jelly) 3 ml EXT QID PRN PRN Reason: pain Stop: 12/01/19 16:59 Magnesium Hydroxide (Milk Of Magnesia) 30 ml PO Q12H PRN PRN Reason: Constipation Stop: 11/29/19 02:09 Miscellaneous Information (Consult) 1 ea N/A UD PRN PRN Reason: Consult Stop: 11/28/19 20:56 Montelukast Sodium (Singulair) 10 mg PO QAM ROSMERY Stop: 11/30/19 08:59 Last Admin: 11/01/19 07:58 Dose: Not Given Documented by: Doravirine 100mg ~ Non-Formulary Patient's Own Med 1 ea PO DAILY ROSMERY Stop: 11/30/19 08:59 Last Admin: 11/01/19 08:09 Dose: 100 mg Documented by: Synthorid 125 Mcg ~ Non-Formulary Patient's Own Med 1 ea PO DAILYBB ROSMERY Stop: 11/30/19 06:29 Last Admin: 11/01/19 05:48 Dose: 125 mcg Documented by: Nystatin (Mycostatin) 5 ml PO QID ROSMERY Stop: 11/29/19 12:59 Last Admin: 11/01/19 16:30 Dose: 5 ml Documented by: Potassium Chloride (Klor-Con Pwd) 20 meq PO TID ROSMERY Stop: 11/30/19 08:59 Last Admin: 11/01/19 13:16 Dose: Not Given Documented by: Umeclidinium/Vilanterol (Anoro Ellipta 62.5/25 Mcg Inh) 1 puffs INH DAILY ROSMERY Stop: 11/29/19 08:59 Last Admin: 11/01/19 07:57 Dose: Not Given Documented by: Resident Activity Tracking Resident Involvement: Resident Care Provided Care Provided: Adult Hospital Medicine (1) Hypothyroidism Hypothyroidism type: acquired Qualified Code(s): E03.9 - Hypothyroidism, unspecified
--- NOTE | 2019-11-01 18:43 | Billing Data ---
Date of Service November 01, 2019 Coding Level of Care Code 55235 Subseq Hosp Care Lvl 3
[2019-11-01] MEDS ORDERED: MoRPHine SULFATE 2 MG/ML CARP IV PRN (21:14)
--- NOTE | 2019-11-01 22:48 | Electrocardiogram Report ---
Test Reason : Blood Pressure : / mmHG Vent. Rate : 083 BPM Atrial Rate : 083 BPM P-R Int : 164 ms QRS Dur : 076 ms QT Int : 410 ms P-R-T Axes : 075 -13 031 degrees QTc Int : 481 ms Normal sinus rhythm Prolonged QT Abnormal ECG When compared with ECG of 31-OCT-2019 21:01, No significant change was found Confirmed by Kory Lawson ([id number]) on 11/01/2019 10:48:41 PM Referred By: REFERRED SELF Confirmed By:Kory Lawson
[2019-11-02 06:13] LABS: BUN Creatinine Ratio 8.9 (10-20); Calcium 7.8 mg/dl (8.5-10.1); Creatinine Clr Calc Pharmacy 86.9 ml/min; Est GFR (African American) 119.6; Est GFR (Non-African American) 103.2; Magnesium 1.7 mg/dl (1.8-2.4); Potassium 3.8 mmol/L (3.5-5.1)
[2019-11-02 06:16] LABS: Phosphorus 3.2 mg/dl (2.5-4.9)
[2019-11-02] MEDS: VORICONAZOLE IV SCH ×2 (06:30→20:35)
[2019-11-02] MEDS: SODIUM CHLORIDE 0.9% IV SCH ×2 (06:30→20:35)
[2019-11-02] MEDS: LEVOTHYROXINE 125 MCG PO SCH (07:06)
[2019-11-02] MEDS: ALBUT/IPRATROP 3MG/0.5MG NEB 3 ML VIAL NEB SCH ×4 (07:24→20:49)
[2019-11-02] MEDS: TOBRAMYCIN SULFATE 300 MG in SYRINGE 0 ML INH SCH ×2 (07:24→20:49)
[2019-11-02] MEDS: UMECLIDINIUM/VILANTEROL 62.5/25MCG 7 PUFFS/INHALER INH SCH (08:00)
[2019-11-02] MEDS: DAPSONE 25 MG TAB PO SCH (08:00)
[2019-11-02] MEDS: ENOXAPARIN INJ 30 MG/0.3 ML SYR SQ SCH (08:01)
[2019-11-02] MEDS: DORAVIRINE 100 MG PO SCH (08:03)
[2019-11-02] MEDS: guaiFENesin SUGAR FREE 200 MG/10 ML UDC PO SCH ×2 (08:04→20:34)
[2019-11-02] MEDS: NYSTATIN SUSP 500,000 U/5 ML UDC PO SCH ×4 (08:04→20:35)
[2019-11-02] MEDS: POTASSIUM CHLORIDE PWD 20 MEQ PACK PO SCH ×3 (08:05→20:35)
[2019-11-02] MEDS: MONTELUKAST SOD 5 MG CHEWABLE TAB PO SCH (08:06)
[2019-11-02] MEDS: EMTRICITABINE/TENOFOVIR TAB PO SCH (08:07)
[2019-11-02] MEDS: DOLUTEGRAVIR SODIUM 50 MG TAB PO SCH ×2 (08:07→20:34)
[2019-11-02] MEDS: DOXYCYCLINE HYCLATE 100 MG CAP PO SCH ×2 (08:08→20:35)
--- NOTE | 2019-11-02 10:59 | CT Scan Report ---
CT chest wo con CT DOSE: 181.30 mGycm CLINICAL HISTORY: 49 years-old Female with recurrent/chronic pneumonia. Chronic pneumonia TECHNIQUE: Multiaxial CT images of the chest were performed without contrast. A dose lowering techni que was utilized adhering to the principles of ALARA. COMPARISON: Chest CT 07/27/2019, 10/09/2018, 08/05/2018. FINDINGS: Unremarkable thyroid. Left subclavian [id number] catheter terminates within the right atrium. Smal l pericardial effusion. The heart is normal in size. No thoracic aortic aneurysm. The pulmonary arter y is dilated measuring up to 3.3 cm transversely. Mildly prominent paratracheal and subcarinal lymph nodes measure up to 8 mm. Trace pleural effusions. No pneumothorax. Mild biapical pleural-parenchymal scarring. There is a leas t moderate bronchial wall thickening which is most pronounced in the mid and lower lung zones with mu ltifocal areas of mucous plugging. Tree-in-bud nodules with bronchovascular distribution of patchy gr oundglass opacities are noted within all lobes bilaterally. Irregular consolidation is also present w ithin the right upper and middle lobes and left lower lobe which has progressively worsened from comp arison. Bronchiectasis of the right middle and upper lobes and to lesser extent in the lingula redemo nstrated with chronic volume loss of the right middle lobe. The previously noted linear consolidation of the right upper lobe which measured 2.6 x 1.0 cm now measures approximately 3.7 x 2.6 cm. Irregul ar cavitary consolidation of the left lower lobe lateral basal segment measures 3.6 x 2.8 cm in AP an d transverse dimension. Greatest dimension measuring up to 6.4 cm as measured on the sagittal images in an oblique craniocaudal dimension. Ill-defined hypodense 2.5 cm lesion of the anterior right hepatic lobe appears unchanged from compari son. The breast parenchyma and soft tissues are unremarkable. Bones appear intact. No suspicious osse ous lesions or acute fracture. Mild convex left curvature of the upper thoracic spine. IMPRESSION: 1. Progressively worsened irregular consolidative and groundglass opacities within a multilobar distr ibution, most pronounced in the right upper and middle lobes and left lower lobe. Many of the consoli dations demonstrates central cavitation including the dominant 6.4 cm consolidative opacity of the le ft lower lobe. Relapsing and remitting irregular opacities have been present on studies dating back t o 08/05/2018. These findings are suggestive of a chronic atypical cavitary pneumonia. Nontuberculous m ycobacterium among other etiologies considered. Close follow-up is needed. 2. Bronchitis with mucous plugging and multi segmental bronchiectasis redemonstrated. 3. Pulmonary artery hypertension. ACT 112: Positive. There are findings on this exam that require communication between the performing entity and the patient following Patient Test Result Information Act ([place] Act 112) guidelines. Electronically signed by: Adonis Poole M.D. 11/02/2019 10:57 AM
--- NOTE | 2019-11-02 11:21 | Infectious Disease Progress Nt ---
Date of Service November 02, 2019 Assessment & Plan (1) Multifocal pneumonia: She will continue on HAART. She should continue on abx for PNA pending sputum culture results - all cultures normal phong. agree with d/c on doxy. she has had long standing low CD4 and detectable viral load despite multiple differing regimens, she remains with CD4 <50 and remains high risk for several OI, including DARCIE. she is to be on prophylaxis for this based on last ID visit 07/2019. She did recently have negative AFB culture but agree with repeat testing, IGRA less helpful due to low CD4. she does have long standing OI with oral thrush and should remain on treatment, although not likely to improve significantly unless CD4 improves, have been unable in past to obtain records/confirmation of fluconazole resistant thrush - she has also refused many po meds and prefers liquid formulation. Due to low CD4/asthma she remains high risk for recurrent CAP. COVID and flu negative. Would suggest bronch if sputum culture negative. would also suggest serum crypto and histo antigen (although she has been on fdc antifungal) If she undergoes bronch, would suggest biopsy and testing for PCP, however less likely as she is to be on rx for pcp prophylaxis, O2 sat 99% on RA. Will follow results. she will need close follow up with HIV provider post d/c. she did express understanding of this on most recent phone call and did confirm that she has established care for ongoing HIV treatment elsewhere. (2) HIV (human immunodeficiency virus infection): (3) Oral thrush: Admission and Anticipated Discharge Date Admission Date: October 30, 2019 Subjective pt afb culture negative x 3, out of airborne isolation. remains on several abx, pulm did discuss bronch, she has again declined, pulm has suggested ongoing treatment for CAP with outpatient followup post d/c. she continues on HAART and tolerating well. prophylaxis discussed with HIV provider. afebrile. crypto antigen negative. Results & Data ([facility] [place]) Vital Signs (Past 12 Hours) Vital Signs Temp Pulse Resp BP Pulse Ox 11/02/19 07:24 71 18 100 11/02/19 07:23 36.7 C 77 16 94/58 L 99 Laboratory Results Microbiology 11/01/19 09:12 Sputum, Expectorated Gram Stain - Final 11/01/19 09:12 Sputum, Expectorated Sputum Culture - Preliminary Heavy normal phong present, Final report to follow. 11/01/19 09:12 Sputum, Expectorated Fungal Smear - Final 11/01/19 09:12 Sputum, Expectorated Acid Fast Bacilli Smear - Final 10/30/19 Unknown Sputum, Expectorated Gram Stain - Final 10/30/19 Unknown Sputum, Expectorated Sputum Culture - Final Heavy normal phong. 11/01/19 07:55 Blood Cryptococcal Antigen Test - Final 10/30/19 12:00 Urine,Clean Catch Urine Culture - Final No growth - less than 1,000 colonies/mL. 10/31/19 08:19 Sputum, Expectorated Acid Fast Bacilli Smear - Final 10/30/19 16:02 Sputum, Expectorated Acid Fast Bacilli Smear - Final 10/30/19 11:45 Sputum, Expectorated Gram Stain - Final 10/30/19 11:45 Sputum, Expectorated Sputum Culture - Final Heavy normal phong. 10/29/19 17:55 Blood Aerobic Blood Culture - Preliminary No growth in Aerobic bottle after 48 hours. 10/29/19 17:55 Blood Anaerobic Blood Culture - Preliminary No growth in Anaerobic bottle after 48 hours. 10/29/19 18:01 Blood Aerobic Blood Culture - Preliminary No growth in Aerobic bottle after 48 hours. 10/29/19 18:01 Blood Anaerobic Blood Culture - Preliminary No growth in Anaerobic bottle after 48 hours. PG Care Time/CCT Total # of Minutes Spent Total Time Spent with Patient: Total time spent is greater than 50% in coordination of care (as documented) at patient's floor/unit and/or counseling patient: Coding Level of Care Code 52308 Subseq Hosp Care Lvl 1 Diagnoses Multifocal pneumonia J18.9 HIV (human immunodeficiency virus infection) B20 Oral thrush B37.0
--- NOTE | 2019-11-02 15:51 | Hospitalist Progress Note ---
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 TB is unlikely. - pt adamantly declines bronchoscopy unfortunately -- d/w pulm, given her worsening chest CT scan + cavitary lesions (comp to Feb scan) her lungs are definitely worse, and a sampling is necessary for proper treatment -- could be DARCIE in which case would definitely get worse without proper treatment which would be months long course of various IV and PO abx. - respiratory status is clinically improving, cont monotherapy with doxycline for total of 10 day course (or longer if clinically indicated). - COVID 19 was negative on 10/28 along with influenza panel. Received 4 days total of Vanc and Aztreonam. - antitussive medication with guaifenesin - ID consult - see notes. - add flutter valve and IS 11/01. # Oral thrush: - severely symptomatic, part of presenting complaint -- this is over all improving however ultimately needs better control of her HIV/AIDS for meaningful long lasting course. -pt was on maintenance oral voriconazole susp prior to admission -continue with IV voriconazole (300mg IV BID x24 hours, then 200mg IV BID.) and nystatin swish. To resume home dosing + nystatin upon discharge. # difficult IV access -requiring multiple meds and lab draws given difficult clinical picture and pain with PO intake with resultant malnourishment (see below) -PICC line consent obtained, placed 10/30 - has arranged home health for this. # Hypokalemia / hypomagnesemia / hypophosphatemia - due to malnourishment/loose stools - goal: potassium greater than 4, magnesium greater than 2, phosphorus greater than 3 - repleting as needed # Prolonged QTc - as seen on EKG early in admission - repleting e-lytes as above - avoiding QT prolonging agents as able # elevated INR 2/2 malnourishment and JONES therapy side effects? -no s/s acute bleeding labs this AM showed low H&H, repeat H&H revealed this was an error, she is at her baseline. - supplement with IV vit K 5mg IV adm 10/30 - cont PO as needed. -hold blood thinning medications -follow coags daily # loose stools - 2/2 malnourishment and now refeeding - this is over all improving, could consider immodium. FEN/GI: regular diet / boost / compazine/mylanta pRN / AVOID QT prolonging agents at this time like zofran. DVT ppx: hold lovenox in setting of increased INR. CODE STATUS: FULL DISPO: sampling of lung tissue is critical - team to explore biopsy options other than by bronchoscopy - also pending improved PO intake. To go home with PICC for ongoing HAART therapy (coordinated by her ID doctor Dr. Ruby). Other chronic issues: # Underweight: - 2/2 uncontrolled oral thrush, as above # HIV (human immunodeficiency virus infection): - HIV/AIDS, last CD4 count 2 with viral load 4000 as per conversation with Pt's outpatient ID provider Dr. Ruby. - Continue HAART, dapsone ppx. Please note, patients current outpatient ID provider is Dr. Ruby with [facility] his phone [phone]. # Chronic obstructive pulmonary disease: -continue home inhalers # Hypothyroidism: -continue home synthroid - patient requests to use her own. # Mood disorder: -no acute issues. (2) Chronic obstructive pulmonary disease: (3) Hypothyroidism: (4) Multifocal pneumonia: (5) Hypokalemia: (6) Oral thrush: (7) Mood disorder: (8) Underweight: (9) HIV (human immunodeficiency virus infection): (10) Hypomagnesemia: (11) Hypophosphatemia: (12) Difficult intravenous access: Admission and Anticipated Discharge Date Admission Date: October 30, 2019 Anticipated date of discharge: 11/03/19 Supervising Physician Co-Signing Physician Notes I personally examined the patient and verified all butler points of history and exam, discussed case, and agree with decision making with Dr Pérez eating about the same today. no new complaints. still did not want bronch - discussed worsening on CT and dire need to treat things accurately to protect her from further decline as much as we possibly can. discussed extensively and given that she was not amenable at all to bronch before also reviewed films with radiology to see if ?CT guided aspiration was possible (it appears to be, obviously with its own separate set of risks that were discussed with pt) and d/w micro lab if FNA amount of fluid would be enough to culture, including potentially culture mycobacteria (it should be) - discussed all this as well as risk of empiric treatment (possible inaccurate/less optimal regimen) with pt alma noted fatigued and cachectic appearing but fortunately no distress. heent nc at plaques in mouth seem to be improving although still present, somewhat poor dentition. breathing unlabored no accessory muscles no conversational dyspnea no distress. skin no pallor or icterus. neuro no focal deficits. failure to thrive -mostly poor PO intake likely related to thrush, likely also fatigue/lack of appetite from pulmonary infection -intake improving overall although about the same today as yesterday -continue to treat thrush and encourage intake, low threshold for appetite stimulant thrush -voriconazole IV ongoing -nystatin swish PO -seems to be at least stabilizing/slight improvement bronchiectasis/appearance of pneumonia/cavitary lesions -zithromax and aztreonam for now pending further cultures -quantiferon pending, sputum for afb negative x3 -discussed critical importance of accurate dx for a chance of effective treatment for this - rediscussed that bronch would be the preferred method, but that it appears so important to try to treat this as accurately as possible that it seems possible that CT FNA (with its own risks including pneumothorax) would maybe be an alternative, vs possibly empiric treatment based on appearance -she notes that she has a lot to think about and pray about - encouraged such - and will continue to help her through thought process as best as possible -discussed that we don't appear to need an immediate plan, but the longer this goes without optimal treatment, the worse it gets - so probably would need to decide plan in near future (ideally while admitted this time to facilitate diagnostics quickly, but probably in the next few weeks at the longest) diarrhea -stool for Cdiff negative, diarrhea slowly improving elevated INR - improved w vitamin K - marker of malnutrition severe acute protein /calorie malnutrition likely superimposed on moderate to severe chronic --> PO intake is improving - continue to treat above and encourage, low threshold for appetite stimulant but not needed for now. otherwise as above Subjective AFB cx x 3 = neg -- so taken off airborne precautions. Tolerating PO this morning but still with some discomfort in esophagus. 2 instances of nonbloody loose stools this morning. Review of Systems Review of Systems: chest pressure across entire chest, constant, also ongoing thrush pain, but that is improving. loose stools improved Physical Exam Physical Exam: Vitals noted and reviewed, as above GENERAL: no acute distress HEAD: normocephalic atraumatic. + Temporal wasting. ENT: sclerae normal, trachea midline RESP: normal work of breathing CV: regular rate and rhythm ABDOMEN: nondistended SKIN: no rashes or jaundice PSYCH: appropriate mood and affect Results & Data Results & Data ([facility]) Vital Signs (Past 12 Hours) Vital Signs Temp Pulse Resp BP Pulse Ox 11/02/19 07:24 71 18 100 11/02/19 07:23 36.7 C 77 16 94/58 L 99 Laboratory Results 11/02/19 10/31/19 Range/Units 05:07 09:34 Sodium 144 (136-145) mmol/L Potassium 3.8 (3.5-5.1) mmol/L Chloride 120 H (98-107) mmol/L Carbon Dioxide 17 L (21-32) mmol/L Anion Gap 7.0 (3-11) BUN 6 L (7-18) mg/dl Creatinine 0.67 (0.6-1.2) mg/dl Est Cr Clr Drug Dosing 86.9 ml/min Est GFR ( Amer) 119.6 Est GFR (Non-Af Amer) 103.2 BUN/Creatinine Ratio 8.9 L (10-20) Glucose 82 (70-99) mg/dl Calcium 7.8 L (8.5-10.1) mg/dl Phosphorus 3.2 (2.5-4.9) mg/dl Magnesium 1.7 L (1.8-2.4) mg/dl Crossmatch See Detail Medications Administered Current Inpatient Medications Acetaminophen (Tylenol Soln) 650 mg PEG Q4H PRN PRN Reason: PAIN/ FEVER Stop: 11/29/19 08:45 Al Hydrox/Mg Hydrox/Simethicone (Maalox) 15 ml PO Q4H PRN PRN Reason: Dyspepsia Stop: 11/29/19 02:09 Al Hydrox/Mg Hydrox/Simethicone (Maalox Max) 30 ml PO Q6H PRN PRN Reason: Nausea Stop: 11/29/19 19:16 Albuterol (Duoneb) 3 ml NEB QIDR ROSMERY Stop: 11/29/19 06:59 Last Admin: 11/02/19 13:09 Dose: Not Given Documented by: Dapsone (Dapsone) 100 mg PO DAILY ROSMERY Stop: 11/30/19 13:14 Last Admin: 11/02/19 08:00 Dose: 100 mg Documented by: Dolutegravir Sodium (Tivicay) 50 mg PO BID ROSMERY Stop: 11/29/19 02:09 Last Admin: 11/02/19 08:07 Dose: 50 mg Documented by: Doxycycline Hyclate (Vibramycin) 100 mg PO BID [facility] Stop: 11/06/19 20:59 Last Admin: 11/02/19 08:08 Dose: 100 mg Documented by: Emtricitabine/Tenofovir (Truvada 200 Mg-300 Mg) 1 tab PO QAM [facility] Stop: 11/30/19 09:59 Last Admin: 11/02/19 08:07 Dose: 1 tab Documented by: Enoxaparin Sodium (Lovenox) 30 mg SQ Q24H ROSMERY Stop: 11/29/19 08:59 Last Admin: 11/02/19 08:01 Dose: Not Given Documented by: Guaifenesin (Robitussin Sugar Free) 400 mg PO BID [facility] Stop: 11/29/19 20:59 Last Admin: 11/02/19 08:04 Dose: Not Given Documented by: Guaifenesin/Dextromethorphan (Robitussin Cough-Chest Dm) 5 ml PO Q6H PRN PRN Reason: Cough Stop: 11/29/19 18:35 Heparin Sodium (Beef Lung) (Heparin Sod 10 Unit/Ml Flush) 5 ml FLUSH PRN PRN PRN Reason: Flush Stop: 12/01/19 18:46 Tobramycin Sulfate 300 mg/ (Syringe) 7.5 mls @ 0.033 mls/min INH Q12R ROSMERY Stop: 11/29/19 06:59 Last Admin: 11/02/19 07:24 Dose: 0.033 mls/min Documented by: Voriconazole 200 mg/ Sodium (Chloride) 100 mls @ 50 mls/hr IV Q12H ROSMERY Stop: 11/30/19 18:59 Last Infusion: 11/02/19 07:59 Dose: Infused Documented by: Prochlorperazine 5 mg/ Syringe 5 mls @ 5 mls/min IV QID PRN PRN Reason: Nausea And Vomiting Stop: 12/01/19 14:56 Last Admin: 11/01/19 16:30 Dose: 5 mls/min Documented by: Lidocaine HCl (Xylocaine 2% Jelly) 3 ml EXT QID PRN PRN Reason: pain Stop: 12/01/19 16:59 Magnesium Hydroxide (Milk Of Magnesia) 30 ml PO Q12H PRN PRN Reason: Constipation Stop: 11/29/19 02:09 Montelukast Sodium (Singulair) 10 mg PO QAM [facility] Stop: 11/30/19 08:59 Last Admin: 11/02/19 08:06 Dose: Not Given Documented by: Morphine Sulfate (Morphine Sulfate) 2 mg IV Q4 PRN PRN Reason: Pain Stop: 11/15/19 21:13 Doravirine 100mg ~ Non-Formulary Patient's Own Med 1 ea PO DAILY [facility] Stop: 11/30/19 08:59 Last Admin: 11/02/19 08:03 Dose: 100 mg Documented by: Synthorid 125 Mcg ~ Non-Formulary Patient's Own Med 1 ea PO DAILYBB [facility] Stop: 11/30/19 06:29 Last Admin: 11/02/19 07:06 Dose: 125 mcg Documented by: Nystatin (Mycostatin) 5 ml PO QID [facility] Stop: 11/29/19 12:59 Last Admin: 11/02/19 11:54 Dose: Not Given Documented by: Potassium Chloride (Klor-Con Pwd) 20 meq PO TID [facility] Stop: 11/30/19 08:59 Last Admin: 11/02/19 11:54 Dose: Not Given Documented by: Umeclidinium/Vilanterol (Anoro Ellipta 62.5/25 Mcg Inh) 1 puffs INH DAILY [facility] Stop: 11/29/19 08:59 Last Admin: 11/02/19 08:00 Dose: Not Given Documented by: Resident Activity Tracking Resident Involvement: Resident Care Provided Care Provided: Adult Hospital Medicine (1) Hypothyroidism Hypothyroidism type: acquired Qualified Code(s): E03.9 - Hypothyroidism, unspecified
[2019-11-02] MEDS: MAGNESIUM OXIDE 400 MG TAB PO SCH (18:00)
--- NOTE | 2019-11-02 18:20 | Billing Data ---
Date of Service November 02, 2019 Coding Level of Care Code 44088 Subseq Hosp Care Lvl 3
[2019-11-03] MEDS: PROCHLORPERAZINE 5 MG in SYRINGE 4 ML IV PRN (05:57)
[2019-11-03] MEDS: SODIUM CHLORIDE 0.9% IV SCH ×2 (05:57→19:24)
[2019-11-03] MEDS: VORICONAZOLE IV SCH ×2 (05:57→19:24)
[2019-11-03] MEDS: LEVOTHYROXINE 125 MCG PO SCH (06:11)
[2019-11-03 06:59] LABS: BUN Creatinine Ratio 9.3 (10-20); Calcium 7.9 mg/dl (8.5-10.1); Creatinine Clr Calc Pharmacy 88.2 ml/min; Est GFR (African American) 120.2; Est GFR (Non-African American) 103.7; Magnesium 1.6 mg/dl (1.8-2.4); Potassium 3.6 mmol/L (3.5-5.1)
[2019-11-03] MEDS: ALBUT/IPRATROP 3MG/0.5MG NEB 3 ML VIAL NEB SCH ×3 (07:27→16:14)
[2019-11-03] MEDS: TOBRAMYCIN SULFATE 300 MG in SYRINGE 0 ML INH SCH ×2 (07:28→19:32)
[2019-11-03] MEDS ORDERED: LOPERAMIDE HCL 2 MG CAP PO PRN (08:12)
[2019-11-03] MEDS ORDERED: MAGNESIUM SULFATE / D5W 1 GM/100 ML BAG IV ONE (08:30)
[2019-11-03] MEDS: EMTRICITABINE/TENOFOVIR TAB PO SCH (09:13)
[2019-11-03] MEDS: DOXYCYCLINE HYCLATE 100 MG CAP PO SCH ×2 (09:14→21:33)
[2019-11-03] MEDS: DOLUTEGRAVIR SODIUM 50 MG TAB PO SCH ×2 (09:14→21:31)
[2019-11-03] MEDS: DAPSONE 25 MG TAB PO SCH (09:15)
[2019-11-03] MEDS: POTASSIUM CHLORIDE PWD 20 MEQ PACK PO SCH ×3 (09:16→21:30)
[2019-11-03] MEDS: guaiFENesin SUGAR FREE 200 MG/10 ML UDC PO SCH ×2 (09:18→21:33)
[2019-11-03] MEDS: NYSTATIN SUSP 500,000 U/5 ML UDC PO SCH ×4 (09:19→21:32)
[2019-11-03] MEDS: MONTELUKAST SOD 5 MG CHEWABLE TAB PO SCH (09:19)
[2019-11-03] MEDS: MAGNESIUM OXIDE 400 MG TAB PO SCH (09:20)
[2019-11-03] MEDS: ENOXAPARIN INJ 30 MG/0.3 ML SYR SQ SCH (09:21)
[2019-11-03] MEDS: UMECLIDINIUM/VILANTEROL 62.5/25MCG 7 PUFFS/INHALER INH SCH (09:21)
[2019-11-03] MEDS: DORAVIRINE 100 MG PO SCH (09:23)
--- NOTE | 2019-11-03 10:48 | Electrocardiogram Report ---
Test Reason : Blood Pressure : / mmHG Vent. Rate : 083 BPM Atrial Rate : 083 BPM P-R Int : 168 ms QRS Dur : 076 ms QT Int : 394 ms P-R-T Axes : 065 000 043 degrees QTc Int : 462 ms Normal sinus rhythm Nonspecific T wave abnormality Prolonged QT Abnormal ECG When compared with ECG of 01-NOV-2019 09:07, No significant change was found Confirmed by Eugene Mann ([id number]) on 11/03/2019 10:48:16 AM Referred By: REFERRED SELF Confirmed By:Chance Mann
--- NOTE | 2019-11-03 12:50 | Hospitalist Progress Note ---
Date of Service November 03, 2019 Assessment & Plan (1) Bronchiectasis: 49F with resistant HIV/aids on HAART therapy here with recurrent multifocal PNA and odynophagia 2/2 uncontrolled thrush. # Recurrent Multifocal PNA/Cavitary lesions in immunosuppressed patient - Per pulmonology consult, see related notes - as of 11/01: AFB smear x 3, so taken off airborne precautions. TB is unlikely. - Pt pondering different options: 1) Bronch: pt adamantly declines bronchoscopy unfortunately -- d/w pulm, given her worsening chest CT scan + cavitary lesions (comp to Feb scan) her lungs are definitely worse, and a sampling is necessary for proper treatment -- could be DARCIE in which case would definitely get worse without proper treatment which would be months long course of various IV and PO abx. 2) CT guided FNA 3) Empiric Tx w/o either of the above for definitive dx - respiratory status is clinically improving, cont monotherapy with doxycline for total of 10 day course (or longer if clinically indicated) -cont IV Tobramycine -with low CD4 count and h/o asthma, likely to get recurrent CAP moving forward - COVID 19 was negative on 10/28 along with influenza panel. Received 4 days total of Vanc and Aztreonam. - antitussive medication with guaifenesin - ID consult - see notes. - add flutter valve and IS 11/01. # Oral thrush-improving - severely symptomatic, part of presenting complaint -- this is over all improving however ultimately needs better control of her HIV/AIDS for meaningful long lasting course. -pt was on maintenance oral voriconazole susp prior to admission -continue with IV voriconazole (300mg IV BID x24 hours, then 200mg IV BID.) and nystatin swish. To resume home dosing + nystatin upon discharge. # difficult IV access -requiring multiple meds and lab draws given difficult clinical picture and pain with PO intake with resultant malnourishment (see below) -PICC line consent obtained, placed 10/30 - has arranged home health for this. # Hypokalemia / hypomagnesemia / hypophosphatemia - due to malnourishment/loose stools - goal: potassium greater than 4, magnesium greater than 2, phosphorus greater than 3 - repleting as needed # Prolonged QTc - as seen on EKG early in admission. Will downgrade off med tele and get daily EKG to monitor - repleting e-lytes as above - avoiding QT prolonging agents as able # elevated INR -2/2 malnourishment (marker) and JONES therapy side effects? -no s/s acute bleeding -improved with Vit K. Cont IV/PO as needed -hold blood thinning medications -follow coags daily # loose stools - 2/2 malnourishment and now refeeding - this is over all improving -c diff neg -added immodium # Underweight/Severe protein/calorie malnutrion/FTT - largely from poor PO intake 2/2 uncontrolled oral thrush, as above -PO intake improving slowly as thrush improving. Pt notes it is more 2/2 pain than appetite issue, holding off of appetite stimulant -boost shakes # HIV (human immunodeficiency virus infection): - HIV/AIDS, last CD4 count 2 with viral load 4000 as per conversation with Pt's outpatient ID provider Dr. Ruby. - Continue HAART, dapsone ppx. Please note, patients current outpatient ID provider is Dr. Ruby with [facility] his phone [phone]. # Chronic obstructive pulmonary disease: -continue home inhalers # Hypothyroidism: -continue home synthroid - patient requests to use her own. # Mood disorder: -no acute issues. FEN/GI: regular diet / boost / compazine/mylanta pRN / AVOID QT prolonging agents at this time like zofran. DVT ppx: hold lovenox in setting of increased INR. CODE STATUS: FULL DISPO: Pt pondering options. Sampling of lung tissue is critical - team to explore biopsy options other than by bronchoscopy - also pending improved PO intake. To go home with PICC for ongoing HAART therapy (coordinated by her ID doctor Dr. Ruby). Admission and Anticipated Discharge Date Admission Date: October 30, 2019 Anticipated date of discharge: 11/03/19 Supervising Physician Co-Signing Physician Notes I personally examined the patient and verified all butler points of history and exam, discussed case, and agree with decision making with Dr Morales. eating about the same- thinks the main thing getting in the way of eating better is the pain / discomfort from the thrush. still considering options as far as lung infection - thinking/praying/etc. maybe slightly leaning towards having bronchoscopy done but still very concerned about complications given past experience, but also quite concerned about CT FNA as means of diagnosis for various reasons (main stated reasons are discomfort and concern on PTX, although she seems to have an innate understanding that it is not the optimal way to best dx her infection) alma noted fatigued and cachectic appearing but fortunately no distress. heent nc at plaques in mouth seem to be improving although still present, somewhat poor dentition. breathing unlabored no accessory muscles no conversational dyspnea no distress. skin no pallor or icterus. neuro no focal deficits. failure to thrive -mostly poor PO intake likely related to thrush, likely also fatigue/lack of appetite from pulmonary infection -continue to follow PO intake -continue to treat thrush and encourage intake, low threshold for appetite stimulant but right now hold off thrush -voriconazole IV ongoing -nystatin swish PO -seems to be at least stabilizing/slight improvement -ID input noted - with CD4 so low this will be an ongoing problem until/unless her counts respond to new treatment bronchiectasis/appearance of pneumonia/cavitary lesions -zithromax and tobramycin for now pending further cultures -quantiferon pending, sputum for afb negative x3 -ideally will have procedure for sampling of infection/culture/and chance for more accurate treatment - she is considering options between bronch (her main concern is on why she couldn't talk for 2 months after, but seems aware that this would be the ideal means of dx) vs CT / FNA (concerned about pain and PTX, aware that this would likely yield dx as alternative to bronch but is by no means conventional or preferred - just better than empiric) vs empiric treatment -understands that while there is not an immediate urgency to decisions, disease will progress more without optimal treatment - is thinking towards a decision in the next day or two, also discussed arbirtrary line of no more than 2wks but would be better if decides while still inpatient to facilitate this happening diarrhea -stool for Cdiff negative, diarrhea slowly improving elevated INR - improved w vitamin K - marker of malnutrition severe acute protein /calorie malnutrition likely superimposed on moderate to severe chronic -->ongoing PO intake, low threshold for appetite stimulant but hold off for now since poor PO intake seems mostly thrush related. otherwise as above Subjective 49 yo F found in bed this AM in NAD. No reported overnight events. Notes some ongoing nausea and diarrhea, improving. Tolerating PO this morning but still with some discomfort with swallowing 2/2 thrush. Pt with no other acute concerns or complaints. Still thinking/praying over options moving forward. Review of Systems Review of Systems: All systems reviewed & are unremarkable except as noted in HPI & below Physical Exam Constitutional: + ill appearing and + cachectic (temporal wasting) Eyes: PERRL, conjunctivae normal, anicteric sclerae ENMT: Mouth: + oropharynx abnormality (thrush) Respiratory: normal respiratory effort; no respiratory distress and no labored breathing Cardiovascular: RRR, no murmur, no edema Skin: no rashes, warm and dry Psychiatric: Orientation: alert and oriented x 3 Results & Data Results & Data ([facility]) Vital Signs (Past 12 Hours) Vital Signs Temp Pulse Resp BP Pulse Ox 11/03/19 11:15 72 18 96 11/03/19 11:09 36.4 C L 76 17 98/63 L 98 11/03/19 07:30 86 18 99 Laboratory Results Laboratory Results - last 24 hr 11/03/19 05:31 Sodium 143 Potassium 3.6 Chloride 118 H Carbon Dioxide 19 L Anion Gap 6.0 BUN 6 L Creatinine 0.66 Est Cr Clr Drug Dosing 88.2 Est GFR ( Amer) 120.2 Est GFR (Non-Af Amer) 103.7 BUN/Creatinine Ratio 9.3 L Glucose 79 Calcium 7.9 L Phosphorus 3.0 Magnesium 1.6 L Medications Administered Current Inpatient Medications Acetaminophen (Tylenol Soln) 650 mg PEG Q4H PRN PRN Reason: PAIN/ FEVER Stop: 11/29/19 08:45 Al Hydrox/Mg Hydrox/Simethicone (Maalox) 15 ml PO Q4H PRN PRN Reason: Dyspepsia Stop: 11/29/19 02:09 Al Hydrox/Mg Hydrox/Simethicone (Maalox Max) 30 ml PO Q6H PRN PRN Reason: Nausea Stop: 11/29/19 19:16 Albuterol (Duoneb) 3 ml NEB QIDR [facility] Stop: 11/29/19 06:59 Last Admin: 11/03/19 11:13 Dose: 3 ml Documented by: Dapsone (Dapsone) 100 mg PO DAILY [facility] Stop: 11/30/19 13:14 Last Admin: 11/03/19 09:15 Dose: 100 mg Documented by: Dolutegravir Sodium (Tivicay) 50 mg PO BID [facility] Stop: 11/29/19 02:09 Last Admin: 11/03/19 09:14 Dose: 50 mg Documented by: Doxycycline Hyclate (Vibramycin) 100 mg PO BID [facility] Stop: 11/06/19 20:59 Last Admin: 11/03/19 09:14 Dose: 100 mg Documented by: Emtricitabine/Tenofovir (Truvada 200 Mg-300 Mg) 1 tab PO QAM [facility] Stop: 11/30/19 09:59 Last Admin: 11/03/19 09:13 Dose: 1 tab Documented by: Enoxaparin Sodium (Lovenox) 30 mg SQ Q24H [facility] Stop: 11/29/19 08:59 Last Admin: 11/03/19 09:21 Dose: Not Given Documented by: Guaifenesin (Robitussin Sugar Free) 400 mg PO BID [facility] Stop: 11/29/19 20:59 Last Admin: 11/03/19 09:18 Dose: Not Given Documented by: Guaifenesin/Dextromethorphan (Robitussin Cough-Chest Dm) 5 ml PO Q6H PRN PRN Reason: Cough Stop: 11/29/19 18:35 Heparin Sodium (Beef Lung) (Heparin Sod 10 Unit/Ml Flush) 5 ml FLUSH PRN PRN PRN Reason: Flush Stop: 12/01/19 18:46 Last Admin: 11/03/19 10:38 Dose: 5 ml Documented by: Tobramycin Sulfate 300 mg/ (Syringe) 7.5 mls @ 0.033 mls/min INH Q12R [facility] Stop: 11/29/19 06:59 Last Admin: 11/03/19 07:28 Dose: 0.033 mls/min Documented by: Voriconazole 200 mg/ Sodium (Chloride) 100 mls @ 50 mls/hr IV Q12H [facility] Stop: 11/30/19 18:59 Last Infusion: 11/03/19 07:34 Dose: Infused Documented by: Prochlorperazine 5 mg/ Syringe 5 mls @ 5 mls/min IV QID PRN PRN Reason: Nausea And Vomiting Stop: 12/01/19 14:56 Last Admin: 11/03/19 05:57 Dose: 5 mls/min Documented by: Lidocaine HCl (Xylocaine 2% Jelly) 3 ml EXT QID PRN PRN Reason: pain Stop: 12/01/19 16:59 Loperamide HCl (Imodium) 2 mg PO Q2H PRN PRN Reason: Diarrhea Stop: 12/03/19 08:11 Magnesium Hydroxide (Milk Of Magnesia) 30 ml PO Q12H PRN PRN Reason: Constipation Stop: 11/29/19 02:09 Magnesium Oxide (Mag-Ox) 400 mg PO QAM [facility] Stop: 12/02/19 15:59 Last Admin: 11/03/19 09:20 Dose: 400 mg Documented by: Montelukast Sodium (Singulair) 10 mg PO QAM [facility] Stop: 11/30/19 08:59 Last Admin: 11/03/19 09:19 Dose: Not Given Documented by: Morphine Sulfate (Morphine Sulfate) 2 mg IV Q4 PRN PRN Reason: Pain Stop: 11/15/19 21:13 Doravirine 100mg ~ Non-Formulary Patient's Own Med 1 ea PO DAILY [facility] Stop: 11/30/19 08:59 Last Admin: 11/03/19 09:23 Dose: 100 mg Documented by: Synthorid 125 Mcg ~ Non-Formulary Patient's Own Med 1 ea PO DAILYBB [facility] Stop: 11/30/19 06:29 Last Admin: 11/03/19 06:11 Dose: 125 mcg Documented by: Nystatin (Mycostatin) 5 ml PO QID [facility] Stop: 11/29/19 12:59 Last Admin: 11/03/19 09:19 Dose: 5 ml Documented by: Potassium Chloride (Klor-Con Pwd) 20 meq PO TID [facility] Stop: 11/30/19 08:59 Last Admin: 11/03/19 09:16 Dose: Not Given Documented by: Umeclidinium/Vilanterol (Anoro Ellipta 62.5/25 Mcg Inh) 1 puffs INH DAILY [facility] Stop: 11/29/19 08:59 Last Admin: 11/03/19 09:21 Dose: Not Given Documented by: Resident Activity Tracking Resident Involvement: Resident Care Provided Care Provided: Adult Hospital Medicine
[2019-11-03] MEDS ORDERED: ALBUT/IPRATROP 3MG/0.5MG NEB 3 ML VIAL NEB PRN (15:04)
--- NOTE | 2019-11-03 16:28 | Billing Data ---
Date of Service November 03, 2019 Coding Level of Care Code 50558 Subseq Hosp Care Lvl 3
[2019-11-04] MEDS: PROCHLORPERAZINE 5 MG in SYRINGE 4 ML IV PRN (04:27)
[2019-11-04] MEDS: LEVOTHYROXINE 125 MCG PO SCH (06:00)
[2019-11-04 06:14] LABS: Hemoglobin 9.2 g/dL (12.0-16.0); Mean Corpuscular Hgb Conc 35.4 g/dL (32-36); Mean Corpuscular Volume 79.3 fL (80-100); Mean Platelet Volume 10.1 fL (7.4-10.4); Platelet Count 230 K/uL (130-400); RDW Coefficient of Variation 16.5 % (11.5-14.5); RDW Standard Deviation 48.3 fL (36.4-46.3); Red Blood Count 3.28 M/uL (4.2-5.4); White Blood Count 1.63 K/uL (4.8-10.8)
[2019-11-04 06:22] LABS: INR 1.1 (0.9-1.1); Prothrombin Time 11.7 Seconds (9.0-12.0)
[2019-11-04 06:47] LABS: BUN Creatinine Ratio 11.8 (10-20); Creatinine Clr Calc Pharmacy 84.4 ml/min; Est GFR (African American) 118.5; Est GFR (Non-African American) 102.2; Magnesium 1.8 mg/dl (1.8-2.4); Phosphorus 2.7 mg/dl (2.5-4.9); Potassium 3.3 mmol/L (3.5-5.1)
[2019-11-04] MEDS: TOBRAMYCIN SULFATE 300 MG in SYRINGE 0 ML INH SCH ×2 (06:59→20:11)
[2019-11-04 07:01] LABS: Basophils # (auto) 0.01 K/uL (0-0.2); Basophils % (auto) 0.6 %; Echinocytes 1+; Eosinophils # (auto) 0.25 K/uL (0-0.5); Eosinophils % (auto) 15.3 %; Immature Granulocytes # (auto) 0.01 K/uL (0.00-0.02); Immature Granulocytes % (auto) 0.6 %; Lymphocytes # (auto) 0.53 K/uL (1.2-3.4); Lymphocytes % (auto) 32.5 %; Monocytes # (auto) 0.24 K/uL (0.11-0.59); Monocytes % (auto) 14.7 %; Neutrophils # (auto) 0.59 K/uL (1.4-6.5); Neutrophils % (auto) 36.3 %; Target Cells 1+
[2019-11-04] MEDS: VORICONAZOLE IV SCH ×2 (08:19→19:21)
[2019-11-04] MEDS: SODIUM CHLORIDE 0.9% IV SCH ×2 (08:19→19:21)
[2019-11-04] MEDS: UMECLIDINIUM/VILANTEROL 62.5/25MCG 7 PUFFS/INHALER INH SCH (09:34)
[2019-11-04] MEDS: NYSTATIN SUSP 500,000 U/5 ML UDC PO SCH ×4 (09:34→21:08)
[2019-11-04] MEDS: EMTRICITABINE/TENOFOVIR TAB PO SCH (09:34)
[2019-11-04] MEDS: DOLUTEGRAVIR SODIUM 50 MG TAB PO SCH ×2 (09:34→21:10)
[2019-11-04] MEDS: POTASSIUM CHLORIDE PWD 20 MEQ PACK PO SCH ×3 (09:35→21:07)
[2019-11-04] MEDS: DAPSONE 25 MG TAB PO SCH (09:35)
[2019-11-04] MEDS: DORAVIRINE 100 MG PO SCH (09:35)
[2019-11-04] MEDS: MONTELUKAST SOD 5 MG CHEWABLE TAB PO SCH (09:36)
[2019-11-04] MEDS: MAGNESIUM OXIDE 400 MG TAB PO SCH (09:36)
[2019-11-04] MEDS: ENOXAPARIN INJ 30 MG/0.3 ML SYR SQ SCH (09:36)
[2019-11-04] MEDS: DOXYCYCLINE HYCLATE 100 MG CAP PO SCH ×2 (09:36→21:09)
[2019-11-04] MEDS: guaiFENesin SUGAR FREE 200 MG/10 ML UDC PO SCH ×2 (09:36→21:10)
[2019-11-04] MEDS: POTASSIUM CHLORIDE / WTR 10 MEQ/100 ML PLCT IV SCH ×4 (10:35→13:32)
--- NOTE | 2019-11-04 11:18 | Electrocardiogram Report ---
Test Reason : Blood Pressure : / mmHG Vent. Rate : 064 BPM Atrial Rate : 064 BPM P-R Int : 180 ms QRS Dur : 076 ms QT Int : 442 ms P-R-T Axes : 076 028 057 degrees QTc Int : 455 ms Normal sinus rhythm Normal ECG When compared with ECG of 02-NOV-2019 18:19, No significant change was found Confirmed by Eugene Mann ([id number]) on 11/04/2019 11:18:26 AM Referred By: REFERRED SELF Confirmed By:Chance Mann
[2019-11-04] MEDS ORDERED: LOPERAMIDE HCL 2 MG CAP PO PRN (15:15)
[2019-11-04] MEDS ORDERED: FAMOTIDINE 20 MG in SYRINGE 3 ML IV SCH (15:15)
--- NOTE | 2019-11-04 15:23 | Hospitalist Progress Note ---
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 # Recurrent Multifocal PNA/Cavitary lesions in immunosuppressed patient - Per pulmonology consult, see related notes - as of 11/01: AFB smear x 3, so taken off airborne precautions. TB is unlikely. Quantiferon pending - Pt pondering/praying over different options: 1) Bronch: pt adamantly declines bronchoscopy unfortunately -- d/w pulm, given her worsening chest CT scan + cavitary lesions (comp to Feb scan) her lungs are definitely worse, and a sampling is necessary for proper treatment -- could be DARCIE in which case would definitely get worse without proper treatment which would be months long course of various IV and PO abx. 2) CT guided FNA 3) Empiric Tx w/o either of the above for definitive dx -pt understand that not an immediate urgency to decisions, but disease will progress more without optimal treatment . Have given arbitrary line of November 18 to decide, whether that is inpt or decided once home. Would be better if decides while still inpatient to facilitate this happening - respiratory status is clinically improving, cont monotherapy with doxycline for total of 10 day course (or longer if clinically indicated) -cont IV Tobramycin -with low CD4 count and h/o asthma, likely to get recurrent CAP moving forward - COVID 19 was negative on 10/28 along with influenza panel. Received 4 days total of Vanc and Aztreonam. - antitussive medication with guaifenesin - ID consult - see notes. - add flutter valve and IS 11/01. # N/V/D - 2/2 malnourishment and now refeeding as well as component of thrush in lower esophagus region maybe causing gastritis -c diff neg -11/03 added ROSMERY immodium, compazine, pepcid, protonix for at least a few days to see if we can get back to a place where we can consider d/c if sxs are at least stable -if continues to worsen, can consider a GI consult moving forward # Oral thrush-improving - severely symptomatic, part of presenting complaint -- this is over all improving however ultimately needs better control of her HIV/AIDS for meaningful long lasting course. -pt was on maintenance oral voriconazole susp prior to admission -continue with IV voriconazole (300mg IV BID x24 hours, then 200mg IV BID.) and nystatin swish. To resume home dosing + nystatin upon discharge. # difficult IV access -requiring multiple meds and lab draws given difficult clinical picture and pain with PO intake with resultant malnourishment (see below) -PICC line consent obtained, placed 10/30 - has arranged home health for this. # Hypokalemia / hypomagnesemia / hypophosphatemia - due to malnourishment/loose stools - goal: potassium greater than 4, magnesium greater than 2, phosphorus greater than 3 - repleting as needed # Prolonged QTc - as seen on EKG early in admission. Will downgrade off med tele and get daily EKG to monitor - repleting e-lytes as above - avoiding QT prolonging agents as able # elevated INR -2/2 malnourishment (marker) and JONES therapy side effects? -no s/s acute bleeding -improved with Vit K. Cont IV/PO as needed -hold blood thinning medications -follow coags daily # Underweight/Severe protein/calorie malnutrion/FTT - largely from poor PO intake 2/2 uncontrolled oral thrush, as above -PO intake improving slowly as thrush improving. Pt notes it is more 2/2 pain than appetite issue, holding off of appetite stimulant -boost shakes # HIV (human immunodeficiency virus infection): - HIV/AIDS, last CD4 count 2 with viral load 4000 as per conversation with Pt's outpatient ID provider Dr. Ruby. - Continue HAART, dapsone ppx. Please note, patients current outpatient ID provider is Dr. Ruby with [facility] his phone [phone]. # Chronic obstructive pulmonary disease: -continue home inhalers # Hypothyroidism: -continue home synthroid - patient requests to use her own. # Mood disorder: -no acute issues. FEN/GI: regular diet / boost / compazine/mylanta pRN / AVOID QT prolonging agents at this time like zofran. DVT ppx: hold lovenox in setting of increased INR. CODE STATUS: FULL DISPO: Pt pondering options. Sampling of lung tissue is critical - team/pt to explore biopsy options other than by bronchoscopy - also pending improved PO intake. To go home with PICC for ongoing HAART therapy (coordinated by her ID doctor Dr. Ruby). Admission and Anticipated Discharge Date Admission Date: October 30, 2019 Anticipated date of discharge: 11/03/19 Supervising Physician Co-Signing Physician Notes I personally examined the patient and verified all butler points of history and exam, discussed case, and agree with decision making with Dr Morales. eating worsened. vomited a lot last night hours after eating. today has tried a variety of foods she can normally tolerate reasonably well without being able to take in much - no further vomiting since last night but nausea is pretty bad. on directed questioning maybe some epigastric pain. diarrhea more as well - but same as before no blood no mucous no cramps. still contemplating decisions on lung infection and further w/u alma noted fatigued and cachectic appearing but fortunately no distress. heent nc at plaques in mouth seem to be improving although still present, somewhat poor dentition. breathing unlabored no accessory muscles no conversational dyspnea no distress. mild epigastric tenderness. skin no pallor or icterus. neuro no focal deficits. failure to thrive -mostly poor PO intake likely related to thrush, likely also fatigue/lack of appetite from pulmonary infection -continue to follow PO intake -continue to treat thrush and encourage intake, low threshold for appetite stimulant but right now hold off vomiting -without context of low CD4 would seem to be stress-induced gastritis (stress from acute illness/acute malnutrition) - for now will treat as such with aggressive acid suppression and nausea control ---->given severe thrush and low CD4, if doesn't respond nicely in ~48hrs then would consider if she needs EGD thrush -voriconazole IV ongoing -nystatin swish PO -ID input noted - with CD4 so low this will be an ongoing problem until/unless her counts respond to new treatment -see above bronchiectasis/appearance of pneumonia/cavitary lesions -zithromax and tobramycin for now pending further cultures -quantiferon pending, sputum for afb negative x3 -ideally will have procedure for sampling of infection/culture/and chance for more accurate treatment - she is considering options between bronch (her main concern is on why she couldn't talk for 2 months after, but seems aware that this would be the ideal means of dx) vs CT / FNA (concerned about pain and PTX, aware that this would likely yield dx as alternative to bronch but is by no means conventional or preferred - just better than empiric) vs empiric treatment more-understands that while there is not an immediate urgency to decisions, disease will progress more without optimal treatment - is still thinking towards a decision in the next day or two, also discussed arbirtrary line of no more than 2wks but would be better if decides while still inpatient to facilitate this happening diarrhea -stool for Cdiff negative, diarrhea worse today but likely nonspecific - symptomatic management elevated INR - improved w vitamin K - marker of malnutrition severe acute protein /calorie malnutrition likely superimposed on moderate to severe chronic --> see above with failure to thrive, thrush and vomiting. also low threshold for appetite stimulant. otherwise as above Subjective 49 yo F found in bed this AM in NAD. No reported overnight events. Notes some ongoing nausea and diarrhea, seems worse than yesterday. Tolerating PO this morning but still with some discomfort with swallowing 2/2 thrush. Pt with no other acute concerns or complaints. Still thinking/praying over options moving forward. Review of Systems Review of Systems: All systems reviewed & are unremarkable except as noted in HPI & below Physical Exam Constitutional: + ill appearing and + cachectic (temporal wasting) Eyes: PERRL, conjunctivae normal, anicteric sclerae ENMT: Mouth: + oropharynx abnormality (thrush) Respiratory: normal respiratory effort; no respiratory distress and no labored breathing Cardiovascular: RRR, no murmur, no edema Gastrointestinal (Abdomen): Percussion/Palpation: + abdomen tender (TTP epigastric) Skin: no rashes, warm and dry Psychiatric: Orientation: alert and oriented x 3 Results & Data Results & Data ([facility]) Vital Signs (Past 12 Hours) Vital Signs Temp Pulse Resp BP Pulse Ox 11/04/19 07:22 36.4 C L 79 18 93/57 L 98 11/04/19 07:02 77 16 98 Laboratory Results Laboratory Results - last 24 hr 10/31/19 11/04/19 11/04/19 22:34 05:51 05:51 WBC 1.63 L RBC 3.28 L Hgb 9.2 L Hct 26.0 L MCV 79.3 L MCH 28.0 MCHC 35.4 RDW Std Deviation 48.3 H RDW Coeff of Ale 16.5 H Plt Count 230 MPV 10.1 Immature Gran % (Auto) 0.6 Neut % (Auto) 36.3 Lymph % (Auto) 32.5 [place] % (Auto) 14.7 Eos % (Auto) 15.3 Baso % (Auto) 0.6 Immature Gran # (Auto) 0.01 Neut # (Auto) 0.59 L* Lymph # (Auto) 0.53 L [place] # (Auto) 0.24 Eos # (Auto) 0.25 Baso # (Auto) 0.01 Target Cells 1+ Echinocytes 1+ PT INR Sodium 143 Potassium 3.3 L Chloride 118 H Carbon Dioxide 18 L Anion Gap 7.0 BUN 8 Creatinine 0.69 Est Cr Clr Drug Dosing 84.4 Est GFR ( Amer) 118.5 Est GFR (Non-Af Amer) 102.2 BUN/Creatinine Ratio 11.8 Glucose 92 Calcium 8.0 L Phosphorus 2.7 Magnesium 1.8 U Histopl Galactoman Ag <0.2 11/04/19 05:51 WBC RBC Hgb Hct MCV MCH MCHC RDW Std Deviation RDW Coeff of Ale Plt Count MPV Immature Gran % (Auto) Neut % (Auto) Lymph % (Auto) [place] % (Auto) Eos % (Auto) Baso % (Auto) Immature Gran # (Auto) Neut # (Auto) Lymph # (Auto) [place] # (Auto) Eos # (Auto) Baso # (Auto) Target Cells Echinocytes PT 11.7 INR 1.1 Sodium Potassium Chloride Carbon Dioxide Anion Gap BUN Creatinine Est Cr Clr Drug Dosing Est GFR ( Amer) Est GFR (Non-Af Amer) BUN/Creatinine Ratio Glucose Calcium Phosphorus Magnesium U Histopl Galactoman Ag Medications Administered Current Inpatient Medications Acetaminophen (Tylenol Soln) 650 mg PEG Q4H PRN PRN Reason: PAIN/ FEVER Stop: 11/29/19 08:45 Al Hydrox/Mg Hydrox/Simethicone (Maalox) 15 ml PO Q4H PRN PRN Reason: Dyspepsia Stop: 11/29/19 02:09 Al Hydrox/Mg Hydrox/Simethicone (Maalox Max) 30 ml PO Q6H PRN PRN Reason: Nausea Stop: 11/29/19 19:16 Albuterol (Duoneb) 3 ml NEB Q4R PRN PRN Reason: Shortness Of Breath Or Wheezing Stop: 12/03/19 15:02 Dapsone (Dapsone) 100 mg PO DAILY PENDING SALE TO [facility] Stop: 11/30/19 13:14 Last Admin: 11/04/19 09:35 Dose: 100 mg Documented by: Dolutegravir Sodium (Tivicay) 50 mg PO BID PENDING SALE TO [facility] Stop: 11/29/19 02:09 Last Admin: 11/04/19 09:34 Dose: 50 mg Documented by: Doxycycline Hyclate (Vibramycin) 100 mg PO BID PENDING SALE TO [facility] Stop: 11/06/19 20:59 Last Admin: 11/04/19 09:36 Dose: Not Given Documented by: Emtricitabine/Tenofovir (Truvada 200 Mg-300 Mg) 1 tab PO QAM PENDING SALE TO [facility] Stop: 11/30/19 09:59 Last Admin: 11/04/19 09:34 Dose: 1 tab Documented by: Enoxaparin Sodium (Lovenox) 30 mg SQ Q24H PENDING SALE TO [facility] Stop: 11/29/19 08:59 Last Admin: 11/04/19 09:36 Dose: Not Given Documented by: Guaifenesin (Robitussin Sugar Free) 400 mg PO BID PENDING SALE TO [facility] Stop: 11/29/19 20:59 Last Admin: 11/04/19 09:36 Dose: Not Given Documented by: Guaifenesin/Dextromethorphan (Robitussin Cough-Chest Dm) 5 ml PO Q6H PRN PRN Reason: Cough Stop: 11/29/19 18:35 Heparin Sodium (Beef Lung) (Heparin Sod 10 Unit/Ml Flush) 5 ml FLUSH PRN PRN PRN Reason: Flush Stop: 12/01/19 18:46 Last Admin: 11/04/19 14:47 Dose: 5 ml Documented by: Tobramycin Sulfate 300 mg/ (Syringe) 7.5 mls @ 0.033 mls/min INH Q12R PENDING SALE TO [facility] Stop: 11/29/19 06:59 Last Admin: 11/04/19 06:59 Dose: 0.033 mls/min Documented by: Voriconazole 200 mg/ Sodium (Chloride) 100 mls @ 50 mls/hr IV Q12H PENDING SALE TO [facility] Stop: 11/30/19 18:59 Last Infusion: 11/04/19 10:55 Dose: Infused Documented by: Prochlorperazine 5 mg/ Syringe 5 mls @ 5 mls/min IV QID PENDING SALE TO [facility] Stop: 12/04/19 16:59 Famotidine 20 mg/ Syringe 5 mls @ 2.5 mls/min IV UD ROSMERY Stop: 12/04/19 15:14 Pantoprazole Sodium 40 mg/ (Syringe) 10 mls @ 5 mls/min IV BID ROSMERY Stop: 12/04/19 20:59 Lidocaine HCl (Xylocaine 2% Jelly) 3 ml EXT QID PRN PRN Reason: pain Stop: 12/01/19 16:59 Loperamide HCl (Imodium) 2 mg PO Q2H ROSMERY Stop: 12/04/19 15:14 Magnesium Hydroxide (Milk Of Magnesia) 30 ml PO Q12H PRN PRN Reason: Constipation Stop: 11/29/19 02:09 Magnesium Oxide (Mag-Ox) 400 mg PO QAM PENDING SALE TO [facility] Stop: 12/02/19 15:59 Last Admin: 11/04/19 09:36 Dose: Not Given Documented by: Montelukast Sodium (Singulair) 10 mg PO QAM PENDING SALE TO [facility] Stop: 11/30/19 08:59 Last Admin: 11/04/19 09:36 Dose: Not Given Documented by: Morphine Sulfate (Morphine Sulfate) 2 mg IV Q4 PRN PRN Reason: Pain Stop: 11/15/19 21:13 Doravirine 100mg ~ Non-Formulary Patient's Own Med 1 ea PO DAILY ROSMERY Stop: 11/30/19 08:59 Last Admin: 11/04/19 09:35 Dose: 100 mg Documented by: Synthorid 125 Mcg ~ Non-Formulary Patient's Own Med 1 ea PO DAILYBB PENDING SALE TO [facility] Stop: 11/30/19 06:29 Last Admin: 11/04/19 06:00 Dose: 125 mcg Documented by: Nystatin (Mycostatin) 5 ml PO QID ROSMERY Stop: 11/29/19 12:59 Last Admin: 11/04/19 12:29 Dose: 5 ml Documented by: Potassium Chloride (Klor-Con Pwd) 20 meq PO TID PENDING SALE TO [facility] Stop: 11/30/19 08:59 Last Admin: 11/04/19 12:29 Dose: Not Given Documented by: Umeclidinium/Vilanterol (Anoro Ellipta 62.5/25 Mcg Inh) 1 puffs INH DAILY PENDING SALE TO [facility] Stop: 11/29/19 08:59 Last Admin: 11/04/19 09:34 Dose: Not Given Documented by: Resident Activity Tracking Resident Involvement: Resident Care Provided Care Provided: Adult Hospital Medicine
[2019-11-04] MEDS ORDERED: LOPERAMIDE HCL 2 MG CAP PO SCH (15:45)
[2019-11-04] MEDS ORDERED: [UNRECOGNIZED DRUG - REMARK] PRN (15:58)
[2019-11-04] MEDS: LOPERAMIDE HCL 2 MG CAP PO SCH ×4 (16:43→21:11)
[2019-11-04] MEDS: PROCHLORPERAZINE 5 MG in SYRINGE 4 ML IV SCH ×2 (16:53→21:48)
--- NOTE | 2019-11-04 19:10 | Billing Data ---
Date of Service November 04, 2019 Coding Level of Care Code 06148 Subseq Hosp Care Lvl 3
[2019-11-04] MEDS: FAMOTIDINE 20 MG in SYRINGE 3 ML IV SCH (21:08)
[2019-11-04] MEDS: PANTOprazole 40 MG in SYRINGE 0 ML IV SCH (21:10)
[2019-11-05] MEDS: PROCHLORPERAZINE 5 MG in SYRINGE 4 ML IV SCH ×5 (00:52→20:30)
[2019-11-05 05:48] LABS: Hematocrit (blood only) 28.3 % (37-47); Hemoglobin 9.8 g/dL (12.0-16.0); Mean Corpuscular Hemoglobin 27.8 pg (25-34); Mean Corpuscular Hgb Conc 34.6 g/dL (32-36); Mean Corpuscular Volume 80.2 fL (80-100); Mean Platelet Volume 10.8 fL (7.4-10.4); Platelet Count 264 K/uL (130-400); RDW Coefficient of Variation 17.1 % (11.5-14.5); RDW Standard Deviation 49.3 fL (36.4-46.3); Red Blood Count 3.53 M/uL (4.2-5.4); White Blood Count 1.83 K/uL (4.8-10.8)
[2019-11-05 05:57] LABS: INR 1.1 (0.9-1.1); Prothrombin Time 11.9 Seconds (9.0-12.0)
[2019-11-05 06:12] LABS: BUN Creatinine Ratio 13.9 (10-20); Creatinine Clr Calc Pharmacy 86.9 ml/min; Est GFR (African American) 119.6; Est GFR (Non-African American) 103.2; Magnesium 1.8 mg/dl (1.8-2.4); Phosphorus 2.5 mg/dl (2.5-4.9); Potassium 3.4 mmol/L (3.5-5.1)
[2019-11-05] MEDS: VORICONAZOLE IV SCH ×2 (06:46→20:31)
[2019-11-05] MEDS: SODIUM CHLORIDE 0.9% IV SCH ×2 (06:46→20:31)
[2019-11-05] MEDS: LOPERAMIDE HCL 2 MG CAP PO SCH ×5 (06:47→13:16)
[2019-11-05] MEDS: LEVOTHYROXINE 125 MCG PO SCH (06:47)
[2019-11-05 06:58] LABS: Basophils # (auto) 0.04 K/uL (0-0.2); Basophils % (auto) 2.2 %; Echinocytes 1+; Eosinophils # (auto) 0.27 K/uL (0-0.5); Eosinophils % (auto) 14.8 %; Lymphocytes # (auto) 0.74 K/uL (1.2-3.4); Lymphocytes % (auto) 40.4 %; Monocytes # (auto) 0.22 K/uL (0.11-0.59); Neutrophils # (auto) 0.56 K/uL (1.4-6.5); Neutrophils % (auto) 30.6 %
[2019-11-05] MEDS: TOBRAMYCIN SULFATE 300 MG in SYRINGE 0 ML INH SCH ×2 (08:12→19:49)
[2019-11-05] MEDS: FAMOTIDINE 20 MG in SYRINGE 3 ML IV SCH ×2 (08:42→20:29)
[2019-11-05] MEDS: MAGNESIUM OXIDE 400 MG TAB PO SCH (08:47)
[2019-11-05] MEDS: DOXYCYCLINE HYCLATE 100 MG CAP PO SCH ×2 (08:47→20:31)
[2019-11-05] MEDS: MONTELUKAST SOD 5 MG CHEWABLE TAB PO SCH (08:48)
[2019-11-05] MEDS: guaiFENesin SUGAR FREE 200 MG/10 ML UDC PO SCH ×2 (08:48→20:30)
[2019-11-05] MEDS: POTASSIUM CHLORIDE PWD 20 MEQ PACK PO SCH ×3 (08:48→20:31)
[2019-11-05] MEDS: ENOXAPARIN INJ 30 MG/0.3 ML SYR SQ SCH (08:49)
[2019-11-05] MEDS: DOLUTEGRAVIR SODIUM 50 MG TAB PO SCH ×2 (08:49→20:30)
[2019-11-05] MEDS: PANTOprazole 40 MG in SYRINGE 0 ML IV SCH ×2 (08:50→20:29)
[2019-11-05] MEDS: NYSTATIN SUSP 500,000 U/5 ML UDC PO SCH ×4 (08:50→20:30)
[2019-11-05] MEDS: EMTRICITABINE/TENOFOVIR TAB PO SCH (08:51)
[2019-11-05] MEDS: DORAVIRINE 100 MG PO SCH (08:54)
[2019-11-05] MEDS: DAPSONE 25 MG TAB PO SCH (08:56)
[2019-11-05] MEDS: UMECLIDINIUM/VILANTEROL 62.5/25MCG 7 PUFFS/INHALER INH SCH (08:56)
[2019-11-05] MEDS: [UNRECOGNIZED DRUG - REMARK] SCH ×2 (15:56→23:41)
--- NOTE | 2019-11-05 16:56 | Electrocardiogram Report ---
Test Reason : Blood Pressure : / mmHG Vent. Rate : 068 BPM Atrial Rate : 068 BPM P-R Int : 172 ms QRS Dur : 082 ms QT Int : 440 ms P-R-T Axes : 074 -02 040 degrees QTc Int : 467 ms Normal sinus rhythm Normal ECG When compared with ECG of 04-NOV-2019 06:32, No significant change was found Confirmed by Eugene Mann ([id number]) on 11/05/2019 4:56:05 PM Referred By: REFERRED SELF Confirmed By:Chance Mann
--- NOTE | 2019-11-05 17:23 | Family Medicine Progress Note ---
Date of Service November 05, 2019 Assessment & Plan (1) Multifocal pneumonia: 49-year-old female was admitted on 30 Oct 2019 for multifocal pneumonia. Multifocal pneumonia, bronchiectasis, cavitary lesions, COPD, asthma: Initially presented with worsening SOB. 11May COVID-19 and influenza negative. Sputum AFB cultures negative x 3, thus stopped airborne isolation. Crypto antigen negative. Initially treated with four days of vancomycin and aztreonam. - 15May CT chest noted possible cavitary pneumonia (6.4 cm consolidative opacity, see full report). - Latest 15May [facility] ID note, She will continue on HAART. She should continue on abx for PNA pending sputum culture results - all cultures normal phong. agree with d/c on doxy. - Latest 14May pulm note recommended bronchoscopy but patient is reluctant (? prior bad experience). Recommended doxy x 5 more days. On a flutter valve. Antitussive medications. F/u with Dr. Barbosa (pulm) as outpatient. Continue home inhaled tobramycin. Continue home LAMA and LABA. Signed off. - Presently on doxycycline (started 12May, at least 10 day course), dapsone PO, and home tobramycin inhaled. On anoro ellipta and singulair. - 12May Quantiferon pending. 14May Histoplasma antibody pending. Treatment options: 1) Patient continues to decline bronchoscopy. Concerns for DARCIE (and need for related treatment). 2) Prior discussions of CT-guided aspiration, which may be possible. Really need sampling of lung tissue. 3) Empiric treatment. --- Patient continues to want to think about her options. Spoke with on-call pulm this week who recommended she have an outpatient bronch with Dr. Barbosa, her established outpatient ergonomics technician. HIV / AIDS, neutropenia: Reported PMH medication non-compliance. See 13May note regarding discussion with patients ID doctor (Dr. Ruby at [facility] [phone]). He recommended continued home dapsone daily. Recommended against prophy with azithromycin. Prior viral load 4,000 and CD4 count of 2. Plans for starting Trogarzo on discharge via PICC line (placed on 13May) [facility]. Reported difficult PIV access. - On home tivicay, doravirine, and Truvada. - Present ANC around 500s. Symptomatic oral thrush: Previously on home maintenance oral voriconazole. S witched to IV. Is improving. - Plan to return to home oral voriconazole and add nystatin upon discharge. Emesis: Noted overnight 16-17May after eating. Perhaps stress-induced gastritis. Some improvement following night. - Tx with pantoprazole IV, famotidine IV, and Phenergan scheduled. - If worsens again, will consider EGD. Diarrhea: Likely secondary to decreased PO intake and JONES medications. 13May C diff negative. Has had some waxing/waning, most recently some worsening overnight. - Re-ordered hemoccult. Also ordered stool crypto ag. Severe acute on chronic protein-calorie malnutrition, failure to thrive: Recent 10+ pound weight loss. - Monitoring mag and phos while re-feeding. Consider appetite stimulant. Hypokalemia, hypomagnesemia, hypophosphatemia: In setting of severe acute on chronic protein-calorie malnutrition and loose stools. - On potassium TID as well as mag-ox daily. Prolonged QTc: Goals K > 4, Mg > 2. Replacing as discussed above. Avoid prolonging Rx as possible. Elevated INR: PMH coagulopathy as well as malnutrition. As high as INR 2.9, since resolved. Given vitamin K and nutritional support. No evidence of acute bleeding. Anemia: Chart lowest Hb 5.3 was thought to be falsely low. Recheck 8.9. Never was transfused. Presently Hb 9.8 with borderline low MCV. - Will check iron studies. Ongoing medical issues: - Hypothyroidism: Continue home Synthroid (patient had requested to use her own). - Mood disorder: No acute issues. - PMH pericardial effusion, hepatic lesion. Code Status: Full code. DVT prophy: Lovenox 30 q 24 hours. Diet: Regular. Dietitian consulted. PT/OT: Deferred. Disbo: Admitted to PCU telemetry. Case management onboard. Lives at home with 15 yo daughter. Arranged home health for PICC use. [facility] ID likely to manage PICC orders. (2) Bronchiectasis: (3) Pulmonary cavitary lesion: (4) Chronic obstructive pulmonary disease: (5) Asthma: (6) AIDS (acquired immune deficiency syndrome): (7) Oral thrush: (8) Emesis: (9) Diarrhea: (10) Severe protein-calorie malnutrition: (11) Hypokalemia: (12) Hypomagnesemia: (13) Hypophosphatemia: (14) Elevated INR: (15) Anemia: (16) Hypothyroidism: (17) Mood disorder: Admission and Anticipated Discharge Date Admission Date: October 30, 2019 Anticipated date of discharge: 11/03/19 Supervising Physician Co-Signing Physician Notes I personally examined the patient and verified all butler points of history and exam, discussed case, and agree with decision making with Dr. Beckham Continues to feel poorly, not eating much but some broth today. Still having multiple loose stools, nonbloody. Oral thrush and mouth feel a little better with less thrush failure to thrive -mostly poor PO intake likely related to thrush, likely also fatigue/lack of appetite from pulmonary infection and HIV/AIDS -continue to follow PO intake -continue to treat thrush and encourage intake, low threshold for appetite stimulant but right now hold off and pt declines vomiting-improved -without context of low CD4 would seem to be stress-induced gastritis (stress from acute illness/acute malnutrition) - for now will treat as such with aggressive acid suppression and nausea control ---->given severe thrush and low CD4, if doesn't respond nicely in ~48hrs then would consider if she needs EGD thrush -voriconazole IV ongoing -nystatin swish PO -ID input noted - with CD4 so low this will be an ongoing problem until/unless her counts respond to new treatment -see above bronchiectasis/appearance of pneumonia/cavitary lesions-question TB although with 3 negative AFB smears and Quantiferon Gold testing will not be reliable most likely in her case as per ID Could be histoplasmosis or DARCIE Declines bronchoscopy inpatient--> will have her f/u with Dr. Barbosa as outpt for consideration of outpt bronchoscopy -continue doxy, Dapsone, and inhaled tobramycin diarrhea -stool for Cdiff negative, check cryptococcal stool test elevated INR - improved w vitamin K - marker of malnutrition severe acute protein /calorie malnutrition likely superimposed on moderate to severe chronic --> see above with failure to thrive, thrush and vomiting. also low threshold for appetite stimulant. Continued stay Subjective Met with patient earlier this morning. Found her sitting in her bedside drinking some broth. Says that overall she feels about the same over the past couple of days. Continues to have decreased energy but says her appetite is varied. Denies any vomiting overnight. However, says her diarrhea is worsened and 5 episodes since midnight. Denies any associated abdominal pain. Overall says her thrush is improving. Denies any other focal complaints. When asked about how she wants to proceed with evaluation of her lung infection, she says she wants to continue to think about it. She also wondered if she could speak with the ergonomics technician again to get more information. Presently, she is not interested in pursuing any sort of CT-guided needle biopsy. Review of Systems Review of Systems: Per HPI as above. Physical Exam Physical Exam: General Appearance: Awake, alert & oriented, appears cachectic with temporal wasting, but does not appear in immediate distress. CV: +S1S2 RRR, no murmur. Pulm: Clear to auscultation throughout. Abdomen: +BS, soft, non-distended. Thin habitus. Minimal tenderness to epigastric region only. No tenderness in bilateral lower quadrants. Extremities: No pedal edema or calf tenderness. Moving all extremities naturally and easily. Neuro: No gross neuro deficits. Lines: PICC line in place. Results & Data ([facility]) Vital Signs (Past 12 Hours) Vital Signs Temp Pulse Resp BP Pulse Ox 11/05/19 15:56 36.8 C 80 18 100/67 100 11/05/19 06:56 36.4 C L 63 20 94/56 L 100 Laboratory Results 11/05/19 11/05/19 11/05/19 Range/Units 05:06 05:06 05:06 WBC 1.83 L (4.8-10.8) K/uL RBC 3.53 L (4.2-5.4) M/uL Hgb 9.8 L (12.0-16.0) g/dL Hct 28.3 L (37-47) % MCV 80.2 (80-100) fL MCH 27.8 (25-34) pg MCHC 34.6 (32-36) g/dL RDW Std Deviation 49.3 H (36.4-46.3) fL RDW Coeff of Ale 17.1 H (11.5-14.5) % Plt Count 264 (130-400) K/uL MPV 10.8 H (7.4-10.4) fL Immature Gran % (Auto) 0.0 % Neut % (Auto) 30.6 % Lymph % (Auto) 40.4 % [place] % (Auto) 12.0 % Eos % (Auto) 14.8 % Baso % (Auto) 2.2 % Immature Gran # (Auto) 0.00 (0.00-0.02) K/uL Neut # (Auto) 0.56 L* (1.4-6.5) K/uL Lymph # (Auto) 0.74 L (1.2-3.4) K/uL [place] # (Auto) 0.22 (0.11-0.59) K/uL Eos # (Auto) 0.27 (0-0.5) K/uL Baso # (Auto) 0.04 (0-0.2) K/uL Echinocytes 1+ PT 11.9 (9.0-12.0) Seconds INR 1.1 (0.9-1.1) Sodium 145 (136-145) mmol/L Potassium 3.4 L (3.5-5.1) mmol/L Chloride 118 H (98-107) mmol/L Carbon Dioxide 19 L (21-32) mmol/L Anion Gap 8.0 (3-11) BUN 9 (7-18) mg/dl Creatinine 0.67 (0.6-1.2) mg/dl Est Cr Clr Drug Dosing 86.9 ml/min Est GFR ( Amer) 119.6 Est GFR (Non-Af Amer) 103.2 BUN/Creatinine Ratio 13.9 (10-20) Glucose 86 (70-99) mg/dl Calcium 8.0 L (8.5-10.1) mg/dl Phosphorus 2.5 (2.5-4.9) mg/dl Magnesium 1.8 (1.8-2.4) mg/dl Medications Administered Current Inpatient Medications Acetaminophen (Tylenol Soln) 650 mg PEG Q4H PRN PRN Reason: PAIN/ FEVER Stop: 11/29/19 08:45 Al Hydrox/Mg Hydrox/Simethicone (Maalox) 15 ml PO Q4H PRN PRN Reason: Dyspepsia Stop: 11/29/19 02:09 Al Hydrox/Mg Hydrox/Simethicone (Maalox Max) 30 ml PO Q6H PRN PRN Reason: Nausea Stop: 11/29/19 19:16 Albuterol (Duoneb) 3 ml NEB Q4R PRN PRN Reason: Shortness Of Breath Or Wheezing Stop: 12/03/19 15:02 Dapsone (Dapsone) 100 mg PO DAILY@0800 [facility] Stop: 11/30/19 13:14 Dolutegravir Sodium (Tivicay) 50 mg PO BID@ [facility] Stop: 12/05/19 19:59 Doxycycline Hyclate (Vibramycin) 100 mg PO BID@799,1999 [facility] Stop: 11/06/19 19:59 Emtricitabine/Tenofovir (Truvada 200 Mg-300 Mg) 1 tab PO QAM@0800 [facility] Stop: 12/06/19 07:59 Enoxaparin Sodium (Lovenox) 30 mg SQ Q24H [facility] Stop: 11/29/19 08:59 Last Admin: 11/05/19 08:49 Dose: Not Given Documented by: Guaifenesin (Robitussin Sugar Free) 400 mg PO BID@08,1999 [facility] Stop: 12/05/19 19:59 Guaifenesin/Dextromethorphan (Robitussin Cough-Chest Dm) 5 ml PO Q6H PRN PRN Reason: Cough Stop: 11/29/19 18:35 Heparin Sodium (Beef Lung) (Heparin Sod 10 Unit/Ml Flush) 5 ml FLUSH PRN PRN PRN Reason: Flush Stop: 12/01/19 18:46 Last Admin: 11/05/19 13:15 Dose: 5 ml Documented by: Tobramycin Sulfate 300 mg/ (Syringe) 7.5 mls @ 0.033 mls/min INH Q12R [facility] Stop: 11/29/19 06:59 Last Admin: 11/05/19 08:12 Dose: Not Given Documented by: Voriconazole 200 mg/ Sodium (Chloride) 100 mls @ 50 mls/hr IV Q12H [facility] Stop: 11/30/19 18:59 Last Infusion: 11/05/19 08:52 Dose: Infused Documented by: Prochlorperazine 5 mg/ Syringe 5 mls @ 5 mls/min IV 0800,1200,1600,1999 [facility] Stop: 12/05/19 11:59 Last Admin: 11/05/19 15:56 Dose: 5 mls/min Documented by: Pantoprazole Sodium 40 mg/ (Syringe) 10 mls @ 5 mls/min IV Q12H [facility] Stop: 12/05/19 19:59 Famotidine 20 mg/ Syringe 5 mls @ 2.5 mls/min IV Q12H [facility] Stop: 12/05/19 19:59 Lidocaine HCl (Xylocaine 2% Jelly) 3 ml EXT QID PRN PRN Reason: pain Stop: 12/01/19 16:59 Magnesium Hydroxide (Milk Of Magnesia) 30 ml PO Q12H PRN PRN Reason: Constipation Stop: 11/29/19 02:09 Magnesium Oxide (Mag-Ox) 400 mg PO DAILY@1200 [facility] Stop: 12/06/19 11:59 Miscellaneous (Stop Order) 1 ea N/A QS [facility] Stop: 12/05/19 15:59 Last Admin: 11/05/19 15:56 Dose: 1 ea Documented by: Montelukast Sodium (Singulair) 10 mg PO QAM@0800 [facility] Stop: 12/06/19 07:59 Morphine Sulfate (Morphine Sulfate) 2 mg IV Q4 PRN PRN Reason: Pain Stop: 11/15/19 21:13 Synthorid 125 Mcg ~ Non-Formulary Patient's Own Med 1 ea PO DAILY [facility] Stop: 11/30/19 06:29 Last Admin: 11/05/19 06:47 Dose: 125 mcg Documented by: Doravirine 100mg ~ Non-Formulary Patient's Own Med 1 ea PO DAILY@0800 [facility] Stop: 12/06/19 07:59 Nystatin (Mycostatin) 5 ml PO 0800,1200,1599,1999 [facility] Stop: 11/29/19 11:59 Last Admin: 11/05/19 15:56 Dose: 5 ml Documented by: Potassium Chloride (Klor-Con Pwd) 20 meq PO TID@0800,1200,1999 [facility] Stop: 12/05/19 11:59 Last Admin: 11/05/19 13:17 Dose: Not Given Documented by: Umeclidinium/Vilanterol (Anoro Ellipta 62.5/25 Mcg Inh) 1 puffs INH DAILY@0800 [facility] Stop: 12/06/19 07:59 Resident Activity Tracking Resident Involvement: Resident Care Provided Care Provided: Adult Hospital Medicine (1) Hypothyroidism Hypothyroidism type: acquired Qualified Code(s): E03.9 - Hypothyroidism, unspecified (2) Asthma Asthma complication type: unspecified Asthma persistence: unspecified Asthma severity: moderate Qualified Code(s): J45.909 - Unspecified asthma, uncomplicated
[2019-11-05 17:29] LABS: Quantiferon Mitogen-NIL 0.35 IU/mL; Quantiferon NIL 0.02 IU/mL; Quantiferon TB Gold Plus INDETERMINATE (NEGATIVE)
[2019-11-05] MEDS ORDERED: guaiFENesin 600 MG TABCR PO SCH (20:00)
[2019-11-06] MEDS: LEVOTHYROXINE 125 MCG PO SCH (06:05)
[2019-11-06 06:39] LABS: Ferritin 183.9 ng/ml (8-388)
[2019-11-06] MEDS: TOBRAMYCIN SULFATE 300 MG in SYRINGE 0 ML INH SCH ×2 (07:14→19:23)
[2019-11-06] MEDS: EMTRICITABINE/TENOFOVIR TAB PO SCH (08:40)
[2019-11-06] MEDS: DOLUTEGRAVIR SODIUM 50 MG TAB PO SCH ×2 (08:40→19:41)
[2019-11-06] MEDS: MONTELUKAST SOD 5 MG CHEWABLE TAB PO SCH (08:41)
[2019-11-06] MEDS: PANTOprazole 40 MG in SYRINGE 0 ML IV SCH (08:42)
[2019-11-06] MEDS: guaiFENesin SUGAR FREE 200 MG/10 ML UDC PO SCH ×2 (08:42→19:42)
[2019-11-06] MEDS: VORICONAZOLE IV SCH ×2 (08:43→21:00)
[2019-11-06] MEDS: SODIUM CHLORIDE 0.9% IV SCH ×2 (08:43→21:00)
[2019-11-06] MEDS: PROCHLORPERAZINE 5 MG in SYRINGE 4 ML IV SCH (08:47)
[2019-11-06] MEDS: POTASSIUM CHLORIDE PWD 20 MEQ PACK PO SCH ×3 (08:48→19:43)
[2019-11-06] MEDS: ENOXAPARIN INJ 30 MG/0.3 ML SYR SQ SCH (08:48)
[2019-11-06] MEDS: DOXYCYCLINE HYCLATE 100 MG CAP PO SCH ×2 (08:50→19:42)
--- NOTE | 2019-11-06 08:55 | Billing Data ---
Date of Service November 05, 2019 Coding Level of Care Code 54079 Initial Inpt Care Lvl 3
[2019-11-06] MEDS: DAPSONE 25 MG TAB PO SCH (08:59)
[2019-11-06] MEDS: UMECLIDINIUM/VILANTEROL 62.5/25MCG 7 PUFFS/INHALER INH SCH (09:01)
[2019-11-06] MEDS: NYSTATIN SUSP 500,000 U/5 ML UDC PO SCH ×4 (09:02→19:42)
[2019-11-06] MEDS: DORAVIRINE 100 MG PO SCH (09:04)
[2019-11-06] MEDS: [UNRECOGNIZED DRUG - REMARK] SCH ×2 (09:05→17:07)
[2019-11-06] MEDS: FAMOTIDINE 20 MG in SYRINGE 3 ML IV SCH (11:03)
[2019-11-06] MEDS: MAGNESIUM OXIDE 400 MG TAB PO SCH (13:04)
[2019-11-06] MEDS: PROCHLORPERAZINE MALEATE 5 MG TAB PO SCH ×2 (13:06→19:44)
--- NOTE | 2019-11-06 17:12 | Family Medicine Progress Note ---
Date of Service November 06, 2019 Assessment & Plan (1) Multifocal pneumonia: 49-year-old female was admitted on 30 Oct 2019 for worsening SOB and multifocal pneumonia. Multifocal pneumonia, bronchiectasis, cavitary lesions, COPD, asthma: 11May COVID-19 and influenza negative. Sputum AFB cultures negative x 3, thus stopped airborne isolation. Crypto antigen and histoplasma Ab negative. Initially treated with four days of vancomycin and aztreonam. - 15May CT chest noted possible cavitary pneumonia (6.4 cm consolidative opacity, see full report). - Latest 15May [facility] ID note, She will continue on HAART. She should continue on abx for PNA pending sputum culture results - all cultures normal phong. agree with d/c on doxy. - Latest 14May pulm note recommended bronchoscopy but patient is reluctant (? prior bad experience). Recommended doxy x 5 more days. On a flutter valve. Antitussive medications. F/u with Dr. Barbosa (pul) as outpatient. Continue home inhaled tobramycin. Continue home LAMA and LABA. Signed off. - Presently on doxycycline (started 12May, last dose planned in AM tomorrow), dapsone PO, and home tobramycin inhaled. On anoro ellipta and singulair. - 12May Quantiferon resulted as indeterminate. - Patient is not interested in any CT-guided aspiration. Is leaning towards outpatient bronchoscopy. HIV / AIDS, neutropenia: Reported PMH medication non-compliance. See 13May note regarding discussion with patients ID doctor (Dr. Ruby at [facility] [phone]). Prior viral load 4,000 and CD4 count of 2. He recommended continued dapsone daily. Recommended against prophy with azithromycin. Plans for starting Trogarzo on discharge via PICC line (placed on 13May) and home health. Reported difficult PIV access. - On home tivicay, doravirine, and Truvada. - Present ANC around 500s. Symptomatic oral thrush: Previously on home maintenance oral voriconazole. Switched to IV. Continues to improve. - Plan to return to home oral voriconazole and add nystatin upon discharge. Emesis: Noted overnight 16-17May after eating. Perhaps stress-induced gastritis. Resolved > 24 hours now. - Tx with pantoprazole PO, famotidine PO, and Compazine PO. - If worsens again, will consider EGD. Diarrhea: Likely secondary to decreased PO intake and JONES medications. 13May C diff negative. Has had some waxing/waning, most recently some worsening overnight. - Re-ordered hemoccult. Also ordered stool crypto antigen. Severe acute on chronic protein-calorie malnutrition, failure to thrive: Recent 10+ pound weight loss. - Monitoring mag and phos while re-feeding. Consider appetite stimulant. Hypokalemia, hypomagnesemia, hypophosphatemia: In setting of severe acute on chronic protein-calorie malnutrition and loose stools. - On potassium TID as well as mag-ox daily. Prolonged QTc: Goals K > 4, Mg > 2. Replacing as discussed above. Avoid prolonging Rx as possible. Elevated INR: PMH coagulopathy as well as malnutrition. As high as INR 2.9, since resolved. Given vitamin K and nutritional support. No evidence of acute bleeding. Anemia: Chart lowest Hb 5.3 was thought to be falsely low. Recheck 8.9. Never was transfused. Presently stable. Iron studies were normal. Ongoing medical issues: - Hypothyroidism: Continue home Synthroid (patient had requested to use her own). - Mood disorder: No acute issues. - PMH pericardial effusion, hepatic lesion. Code Status: Full code. DVT prophy: Lovenox 30 q 24 hours. Diet: Regular. Dietitian consulted. PT/OT: Deferred. Disbo: Admitted to PCU telemetry. Case management onboard. Lives at home with 15 yo daughter. Arranged [facility] home health for PICC use. [facility] ID likely to manage PICC orders. (2) Bronchiectasis: (3) Pulmonary cavitary lesion: (4) Chronic obstructive pulmonary disease: (5) Asthma: (6) AIDS (acquired immune deficiency syndrome): (7) Oral thrush: (8) Emesis: (9) Diarrhea: (10) Severe protein-calorie malnutrition: (11) Hypokalemia: (12) Hypomagnesemia: (13) Hypophosphatemia: (14) Elevated INR: (15) Anemia: (16) Hypothyroidism: (17) Mood disorder: Admission and Anticipated Discharge Date Admission Date: October 30, 2019 Anticipated date of discharge: 11/03/19 Supervising Physician Co-Signing Physician Notes I personally examined the patient and verified all butler points of history and exam, discussed case, and agree with decision making with Dr. Beckham Feeling much improved today, is eating more. No further diarrhea since yesterday morning. No abdominal pain. Feels like she will be ready to be discharged home by tomorrow failure to thrive-improving -mostly poor PO intake likely related to thrush, likely also fatigue/lack of appetite from pulmonary infection and HIV/AIDS -continue to follow PO intake -continue to treat thrush and encourage intake, low threshold for appetite stimulant but right now hold off and pt declines vomiting-resolved -without context of low CD4 would seem to be stress-induced gastritis (stress from acute illness/acute malnutrition) -improving with treatment with aggressive acid suppression and nausea control as well as treatment for severe thrush -No EGD indicated at this time thrush -voriconazole IV ongoing -nystatin swish PO -ID input noted - with CD4 so low this will be an ongoing problem until/unless her counts respond to new treatment bronchiectasis/appearance of pneumonia/cavitary lesions-question TB although with 3 negative AFB smears and Quantiferon Gold testing will not be reliable most likely in her case as per ID Could be histoplasmosis or DARCIE Declines bronchoscopy inpatient--> will have her f/u with Dr. Barbosa as outpt for consideration of outpt bronchoscopy -continue doxy, Dapsone, and inhaled tobramycin diarrhea -stool for Cdiff negative, check cryptococcal stool test-pending elevated INR - improved w vitamin K - marker of malnutrition severe acute protein /calorie malnutrition likely superimposed on moderate to severe chronic --> see above with failure to thrive, thrush and vomiting. also low threshold for appetite stimulant. Continued stay but hopeful for discharged home tomorrow Subjective Spoke with the patient earlier this morning. Found her sitting up, in rather go od spirits, but says overall she feels about the same. Continues to have decreased energy. However, says she continues to have controlled nausea, no vomiting, and has not had a bowel movement since yesterday morning. Denies any abdominal pain. Continues to think that her thrush is improving. Denies any focal complaints. We discussed what her thoughts were on further testing of her lung infection. She says she is leaning towards following up with Dr. Barbosa, her outpatient crayon painter, for further discussion and consideration for an outpatient bronchoscopy. She also says she will be following up with her infectious disease doctor likely later this week as well. Review of Systems Review of Systems: Per HPI as above. Physical Exam Physical Exam: General Appearance: Awake, alert & oriented, appears cachectic with temporal wasting, but does not appear in immediate distress. CV: +S1S2 RRR, no murmur. Pulm: Clear to auscultation throughout. Abdomen: +BS, soft, non-distended. Thin habitus. Minimal tenderness to epigastric region only. No tenderness in bilateral lower quadrants. Exam unchanged from previous day. Extremities: No pedal edema or calf tenderness. Moving all extremities naturally and easily. Neuro: No gross neuro deficits. Lines: PICC line in place. Results & Data ([facility]) Vital Signs (Past 12 Hours) Vital Signs Temp Pulse Resp BP Pulse Ox 11/06/19 15:03 36.7 C 70 18 103/60 100 11/06/19 07:36 36.3 C L 66 18 104/64 94 11/06/19 07:15 78 16 100 Laboratory Results 11/06/19 11/01/19 10/30/19 Range/Units 05:47 07:55 12:44 Iron 61 (35-150) mcg/dl TIBC 287 (250-450) mcg/dl Transferrin 234 (200-360) mg/dl Ferritin 183.9 (8-388) ng/ml Histoplasma Antibody Negative (Negative) TB Test (QFT) Gold Plus INDETERMINATE A (NEGATIVE) TB Test (QFT) Nil 0.02 IU/mL TB Test Mitogen - Nil 0.35 IU/mL TB Test Ag - Nil 1 0.00 IU/mL TB Test Ag - Nil 2 0.00 IU/mL Medications Administered Current Inpatient Medications Acetaminophen (Tylenol Soln) 650 mg PEG Q4H PRN PRN Reason: PAIN/ FEVER Stop: 11/29/19 08:45 Al Hydrox/Mg Hydrox/Simethicone (Maalox) 15 ml PO Q4H PRN PRN Reason: Dyspepsia Stop: 11/29/19 02:09 Al Hydrox/Mg Hydrox/Simethicone (Maalox Max) 30 ml PO Q6H PRN PRN Reason: Nausea Stop: 11/29/19 19:16 Albuterol (Duoneb) 3 ml NEB Q4R PRN PRN Reason: Shortness Of Breath Or Wheezing Stop: 12/03/19 15:02 Dapsone (Dapsone) 100 mg PO DAILY@0800 [facility] Stop: 11/30/19 13:14 Last Admin: 11/06/19 08:59 Dose: 100 mg Documented by: Dolutegravir Sodium (Tivicay) 50 mg PO BID@ [facility] Stop: 12/05/19 19:59 Last Admin: 11/06/19 08:40 Dose: 50 mg Documented by: Doxycycline Hyclate (Vibramycin) 100 mg PO BID@ [facility] Stop: 11/07/19 10:00 Last Admin: 11/06/19 08:50 Dose: 100 mg Documented by: Emtricitabine/Tenofovir (Truvada 200 Mg-300 Mg) 1 tab PO QAM@08 [facility] Stop: 12/06/19 07:59 Last Admin: 11/06/19 08:40 Dose: 1 tab Documented by: Enoxaparin Sodium (Lovenox) 30 mg SQ Q24H [facility] Stop: 11/29/19 08:59 Last Admin: 11/06/19 08:48 Dose: Not Given Documented by: Famotidine (Pepcid) 20 mg PO BID@ [facility] Stop: 12/06/19 19:59 Guaifenesin (Robitussin Sugar Free) 400 mg PO BID@ [facility] Stop: 12/05/19 19:59 Last Admin: 11/06/19 08:42 Dose: Not Given Documented by: Guaifenesin/Dextromethorphan (Robitussin Cough-Chest Dm) 5 ml PO Q6H PRN PRN Reason: Cough Stop: 11/29/19 18:35 Heparin Sodium (Beef Lung) (Heparin Sod 10 Unit/Ml Flush) 5 ml FLUSH PRN PRN PRN Reason: Flush Stop: 12/01/19 18:46 Last Admin: 11/05/19 13:15 Dose: 5 ml Documented by: Tobramycin Sulfate 300 mg/ (Syringe) 7.5 mls @ 0.033 mls/min INH Q12R [facility] Stop: 11/29/19 06:59 Last Admin: 11/06/19 07:14 Dose: 0.033 mls/min Documented by: Voriconazole 200 mg/ Sodium (Chloride) 100 mls @ 50 mls/hr IV Q12H [facility] Stop: 11/30/19 18:59 Last Infusion: 11/06/19 11:04 Dose: Infused Documented by: Lidocaine HCl (Xylocaine 2% Jelly) 3 ml EXT QID PRN PRN Reason: pain Stop: 12/01/19 16:59 Magnesium Hydroxide (Milk Of Magnesia) 30 ml PO Q12H PRN PRN Reason: Constipation Stop: 11/29/19 02:09 Magnesium Oxide (Mag-Ox) 400 mg PO DAILY@1200 [facility] Stop: 12/06/19 11:59 Last Admin: 11/06/19 13:04 Dose: 400 mg Documented by: Miscellaneous (Stop Order) 1 ea N/A QS [facility] Stop: 12/05/19 15:59 Last Admin: 11/06/19 17:07 Dose: Not Given Documented by: Montelukast Sodium (Singulair) 10 mg PO QAM@0800 [facility] Stop: 12/06/19 07:59 Last Admin: 11/06/19 08:41 Dose: Not Given Documented by: Morphine Sulfate (Morphine Sulfate) 2 mg IV Q4 PRN PRN Reason: Pain Stop: 11/15/19 21:13 Synthorid 125 Mcg ~ Non-Formulary Patient's Own Med 1 ea PO DAILYBB [facility] Stop: 11/30/19 06:29 Last Admin: 11/06/19 06:05 Dose: 125 mcg Documented by: Doravirine 100mg ~ Non-Formulary Patient's Own Med 1 ea PO DAILY@0800 [facility] Stop: 12/06/19 07:59 Last Admin: 11/06/19 09:04 Dose: 1 tab Documented by: Nystatin (Mycostatin) 5 ml PO 0800,1200,1600,2000 [facility] Stop: 11/29/19 11:59 Last Admin: 11/06/19 16:59 Dose: 5 ml Documented by: Pantoprazole Sodium (Protonix) 40 mg PO QAM@0800 [facility] Stop: 12/07/19 07:59 Potassium Chloride (Klor-Con Pwd) 20 meq PO TID@0800,1200,2000 [facility] Stop: 12/05/19 11:59 Last Admin: 05/19/20 11:03 Dose: Not Given Documented by: Prochlorperazine (Compazine) 5 mg PO Q6H [facility] Stop: 12/06/19 13:59 Last Admin: 11/06/19 13:06 Dose: 5 mg Documented by: Umeclidinium/Vilanterol (Anoro Ellipta 62.5/25 Mcg Inh) 1 puffs INH DAILY@0800 [facility] Stop: 12/06/19 07:59 Last Admin: 11/06/19 09:01 Dose: Not Given Documented by: Resident Activity Tracking Resident Involvement: Resident Care Provided Care Provided: Adult Hospital Medicine (1) Hypothyroidism Hypothyroidism type: acquired Qualified Code(s): E03.9 - Hypothyroidism, unspecified (2) Asthma Asthma complication type: unspecified Asthma persistence: unspecified Asthma severity: moderate Qualified Code(s): J45.909 - Unspecified asthma, uncomplicated
[2019-11-06] MEDS: FAMOTIDINE 20 MG TAB PO SCH (19:41)
[2019-11-06] MEDS ORDERED: FAMOTIDINE 20 MG TAB PO SCH (21:00)
[2019-11-07] MEDS: [UNRECOGNIZED DRUG - REMARK] SCH ×2 (00:50→12:31)
[2019-11-07] MEDS: PROCHLORPERAZINE MALEATE 5 MG TAB PO SCH ×3 (01:00→13:12)
[2019-11-07] MEDS: LEVOTHYROXINE 125 MCG PO SCH (05:44)
[2019-11-07] MEDS ORDERED: PANTOprazole 40 MG TAB PO SCH ×2 (08:00→09:00)
[2019-11-07] MEDS: UMECLIDINIUM/VILANTEROL 62.5/25MCG 7 PUFFS/INHALER INH SCH (08:40)
[2019-11-07] MEDS: DAPSONE 25 MG TAB PO SCH (08:41)
[2019-11-07] MEDS: NYSTATIN SUSP 500,000 U/5 ML UDC PO SCH ×2 (08:42→13:12)
[2019-11-07] MEDS: ENOXAPARIN INJ 30 MG/0.3 ML SYR SQ SCH (08:42)
[2019-11-07] MEDS: POTASSIUM CHLORIDE PWD 20 MEQ PACK PO SCH ×2 (08:42→12:31)
[2019-11-07] MEDS: FAMOTIDINE 20 MG TAB PO SCH (08:43)
[2019-11-07] MEDS: DORAVIRINE 100 MG PO SCH (08:43)
[2019-11-07] MEDS: guaiFENesin SUGAR FREE 200 MG/10 ML UDC PO SCH (08:44)
[2019-11-07] MEDS: MONTELUKAST SOD 5 MG CHEWABLE TAB PO SCH (08:44)
[2019-11-07] MEDS: EMTRICITABINE/TENOFOVIR TAB PO SCH (08:45)
[2019-11-07] MEDS: DOLUTEGRAVIR SODIUM 50 MG TAB PO SCH (08:45)
[2019-11-07] MEDS: VORICONAZOLE IV SCH (08:46)
[2019-11-07] MEDS: SODIUM CHLORIDE 0.9% IV SCH (08:46)
[2019-11-07] MEDS: DOXYCYCLINE HYCLATE 100 MG CAP PO SCH (08:46)
--- NOTE | 2019-11-07 08:53 | Billing Data ---
Date of Service November 06, 2019 Coding Level of Care Code 58261 Subseq Hosp Care Lvl 2
[2019-11-07] MEDS: TOBRAMYCIN SULFATE 300 MG in SYRINGE 0 ML INH SCH (09:44)
[2019-11-07] MEDS: MAGNESIUM OXIDE 400 MG TAB PO SCH (13:11)
--- NOTE | 2019-11-07 13:22 | Discharge Summary ---
Date of Service November 07, 2019 Admission HPI Per Admitting Provider The patient is a 49-year-old female with a past medical history including HIV, asthma, coagulopathy, pericardial effusion, hepatic lesion, mood disorder, oral thrush and hypothyroidism. She presents to the emergency department with complaints similar to her most recent admission during August, with complaint of shortness of breath worsening over the past few days. Work-up in the emergency department included a chest x-ray which showed a multifocal pneumonia. She was also COVID test negative on the ED. 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 There is a questionable history of DARCIE/MAC. Admission Exam Per Admitting Provider The patient is awake, alert and oriented 3, looks malnourished and emaciated, atraumatic, lying in bed and in no acute distress. HEENT--PERRL, EOMI, mucous membranes and oropharynx dry. Neck--supple. No JVD. No bruits. Thyroid normal, trachea midline, no adenopathy. Heart--normal S1 and S2. No murmurs, rubs or gallops. Lungs--coarse breath sounds bilaterally with scattered wheezes. No respiratory distress, no accessory muscle use. Abdomen--normal bowel sounds and soft. Nontender. Nondistended. Extremities--no cyanosis or clubbing. No edema. Dermatologic--normal skin turgor. Neurologic--cranial nerves II through XII grossly intact. Rheumatologic--normal range of motion. Psychiatric--normal affect. Principal Diagnosis Multifocal pneumonia, bronchiectasis, cavitary lesions, COPD, asthma, AIDS, symptomatic oral thrush, nausea, vomiting, diarrhea, severe protein calorie malnutrition Discharge Exam General Appearance: Awake, alert & oriented, appears cachectic with temporal wasting, but does not appear in immediate distress. CV: +S1S2 RRR, no murmur. Pulm: Clear to auscultation throughout. Abdomen: +BS, soft, non-distended. Thin habitus. Minimal tenderness to epigastric region only. No tenderness in bilateral lower quadrants. Exam unchanged from previous day. Extremities: No pedal edema or calf tenderness. Moving all extremities naturally and easily. Neuro: No gross neuro deficits. Lines: PICC line in place. Discharge Data Allergies Allergy/AdvReac Type Severity Reaction Status Date / Time Penicillins AdvReac Unknown Rash Verified 10/29/19 20:07 Consultations Infectious disease progress note assessment and plan on November 02, 2019 (1) Multifocal pneumonia: She will continue on HAART. She should continue on abx for PNA pending sputum culture results - all cultures normal phong. agree with d/c on doxy. she has had long standing low CD4 and detectable viral load despite multiple differing regimens, she remains with CD4 <50 and remains high risk for several OI, including DARCIE. she is to be on prophylaxis for this based on last ID visit 07/2019. She did recently have negative AFB culture but agree with repeat testing, IGRA less helpful due to low CD4. she does have long standing OI with oral thrush and should remain on treatment, although not likely to improve significantly unless CD4 improves, have been unable in past to obtain records/confirmation of fluconazole resistant thrush - she has also refused many po meds and prefers liquid formulation. Due to low CD4/asthma she remains high risk for recurrent CAP. COVID and flu negative. Would suggest bronch if sputum culture negative. would also suggest serum crypto and histo antigen (although she has been on senior care antifungal) If she undergoes bronch, would suggest biopsy and testing for PCP, however less likely as she is to be on rx for pcp prophylaxis, O2 sat 99% on RA. Will follow results. she will need close follow up with HIV provider post d/c. she did express understanding of this on most recent phone call and did confirm that she has established care for ongoing HIV treatment elsewhere. (2) HIV (human immunodeficiency virus infection): (3) Oral thrush: Pulmonology progress note assessment and plan on November 01, 2019 Chest x-ray: 10/29/2019: Hyperinflated film, again chronic right upper lobe and left lower lobe infiltrate, the haziness which is appreciated on previous admission 09/11/2019 are not seen anymore. --Intermediate gold QuantiFERON I was looking at the previous chart there is no documentation of 3 consecutive negative AFBs. Patient did have an AFB done as an outpatient by [facility] which was negative for cultures at 8 weeks. Patient does have bronchiectasis on the CAT scan especially of the right middle lobe, this most likely goes along with DARCIE Would get 3 consecutive AFB sputum culture. 2 AFB smears are negative as of 10/31/2019 Continue with airborne precautions --Multilobar pneumonia In a patient with HIV/AIDS, 09/03/19 CD4 count 11 with viral load 2430 (as per IDs latest note) Patient stated that she is compliant with her HIV medication but that has been history that she has been noncompliant. As per the ID note from [facility] patient is on dapsone and azithromycin for chronic prophylaxis and AIDS Continue with broad-spectrum antibiotics with atypical coverage. Patient's COVID 19 was negative on 10/28 along with influenza panel --Bronchiectasis Patient has underlying bronchiectasis especially bilateral middle lobe seems like DARCIE in a patient with AIDS. Patient had history of Pseudomonas and expectorated sputum done January 2019 which was pansensitive except intermediate for gentamicin. Patient is on inhaled tobramycin at home. Continue with it while in hospital. Continue with antitussive medication with guaifenesin. --HIV/AIDS Continue with Blackwell therapy Recommend prophylactic weekly azithromycin as well as dapsone for DARCIE and PCP prophylaxis. As per Dr Pérez, case was discussed with the ID physician who is taking care of the patient and he wants her only on dapsone. -- COPD Patient is on Laba/lama inhaler at home Continue with that. Plan: Chest x-ray from today personally reviewed there is no significant change in the right upper lobe with a left lower lobe infiltrate that the patient has. Patient seen and examined at bedside today. 2 AFB smear negative to date. The last AFB smear was taken today in the morning. If that comes out to be negative patient can be taken off isolation. Had an in-depth discussion regarding bronchoscopy with the patient. Explained to the patient that she has been having this infiltrates in the lung for a very long time and bronchoscopy is the only way to find out what kind of infection she has and this will help treat underlying issue that she has. Patient kept reiterating that she had a very bad experience when she had bronchoscopy done in the past and she was not able to talk for more than 2 months. I try to explain in the best layman terms possible the importance of doing a bronchoscopy but is she still does not want it. From pulmonary perspective would recommend the patient to be on flutter valve, give doxycycline for total of 5 more days. Antitussive medication with mucolytic for the chronic cough that the patient has. Patient is to continue with tobramycin. Patient follows up with Dr. Barbosa as an outpatient. If the patient does agree it can be done as an outpatient. Case was discussed with Dr Pérez. No further recommendations from pulmonary perspective. Ordered Studies CT chest without contrast on November 02, 2019 IMPRESSION: 1. Progressively worsened irregular consolidative and groundglass opacities within a multilobar distribution, most pronounced in the right upper and middle lobes and left lower lobe. Many of the consolidations demonstrates central cavitation including the dominant 6.4 cm consolidative opacity of the left lower lobe. Relapsing and remitting irregular opacities have been present on studies dating back to 08/05/2018. These findings are suggestive of a chronic atypical cavitary pneumonia. Nontuberculous mycobacterium among other etiologies considered. Close follow-up is needed. 2. Bronchitis with mucous plugging and multi segmental bronchiectasis redemonstrated. 3. Pulmonary artery hypertension. Hospital Course (1) Multifocal pneumonia: 49-year-old female was admitted on 30 Oct 2019 for worsening SOB and multi focal pneumonia. Multifocal pneumonia, bronchiectasis, cavitary lesions, COPD, asthma: 11May COVID-19 and influenza negative. Sputum AFB cultures negative x 3. Crypto antigen and histoplasma Ab negative. Initially treated with four days of vancomycin and aztreonam. - 15May CT chest noted possible cavitary pneumonia (6.4 cm consolidative opacity, see full report). - Latest 15May [facility] ID note, She will continue on HAART. She should continue on abx for PNA pending sputum culture results - all cultures normal phong. - Latest 14May pulm note recommended bronchoscopy but patient is reluctant (? prior bad experience). On a flutter valve. Antitussive medications. F/u with Dr. Barbosa (pulm) as outpatient. Continue home inhaled tobramycin. Continue home LAMA and LABA. Signed off. - Presently on doxycycline (started 12May, end 20May), dapsone PO, and home tobramycin inhaled. On anoro ellipta and singulair. - 12May Quantiferon resulted as indeterminate. - Patient is not interested in any CT-guided aspiration for diagnosis. - Plan on discharge is for the patient to follow-up with Dr. Barbosa of pulmonology for further discussion and possible outpatient bronchoscopy. HIV / AIDS, neutropenia: See 13May note regarding discussion with patients ID doctor (Dr. Ruby at [facility] [phone]). Prior viral load 4,000 and CD4 count of 2. Recommended continued dapsone daily and against prophy with azithromycin. Reported difficult PIV access. Plans for starting Trogarzo after discharge via PICC line (placed on 13May) and home health. Present ANC around 500s. As inpatient, was kept on home tivicay, doravirine, and Truvada. - Plan for f/u with ID as outpatient on discharge. Symptomatic oral thrush: Previously on home maintenance oral voriconazole. Swit ched to IV. Continues to improve. - Discharge on home oral voriconazole and added nystatin x 14 days. Emesis: Noted overnight 16-17May after eating. Perhaps stress-induced gastritis. Nearly totally resolved > 48 hours now. - Will discharge on pantoprazole PO, famotidine PO, and Compazine PO prn. Diarrhea: Likely secondary to decreased PO intake and BLACKWELL medications. 13May C diff negative. Has had some waxing/waning. Stool occult blood was positive, but there was no jason bloody stool. Stool crypto antigen pending at time of discharge. Severe acute on chronic protein-calorie malnutrition, failure to thrive: Recent 10+ pound weight loss. Monitored mag and phos while re-feeding. Consider appetite stimulant as outpatient. Hypokalemia, hypomagnesemia, hypophosphatemia: In setting of severe acute on chronic protein-calorie malnutrition and loose stools. On potassium TID as well as mag-ox daily. Prolonged QTc: Goals K > 4, Mg > 2. Replacing as discussed above. Avoid prolonging Rx as possible. Elevated INR: PMH coagulopathy as well as malnutrition. As high as INR 2.9, since resolved. Given vitamin K and nutritional support. Does have hemoccult- positive stool, but Hb has been stable and no gross melena/hematochezia. Recommend GI f/u as outpt as was discussed with patient. Anemia: Chart lowest Hb 5.3 was thought to be falsely low. Recheck 8.9. Never was transfused. Presently stable. Iron studies were normal. Recommend following CBC in 1 week with PCP Ongoing medical issues: - Hypothyroidism: Continue home Synthroid (patient had requested to use her own). - Mood disorder: No acute issues. - PMH pericardial effusion, hepatic lesion. Code Status: Full code. Disbo: Arranged [facility] home health for PICC use. (2) Bronchiectasis: (3) Pulmonary cavitary lesion: (4) Chronic obstructive pulmonary disease: (5) Asthma: (6) AIDS (acquired immune deficiency syndrome): (7) Oral thrush: (8) Emesis: (9) Diarrhea: (10) Severe protein-calorie malnutrition: (11) Hypokalemia: (12) Hypomagnesemia: (13) Hypophosphatemia: (14) Elevated INR: (15) Anemia: (16) Hypothyroidism: (17) Mood disorder: Total Time Total Time Spent Total Time Spent (In Minutes): > 30 min Discharge Plan Discharge Items Patient Disposition: Home - Home Health Services Reason For Visit: MULTIFOCAL PNEUMONIA Discharge Diagnosis: Multifocal pneumonia, bronchiectasis, cavitary lesions, COPD, HIV and AIDS, symptomatic oral thrush, vomiting and diarrhea Condition on Discharge: Good Activity: Per Instructions section Non-emergency contact: Primary Care Provider and Specialist Call non-emergency contact if: you have any medication questions Follow-up/Referrals: Dr. Graham Ruby [Other] - 12/05/19 9:00 am (Please, follow up with Dr. Ruby on TuesdayDecember 04 at 9:00 am. *This appointment will be at the [address] Office in [place]. If you need to change this appointment, call the office at [phone].) Gideon Barbosa MD [Physician] - 11/19/19 2:45 pm (Please, follow up at [facility] Pulmonology Office with Dr. Barbosa on TuesdayNovember 18 at 3:00 pm (arrive 2:45 pm). *The office is located in [address] of [facility], next to this hospital. If you need to change this appointment, call the office at [phone].) Arely Anne CRNP [Outside Practitioners] - 11/13/19 2:10 pm (A follow up appt. has been made for you on November 12 at 2:10pm.) Diet: Regular Addtl Attending Provider Instructions: You were admitted to the hospital on October 30, 2019 for difficulty breathing and pneumonia. While in the hospital we addressed the following issues: Pneumonia, lung cavitary lesion: After doing a CT scan of your chest, there is a large area within the lung that appears to be an ongoing infection. We have tried to treat this with doxycycline here in the hospital. You completed a full course of that here. However, in order to know exactly what we are trying to treat, it is important that you undergo a bronchoscopy. As we discussed in the hospital, this should be done via Dr. Barbosa's office. - Please follow-up with Dr. Barbosa as soon as possible for ongoing care. - Otherwise, you should remain on the same lung medications you were on before coming into the hospital. HIV and AIDS: We did not change any of your medications regarding this while in the hospital. Please follow-up with Dr. Ruby of [facility] infectious disease for close posthospital HIV care. It is our understanding that he restarted you on dapsone and you already have a prescription for this at home. If you need more, please contact his office. Oral thrush: This seemed to improve when we switched your voriconazole from taking by mouth to IV. Of course, when going home, we will switch back to the oral form. - We will add an additional treatment called nystatin to try to help with this. - Please continue to follow-up with Dr. Ruby for ongoing care. Nausea, vomiting, and diarrhea: As you know, this seems to come and go while you are here in the hospital. Much of this may be related to your HIV medications. - Upon hospital discharge, we will send you home with three new medicines: The first two are pantoprazole and famotidine. Both of these will help with some acid in your stomach. The third medication will be Compazine, and an anti- nausea pill, which you can take as needed. Malnutrition: As you know, it is very important that you continue to drink prote in drinks like boost to keep up with your nutrition. PICC line: While in the hospital we inserted an advanced IV line called a PICC line. This was placed to help your infectious disease doctor to reach you as an outpatient. [facility] home health should be able to help you with care of this line. Please use the heparin flush once daily through your PICC line to keep a clot from forming. Overall, it is important that you follow-up with Dr. Barbosa, Dr. Ruby, as well as your primary care provider as soon as possible for close post- hospitalization continuity of care. Please return to the nearest emergency department if you have any worsening chest pain, difficulty breathing, if you cannot speak or swallow, if you are vomiting or diarrhea get out of control, if you believe you are very dehydrated, or with any other emergent concerns. Pending Studies at Discharge: Yes Studies:: Stool crypto antigen. Stand-Alone Forms: My [facility] [employer], Smoking Cessation Medications and DC Order Prescriptions: New dapsone 25 mg Tablet 100 mg PO DAILY@0800 30 Days Qty: 30 RF: 0 famotidine 20 mg Tablet 20 mg PO BID 30 Days Qty: 60 RF: 0 pantoprazole 40 mg Tablet,Delayed Release (Dr/Ec) 40 mg PO QAM 30 Days Qty: 30 RF: 0 prochlorperazine maleate 5 mg Tablet 5 mg PO Q6H PRN (Reason: nausea and vomiting) Qty: 30 RF: 0 nystatin 100,000 unit/mL suspension 5 ml BUCCAL QID 14 Days Qty: 280 RF: 0 heparin, porcine (PF) 10 unit/mL Syringe 50 unit Flush DAILY 30 Days Qty: 150 RF: 0 Continued fluticasone propionate 50 mcg/actuation spray,suspension 2 sprays intranasal DAILY Qty: 16 RF: 5 Bevespi Aerosphere 9-4.8 mcg HFA aerosol inhaler 2 puffs INH BID Qty: 10.7 RF: 3 Tivicay 50 mg Tablet 50 mg PO BID Qty: 60 RF: 5 Truvada 200-300 mg Tablet 1 tab PO QPM Qty: 30 RF: 5 voriconazole 200 mg/5 mL (40 mg/mL) suspension for reconstitution 200 mg PO BID 10 Days Qty: 100 RF: 0 levothyroxine [Synthroid] 125 mcg tablet 125 mcg PO QAM RF: 0 Bethkis 300 mg/4 mL solution for nebulization 300 mg INHALATION Q12H RF: 0 albuterol sulfate 2.5 mg /3 mL (0.083 %) solution for nebulization 2.5 mg INH Q4H PRN (Reason: Shortness Of Breath Or Wheezing) RF: 0 montelukast 10 mg tablet 10 mg PO QAM RF: 0 albuterol sulfate [Ventolin HFA] 90 mcg/actuation HFA aerosol inhaler 2 puff Inhalation Q6H PRN (Reason: Cough and/or Wheezing) RF: 0 ondansetron 4 mg tablet,disintegrating 4 mg PO Q6H PRN (Reason: Nausea And Vomiting) RF: 0 Lidocaine Viscous 2 % solution See Rx Instructions .ROUTE .COMPLEX PRN (Reason: Mouth Pain) RF: 0 Boost Breeze Nutritional 0.04-1.05 gram-kcal/mL liquid See Rx Instructions .ROUTE .COMPLEX RF: 0 Pifeltro 100 mg Tablet 100 mg PO QAM RF: 0 Discharge Orders: Discharge Order (Routine); Ordered 11/07/19 Ordered By: Adonis Beckham Admission Data Admit Date/Time: 10/30/19 00:43 Attending Provider: Martita Nagy Admit Provider: Syd Dinh Primary Care Provider: Balwinder Pruitt Other Providers: Bronwyn Tsai ; [facility],Home Healthcare ; Ty Emery ; Syd Haley ; Mahi Abdalla Other Interventions: Discharge Summary Assessment (RN) Last Done: 11/07/19 14:03 DC Date/Time DO NOT enter until pt leaves facility: 11/07/19 14:30 Supervising Physician Co-Signing Physician Notes I personally examined the patient and verified all butler points of history and exam, discussed case, and agree with decision making with Dr. Beckham Feeling much improved overall, is eating more. No further diarrhea. No abdominal pain. Has more energy today. Vitals reviewed Cachectic, NAD, AAOx3 Anicteric sclerae, tongue and buccal mucosa with moderate amount of white thrush RRR no mgr CTAB no wcr Abd +BS soft NT ND Ext no edema, +sarcopenia failure to thrive-improving, has gained 3 kg since admission -mostly poor PO intake likely related to thrush, likely also fatigue/lack of appetite from pulmonary infection and HIV/AIDS -continue to follow PO intake as outpt -continue to treat thrush and encourage intake, low threshold for appetite stimulant but right now hold off and pt declines vomiting-resolved -without context of low CD4 would seem to be stress-induced gastritis (stress from acute illness/acute malnutrition) -improving with treatment with aggressive acid suppression and nausea control as well as treatment for severe thrush -No EGD indicated at this time for this, however with Hemoccult positive stool--> rec f/u with GI as outpt thrush -voriconazole IV was given and convert back to po on dc -nystatin swish PO -ID input noted - with CD4 so low this will be an ongoing problem until/unless her counts respond to new treatment bronchiectasis/appearance of pneumonia/cavitary lesions-question TB although with 3 negative AFB smears and Quantiferon Gold testing is not reliable in her case as per ID Could be histoplasmosis or DARCIE Declines bronchoscopy inpatient--> will have her f/u with Dr. Barbosa as outpt for consideration of outpt bronchoscopy -finished course of doxy, continue PCP prophylaxis with Dapsone, and continue inhaled tobramycin diarrhea -stool for Cdiff negative, check cryptococcal stool test-pending at time of dc elevated INR - improved w vitamin K - marker of malnutrition severe acute protein /calorie malnutrition likely superimposed on moderate to severe chronic --> see above with failure to thrive, thrush and vomiting. also low threshold for appetite stimulant. Stable for dc to home Was given heparin flushes for her PICC on discharge x 1 week supply as her pharmacy did not have them in stock. She is to be ordered for her new IV treatment for HIV by her ID and then home infusion company can provide more heparin flushes. Resident Activity Tracking Resident Involvement: Resident Care Provided Care Provided: Adult [facility] Medicine
--- NOTE | 2019-11-07 18:35 | Billing Data ---
Date of Service November 07, 2019 Coding Level of Care Code D/C Day Management >30 mins
== END 2019-11-07 14:30 | disposition home health service (06) | DRG 974 ==
LOC: ED 16:31 → SUATTDRO 10-30 00:43 → 2S 10-30 00:43 → 2W 11-01 18:34